=== PATIENT | male | born 1965 ===

== ENCOUNTER 2020-09-24 09:08 | Outpatient (RCR) | payer OTHER, SELFPAY | END 2020-10-30 15:21 | disposition home or self-care (01) | LOC: HO.WCC 09:08 | PROVIDERS: PCP Family Medicine; Visit Provider Surgery | DX: E11.621 Type 2 diabetes mellitus with foot ulcer (principal); L97.522 Non-pressure chronic ulcer of other part of left foot with fat layer exposed; I10 Essential (primary) hypertension; Z79.4 Long term (current) use of insulin; Z79.899 Other long term (current) drug therapy | CPT/HCPCS: 11042; 99212 ==

== ENCOUNTER 2020-11-18 10:01 | Outpatient (REF) | payer OTHER, SELFPAY | END 2020-11-18 10:02 | disposition home or self-care (01) | LOC: HO.LAB 10:01 | PROVIDERS: Visit Provider Internal Medicine | DX: Z20.822 Contact with and (suspected) exposure to COVID-19 (principal) | CPT/HCPCS: 36415; C9803; U0003; U0005 ==

== ENCOUNTER 2021-05-24 20:51 | Inpatient (IN) | payer OTHER, SELFPAY ==
--- NOTE | ~2021-05-24 | MR_ITS ---
EXAMINATION: MR FOOT WITHOUT AND WITH CONTRAST, RIGHT CLINICAL INFORMATION: Right 1st toe osteomyelitis. COMPARISON: X-ray 05/24/2021 TECHNIQUE: MRI in a high-field magnet without contrast. 10 mL Gadavist. FINDINGS: Soft tissue swelling of the 1st toe, with suspected plantar soft tissue ulceration. There is subcutaneous edema and cellulitis present. No fluid collection or abscess is seen. There is abnormal T2 hyperintense signal and enhancement in the 1st distal phalanx. Foci of low T1 signal in the tip of the phalanx and the plantar aspect of the phalanx. Findings are suspicious for osteomyelitis. No significant 1st IP joint effusion. No additional areas of osteomyelitis identified. Mild 1st MTP arthritis. Dorsal foot soft tissue swelling, subcutaneous edema and/or cellulitis. Mild flexor hallucis longus peritendinitis/tenosynovitis in the midfoot. Edema in the intrinsic muscles of the foot, commonly seen with diabetes. MR/MR foot RT wo/w con IMPRESSION: Abnormal findings suspicious for osteomyelitis of the 1st distal phalanx. First toe soft tissue swelling, edema and cellulitis. No evidence of soft tissue abscess. Mild flexor hallucis longus peritendinitis/tenosynovitis in the midfoot. Additional findings and details, as above.
--- NOTE | ~2021-05-24 | XR_ITS ---
EXAMINATION: XR TOES, RIGHT CLINICAL INFORMATION: Wound COMPARISON: None TECHNIQUE: 3 views of the right toes were obtained. FINDINGS: Soft tissue ulceration near the tip of the great toe. No destructive bony changes to suggest osteomyelitis. XR/XR toe RT min 2V IMPRESSION: Soft tissue swelling, ulceration. No fracture or osteolysis.
[2021-05-24 20:56] VITALS: BP 203/87; PULSE 100; RESP 18; TEMP 36.6; O2SAT 98; BMI 34.9
--- NOTE | 2021-05-24 23:31 | PC.NURSE ---
PT TO ROOM WITH C/O PAIN TO GREAT TOE ON RIGHT FOOT. PT C/O THROBBING PAIN . PT ALERT, RESPIRATIONS EASY, N/L. SKIN W/D. SCOW HAND IN ROOM FOR EVAL WITH APPOINTMENT COORDINATOR.
--- NOTE | 2021-05-24 23:46 | ED.SKABFB ---
HPI - Skin/Abscess/Foreign Bdy General Chief complaint: Skin/Abscess/Foreign Body Stated complaint: toe inj Time Seen by Provider: 05/24/21 23:17 Source: patient and aerial photograph interpreter Mode of arrival: ambulatory Limitations: no limitations and language barrier History of Present Illness HPI narrative: 56-year-old male insulin-dependent diabetic here with complaints of wound to the left great toe for 3 weeks. Patient tells me he 1st noticed the ulceration 3 weeks ago. There was no injury or trauma. He was seen at [facility] in prescribe doxycycline for 10 days. He tells me he did notice some improvement in the wound with taking this but when the antibiotics completed he started to have pain, redness and swelling. He reports for the last 1 week he has had increasing redness, pain, swelling with discoloration to the distal tip of the toe. He denies any fevers or chills. He tells me his blood sugars have been running ?high?. Related Data Allergies Allergy/AdvReac Type Severity Reaction Status Date / Time ibuprofen Allergy Unknown stomach Verified 03/12/13 00:00 upset Seafood Allergy Intermediate RASH Uncoded 06/19/20 14:46 shell fish Allergy Unknown Uncoded 08/02/19 00:00 Review of Systems Review of Systems: Yes all other systems are reviewed and are negative Constitutional: Constitutional: Reports no additional constitutional complaints, Denies body ache(s), Denies chills, Denies fever(s), Denies headache(s) and Denies weakness Eyes: Eyes: Reports no additional eye complaints and Denies change in vision ENT: Reports system reviewed and no additional complaints, except as documented, Denies dizziness, Denies headache(s), Denies nasal congestion, Denies nasal discharge and Denies neck pain Cardiovascular: Cardiovascular: Reports no additional cardiovascular complaints, Denies chest pain, Denies leg edema and Denies dyspnea Respiratory: Respiratory: Reports no additional respiratory complaints, Denies cough and Denies dyspnea Gastrointestinal: Gastrointestinal: Reports no additional gastrointestinal complaints, Denies abdominal pain, Denies diarrhea, Denies nausea and Denies vomiting Genitourinary: Genitourinary: Denies urinary incontinence Musculoskeletal: Musculoskeletal: Reports no additional musculoskeletal complaints, Denies back pain, Denies arthralgias, Denies joint swelling, Denies neck pain, Denies numbness and Denies tingling Integumentary/Breasts: Skin/Breast: Reports system reviewed and no additional complaints, except as docu, Reports swelling, Reports erythema, Denies rash and Reports wounds Neurologic: Reports system reviewed and no additional complaints, except as documented, Denies Abnormal speech present, Denies dizziness, Denies headache(s), Denies numbness, Denies tingling and Denies weakness PMFSH Past Medical History Attestation statement: The following information was validated with the patient. Source: old records reviewed and nursing notes reviewed Medical History Asthma Diabetes HLD (hyperlipidemia) HTN (hypertension) Social History Social History Advance Directives: No Advance Directives Information Provided: No Physical Exam Vital Signs: Vital Signs: Last Vital Signs Temp 97.9 F 05/24/21 20:56 Pulse 100 05/24/21 20:56 Resp 18 05/24/21 20:56 BP 177/82 H 05/25/21 01:24 Pulse Ox 98 05/24/21 20:56 Body Mass Index 34.9 Const: General: cooperative, healthy appearing, comfortable and no acute distress Orientation/consciousness: patient oriented x3 Limitations: no limitations HENMT: Head: Yes normal to inspection Ears: hearing grossly normal bilaterally General nose exam: Normal external nose present Face and sinus: Yes normal facial exam Mouth: Normal oral and palatal mucosa present Throat: Yes posterior oropharynx normal Eyes: General: appearance normal, both eyes and all related structures Pupils: Equal, round and reactive pupils present Neck: Neck: Yes normal visual inspection Chest: Chest palpation & inspection: normal inspection of the chest Resp: Effort & Inspection: normal respiratory effort Auscultation: clear to auscultation bilaterally Cardio: Rate: regular rate Rhythm: regular rhythm Peripheral pulses: Peripheral pulses 2+ throughout GI: Inspection: Yes normal to inspection Palpation (GI): Soft to palpation and nontender Auscultation: normal bowel sounds Back/Spine/Pelvis: Thoracic/Lumbar Spine: thoracic and lumbar spine normal to inspection Skin: General skin exam: no rashes or lesions noted Neuro: General: patient oriented x3, no focal motor deficits and normal sensation to monofilament Cranial nerves: Yes Equal, round and reactive pupils present Cognition (Neuro): normal cognition Speech: No Abnormal speech present Gait exam (Neuro): Normal gait present Motor exam (neuro): 5/5 motor strength present throughout Extrem: Other: +DP/PT pulses. General: Yes normal to inspection Course Course Course Narrative: 56-year-old male with insulin-dependent diabetes here with wound to the great toe worsening despite completing dose of oral doxycyline with increasing redness, swelling, discoloration. Will need labs, x-ray. At this time infection is suspected. Antibiotics ordered. 0120-Spoke to Dr Cuello from medicine team who accepted admission. Mild hypertension-asymptomatic. Patient missed his nighttime dose of Cozaar. This was ordered. Nursing to follow. MDM - Skin/Abscess/Foreign Bdy Medical Records Attestation: I reviewed the patient's medical records. Lab Data Attestation: I reviewed the patient's lab results. Result diagrams: 05/24/21 23:45 05/24/21 23:45 Labs: Lab Results 05/24/21 05/24/21 05/24/21 Range/Units 23:45 23:45 23:45 WBC 10.0 (4.8-10.8) X10*3/uL RBC 4.18 L (4.60-5.80) X10*6/uL Hgb 12.5 L (14.0-18.0) g/dl Hct 36.8 L (42-52) % MCV 88.0 (80-98) fL MCH 29.9 (27.0-33.0) pg MCHC 34.0 (31.0-36.0) g/dl RDW 12.8 (11.0-16.0) % Plt Count 264 (160-400) X10*3/uL MPV 10.8 (9.4-12.4) fL Immature Gran % (Auto) 0.5 H (0.0-0.4) % Neut % (Auto) 54.9 (45-73) % Lymph % (Auto) 33.2 (20-40) % [place] % (Auto) 9.7 (2-11) % Eos % (Auto) 1.4 (0-4) % Baso % (Auto) 0.3 (0-2) % Lymph # (Auto) 3.3 (1.2-4.9) X10*3/uL [place] # (Auto) 1.0 (0.1-1.2) X10*3/uL Eos # (Auto) 0.1 (0.0-0.4) X10*3/uL Baso # (Auto) 0.0 (0.0-0.2) X10*3/uL Abs Immat Gran (auto) 0.05 H (0.00-0.03) X10*3/uL Absolute Neuts (auto) 5.5 (2.0-8.3) X10*3/uL Absolute Nucleated RBC 0.000 (0.0-0.012) X10*3/uL Nucleated RBC % (auto) 0.0 (0.0-0.2) /100WBC Sodium 137 (135-145) mmol/L Potassium 4.2 (3.3-5.1) mmol/L Chloride 98 (96-108) mmol/L Carbon Dioxide 30 H (22-29) mmol/L Anion Gap 13 (12-20) BUN 25 H (9-16) mg/dL Creatinine 1.34 (0.5-1.4) mg/dL Estim Creat Clear Calc 82.6 Estimated GFR 55 Random Glucose 251 H (60-115) mg/dL Lactic Acid 1.6 (0.5-2.0) mmol/L Calcium 10.0 (8.4-10.2) mg/dL Total Bilirubin 0.3 (0.0-1.0) mg/dL Direct Bilirubin < 0.2 (0.0-0.5) mg/dL AST 29 (5-37) U/L ALT 39 (0-40) U/L Alkaline Phosphatase 144 H (39-117) U/L Total Protein 7.6 (6.5-8.0) g/dL Albumin 4.2 (3.5-5.0) g/dL COVID-19 (YAZMIN) (Negative) COVID-19 Clin Com 05/24/21 Range/Units 23:45 WBC (4.8-10.8) X10*3/uL RBC (4.60-5.80) X10*6/uL Hgb (14.0-18.0) g/dl Hct (42-52) % MCV (80-98) fL MCH (27.0-33.0) pg MCHC (31.0-36.0) g/dl RDW (11.0-16.0) % Plt Count (160-400) X10*3/uL MPV (9.4-12.4) fL Immature Gran % (Auto) (0.0-0.4) % Neut % (Auto) (45-73) % Lymph % (Auto) (20-40) % [place] % (Auto) (2-11) % Eos % (Auto) (0-4) % Baso % (Auto) (0-2) % Lymph # (Auto) (1.2-4.9) X10*3/uL [place] # (Auto) (0.1-1.2) X10*3/uL Eos # (Auto) (0.0-0.4) X10*3/uL Baso # (Auto) (0.0-0.2) X10*3/uL Abs Immat Gran (auto) (0.00-0.03) X10*3/uL Absolute Neuts (auto) (2.0-8.3) X10*3/uL Absolute Nucleated RBC (0.0-0.012) X10*3/uL Nucleated RBC % (auto) (0.0-0.2) /100WBC Sodium (135-145) mmol/L Potassium (3.3-5.1) mmol/L Chloride (96-108) mmol/L Carbon Dioxide (22-29) mmol/L Anion Gap (12-20) BUN (9-16) mg/dL Creatinine (0.5-1.4) mg/dL Estim Creat Clear Calc Estimated GFR Random Glucose (60-115) mg/dL Lactic Acid (0.5-2.0) mmol/L Calcium (8.4-10.2) mg/dL Total Bilirubin (0.0-1.0) mg/dL Direct Bilirubin (0.0-0.5) mg/dL AST (5-37) U/L ALT (0-40) U/L Alkaline Phosphatase (39-117) U/L Total Protein (6.5-8.0) g/dL Albumin (3.5-5.0) g/dL COVID-19 (YAZMIN) Negative (Negative) COVID-19 Clin Com See Note Imaging Data right toe x-ray: Attestation: I personally reviewed and interpreted this imaging study as follows: Radiologist's impression: EXAMINATION: XR TOES, RIGHT CLINICAL INFORMATION: Wound COMPARISON: None TECHNIQUE: 3 views of the right toes were obtained. FINDINGS: Soft tissue ulceration near the tip of the great toe. No destructive bony changes to suggest osteomyelitis. XR/XR toe RT min 2V IMPRESSION: Soft tissue swelling, ulceration. ? No fracture or osteolysis. Discharge Plan Discharge Clinical Impression: Diabetic ulcer of toe Patient Disposition: Admitted As Inpatient
[2021-05-25] VITALS (8 sets, daily range): BP systolic 150–177; BP diastolic 79–102; PULSE 94–108; RESP 16–18; TEMP 36.6–36.8; O2SAT 95–99; BMI 34.0
[2021-05-25 00:03] LABS: Basophils Percent Auto 0.3 % (0-2); Eosinophils Absolute Auto 0.1 X10*3/uL (0.0-0.4); Eosinophils Percent Auto 1.4 % (0-4); Hematocrit 36.8 % (42-52); Hemoglobin 12.5 g/dl (14.0-18.0); Imm Gran Abs Auto 0.05 X10*3/uL (0.00-0.03); Imm Gran Pct Auto 0.5 % (0.0-0.4); Lymphocytes Absolute Auto 3.3 X10*3/uL (1.2-4.9); Lymphocytes Percent Auto 33.2 % (20-40); MANUAL DIFF FLAG NO; Mean Corpuscular Hemoglobin 29.9 pg (27.0-33.0); Mean Platelet Volume 10.8 fL (9.4-12.4); Monocytes Percent Auto 9.7 % (2-11); Neutrophils Absolute Auto 5.5 X10*3/uL (2.0-8.3); Neutrophils Percent Auto 54.9 % (45-73); Platelet Count 264 X10*3/uL (160-400); Red Blood Count 4.18 X10*6/uL (4.60-5.80); Red Cell Distribution Width 12.8 % (11.0-16.0)
[2021-05-25] MEDS: vancomycin HCL 1,000 MG, vancomycin HCL 750 MG in 0.9 % Sodium Chloride 500 ML 267.5 MG IV (00:11)
[2021-05-25] MEDS: Piperacillin Sodium/Tazobactam 3.375 GM in 0.9 % Sodium Chloride 50 ML IV ×4 (00:13→22:48)
[2021-05-25 00:18] LABS: Lactic Acid 1.6 mmol/L (0.5-2.0)
--- NOTE | 2021-05-25 00:22 | PC.NURSE ---
TELEPHONE CLEANER AT BEDSIDE FOR EVAL. IV PLACED TO RAC, LABS DRAWN TO LAB. PT MEDICATED PER EMAR. VS OBTAINED.
[2021-05-25 00:24] LABS: COVID-19 Test Negative (Negative)
--- NOTE | 2021-05-25 00:28 | PC.NURSE ---
COVID SWAB OBTAINED TO LAB.
[2021-05-25 00:31] LABS: Alanine Aminotransferase 39 U/L (0-40); Albumin Level 4.2 g/dL (3.5-5.0); Alkaline Phosphatase 144 U/L (39-117); Anion Gap 13 (12-20); Aspartate Amino Transferase 29 U/L (5-37); Bilirubin Direct < 0.2 mg/dL (0.0-0.5); Bilirubin Total 0.3 mg/dL (0.0-1.0); Blood Urea Nitrogen 25 mg/dL (9-16); Carbon Dioxide 30 mmol/L (22-29); Chloride 98 mmol/L (96-108); Creatinine Clr Calc Pharmacy 82.6; Estimated Glomerular Filt Rate 55; Glucose Random 251 mg/dL (60-115); Potassium 4.2 mmol/L (3.3-5.1); Sodium 137 mmol/L (135-145); Total Protein 7.6 g/dL (6.5-8.0)
[2021-05-25] MEDS: Losartan Potassium 50 MG TABLET PO (01:46)
--- NOTE | 2021-05-25 01:50 | PC.NURSE ---
HOSPITALIST IN ROOM WITH SOUVENIR ASSEMBLER FOR POSSIBLE ADMISSION. PT DENIES PAIN AT THIS TIME.
--- NOTE | 2021-05-25 02:45 | P.HPHOSP_ITS ---
History of Present Illness Date of Service: 05/25/21 Chief Complaint: Right 1st toe wound 56-year-old M[employer] [place] male with history of diabetes mellitus (insulin dependent), diabetic neuropathy, asthma, hyperlipidemia, hypertension, who presented with worsening right great toe ulcer/infection. History is from patient (using insurance biller) and from ED notes. Patient endorses to me that he stubbed his toe about 20 days ago on the concrete, and ever since has been dealing with a right 1st toe the ulcer. He states that it is not very painful spot, possibly secondary to his diabetic n europathy. He was seen by emergency medical center in the past, and was started on a 10 day course of doxycycline, which seemed to help a little, but when the antibiotic course was completed, his symptoms continued to worsen. He describes increasing redness, pain and swelling. Otherwise, he denies systemic features such as fevers, chills, nausea, vomiting, chest pain, shortness of breath, abdom inal pain. In the ED, vitals were significant for blood pressure as high as 203/87, otherwise vitals are unremarkable. Labs were significant for the following: Glucose 251, alkaline phosphatase 144, otherwise labs are unremarkable. X-ray of the right foot revealed soft tissue swelling, ulceration, no fracture or osteolysis. However, on physical exam, it appears that he can see the bone. The patient was started on IV vancomycin and IV Zosyn. He is being admitted for right great toe diabetic ulcer, likely osteomyelitis. Review of Systems Review of Systems: Constitutional: ?No Weight Change, No Fever, No Chills, No Night Sweats, No Fatigue, No Malaise ENT/Mouth: ?No Hearing Changes, No Ear Pain, No Nasal Congestion, No Sinus Pain, No Hoarseness, No sore throat, No Rhinorrhea, No Swallowing Difficulty Eyes: ?No Eye Pain, No Swelling, No Redness, No Discharge, No Vision Changes Cardiovascular: ?No Chest Pain, No SOB, No Orthopnea, No Claudication, No Edema, No Palpitations Respiratory: ?No Cough, No Sputum, No Wheezing, No Smoke Exposure, No Dyspnea on Exertion, No Dyspnea Gastrointestinal: ?No Nausea, No Vomiting, No Diarrhea, No Constipation, No Pain, No Heartburn, No Anorexia, No Dysphagia, No Hematochezia, No Melena, No Jaundice Genitourinary: ?No Dysuria, No Urinary Frequency, No Hematuria, No Flank Pain Musculoskeletal: ?Right great toe with ulcer, pain, swelling. Otherwise, no Joint Swelling, No Joint Stiffness, No Back Pain, No Neck Pain Skin: ?Except for right great toe lesion (see musculoskeletal above), No Skin Lesions, No Pruritis Neuro: ?No Weakness, No Numbness, No Paresthesias, No Loss of Consciousness, No Syncope, No Dizziness, No Headache, No Coordination Changes, No Recent Falls Psych: ?No Anxiety/Panic, No Depression, No Insomnia, No Personality Changes, No Delusions, No Suicidal Ideation /Homicidal Ideation /Auditory Hallucinations /Visual Hallucinations Heme/Lymph: ?No Bruising, No Bleeding, No Transfusions History, No Lymphadenopathy Endocrine: ?No Polyuria, No Polydipsia, No Temperature Intolerance [facility] Medical History Asthma Diabetes HLD (hyperlipidemia) HTN (hypertension) Pertinent family history: Father and mother both had hypertension, diabetes. Surgical History H/O exploratory laparotomy Social History Advance Directives: No Advance Directives Information Provided: No Meds Allergies Allergy/AdvReac Type Severity Reaction Status Date / Time ibuprofen Allergy Unknown stomach Verified 03/12/13 00:00 upset Seafood Allergy Intermediate RASH Uncoded 06/19/20 14:46 shell fish Allergy Unknown Uncoded 08/02/19 00:00 Active Medications: Current Medications Generic Name Dose Route Start Last Admin Trade Name Bravoq PRN Reason Stop Dose Admin Acetaminophen 650 mg 05/25/21 02:36 Acetaminophen 325 Mg Tablet PO Q6H PRN Pain, Mild (Pain Scale 1-3) Hydrocodone Bitart/Acetaminophen 1 tab 05/25/21 02:36 Hydrocodone Bit/Acetam 5/325 Tablet PO Q4H PRN Pain, Moderate (Pain Scale 4-6 Dextrose 25 gm 05/25/21 02:40 Dextrose 50 % 25 Gm/50 Ml Vial IVPUSH Q15M PRN per Hypoglycemia Standing Ord. Protocol Enoxaparin Sodium 40 mg 05/25/21 02:45 Enoxaparin Sodium 40 Mg/0.4 Ml Syringe SUBCUT Q24H [facility] Glucose 15 gm 05/25/21 02:40 Glucose Gel 15 Gm Gel..Gram. PO Q15M PRN per Hypoglycemia Standing Ord. Protocol Ceftriaxone Sodium 2 gm/ 50 mls @ 100 mls/hr 05/25/21 02:45 Sodium Chloride IV Q24H [facility] Insulin Glargine 55 unit 05/25/21 21:00 Insulin Glargine,Hum.Rec.Anlog 100 Unit/Ml 10 Ml Vial SUBCUT BEDTIME [facility] Insulin Human Lispro 0 unit 05/25/21 07:30 Insulin Lispro 100 Unit/Ml 3 Ml Vial SUBCUT QIDACHS [facility] Protocol Pharmacy Consult 1 each 05/24/21 23:39 Consult Rx Perform Med Rec MISCELLANE ONCE PRN Consult order Pharmacy Consult 1 each 05/24/21 23:51 Consult Rx Vancomycin Dosing MISCELLANE DAILY PRN Consult order Pharmacy Consult 1 each 05/25/21 02:42 Consult Rx Vancomycin Dosing MISCELLANE DAILY PRN Consult order Sodium Chloride 3 ml 05/25/21 08:00 0.9 % Sodium Chloride Flush 3 Ml Syringe IV[facility]SH [facility] Home Medications Medication Instructions Recorded Confirmed Last Taken Type aspirin 81 mg tablet,delayed 1 tab PO DAILY 05/25/21 05/25/21 Unknown History release atorvastatin 40 mg tablet 1 tab PO BEDTIME 05/25/21 05/25/21 Unknown History baclofen 20 mg tablet 1 tab PO TID 05/25/21 05/25/21 Unknown History betamethasone dipropionate 0.05 % 0.05 ea TOPICAL DAILY 05/25/21 05/25/21 Unknown History topical ointment cholecalciferol (vitamin D3) 50 1 cap PO DAILY 05/25/21 05/25/21 Unknown History mcg (2,000 unit) capsule fluoxetine 20 mg capsule 2 cap PO QAM 05/25/21 05/25/21 Unknown History gabapentin 300 mg capsule 2 cap PO TID 05/25/21 05/25/21 Unknown History hydrochlorothiazide 25 mg tablet 1 tab PO DAILY 05/25/21 05/25/21 Unknown History loratadine 10 mg tablet 1 tab PO DAILY 05/25/21 05/25/21 Unknown History losartan 100 mg tablet 1 tab PO DAILY 05/25/21 05/25/21 Unknown History metformin 500 mg tablet 500 mg PO BID 05/25/21 05/25/21 Unknown History omeprazole 20 mg capsule,delayed 40 cap PO DAILY 05/25/21 05/25/21 Unknown History release Physical Exam Vital Signs and Narrative: Vital Signs: Last Vital Signs Temp 97.9 F 05/24/21 20:56 Pulse 98 05/25/21 01:48 Resp 18 05/25/21 01:48 BP 176/102 H 05/25/21 01:48 Pulse Ox 99 05/25/21 01:48 Body Mass Index 34.9 GENERAL APPEARANCE: Well developed, well nourished, alert and cooperative, and appears to be in no acute distress. HEAD: Normocephalic. EYES: PERRL, EOMI. Vision is grossly intact. EARS: Hearing grossly intact. NOSE: No nasal discharge. THROAT: Oral cavity and pharynx normal. No inflammation, swelling, exudate, or lesions. NECK: Neck supple, non-tender without lymphadenopathy, masses or thyromegaly. CARDIAC: Normal S1 and S2. No S3, S4 or murmurs. Rhythm is regular. There is no peripheral edema, cyanosis or pallor. Extremities are warm and well perfused. LUNGS: Clear to auscultation and percussion without rales, rhonchi, wheezing or diminished breath sounds. ABDOMEN: Positive bowel sounds. Soft, nondistended, nontender. No guarding or rebound. No masses. MUSKULOSKELETAL: Right great toe with a 2 cm ulcer at the tip, it appears that he can see the bone. Otherwise, examination of both shoulders, elbows, wrists, ankles, knees, legs, and hips reveals normal range of motion, normal sensation without tenderness, swelling, discoloration, weakness or deformity. Peripheral pulses intact. NEUROLOGICAL: CN II-XII intact. Strength and sensation symmetric and intact throughout. SKIN: Except for right great toe, the skin is normal color, texture and turgor PSYCHIATRIC: The mental examination revealed the patient was oriented to person, place, and time. The patient was able to demonstrate good judgement and reason, without hallucinations, abnormal affect or abnormal behaviors during the examination. Results Labs CBC and Chem 7: 05/24/21 23:45 05/24/21 23:45 Labs: Laboratory Results - last 24 hr 05/24/21 05/24/21 05/24/21 23:45 23:45 23:45 MCV 88.0 MCH 29.9 MCHC 34.0 RDW 12.8 Plt Count 264 MPV 10.8 Immature Gran % (Auto) 0.5 H Neut % (Auto) 54.9 Lymph % (Auto) 33.2 [place] % (Auto) 9.7 Eos % (Auto) 1.4 Baso % (Auto) 0.3 Lymph # (Auto) 3.3 [place] # (Auto) 1.0 Eos # (Auto) 0.1 Baso # (Auto) 0.0 Abs Immat Gran (auto) 0.05 H Absolute Neuts (auto) 5.5 Absolute Nucleated RBC 0.000 Nucleated RBC % (auto) 0.0 Anion Gap 13 Estim Creat Clear Calc 82.6 Estimated GFR 55 Random Glucose 251 H Lactic Acid 1.6 Calcium 10.0 Total Bilirubin 0.3 Direct Bilirubin < 0.2 AST 29 ALT 39 Alkaline Phosphatase 144 H Total Protein 7.6 Albumin 4.2 COVID-19 (YAZMIN) COVID-19 Clin Com 05/24/21 23:45 MCV MCH MCHC RDW Plt Count MPV Immature Gran % (Auto) Neut % (Auto) Lymph % (Auto) [place] % (Auto) Eos % (Auto) Baso % (Auto) Lymph # (Auto) [place] # (Auto) Eos # (Auto) Baso # (Auto) Abs Immat Gran (auto) Absolute Neuts (auto) Absolute Nucleated RBC Nucleated RBC % (auto) Anion Gap Estim Creat Clear Calc Estimated GFR Random Glucose Lactic Acid Calcium Total Bilirubin Direct Bilirubin AST ALT Alkaline Phosphatase Total Protein Albumin COVID-19 (YAZMIN) Negative COVID-19 Clin Com See Note Imaging Radiologist's Impressions: Impressions Toe X-Ray 05/24/21 21:07 IMPRESSION: Soft tissue swelling, ulceration. No fracture or osteolysis. Assessment and Plan (1) Osteomyelitis: Status: Acute (2) Diabetic ulcer of toe: Status: Acute (3) Diabetes: Status: Acute (4) Asthma: Status: Acute (5) HTN (hypertension): Status: Acute (6) HLD (hyperlipidemia): Status: Acute Osteomyelitis: -Likely that the right great toe ulcer with osteomyelitis, given that it seems that you can see down to the bone -s/p status post IV vancomycin and IV Zosyn in the ED. -I started the patient on IV vancomycin and IV ceftriaxone (discontinue the Zosyn) -general surgery consult placed -infectious disease consult placed -I did endorse to the patient that he needs to check his feet every day, because of his neuropathy and increased risk of ulcers -MRI of the right lower extremity with contrast ordered -CRP lab ordered Diabetic ulcer of the toe: -as per above Diabetes: -at home, patient takes Levemir 65 units q.p.m.. I will hold this. -start the patient on Lantus 55 units q.p.m. -insulin sliding scale with blood sugar checks Asthma: -continue home medications Hypertension: -poorly controlled -continue home medications -started the patient on IV labetalol 10 mg q.1 hour p.r.n. for systolic blood pressure over 160 and heart rate over 70 FEN: Cardiac diet CODE STATUS: FULL CODE DISPO: Admit to Inpatient Quality Stroke Does the patient have a stroke diagnosis?: No VTE Prior VTE?: No VTE Risk Level:: Medical - moderate - high VTE Device Contraindication: Treatment Not Indicated VTE Drug Contraindication: N/A - Med Ordered
[2021-05-25] MEDS: cefTRIAXone sodium 2 GM in 0.9 % Sodium Chloride 50 ML IV (04:00)
[2021-05-25] MEDS: Enoxaparin Sodium 40 MG/0.4 ML SYRINGE SUBCUT (04:00)
--- NOTE | 2021-05-25 04:30 | PC.NURSE ---
PT AWAITING FOR ROOM ASSIGNMENT. MED REC DONE.
--- NOTE | 2021-05-25 04:44 | PC.NURSE ---
VS - WNL. PT RESTING IN STRETCHER IN NAD. PT AWAITING FOR ROOM ASSIGNMENT.
[2021-05-25 07:09] LABS: MANUAL DIFF FLAG NO
[2021-05-25 07:11] LABS: Glucose, Whole Blood 266 mg/dL (60-115)
[2021-05-25 07:20] LABS: Basophils Percent Auto 0.4 % (0-2); Eosinophils Absolute Auto 0.1 X10*3/uL (0.0-0.4); Eosinophils Percent Auto 0.6 % (0-4); Hematocrit 35.8 % (42-52); Hemoglobin 12.1 g/dl (14.0-18.0); Imm Gran Abs Auto 0.06 X10*3/uL (0.00-0.03); Imm Gran Pct Auto 0.6 % (0.0-0.4); Lymphocytes Absolute Auto 2.8 X10*3/uL (1.2-4.9); Lymphocytes Percent Auto 25.5 % (20-40); Mean Corpuscular HGB Conc 33.8 g/dl (31.0-36.0); Mean Corpuscular Hemoglobin 29.6 pg (27.0-33.0); Mean Corpuscular Volume 87.5 fL (80-98); Monocytes Absolute Auto 0.9 X10*3/uL (0.1-1.2); Monocytes Percent Auto 8.7 % (2-11); Neutrophils Percent Auto 64.2 % (45-73); Platelet Count 263 X10*3/uL (160-400); Red Blood Count 4.09 X10*6/uL (4.60-5.80); Red Cell Distribution Width 12.6 % (11.0-16.0); White Blood Count 10.8 X10*3/uL (4.8-10.8)
--- NOTE | 2021-05-25 07:30 | PC.NURSE ---
PT OOB TO BR, AMB WITHOUT DIFF. DR WRIGHT IN TO SEE PT. MRI SCREENING FORM DONE
--- NOTE | 2021-05-25 07:31 | P.CONGS_ITS ---
History of Present Illness Consult details Consult date: 05/25/21 Requesting physician: Brayan Cuello Narrative: 56-year-old male patient with history of diabetes mellitus presenting with a right great toe ulcer. This began approximately 2 weeks ago after stubbing his toe. He was initially placed on oral antibiotics for 10 days with some improvement but this began to increase in swelling after completing the antibiotics. He reports some discharge and pain associated with the lesion. He denies a previous history of total serration. He reports seen bone at the base of the wound. He denies fever or chills. Review of Systems Review of Systems: Yes all other systems are reviewed and are negative Constitutional: Constitutional: Denies chills, Denies fatigue, Denies fever(s) and Denies malaise Cardiovascular: Cardiovascular: Denies chest pain, Reports pedal edema and D enies irregular heart rhythm Respiratory: Respiratory: Denies cough and Denies hemoptysis Endocrine: Endocrine: Denies fatigue PMFSH Past Medical History Medical History Asthma Diabetes HLD (hyperlipidemia) HTN (hypertension) Surgical History Surgical History H/O exploratory laparotomy Social History Social History Advance Directives: No Advance Directives Information Provided: No Meds Allergies Allergy/AdvReac Type Severity Reaction Status Date / Time ibuprofen Allergy Unknown stomach Verified 03/12/13 00:00 upset Seafood Allergy Intermediate RASH Uncoded 06/19/20 14:46 shell fish Allergy Unknown Uncoded 08/02/19 00:00 Active Medications: Current Medications Generic Name Dose Route Start Last Admin Trade Name Freq PRN Reason Stop Dose Admin Acetaminophen 650 mg 05/25/21 02:36 Acetaminophen 325 Mg Tablet PO Q6H PRN Pain, Mild (Pain Scale 1-3) Hydrocodone Bitart/Acetaminophen 1 tab 05/25/21 02:36 Hydrocodone Bit/Acetam 5/325 Tablet PO Q4H PRN Pain, Moderate (Pain Scale 4-6 Aspirin 81 mg 05/25/21 09:00 Aspirin Enteric Coated 81 Mg Tablet. PO DAILY [facility]AN[facility]YAM Atorvastatin Calcium 40 mg 05/25/21 21:00 Atorvastatin Calcium 40 Mg Tablet PO BEDTIME [facility] Baclofen 20 mg 05/25/21 09:00 Baclofen 20 Mg Tablet PO TID [facility] Dextrose 25 gm 05/25/21 02:40 Dextrose 50 % 25 Gm/50 Ml Vial IVPUSH Q15M PRN per Hypoglycemia Standing Ord. Protocol Enoxaparin Sodium 40 mg 05/25/21 06:00 05/25/21 04:00 Enoxaparin Sodium 40 Mg/0.4 Ml Syringe SUBCUT 40 mg Q24H [facility] Administration Fluoxetine HCl 40 mg 05/25/21 09:00 Fluoxetine Hcl 20 Mg Capsule PO DAILY [facility] Gabapentin 600 mg 05/25/21 09:00 Gabapentin 300 Mg Capsule PO TID [facility] Glucose 15 gm 05/25/21 02:40 Glucose Gel 15 Gm Gel..Gram. PO Q15M PRN per Hypoglycemia Standing Ord. Protocol Hydrochlorothiazide 25 mg 05/25/21 09:00 Hydrochlorothiazide 25 Mg Tablet PO DAILY [facility] Protocol Ceftriaxone Sodium 2 gm/ 50 mls @ 100 mls/hr 05/25/21 03:30 05/25/21 04:00 Sodium Chloride IV 100 mls/hr Q24H [facility] Administration Vancomycin HCl 1,000 mg/ 270 mls @ 270 mls/hr 05/25/21 12:00 Sodium Chloride IV Q12H [facility] Insulin Glargine 55 unit 05/25/21 21:00 Insulin Glargine,Hum.Rec.Anlog 100 Unit/Ml 10 Ml Vial SUBCUT BEDTIME [facility] Insulin Human Lispro 0 unit 05/25/21 07:30 Insulin Lispro 100 Unit/Ml 3 Ml Vial SUBCUT QIDACHS [facility] Protocol Labetalol HCl 10 mg 05/25/21 03:54 Labetalol Hcl 100 Mg/20 Ml Vial IVPUSH Q1H PRN Give for SBP > 160 AND HR > 70 Protocol Loratadine 10 mg 05/25/21 09:00 Loratadine 10 Mg Tablet PO DAILY [facility] Losartan Potassium 100 mg 05/25/21 09:00 Losartan Potassium 50 Mg Tablet PO DAILY [facility] Protocol Omeprazole 40 mg 05/25/21 09:00 Omeprazole 40 Mg Capsule.Dr PO DAILY [facility] Pharmacy Consult 1 each 05/25/21 02:42 Consult Rx Vancomycin Dosing MISCELLANE DAILY PRN Consult order Sodium Chloride 3 ml 05/25/21 08:00 0.9 % Sodium Chloride Flush 3 Ml Syringe IVFLUSH QSHIFT [facility] Triamcinolone Acetonide 1 appl 05/25/21 09:00 Triamcinolone Acet 0.5 % Oint 15 Gm Tube TOPICAL DAILY [facility] Vitamin D 50 mcg 05/25/21 09:00 Cholecalciferol (Vitamin D3) 25 Mcg Tablet PO DAILY [facility] Home Medications Medication Instructions Recorded Confirmed Last Taken Type albuterol sulfate 90 mcg/actuation 2 puff PO Q4-6H PRN 05/25/21 05/25/21 Unknown History aerosol inhaler (Ventolin HFA) aspirin 81 mg tablet,delayed 1 tab PO DAILY 05/25/21 05/25/21 Unknown History release atorvastatin 40 mg tablet 1 tab PO BEDTIME 05/25/21 05/25/21 Unknown History baclofen 20 mg tablet 1 tab PO TID 05/25/21 05/25/21 Unknown History betamethasone dipropionate 0.05 % 1 ea TOPICAL DAILY 05/25/21 05/25/21 Unknown History topical ointment cholecalciferol (vitamin D3) 50 1 cap PO DAILY 05/25/21 05/25/21 Unknown History mcg (2,000 unit) capsule fluoxetine 20 mg capsule 2 cap PO QAM 05/25/21 05/25/21 Unknown History fluticasone propionate 50 2 spray INTRANASAL DAILY PRN 05/25/21 05/25/21 Unknown History mcg/actuation nasal spray,suspension gabapentin 300 mg capsule 2 cap PO TID 05/25/21 05/25/21 Unknown History hydrochlorothiazide 25 mg tablet 1 tab PO DAILY 05/25/21 05/25/21 Unknown History insulin detemir U-100 100 unit/mL 70 unit SUBCUT QPM 05/25/21 05/25/21 Unknown History (3 mL) subcutaneous pen (Levemir FlexTouch U-100 Insulin) insulin lispro 100 unit/mL See Rx Instructions .ROUTE .COMPLEX 05/25/21 05/25/21 Unknown History subcutaneous pen (Humalog KwikPen (U-100) Insulin) loratadine 10 mg tablet 1 tab PO DAILY 05/25/21 05/25/21 Unknown History losartan 100 mg tablet 1 tab PO DAILY 05/25/21 05/25/21 Unknown History metformin 500 mg tablet 500 mg PO BID 05/25/21 05/25/21 Unknown History omeprazole 20 mg capsule,delayed 40 cap PO DAILY 05/25/21 05/25/21 Unknown History release Physical Exam Vital Signs: Vital Signs: Last Vital Signs Temp 97.9 F 05/24/21 20:56 Pulse 94 05/25/21 05:53 Resp 18 05/25/21 05:53 BP 150/79 H 05/25/21 05:53 Pulse Ox 98 05/25/21 05:53 Body Mass Index 34.9 Const: General: comfortable Nutritional Appearance: well nourished Orientation/consciousness: patient oriented x3 Limitations: no limitations Neck: Neck: Yes trachea midline, Yes supple and Yes no JVD Resp: Effort & Inspection: normal respiratory effort Skin: General skin exam: no rashes or lesions noted Neuro: General: patient oriented x3 Extrem: Other: Right great toe with distal ulcer with minimal swelling at the proximal phalanx. No erythema, no discharge, no exposed bone. No tenderness to palpation. No other toe/foot ulceration. Ankle/foot/toe images: 1. Site of ulceration Results Labs Result diagrams: 05/25/21 06:54 05/25/21 06:54 Labs: Abnormal lab results 05/24/21 05/24/21 05/25/21 Range/Units 23:45 23:45 07:06 RBC 4.18 L (4.60-5.80) X10*6/uL Hgb 12.5 L (14.0-18.0) g/dl Hct 36.8 L (42-52) % Immature Gran % (Auto) 0.5 H (0.0-0.4) % Abs Immat Gran (auto) 0.05 H (0.00-0.03) X10*3/uL Carbon Dioxide 30 H (22-29) mmol/L BUN 25 H (9-16) mg/dL POC Glucose 266 H (60-115) mg/dL Random Glucose 251 H (60-115) mg/dL Alkaline Phosphatase 144 H (39-117) U/L Short CBC 05/24/21 Range/Units 23:45 WBC 10.0 (4.8-10.8) X10*3/uL Hgb 12.5 L (14.0-18.0) g/dl Hct 36.8 L (42-52) % Plt Count 264 (160-400) X10*3/uL BMP 05/24/21 23:45 Sodium 137 Potassium 4.2 Chloride 98 Carbon Dioxide 30 H BUN 25 H Creatinine 1.34 Calcium 10.0 Liver Function 05/24/21 Range/Units 23:45 Total Bilirubin 0.3 (0.0-1.0) mg/dL Direct Bilirubin < 0.2 (0.0-0.5) mg/dL AST 29 (5-37) U/L ALT 39 (0-40) U/L Alkaline Phosphatase 144 H (39-117) U/L Albumin 4.2 (3.5-5.0) g/dL All other labs normal. Imaging Additional studies: MRI of foot images reviewed, Abnormal findings suspicious for osteomyelitis of the 1st distal phalanx. ? First toe soft tissue swelling, edema and cellulitis. No evidence of soft tissue abscess. ? Mild flexor hallucis longus peritendinitis/tenosynovitis in the midfoot. Assessment and Plan (1) Diabetic ulcer of toe: Status: Acute 56-year-old male patient presenting with a open wound of the right great toe initially treated with oral antibiotics but now developing increased swelling after completion of the antibiotics. He is admitted to the hospital service for IV antibiotics. The patient reports bone at the base of the wound however examination today reveals an ulceration at the tip of the great toe over the distal phalanx on the plantar surface. There is some surrounding callus but no evidence of underlying bone. MRI reveals findings suspicious for osteomyel itis of the 1st distal phalanx. First toe soft tissue swelling, edema and cellulitis. No evidence of soft tissue abscess. Mild flexor hallucis longus peritendinitis/tenosynovitis in the midfoot. No surgical intervention is required at this time. Agree with continuing IV antibiotics and transitioning to oral. Patient may benefit [facility] after discharge. 56-year-old male patient with diabetes presenting Procedures Date of Service Date of Service: 05/25/21
[2021-05-25 07:33] LABS: Anion Gap 16 (12-20); Blood Urea Nitrogen 21 mg/dL (9-16); C Reactive Protein 0.65 mg/dL (< or = 0.50); Calcium 9.5 mg/dL (8.4-10.2); Carbon Dioxide 24 mmol/L (22-29); Chloride 100 mmol/L (96-108); Creatinine Clr Calc Pharmacy 108.5; Estimated Glomerular Filt Rate > 60; Glucose Random 314 mg/dL (60-115); Potassium 4.4 mmol/L (3.3-5.1); Sodium 136 mmol/L (135-145)
[2021-05-25 08:38] LABS: Estimated Average Glucose 301 mg/dL; Hemoglobin A1c % 12.1 %
[2021-05-25] MEDS: FLUoxetine HCl 20 MG CAPSULE 40 MG PO (11:01)
[2021-05-25] MEDS: hydroCHLOROthiazide 25 MG TABLET PO (11:01)
[2021-05-25] MEDS: Omeprazole 40 MG CAPSULE.DR PO (11:02)
[2021-05-25] MEDS: Cholecalciferol (Vitamin D3) 25 MCG TABLET 50 MCG PO (11:02)
[2021-05-25] MEDS: Losartan Potassium 50 MG TABLET 100 MG PO (11:02)
[2021-05-25] MEDS: Aspirin Enteric Coated 81 MG TABLET.DR PO (11:02)
[2021-05-25] MEDS: Baclofen 20 MG TABLET PO ×3 (11:02→22:45)
[2021-05-25] MEDS: Loratadine 10 MG TABLET PO (11:02)
[2021-05-25] MEDS: Gabapentin 300 MG CAPSULE 600 MG PO ×3 (11:03→22:44)
--- NOTE | 2021-05-25 11:11 | PC.NURSE ---
patient a&ox2, lunch order obtained, vss, pt took am meds whole with water, denies pain or discomfort, hospitalist in to speak with patient, will continue to monitor.
[2021-05-25] MEDS: vancomycin HCL 1,250 MG in 0.9 % Sodium Chloride 250 ML 166.67 MG IV (12:12)
[2021-05-25 12:15] LABS: Glucose, Whole Blood 297 mg/dL (60-115)
--- NOTE | 2021-05-25 12:16 | PC.NURSE ---
patient medicated per order
[2021-05-25] MEDS: Insulin Lispro 100 UNIT/ML 3 ML VIAL SUBCUT ×3 (13:37→22:46)
--- NOTE | 2021-05-25 13:39 | PC.NURSE ---
patient a&ox3, pt ate 50% of lunch, medicated per order, will continue to monitor
--- NOTE | 2021-05-25 13:47 | P.CNID_ITS ---
History of Present Illness Data of Consult Service Date: 05/25/21 Requesting physician: Eddie Camarillo Primary Care Provider: DO ANDRA Hernandez Reason for consult: foot infection,left great toe He presents to hospital with left great toe ulcer for 10 days He has been seen at [facility] and has had Doxycycline for 10 days He says area was slightly better with antibiotics He says it then became worse again He says he has increased blood sugar Review of Systems Review of Systems: Yes all other systems are reviewed and are negative [facility] Past Medical History Medical History Asthma Diabetes HLD (hyperlipidemia) HTN (hypertension) Surgical History Surgical History H/O exploratory laparotomy Social History Social History Household Members: Family Alcohol intake: never Patient Tobacco Use Status: Never used Tobacco service: No Current occupational status: disabled Meds Allergies Allergy/AdvReac Type Severity Reaction Status Date / Time ibuprofen Allergy Unknown stomach Verified 03/12/13 00:00 upset Seafood Allergy Intermediate RASH Uncoded 06/19/20 14:46 shell fish Allergy Unknown Uncoded 08/02/19 00:00 Active Medications: Current Medications Generic Name Dose Route Start Last Admin Trade Name Freq PRN Reason Stop Dose Admin Acetaminophen 650 mg 05/25/21 02:36 Acetaminophen 325 Mg Tablet PO Q6H PRN Pain, Mild (Pain Scale 1-3) Hydrocodone Bitart/Acetaminophen 1 tab 05/25/21 02:36 Hydrocodone Bit/Acetam 5/325 Tablet PO Q4H PRN Pain, Moderate (Pain Scale 4-6 Albuterol Sulfate 2 puff 05/25/21 08:09 Albuterol Sulfate 90 Mcg 8 Gm Inhaler INHALE Q4H PRN Shortness Of Breath Aspirin 81 mg 05/25/21 09:00 05/25/21 11:02 Aspirin Enteric Coated 81 Mg Tablet. PO 81 mg DAILY [facility] Administration Atorvastatin Calcium 40 mg 05/25/21 21:00 Atorvastatin Calcium 40 Mg Tablet PO BEDTIME [facility] Baclofen 20 mg 05/25/21 09:00 05/25/21 11:02 Baclofen 20 Mg Tablet PO 20 mg TID [facility] Administration Dextrose 25 gm 05/25/21 02:40 Dextrose 50 % 25 Gm/50 Ml Vial IVPUSH Q15M PRN per Hypoglycemia Standing Ord. Protocol Enoxaparin Sodium 40 mg 05/25/21 06:00 05/25/21 04:00 Enoxaparin Sodium 40 Mg/0.4 Ml Syringe SUBCUT 40 mg Q24H [facility] Administration Fluoxetine HCl 40 mg 05/25/21 09:00 05/25/21 11:01 Fluoxetine Hcl 20 Mg Capsule PO 40 mg DAILY [facility] Administration Fluticasone Propionate 2 spray 05/25/21 08:09 Fluticasone Propionate Nasal 16 Gm [place] NOSTRIL-B DAILY PRN Allergy Symptoms Gabapentin 600 mg 05/25/21 09:00 05/25/21 11:03 Gabapentin 300 Mg Capsule PO 600 mg TID [facility] Administration Glucose 15 gm 05/25/21 02:40 Glucose Gel 15 Gm Gel..Gram. PO Q15M PRN per Hypoglycemia Standing Ord. Protocol Hydrochlorothiazide 25 mg 05/25/21 09:00 05/25/21 11:01 Hydrochlorothiazide 25 Mg Tablet PO 25 mg DAILY [facility] Administration Protocol Piperacillin Sod/Tazobactam 50 mls @ 100 mls/hr 05/25/21 08:15 05/25/21 11:39 Sod 3.375 gm/ Sodium Chloride IV Infused Q6H [facility] Infusion Vancomycin HCl 1,250 mg/ 250 mls @ 166.667 mls/hr 05/25/21 12:00 05/25/21 12:12 Sodium Chloride IV 166.67 mls/hr Q12H [facility] Administration Insulin Glargine 60 unit 05/25/21 21:00 Insulin Glargine,Hum.Rec.Anlog 100 Unit/Ml 10 Ml Vial SUBCUT BEDTIME [facility] Insulin Human Lispro 0 unit 05/25/21 07:30 05/25/21 13:37 Insulin Lispro 100 Unit/Ml 3 Ml Vial SUBCUT 12 unit QIDACHS [facility] Administration Protocol Labetalol HCl 10 mg 05/25/21 03:54 Labetalol Hcl 100 Mg/20 Ml Vial IVPUSH Q1H PRN Give for SBP > 160 AND HR > 70 Protocol Loratadine 10 mg 05/25/21 09:00 05/25/21 11:02 Loratadine 10 Mg Tablet PO 10 mg DAILY [facility] Administration Losartan Potassium 100 mg 05/25/21 09:00 05/25/21 11:02 Losartan Potassium 50 Mg Tablet PO 100 mg DAILY [facility] Administration Protocol Omeprazole 40 mg 05/25/21 09:00 05/25/21 11:02 Omeprazole 40 Mg Capsule. PO 40 mg DAILY [facility] Administration Pharmacy Consult 1 each 05/25/21 02:42 Consult Rx Vancomycin Dosing MISCELLANE DAILY PRN Consult order Sodium Chloride 3 ml 05/25/21 08:00 05/25/21 10:52 0.9 % Sodium Chloride Flush 3 Ml Syringe IVFLUSH Not Given QSHIFT [facility] Triamcinolone Acetonide 1 appl 05/25/21 09:00 05/25/21 12:16 Triamcinolone Acet 0.5 % Oint 15 Gm Tube TOPICAL Not Given DAILY [facility] Vitamin D 50 mcg 05/25/21 09:00 05/25/21 11:02 Cholecalciferol (Vitamin D3) 25 Mcg Tablet PO 50 mcg DAILY [facility] Administration Home Medications Medication Instructions Recorded Confirmed Last Taken Type albuterol sulfate 90 mcg/actuation 2 puff PO Q4-6H PRN 05/25/21 05/25/21 Unknown History aerosol inhaler (Ventolin HFA) aspirin 81 mg tablet,delayed 1 tab PO DAILY 05/25/21 05/25/21 Unknown History release atorvastatin 40 mg tablet 1 tab PO BEDTIME 05/25/21 05/25/21 Unknown History baclofen 20 mg tablet 1 tab PO TID 05/25/21 05/25/21 Unknown History betamethasone dipropionate 0.05 % 1 ea TOPICAL DAILY 05/25/21 05/25/21 Unknown History topical ointment cholecalciferol (vitamin D3) 50 1 cap PO DAILY 05/25/21 05/25/21 Unknown History mcg (2,000 unit) capsule fluoxetine 20 mg capsule 2 cap PO QAM 05/25/21 05/25/21 Unknown History fluticasone propionate 50 2 spray INTRANASAL DAILY PRN 05/25/21 05/25/21 Unknown History mcg/actuation nasal spray,suspension gabapentin 300 mg capsule 2 cap PO TID 05/25/21 05/25/21 Unknown History hydrochlorothiazide 25 mg tablet 1 tab PO DAILY 05/25/21 05/25/21 Unknown History insulin detemir U-100 100 unit/mL 70 unit SUBCUT QPM 05/25/21 05/25/21 Unknown History (3 mL) subcutaneous pen (Levemir FlexTouch U-100 Insulin) insulin lispro 100 unit/mL See Rx Instructions .ROUTE .COMPLEX 05/25/21 05/25/21 Unknown History subcutaneous pen (Humalog KwikPen (U-100) Insulin) loratadine 10 mg tablet 1 tab PO DAILY 05/25/21 05/25/21 Unknown History losartan 100 mg tablet 1 tab PO DAILY 05/25/21 05/25/21 Unknown History metformin 500 mg tablet 500 mg PO BID 05/25/21 05/25/21 Unknown History omeprazole 20 mg capsule,delayed 40 cap PO DAILY 05/25/21 05/25/21 Unknown History release Physical Exam Vital Signs: Vital Signs: Last Vital Signs Temp 98.2 F 05/25/21 11:08 Pulse 96 05/25/21 11:08 Resp 18 05/25/21 11:08 BP 165/94 H 05/25/21 11:08 Pulse Ox 96 05/25/21 11:08 Body Mass Index 34.9 Const: General: cooperative HENMT: Head: Yes normal to inspection Mouth: Normal oral and palatal mucosa present Eyes: General: appearance normal, both eyes and all related structures Resp: Effort & Inspection: normal respiratory effort Cardio: Rate: regular rate Rhythm: regular rhythm GI: Palpation (GI): Soft to palpation and nontender Skin: General skin exam: no rashes or lesions noted Extrem: Other: left great toe erythematous and swollen,ulcer Results Labs CBC & Chem 7: 05/26/21 05:50 05/27/21 07:39 Labs: Short CBC 05/24/21 05/25/21 Range/Units 23:45 06:54 WBC 10.0 10.8 (4.8-10.8) X10*3/uL Hgb 12.5 L 12.1 L (14.0-18.0) g/dl Hct 36.8 L 35.8 L (42-52) % Plt Count 264 263 (160-400) X10*3/uL BMP 05/24/21 05/25/21 23:45 06:54 Sodium 137 136 Potassium 4.2 4.4 Chloride 98 100 Carbon Dioxide 30 H 24 BUN 25 H 21 H Creatinine 1.34 1.02 Calcium 10.0 9.5 Liver Function 05/24/21 Range/Units 23:45 Total Bilirubin 0.3 (0.0-1.0) mg/dL Direct Bilirubin < 0.2 (0.0-0.5) mg/dL AST 29 (5-37) U/L ALT 39 (0-40) U/L Alkaline Phosphatase 144 H (39-117) U/L Albumin 4.2 (3.5-5.0) g/dL Assessment and Plan (1) Osteomyelitis: Status: Acute He has some area of osteomyelitis left distal toe He has unknown infection (2) Diabetic ulcer of toe: Status: Acute Continue Zosyn and Vancomycin for now Await any cultures If no MRSA Ertapenem for six weeks If MRSA Vancomycin
--- NOTE | 2021-05-25 14:35 | PC.NURSE ---
patient a&ox3, no c/o pain or discomfort, ID provider in to see patient, pt currently talking on phone, medicated per order, will continue to monitor.
--- NOTE | 2021-05-25 15:08 | P.PNIM_ITS ---
Subjective Subjective Date of Service: 05/25/21 Interval History: History in [place] R 1st toe redness/swelling. Pain more like electric shocks No fever Review of Systems Review of Systems: Yes all other systems are reviewed and are negative Physical Exam Vital Signs: Vital Signs: Last Vital Signs Temp 98.2 F 05/25/21 11:08 Pulse 96 05/25/21 11:08 Resp 18 05/25/21 11:08 BP 165/94 H 05/25/21 11:08 Pulse Ox 96 05/25/21 11:08 Body Mass Index 34.9 Gen: in no acute distress HEENT: sclera anicteric, moist mucus membranes Neck: supple Lungs: clear to auscultation bilaterally Heart: regular rate and rhythm, no murmurs Abd: soft, non-tender, non-distended Ext: no edema Skin: R great toe with ulcer with proximal erythema + induration Neuro: alert and oriented x3, dense neuropathy of feet bilateraly Psych: appropriate affect Objective Data Current Medications Generic Name Dose Route Start Last Admin Trade Name Bravoq PRN Reason Stop Dose Admin Acetaminophen 650 mg 05/25/21 02:36 Acetaminophen 325 Mg Tablet PO Q6H PRN Pain, Mild (Pain Scale 1-3) Hydrocodone Bitart/Acetaminophen 1 tab 05/25/21 02:36 Hydrocodone Bit/Acetam 5/325 Tablet PO Q4H PRN Pain, Moderate (Pain Scale 4-6 Albuterol Sulfate 2 puff 05/25/21 08:09 Albuterol Sulfate 90 Mcg 8 Gm Inhaler INHALE Q4H PRN Shortness Of Breath Aspirin 81 mg 05/25/21 09:00 05/25/21 11:02 Aspirin Enteric Coated 81 Mg Tablet. PO 81 mg DAILY GHANSHYAM Administration Atorvastatin Calcium 40 mg 05/25/21 21:00 Atorvastatin Calcium 40 Mg Tablet PO BEDTIME GHANSHYAM Baclofen 20 mg 05/25/21 09:00 05/25/21 14:35 Baclofen 20 Mg Tablet PO 20 mg TID GHANSHYAM Administration Dextrose 25 gm 05/25/21 02:40 Dextrose 50 % 25 Gm/50 Ml Vial IVPUSH Q15M PRN per Hypoglycemia Standing Ord. Protocol Enoxaparin Sodium 40 mg 05/25/21 06:00 05/25/21 04:00 Enoxaparin Sodium 40 Mg/0.4 Ml Syringe SUBCUT 40 mg Q24H GHANSHYAM Administration Fluoxetine HCl 40 mg 05/25/21 09:00 05/25/21 11:01 Fluoxetine Hcl 20 Mg Capsule PO 40 mg DAILY GHANSHYAM Administration Fluticasone Propionate 2 spray 05/25/21 08:09 Fluticasone Propionate Nasal 16 Gm [place] NOSTRIL-B DAILY PRN Allergy Symptoms Gabapentin 600 mg 05/25/21 09:00 05/25/21 14:35 Gabapentin 300 Mg Capsule PO 600 mg TID GHANSHYAM Administration Glucose 15 gm 05/25/21 02:40 Glucose Gel 15 Gm Gel..Gram. PO Q15M PRN per Hypoglycemia Standing Ord. Protocol Hydrochlorothiazide 25 mg 05/25/21 09:00 05/25/21 11:01 Hydrochlorothiazide 25 Mg Tablet PO 25 mg DAILY GHANSHYAM Administration Protocol Vancomycin HCl 1,250 mg/ 250 mls @ 166.667 mls/hr 05/25/21 12:00 05/25/21 12:12 Sodium Chloride IV 166.67 mls/hr Q12H GHANSHYAM Administration Piperacillin Sod/Tazobactam 50 mls @ 100 mls/hr 05/25/21 17:00 Sod 3.375 gm/ Sodium Chloride IV Q6H GHANSHYAM Insulin Glargine 60 unit 05/25/21 21:00 Insulin Glargine,Hum.Rec.Anlog 100 Unit/Ml 10 Ml Vial SUBCUT BEDTIME GHANSHYAM Insulin Human Lispro 0 unit 05/25/21 07:30 05/25/21 13:37 Insulin Lispro 100 Unit/Ml 3 Ml Vial SUBCUT 12 unit QIDACHS GHANSHYAM Administration Protocol Labetalol HCl 10 mg 05/25/21 03:54 Labetalol Hcl 100 Mg/20 Ml Vial IVPUSH Q1H PRN Give for SBP > 160 AND HR > 70 Protocol Loratadine 10 mg 05/25/21 09:00 05/25/21 11:02 Loratadine 10 Mg Tablet PO 10 mg DAILY GHANSHYAM Administration Losartan Potassium 100 mg 05/25/21 09:00 05/25/21 11:02 Losartan Potassium 50 Mg Tablet PO 100 mg DAILY GHANSHYAM Administration Protocol Omeprazole 40 mg 05/25/21 09:00 05/25/21 11:02 Omeprazole 40 Mg Capsule.Dr PO 40 mg DAILY GHANSHYAM Administration Pharmacy Consult 1 each 05/25/21 02:42 Consult Rx Vancomycin Dosing MISCELLANE DAILY PRN Consult order Sodium Chloride 3 ml 05/25/21 08:00 05/25/21 10:52 0.9 % Sodium Chloride Flush 3 Ml Syringe IVFLUSH Not Given QSHIFT [facility] Triamcinolone Acetonide 1 appl 05/25/21 09:00 05/25/21 12:16 Triamcinolone Acet 0.5 % Oint 15 Gm Tube TOPICAL Not Given DAILY [facility] Vitamin D 50 mcg 05/25/21 09:00 05/25/21 11:02 Cholecalciferol (Vitamin D3) 25 Mcg Tablet PO 50 mcg DAILY GHANSHYAM Administration Labs CBC & Chem 7: 05/25/21 06:54 05/25/21 06:54 Labs: Laboratory Results - last 24 hr 05/24/21 05/24/21 05/24/21 23:45 23:45 23:45 MCV 88.0 MCH 29.9 MCHC 34.0 RDW 12.8 Plt Count 264 MPV 10.8 Immature Gran % (Auto) 0.5 H Neut % (Auto) 54.9 Lymph % (Auto) 33.2 Tripp % (Auto) 9.7 Eos % (Auto) 1.4 Baso % (Auto) 0.3 Lymph # (Auto) 3.3 Tripp # (Auto) 1.0 Eos # (Auto) 0.1 Baso # (Auto) 0.0 Abs Immat Gran (auto) 0.05 H Absolute Neuts (auto) 5.5 Absolute Nucleated RBC 0.000 Nucleated RBC % (auto) 0.0 Anion Gap 13 Estim Creat Clear Calc 82.6 Estimated GFR 55 POC Glucose Random Glucose 251 H Estimat Average Glucose Hemoglobin A1c % Lactic Acid 1.6 Calcium 10.0 Total Bilirubin 0.3 Direct Bilirubin < 0.2 AST 29 ALT 39 Alkaline Phosphatase 144 H C-Reactive Protein Total Protein 7.6 Albumin 4.2 COVID-19 (YAZMIN) COVID-19 Clin Com 05/24/21 05/25/21 05/25/21 23:45 06:54 06:54 MCV 87.5 MCH 29.6 MCHC 33.8 RDW 12.6 Plt Count 263 MPV 11.0 Immature Gran % (Auto) 0.6 H Neut % (Auto) 64.2 Lymph % (Auto) 25.5 Tripp % (Auto) 8.7 Eos % (Auto) 0.6 Baso % (Auto) 0.4 Lymph # (Auto) 2.8 Tripp # (Auto) 0.9 Eos # (Auto) 0.1 Baso # (Auto) 0.0 Abs Immat Gran (auto) 0.06 H Absolute Neuts (auto) 7.0 Absolute Nucleated RBC 0.000 Nucleated RBC % (auto) 0.0 Anion Gap 16 Estim Creat Clear Calc 108.5 Estimated GFR > 60 POC Glucose Random Glucose 314 H Estimat Average Glucose Hemoglobin A1c % Lactic Acid Calcium 9.5 Total Bilirubin Direct Bilirubin AST ALT Alkaline Phosphatase C-Reactive Protein 0.65 H Total Protein Albumin COVID-19 (YAZMIN) Negative COVID-19 Clin Com See Note 05/25/21 05/25/21 05/25/21 06:54 07:06 12:09 MCV MCH MCHC RDW Plt Count MPV Immature Gran % (Auto) Neut % (Auto) Lymph % (Auto) Tripp % (Auto) Eos % (Auto) Baso % (Auto) Lymph # (Auto) Tripp # (Auto) Eos # (Auto) Baso # (Auto) Abs Immat Gran (auto) Absolute Neuts (auto) Absolute Nucleated RBC Nucleated RBC % (auto) Anion Gap Estim Creat Clear Calc Estimated GFR POC Glucose 266 H 297 H Random Glucose Estimat Average Glucose 301 Hemoglobin A1c % 12.1 Lactic Acid Calcium Total Bilirubin Direct Bilirubin AST ALT Alkaline Phosphatase C-Reactive Protein Total Protein Albumin COVID-19 (YAZMIN) COVID-19 Clin Com Impressions Toe X-Ray 05/24/21 21:07 IMPRESSION: Soft tissue swelling, ulceration. No fracture or osteolysis. Foot MRI 05/25/21 09:00 IMPRESSION: Abnormal findings suspicious for osteomyelitis of the 1st distal phalanx. First toe soft tissue swelling, edema and cellulitis. No evidence of soft tissue abscess. Mild flexor hallucis longus peritendinitis/tenosynovitis in the midfoot. Additional findings and details, as above. Assessment and Plan (1) Osteomyelitis: Status: Acute (2) Diabetic ulcer of toe: Status: Acute (3) Diabetes: Status: Acute Assessment and Plan: hospital d#1 56yo M with uncontrolled DM2 admitted for nonhealing ulcer of R toe despite outpt doxycycline; found to have osteomyelitis # osteomyelitis distal R 1st phalanx/midfoot tenosynovitis - IV vanco + pip/geoff d#1, ID consult, appreciate gen surg consult- nonoperative - per ID vancomycin x6 wk if grows MRSA, otherwise ertapenem x6 wk # DM2, uncontrolled, A1c 12.1 - continue basal/bolus insulin- increase doses # DM neuropathy - gabapentin # HTN - continue losartan + HCTZ # mild intermittent asthma, - continue prn albuterol # VTE ppx - LMWH Quality Stroke Does the patient have a stroke diagnosis?: No VTE Prior VTE?: No VTE Risk Level:: Medical - moderate - high VTE Device Contraindication: Treatment Not Indicated VTE Drug Contraindication: N/A - Med Ordered
[2021-05-25] MEDS: 0.9 % Sodium Chloride Flush 3 ML SYRINGE IVFLUSH ×2 (16:17→22:47)
--- NOTE | 2021-05-25 16:21 | PC.NURSE ---
patient a&ox3, iv line flushed per order, poc obtained- will give insulin when dinner arrives, will continue to monitor
[2021-05-25 16:23] LABS: Glucose, Whole Blood 346 mg/dL (60-115)
--- NOTE | 2021-05-25 17:32 | PC.NURSE ---
iv antibiotics running per order
--- NOTE | 2021-05-25 20:27 | PC.NURSE ---
floor called, rn will call back to get report
[2021-05-25 22:13] LABS: Glucose, Whole Blood 338 mg/dL (60-115)
[2021-05-25] MEDS: Atorvastatin Calcium 40 MG TABLET PO (22:43)
[2021-05-25] MEDS: Acetaminophen 325 MG TABLET 650 MG PO (22:43)
[2021-05-25] MEDS: Insulin Glargine,Hum.rec.anlog 100 UNIT/ML 10 ML VIAL 60 UNIT SUBCUT (22:45)
[2021-05-26] VITALS (8 sets, daily range): BP systolic 107–177; BP diastolic 61–90; PULSE 85–98; RESP 18–20; TEMP 36.2–36.7; O2SAT 93–97
[2021-05-26] MEDS: vancomycin HCL 1,250 MG in 0.9 % Sodium Chloride 250 ML 166.67 MG IV (00:19)
[2021-05-26] MEDS: Piperacillin Sodium/Tazobactam 3.375 GM in 0.9 % Sodium Chloride 50 ML IV ×4 (05:14→21:38)
[2021-05-26] MEDS: Enoxaparin Sodium 40 MG/0.4 ML SYRINGE SUBCUT (05:15)
[2021-05-26 07:16] LABS: Hematocrit 38.6 % (42-52); Hemoglobin 12.9 g/dl (14.0-18.0); Mean Corpuscular HGB Conc 33.4 g/dl (31.0-36.0); Mean Corpuscular Hemoglobin 29.5 pg (27.0-33.0); Mean Corpuscular Volume 88.3 fL (80-98); Platelet Count 266 X10*3/uL (160-400); Red Blood Count 4.37 X10*6/uL (4.60-5.80); Red Cell Distribution Width 12.5 % (11.0-16.0)
[2021-05-26 07:17] LABS: Glucose, Whole Blood 269 mg/dL (60-115)
[2021-05-26] MEDS: Insulin Lispro 100 UNIT/ML 3 ML VIAL SUBCUT ×4 (07:40→21:35)
[2021-05-26 07:41] LABS: Anion Gap 15 (12-20); Blood Urea Nitrogen 14 mg/dL (9-16); Calcium 9.5 mg/dL (8.4-10.2); Carbon Dioxide 27 mmol/L (22-29); Chloride 100 mmol/L (96-108); Creatinine Clr Calc Pharmacy 118.8; Estimated Glomerular Filt Rate > 60; Glucose Random 219 mg/dL (60-115); Sodium 138 mmol/L (135-145)
[2021-05-26] MEDS: Gabapentin 300 MG CAPSULE 600 MG PO ×3 (07:41→21:36)
[2021-05-26] MEDS: Losartan Potassium 50 MG TABLET 100 MG PO (07:43)
[2021-05-26] MEDS: Omeprazole 40 MG CAPSULE.DR PO (07:43)
[2021-05-26] MEDS: Cholecalciferol (Vitamin D3) 25 MCG TABLET 50 MCG PO (07:43)
[2021-05-26] MEDS: Aspirin Enteric Coated 81 MG TABLET.DR PO (07:43)
[2021-05-26] MEDS: FLUoxetine HCl 20 MG CAPSULE 40 MG PO (07:43)
[2021-05-26] MEDS: hydroCHLOROthiazide 25 MG TABLET PO (07:44)
[2021-05-26] MEDS: Loratadine 10 MG TABLET PO (07:44)
[2021-05-26] MEDS: Baclofen 20 MG TABLET PO ×3 (07:44→21:36)
[2021-05-26] MEDS: 0.9 % Sodium Chloride Flush 3 ML SYRINGE IVFLUSH ×3 (07:45→21:36)
[2021-05-26 08:02] LABS: Erythrocyte Sedimentation Rate 44 MM/HR (0-15)
--- NOTE | 2021-05-26 09:02 | MHC.CM.PN ---
CM met with Patient at bedside and addressed IMM with him, providing Patient with the original and placing a copy on the chart. Patient lives in a house with his adult Daughter/HCP/Al [employer](43 HOURS/WEEK)/Cindy and he uses a walker to assist with mobility. Patient does not feel that he will need VNA and his goal for dc is to return home and resume existing services. CM has initiated and will follow for dc planning. PCP is DR. Enedina Saunders.
--- NOTE | 2021-05-26 11:03 | MHC.CLN ---
NUTRITION/DIET PATIENT WITH HX DM. A1C=12.1. DIET CHANGED TO DIABETIC 2200 KCAL (23.9 KCAL/KG CMW), CARDIAC.
[2021-05-26 11:35] LABS: Glucose, Whole Blood 448 mg/dL (60-115)
[2021-05-26] MEDS: Insulin Lispro 100 UNIT/ML 3 ML VIAL 10 UNIT SUBCUT (11:56)
[2021-05-26 12:16] LABS: Acetone, serum QL Negative (Negative)
[2021-05-26 12:20] LABS: Vancomycin Trough 11.8 mcg/mL (10.0-20.0)
[2021-05-26 12:22] LABS: Anion Gap 17 (12-20); Blood Urea Nitrogen 18 mg/dL (9-16); Calcium 9.8 mg/dL (8.4-10.2); Carbon Dioxide 23 mmol/L (22-29); Chloride 97 mmol/L (96-108); Creatinine Clr Calc Pharmacy 59.4; Estimated Glomerular Filt Rate 38; Potassium 4.5 mmol/L (3.3-5.1); Sodium 132 mmol/L (135-145)
[2021-05-26 12:37] LABS: Glucose Random 550 mg/dL (60-115)
[2021-05-26 12:53] LABS: Glucose, Whole Blood 508 mg/dL (60-115)
[2021-05-26] MEDS: Insulin Regular, Human 100 UNIT/ML 3 ML VIAL 10 UNIT IVPUSH (13:50)
[2021-05-26 14:05] LABS: Glucose, Whole Blood 383 mg/dL (60-115)
--- NOTE | 2021-05-26 14:20 | HO.PM.IMPN ---
Subjective Subjective Date of Service: 05/26/21 Interval History: No fever No pain BG very high Review of Systems Review of Systems: Yes all other systems are reviewed and are negative Physical Exam Vital Signs: Vital Signs: Last Vital Signs Temp 97.9 F 05/26/21 11:29 Pulse 95 05/26/21 11:29 Resp 20 05/26/21 11:29 BP 127/68 05/26/21 11:29 Pulse Ox 93 05/26/21 11:29 Body Mass Index 34.0 Gen: in no acute distress HEENT: sclera anicteric, moist mucus membranes Neck: supple Lungs: clear to auscultation bilaterally Heart: regular rate and rhythm, no murmurs Abd: soft, non-tender, non-distended Ext: no edema Skin: R great toe with ulcer with proximal erythema + induration Neuro: alert and oriented x3, dense neuropathy of feet bilateraly Psych: appropriate affect Objective Data Current Medications Generic Name Dose Route Start Last Admin Trade Name Freq PRN Reason Stop Dose Admin Acetaminophen 650 mg 05/25/21 02:36 05/25/21 22:43 Acetaminophen 325 Mg Tablet PO 650 mg Q6H PRN Administration Pain, Mild (Pain Scale 1-3) Hydrocodone Bitart/Acetaminophen 1 tab 05/25/21 02:36 Hydrocodone Bit/Acetam 5/325 Tablet PO Q4H PRN Pain, Moderate (Pain Scale 4-6 Albuterol Sulfate 2 puff 05/25/21 08:09 Albuterol Sulfate 90 Mcg 8 Gm Inhaler INHALE Q4H PRN Shortness Of Breath Aspirin 81 mg 05/25/21 09:00 05/26/21 07:43 Aspirin Enteric Coated 81 Mg Tablet. PO 81 mg DAILY GHANSHYAM Administration Atorvastatin Calcium 40 mg 05/25/21 21:00 05/25/21 22:43 Atorvastatin Calcium 40 Mg Tablet PO 40 mg BEDTIME GHANSHYAM Administration Baclofen 20 mg 05/25/21 09:00 05/26/21 13:54 Baclofen 20 Mg Tablet PO 20 mg TID GHANSHYAM Administration Dextrose 25 gm 05/25/21 02:40 Dextrose 50 % 25 Gm/50 Ml Vial IVPUSH Q15M PRN per Hypoglycemia Standing Ord. Protocol Enoxaparin Sodium 40 mg 05/25/21 06:00 05/26/21 05:15 Enoxaparin Sodium 40 Mg/0.4 Ml Syringe SUBCUT 40 mg Q24H GHANSHYAM Administration Fluoxetine HCl 40 mg 05/25/21 09:00 05/26/21 07:43 Fluoxetine Hcl 20 Mg Capsule PO 40 mg DAILY GHANSHYAM Administration Fluticasone Propionate 2 spray 05/25/21 08:09 Fluticasone Propionate Nasal 16 Gm [place] NOSTRIL-B DAILY PRN Allergy Symptoms Gabapentin 600 mg 05/25/21 09:00 05/26/21 13:54 Gabapentin 300 Mg Capsule PO 600 mg TID GHANSHYAM Administration Glucose 15 gm 05/25/21 02:40 Glucose Gel 15 Gm Gel..Gram. PO Q15M PRN per Hypoglycemia Standing Ord. Protocol Hydrochlorothiazide 25 mg 05/25/21 09:00 05/26/21 07:44 Hydrochlorothiazide 25 Mg Tablet PO 25 mg DAILY GHANSHYAM Administration Protocol Piperacillin Sod/Tazobactam 50 mls @ 100 mls/hr 05/25/21 17:00 05/26/21 12:43 Sod 3.375 gm/ Sodium Chloride IV Infused Q6H GHANSHYAM Infusion Vancomycin HCl 1,500 mg/ 250 mls @ 166.667 mls/hr 05/26/21 13:00 05/26/21 12:51 Sodium Chloride IV 166.67 mls/hr Q12H GHANSHYAM Administration Insulin Glargine 70 unit 05/26/21 21:00 Insulin Glargine,Hum.Rec.Anlog 100 Unit/Ml 10 Ml Vial SUBCUT BEDTIME [facility] Insulin Human Lispro 0 unit 05/25/21 07:30 05/26/21 11:57 Insulin Lispro 100 Unit/Ml 3 Ml Vial SUBCUT 20 unit QIDACHS [facility] Administration Protocol Labetalol HCl 10 mg 05/25/21 03:54 Labetalol Hcl 100 Mg/20 Ml Vial IVPUSH Q1H PRN Give for SBP > 160 AND HR > 70 Protocol Loratadine 10 mg 05/25/21 09:00 05/26/21 07:44 Loratadine 10 Mg Tablet PO 10 mg DAILY GHANSHYAM Administration Losartan Potassium 100 mg 05/25/21 09:00 05/26/21 07:43 Losartan Potassium 50 Mg Tablet PO 100 mg DAILY GHANSHYAM Administration Protocol Omeprazole 40 mg 05/25/21 09:00 05/26/21 07:43 Omeprazole 40 Mg Capsule. PO 40 mg DAILY GHANSHYAM Administration Pharmacy Consult 1 each 05/25/21 02:42 Consult Rx Vancomycin Dosing MISCELLANE DAILY PRN Consult order Sodium Chloride 3 ml 05/25/21 08:00 05/26/21 07:45 0.9 % Sodium Chloride Flush 3 Ml Syringe IVFLUSH 3 ml QSHIFT [facility] Administration Triamcinolone Acetonide 1 appl 05/25/21 09:00 05/26/21 11:26 Triamcinolone Acet 0.5 % Oint 15 Gm Tube TOPICAL Not Given DAILY [facility] Vitamin D 50 mcg 05/25/21 09:00 05/26/21 07:43 Cholecalciferol (Vitamin D3) 25 Mcg Tablet PO 50 mcg DAILY GHANSHYAM Administration Labs CBC & Chem 7: 05/26/21 05:50 05/26/21 11:32 Labs: Laboratory Results - last 24 hr 05/25/21 05/25/21 05/26/21 16:18 22:10 05:50 MCV 88.3 MCH 29.5 MCHC 33.4 RDW 12.5 Plt Count 266 MPV 11.0 Absolute Nucleated RBC 0.000 Nucleated RBC % (auto) 0.0 ESR Anion Gap Estim Creat Clear Calc Estimated GFR POC Glucose 346 H 338 H Random Glucose Calcium Vancomycin Trough Acetone, Qual 05/26/21 05/26/21 05/26/21 05:50 05:50 07:11 MCV MCH MCHC RDW Plt Count MPV Absolute Nucleated RBC Nucleated RBC % (auto) ESR 44 H Anion Gap 15 Estim Creat Clear Calc 118.8 Estimated GFR > 60 POC Glucose 269 H Random Glucose 219 H Calcium 9.5 Vancomycin Trough Acetone, Qual 05/26/21 05/26/21 05/26/21 11:02 11:32 11:33 MCV MCH MCHC RDW Plt Count MPV Absolute Nucleated RBC Nucleated RBC % (auto) ESR Anion Gap 17 Estim Creat Clear Calc 59.4 Estimated GFR 38 POC Glucose 448 H* Random Glucose 550 H* Calcium 9.8 Vancomycin Trough 11.8 Acetone, Qual Negative 05/26/21 05/26/21 12:49 13:54 MCV MCH MCHC RDW Plt Count MPV Absolute Nucleated RBC Nucleated RBC % (auto) ESR Anion Gap Estim Creat Clear Calc Estimated GFR POC Glucose 508 H* 383 H* Random Glucose Calcium Vancomycin Trough Acetone, Qual Microbiology Microbiology Results: Microbiology 05/24/21 23:54 Blood Culture - Preliminary Blood - Venous No growth after 24 hours. 05/24/21 23:54 Blood Culture - Preliminary Blood - Venous No growth after 24 hours. Assessment and Plan (1) Osteomyelitis: Status: Acute (2) Diabetic ulcer of toe: Status: Acute (3) Diabetes: Status: Acute Assessment and Plan: hospital d#2 56yo M with uncontrolled DM2 admitted for nonhealing ulcer of R toe despite outpt doxycycline; found to have osteomyelitis # osteomyelitis distal R 1st phalanx/midfoot tenosynovitis - IV vanco + pip/geoff d#2, ID + gen surg consults done - per ID vancomycin x6 wk if grows MRSA, otherwise ertapenem x6 wk; if BCx negative tomorrow will place PICC line # DM2, uncontrolled, A1c 12.1, with hyperglycemia - not in DKA. will give IV insulin and increase basal/bolus insulin doses # DM neuropathy - gabapentin # HTN - continue losartan + HCTZ # mild intermittent asthma, - continue prn albuterol # VTE ppx - LMWH Quality Stroke Does the patient have a stroke diagnosis?: No VTE Prior VTE?: No VTE Risk Level:: Medical - moderate - high VTE Device Contraindication: Treatment Not Indicated VTE Drug Contraindication: N/A - Med Ordered
[2021-05-26 15:19] LABS: Glucose, Whole Blood 298 mg/dL (60-115)
[2021-05-26 16:34] LABS: Glucose, Whole Blood 285 mg/dL (60-115)
[2021-05-26 17:13] LABS: Glucose, Whole Blood 283 mg/dL (60-115)
[2021-05-26 18:05] LABS: Glucose, Whole Blood 260 mg/dL (60-115)
[2021-05-26 21:17] LABS: Glucose, Whole Blood 194 mg/dL (60-115)
[2021-05-26] MEDS: Insulin Glargine,Hum.rec.anlog 100 UNIT/ML 10 ML VIAL 70 UNIT SUBCUT (21:35)
[2021-05-26] MEDS: Atorvastatin Calcium 40 MG TABLET PO (21:36)
[2021-05-27] VITALS: BP 175/93; PULSE 92; RESP 20; TEMP 36.3; O2SAT 97
[2021-05-27 04:00] VITALS: BP 149/63; PULSE 94; RESP 20; TEMP 36; O2SAT 97
[2021-05-27] MEDS: Piperacillin Sodium/Tazobactam 3.375 GM in 0.9 % Sodium Chloride 50 ML IV ×2 (05:55→11:28)
[2021-05-27] MEDS: Enoxaparin Sodium 40 MG/0.4 ML SYRINGE SUBCUT (05:56)
[2021-05-27 07:33] VITALS: BP 143/69; PULSE 88; RESP 21; TEMP 36.2; O2SAT 99
[2021-05-27 07:33] LABS: Glucose, Whole Blood 233 mg/dL (60-115)
[2021-05-27] MEDS: Insulin Lispro 100 UNIT/ML 3 ML VIAL SUBCUT ×3 (07:48→16:43)
[2021-05-27 07:49] VITALS: BP 143/69; PULSE 88
[2021-05-27] MEDS: hydroCHLOROthiazide 25 MG TABLET PO (07:49)
[2021-05-27] MEDS: Baclofen 20 MG TABLET PO ×2 (07:49→15:22)
[2021-05-27] MEDS: 0.9 % Sodium Chloride Flush 3 ML SYRINGE IVFLUSH ×2 (07:49→15:26)
[2021-05-27] MEDS: Gabapentin 300 MG CAPSULE 600 MG PO ×2 (07:49→15:22)
[2021-05-27] MEDS: Omeprazole 40 MG CAPSULE.DR PO (07:49)
[2021-05-27] MEDS: Losartan Potassium 50 MG TABLET 100 MG PO (07:49)
[2021-05-27] MEDS: FLUoxetine HCl 20 MG CAPSULE 40 MG PO (07:49)
[2021-05-27] MEDS: Aspirin Enteric Coated 81 MG TABLET.DR PO (07:49)
[2021-05-27] MEDS: Cholecalciferol (Vitamin D3) 25 MCG TABLET 50 MCG PO (07:49)
[2021-05-27] MEDS: Loratadine 10 MG TABLET PO (07:50)
[2021-05-27 09:05] LABS: Creatinine Clr Calc Pharmacy 76.9; Estimated Glomerular Filt Rate 51
--- NOTE | 2021-05-27 09:40 | MHC.CM.PN ---
CM ATTEMPTED TO CONTACT IR AT 0839 TO DETERMINE TIME OF PICC LINE PLACEMENT, NO ANSWER, MESSAGE LEFT W/CM CONTACT NUMBER.
[2021-05-27 11:09] VITALS: BP 155/72; PULSE 90; RESP 17; TEMP 36.2; O2SAT 95
[2021-05-27 11:19] LABS: Glucose, Whole Blood 298 mg/dL (60-115)
--- NOTE | 2021-05-27 12:50 | MHC.CM.PN ---
CM HAS BEEN IN CONTACT W/[facility] AND [facility] TO SET UP SERVICES AND TEACH FOR IV ABX, CM UNABLE TO REACH DTR/SALON PROFESSIONAL ALL MORING HOWEVER DTR/ NOW AT BEDSIDE, BOTH ARE WILLING TO LEARN/ASSIST PT W/IV ABX, CM CONTACTED [facility] LIAISON PRIOR TO WRITING THIS NOTE AND WILL CONTACT PT'S SUMI WHO HAS BETTER CELL SERVICE. PICC LINE TO BE PLACED AT APPROXIMATELY 2PM AND WILL NEED ONE DOSE OF ERTAPENEM THROUGH PICC PRIOR TO D/C. D/C PLAN: HOME TODAY W/[facility] & [facility] FOR 6WKS IV ABX, FAMILY FOR TRANSPORT. Pt will be staying w/ and dtr at [address] [place] [address] : [facility] [phone] dtr: [phone]
--- NOTE | 2021-05-27 15:01 | HO.PICC ---
PICC Line Insertion NPICC Diagnosis: OSTEOMYELITIS Indication: [facility] IV ANTIBIOTICS Pertinent Labs: REVIEWED Technique: Following informed consent including risks, benefits and alternatives and using sterile technique including cap and mask, sterile gown, glove and drape, the RIGHT arm was prepped and draped in the usual sterile fashion of full barrier technique with CHG. Following completion of [place] Protocol the skin and soft tissues were anesthetized with 1% Lidocaine plain. Using ultrasound guidance, BASILIC vein access was obtained IN SINGLE ATTEMPT BY THIS RN. Over an 0.018 wire through peel-away sheath, a 4-ICELANDIC, SINGLE LUMEN, PASV PICC line was positioned. Catheter length is 39 CM internal length, 2 CM external length, for a total trimmed length of 41 CM. The procedure was performed in S-272. Tip verification was performed by Emigdio Rodriguez with Derick 3CG. Tip located in SVC. Ultrasound was used to document vein patency and for needle entry. A formal ultrasound picture and cardiac rhythm strip was recorded. Vascular Compensation Intern has released the line for use and it is currently dressed with a StatLock, Tegaderm, and CHG disc. Verification has been performed for blood return and line patency. Arm Circumference: 41.5 CM Equipment: Arigo POWERPICC SOLO Catheter Type: 4-ICELANDIC, SINGLE LUMEN, PASV Lot #: [id number]
[2021-05-27] MEDS: Ertapenem Sodium 1 GM in 0.9 % Sodium Chloride 50 ML IV (15:22)
[2021-05-27 15:30] VITALS: BP 134/67; PULSE 96; RESP 18; TEMP 36.7; O2SAT 96
--- NOTE | 2021-05-27 15:57 | P.F2F_ITS ---
Service Date Service Date: 05/27/21 Encounter Date of encounter: 05/27/21 Reasons for Services Reason for halfway: wound care, administration of IV, SQ, or IM injection, central line care, diabetic teaching, medication management and medication treatment MD Overseeing Care: Enedina Saunders Homebound: Leaving the home is medically contraindicated at this time without the asist of a device and/or another person due th the listed conditions above and below. Reason homebound: unsteady gait / fall risk and immunosuppression / infection risk Homebound supporting statement: needs 6 wk IV ABX per PICC- ertapenem 1 g daily needs control of hyperglycemia Certification: Based on the above findings, I certify that this patient is confined to the home and needs intermittent halfway care, physical therapy and/or speech therapy, or continues to need occupational therapy. The patient is under my care, and I have initiated the establishment of the plan of care. The patient will be followed by a physician who will periodically review the plan of care.
--- NOTE | 2021-05-27 15:58 | PM.DS ---
DS: Providers Provider Date of Service: 05/27/21 Date of admission: 05/25/21 02:36 Date of discharge: 05/27/21 Primary care physician: Enedina Saunders DO Admitting clinician: Brayan Cuello Consults: 05/25/21 02:38 Consult to General Surgery Routine Consulting Provider: [facility] General Surgeons Reason for consultation: Osteomyelitis Has provider been notified: No 05/25/21 04:05 Consult to Infectious Diseases Routine Consulting Provider: Dorita Lobato Reason for consultation: Osteomyelitis Has provider been notified: No Attending physician on discharge: Eddie Camarillo DS: Diagnosis Discharge Diagnosis (1) Osteomyelitis: Status: Acute (2) Diabetic ulcer of toe: Status: Acute (3) Uncontrolled type 2 diabetes mellitus: Status: Acute DS: Medications Discharge Medications Home Medications: Home Medications Medication Instructions Recorded Confirmed albuterol sulfate 90 mcg/actuation 2 puff PO Q4-6H PRN 05/25/21 05/25/21 aerosol inhaler (Ventolin HFA) aspirin 81 mg tablet,delayed 1 tab PO DAILY 05/25/21 05/25/21 release atorvastatin 40 mg tablet 1 tab PO BEDTIME 05/25/21 05/25/21 baclofen 20 mg tablet 1 tab PO TID 05/25/21 05/25/21 betamethasone dipropionate 0.05 % 1 ea TOPICAL DAILY 05/25/21 05/25/21 topical ointment cholecalciferol (vitamin D3) 50 1 cap PO DAILY 05/25/21 05/25/21 mcg (2,000 unit) capsule fluoxetine 20 mg capsule 2 cap PO QAM 05/25/21 05/25/21 fluticasone propionate 50 2 spray INTRANASAL DAILY PRN 05/25/21 05/25/21 mcg/actuation nasal spray,suspension gabapentin 300 mg capsule 2 cap PO TID 05/25/21 05/25/21 hydrochlorothiazide 25 mg tablet 1 tab PO DAILY 05/25/21 05/25/21 insulin detemir U-100 100 unit/mL 70 unit SUBCUT QPM 05/25/21 05/25/21 (3 mL) subcutaneous pen (Levemir FlexTouch U-100 Insulin) insulin lispro 100 unit/mL See Rx Instructions .ROUTE .COMPLEX 05/25/21 05/25/21 subcutaneous pen (Humalog KwikPen (U-100) Insulin) loratadine 10 mg tablet 1 tab PO DAILY 05/25/21 05/25/21 losartan 100 mg tablet 1 tab PO DAILY 05/25/21 05/25/21 metformin 500 mg tablet 500 mg PO BID 05/25/21 05/25/21 omeprazole 20 mg capsule,delayed 40 cap PO DAILY 05/25/21 05/25/21 release DS: Summary Hospital Course Hospital Course: from admission H+P by Brayan Cuello, hospitalist , 05/25/21: 56-year-old MOSTLY [place] male with history of diabetes mellitus (insulin dependent), diabetic neuropathy, asthma, hyperlipidemia, hypertension, who presented with worsening right great toe ulcer/infection.? 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 Patient endorses to me that he stubbed his toe about 20 days ago on the concrete, and ever since has been dealing with a right 1st toe the ulcer.? He states that it is not very painful spot, possibly secondary to his diabetic neuropathy.? He was seen by emergency medical center in the past, and was started on a 10 day course of doxycycline, which seemed to help a little, but when the antibiotic course was completed, his symptoms continued to worsen.? He describes increasing redness, pain and swelling.? Otherwise, he denies systemic features such as fevers, chills, nausea, vomiting, chest pain, shortness of breath, abdominal pain. In the ED, vitals were significant for blood pressure as high as 203/87, otherwise vitals are unremarkable.? Labs were significant for the following:? Glucose 251, alkaline phosphatase 144, otherwise labs are unremarkable. X-ray of the right foot revealed soft tissue swelling, ulceration, no fracture or osteolysis.? However, on physical exam, it appears that he can see the bone.? The patient was started on IV vancomycin and IV Zosyn.? He is being admitted for right great toe diabetic ulcer, likely osteomyelitis. The patient was admitted to the medical/surgical floor. MRI showed osteomyelitis of the distal right 1st phalanx with midfoot tenosynovitis. No operative intervention was indicated. He was treated with IV vancomycin and piperacillin/tazobactam. Once blood cultures returned negative, PICC line was placed and he was transitioned to ertapenem. He was discharged on 6 wk of ertapenem 1 g IV daily, end date 07/06/21, with weekly labs and with follow up with the ID specialist in 2 weeks. He will need to work with his PCP to control his DM2; his A1c is high at 12.1. He was hyperglycemic but did not go into DKA; he was managed with subcutaneous insulin. He was discharged home with VNA services. Referral to the [facility] was also placed. Time Spent with Patient Time attestation: Total time spent providing and/or coordinating discharge services: Discharge coordination time: Greater than 30 minutes Quality: Stroke Does the patient have a stroke diagnosis?: No Physical Exam Vital Signs: Vital Signs: Last Vital Signs Temp 98.0 F 05/27/21 15:30 Pulse 96 05/27/21 15:30 Resp 18 05/27/21 15:30 BP 134/67 05/27/21 15:30 Pulse Ox 96 05/27/21 15:30 Body Mass Index 34.0 Gen: in no acute distress HEENT: sclera anicteric, moist mucus membranes Neck: supple Lungs: clear to auscultation bilaterally Heart: regular rate and rhythm, no murmurs Abd: soft, non-tender, non-distended Ext: no edema Skin: R great toe with ulcer with proximal erythema + induration Neuro: alert and oriented x3, dense neuropathy of feet bilateraly Psych: appropriate affect DS: Data Data Completed and Pending Completed studies during hospitalization [Text1]: Laboratory Results WBC 10.0 X10*3/uL (4.8-10.8) 05/26/21 05:50 RBC 4.37 X10*6/uL (4.60-5.80) L 05/26/21 05:50 Hgb 12.9 g/dl (14.0-18.0) L 05/26/21 05:50 Hct 38.6 % (42-52) L 05/26/21 05:50 MCV 88.3 fL (80-98) 05/26/21 05:50 MCH 29.5 pg (27.0-33.0) 05/26/21 05:50 MCHC 33.4 g/dl (31.0-36.0) 05/26/21 05:50 RDW 12.5 % (11.0-16.0) 05/26/21 05:50 Plt Count 266 X10*3/uL (160-400) 05/26/21 05:50 MPV 11.0 fL (9.4-12.4) 05/26/21 05:50 Immature Gran % (Auto) 0.6 % (0.0-0.4) H 05/25/21 06:54 Neut % (Auto) 64.2 % (45-73) 05/25/21 06:54 Lymph % (Auto) 25.5 % (20-40) 05/25/21 06:54 Bibb % (Auto) 8.7 % (2-11) 05/25/21 06:54 Eos % (Auto) 0.6 % (0-4) 05/25/21 06:54 Baso % (Auto) 0.4 % (0-2) 05/25/21 06:54 Lymph # (Auto) 2.8 X10*3/uL (1.2-4.9) 05/25/21 06:54 Bibb # (Auto) 0.9 X10*3/uL (0.1-1.2) 05/25/21 06:54 Eos # (Auto) 0.1 X10*3/uL (0.0-0.4) 05/25/21 06:54 Baso # (Auto) 0.0 X10*3/uL (0.0-0.2) 05/25/21 06:54 Abs Immat Gran (auto) 0.06 X10*3/uL (0.00-0.03) H 05/25/21 06:54 Absolute Neuts (auto) 7.0 X10*3/uL (2.0-8.3) 05/25/21 06:54 Absolute Nucleated RBC 0.000 X10*3/uL (0.0-0.012) 05/26/21 05:50 Nucleated RBC % (auto) 0.0 /100WBC (0.0-0.2) 05/26/21 05:50 ESR 44 MM/HR (0-15) H 05/26/21 05:50 Sodium 132 mmol/L (135-145) L 05/26/21 11:32 Potassium 4.5 mmol/L (3.3-5.1) 05/26/21 11:32 Chloride 97 mmol/L (96-108) 05/26/21 11:32 Carbon Dioxide 23 mmol/L (22-29) 05/26/21 11:32 Anion Gap 17 (12-20) 05/26/21 11:32 BUN 18 mg/dL (9-16) H 05/26/21 11:32 Creatinine 1.42 mg/dL (0.5-1.4) H 05/27/21 07:39 Estim Creat Clear Calc 76.9 05/27/21 07:39 Estimated GFR 51 05/27/21 07:39 POC Glucose 309 mg/dL (60-115) H 05/27/21 15:58 Random Glucose 550 mg/dL (60-115) H* 05/26/21 11:32 Estimat Average Glucose 301 mg/dL 05/25/21 06:54 Hemoglobin A1c % 12.1 % 05/25/21 06:54 Lactic Acid 1.6 mmol/L (0.5-2.0) 05/24/21 23:45 Calcium 9.8 mg/dL (8.4-10.2) 05/26/21 11:32 Total Bilirubin 0.3 mg/dL (0.0-1.0) 05/24/21 23:45 Direct Bilirubin < 0.2 mg/dL (0.0-0.5) 05/24/21 23:45 AST 29 U/L (5-37) 05/24/21 23:45 ALT 39 U/L (0-40) 05/24/21 23:45 Alkaline Phosphatase 144 U/L (39-117) H 05/24/21 23:45 C-Reactive Protein 0.65 mg/dL (< or = 0.50) H 05/25/21 06:54 Total Protein 7.6 g/dL (6.5-8.0) 05/24/21 23:45 Albumin 4.2 g/dL (3.5-5.0) 05/24/21 23:45 Vancomycin Trough 11.8 mcg/mL (10.0-20.0) 05/26/21 11:33 Acetone, Qual Negative (Negative) 05/26/21 11:32 COVID-19 (YAZMIN) Negative (Negative) 05/24/21 23:45 COVID-19 Clin Com See Note 05/24/21 23:45 Impressions Toe X-Ray 05/24/21 21:07 IMPRESSION: Soft tissue swelling, ulceration. No fracture or osteolysis. Foot MRI 05/25/21 09:00 IMPRESSION: Abnormal findings suspicious for osteomyelitis of the 1st distal phalanx. First toe soft tissue swelling, edema and cellulitis. No evidence of soft tissue abscess. Mild flexor hallucis longus peritendinitis/tenosynovitis in the midfoot. Additional findings and details, as above. Labs on day of discharge: Laboratory Results - last 24 hr 05/26/21 05/26/21 05/26/21 16:31 17:09 18:01 Creatinine Estim Creat Clear Calc Estimated GFR POC Glucose 285 H 283 H 260 H 05/26/21 05/27/21 05/27/21 19:17 07:30 07:39 Creatinine 1.42 H Estim Creat Clear Calc 76.9 Estimated GFR 51 POC Glucose 194 H 233 H 05/27/21 11:06 Creatinine Estim Creat Clear Calc Estimated GFR POC Glucose 298 H Preliminary micro results at discharge 05/24/21 23:54 Blood Culture - Preliminary Blood - Venous No growth after 48 hours. 05/24/21 23:54 Blood Culture - Preliminary Blood - Venous No growth after 48 hours. Discharge Plan Discharge Patient Disposition: Home Health Service Discharge Diagnosis: diabetic osteomyelitis uncontrolled type 2 diabetes Referrals: [facility] [Other] - 1 Week ([facility] WILL DELIVER IV ANTIBIOTICS) [facility] [Provider Group] - 1 Week [facility] [Outside] - 1 Day (IV ANTIOBIOTIC/PICC LINE CARE. ) Enedina Saunders DO [Primary Care Provider] - 1 Week Discharge Medications: New ertapenem 1 gram recon soln 1 g IV Q24H Qty: 40 RF: 0 Continued atorvastatin 40 mg tablet 1 tab PO BEDTIME RF: 0 metformin 500 mg tablet 500 mg PO BID RF: 0 aspirin 81 mg tablet,delayed release (DR/EC) 1 tab PO DAILY RF: 0 baclofen 20 mg tablet 1 tab PO TID RF: 0 gabapentin 300 mg capsule 2 cap PO TID RF: 0 omeprazole 20 mg capsule,delayed release(DR/EC) 40 cap PO DAILY RF: 0 hydrochlorothiazide 25 mg tablet 1 tab PO DAILY RF: 0 betamethasone dipropionate 0.05 % ointment 1 ea topical DAILY RF: 0 losartan 100 mg tablet 1 tab PO DAILY RF: 0 fluoxetine 20 mg capsule 2 cap PO QAM RF: 0 loratadine 10 mg tablet 1 tab PO DAILY RF: 0 cholecalciferol (vitamin D3) 50 mcg (2,000 unit) capsule 1 cap PO DAILY RF: 0 albuterol sulfate [Ventolin HFA] 90 mcg/actuation HFA aerosol inhaler 2 puff PO Q4-6H PRN (Reason: Shortness Of Breath) RF: 0 fluticasone propionate 50 mcg/actuation spray,suspension 2 spray intranasal DAILY PRN (Reason: Allergy Symptoms) RF: 0 insulin lispro [Humalog KwikPen Insulin] 100 unit/mL insulin pen See Rx Instructions .ROUTE .COMPLEX RF: 0 Levemir FlexTouch U-100 Insuln 100 unit/mL (3 mL) insulin pen 70 unit subcut QPM RF: 0 Discharge Orders: Discharge Order (Routine); Ordered 05/27/21 Ordered By: Eddie Camarillo Diet: advance to usual diet and diabetic diet Activity on Discharge: As tolerated Stand Alone Forms: Patient Portal Discharge page Care Plan Goals: cure of infection in bone of right 1st toe avoid complications of diabetes Health Concerns: osteomyelitis diabetes, uncontrolled Plan of Treatment: ertapenem 1 g IV daily via PICC line, total 6 wk, end date 07/06/21 weekly labs: CBCd, CMP, CRP, ESR follow up with your PCP in [address] Lobato [Infectious Diseases specialist] in 2 weeks work with your PCP to control your diabetes. avoid sugar + simple starches. use insulin as directed. Assessment: as above Patient Instructions: How to Flush Your PICC (Peripherally Inserted Central Catheter) (DC)
[2021-05-27 16:02] LABS: Glucose, Whole Blood 309 mg/dL (60-115)
[2021-05-27] MEDS: 0.9 % Sodium Chloride Flush 10 ML SYRINGE 5 ML IVFLUSH (16:43)
== END 2021-05-27 18:00 | disposition home health service (06) | DRG 638 ==
LOC: HO.ED 05-25 01:09 → HO.EDOVER 05-25 03:43 → HO.IMC 05-25 20:21 → HO.S3 05-26 17:00
PROVIDERS: Nurse Practitioner Family; Admitting Provider Internal Medicine; Emergency Provider Internal Medicine; PCP Family Medicine; Visit Provider Family Medicine
DX: E11.69 Type 2 diabetes mellitus with other specified complication (principal); L97.516 Non-pressure chronic ulcer of other part of right foot with bone involvement without evidence of necrosis; M86.9 Osteomyelitis, unspecified; E78.5 Hyperlipidemia, unspecified; Z20.822 Contact with and (suspected) exposure to COVID-19; E11.42 Type 2 diabetes mellitus with diabetic polyneuropathy; J45.20 Mild intermittent asthma, uncomplicated; E11.621 Type 2 diabetes mellitus with foot ulcer; Z88.6 Allergy status to analgesic agent; Z79.82 Long term (current) use of aspirin; Z79.51 Long term (current) use of inhaled steroids; Z79.4 Long term (current) use of insulin; Z79.899 Other long term (current) drug therapy
CPT/HCPCS: 36415; 36573; 73660; 73720; 80048; 80076; 80202; 82009; 82565; 82947; 83036; 83605; 85025; 85027; 85652; 86140; 87040; 87635; 96365; 96367; 99223; 99285; A9585; C1751; J0696; J1335; J1650; J2543; J3370

== ENCOUNTER 2021-06-01 15:16 | Outpatient (REF) | payer OTHER, SELFPAY ==
[2021-06-01 16:43] LABS: MANUAL DIFF FLAG NO
[2021-06-01 16:52] LABS: Basophils Absolute Auto 0.1 X10*3/uL (0.0-0.2); Basophils Percent Auto 0.7 % (0-2); Eosinophils Absolute Auto 0.1 X10*3/uL (0.0-0.4); Eosinophils Percent Auto 1.3 % (0-4); Hemoglobin 12.5 g/dl (14.0-18.0); Imm Gran Abs Auto 0.05 X10*3/uL (0.00-0.03); Imm Gran Pct Auto 0.5 % (0.0-0.4); Lymphocytes Absolute Auto 2.6 X10*3/uL (1.2-4.9); Lymphocytes Percent Auto 25.7 % (20-40); Mean Corpuscular HGB Conc 32.9 g/dl (31.0-36.0); Mean Corpuscular Hemoglobin 29.8 pg (27.0-33.0); Mean Corpuscular Volume 90.5 fL (80-98); Mean Platelet Volume 11.4 fL (9.4-12.4); Monocytes Absolute Auto 0.9 X10*3/uL (0.1-1.2); Neutrophils Absolute Auto 6.4 X10*3/uL (2.0-8.3); Neutrophils Percent Auto 62.8 % (45-73); Platelet Count 270 X10*3/uL (160-400); White Blood Count 10.1 X10*3/uL (4.8-10.8)
[2021-06-01 17:11] LABS: Alanine Aminotransferase 43 U/L (0-40); Alkaline Phosphatase 118 U/L (39-117); Anion Gap 14 (12-20); Aspartate Amino Transferase 28 U/L (5-37); Bilirubin Total 0.5 mg/dL (0.0-1.0); Blood Urea Nitrogen 20 mg/dL (9-16); C Reactive Protein 0.89 mg/dL (< or = 0.50); Calcium 9.8 mg/dL (8.4-10.2); Carbon Dioxide 27 mmol/L (22-29); Chloride 102 mmol/L (96-108); Estimated Glomerular Filt Rate > 60; Glucose Random 187 mg/dL (60-115); Sodium 139 mmol/L (135-145); Total Protein 7.5 g/dL (6.5-8.0)
[2021-06-01 17:31] LABS: Erythrocyte Sedimentation Rate 56 MM/HR (0-15)
== END 2021-06-01 15:17 | disposition home or self-care (01) ==
LOC: HO.HMGCLDS 15:16
PROVIDERS: Visit Provider Internal Medicine
DX: Z79.899 Other long term (current) drug therapy (principal)
CPT/HCPCS: 36415; 80053; 85025; 85652; 86140

== ENCOUNTER 2021-06-08 13:53 | Outpatient (REF) | payer OTHER, SELFPAY ==
[2021-06-08 14:05] LABS: MANUAL DIFF FLAG NO
[2021-06-08 14:11] LABS: Basophils Absolute Auto 0.1 X10*3/uL (0.0-0.2); Basophils Percent Auto 0.7 % (0-2); Eosinophils Absolute Auto 0.1 X10*3/uL (0.0-0.4); Eosinophils Percent Auto 1.2 % (0-4); Hematocrit 37.4 % (42-52); Hemoglobin 12.7 g/dl (14.0-18.0); Imm Gran Abs Auto 0.04 X10*3/uL (0.00-0.03); Imm Gran Pct Auto 0.4 % (0.0-0.4); Lymphocytes Absolute Auto 2.3 X10*3/uL (1.2-4.9); Lymphocytes Percent Auto 23.5 % (20-40); Mean Corpuscular Hemoglobin 30.5 pg (27.0-33.0); Mean Corpuscular Volume 89.7 fL (80-98); Mean Platelet Volume 10.9 fL (9.4-12.4); Monocytes Absolute Auto 0.7 X10*3/uL (0.1-1.2); Monocytes Percent Auto 7.1 % (2-11); Neutrophils Absolute Auto 6.6 X10*3/uL (2.0-8.3); Neutrophils Percent Auto 67.1 % (45-73); Platelet Count 283 X10*3/uL (160-400); Red Blood Count 4.17 X10*6/uL (4.60-5.80); Red Cell Distribution Width 12.6 % (11.0-16.0); White Blood Count 9.8 X10*3/uL (4.8-10.8)
[2021-06-08 14:40] LABS: Alanine Aminotransferase 34 U/L (0-40); Alkaline Phosphatase 170 U/L (39-117); Anion Gap 15 (12-20); Aspartate Amino Transferase 19 U/L (5-37); Bilirubin Total 0.3 mg/dL (0.0-1.0); Blood Urea Nitrogen 32 mg/dL (9-16); C Reactive Protein 0.37 mg/dL (< or = 0.50); Calcium 9.9 mg/dL (8.4-10.2); Carbon Dioxide 26 mmol/L (22-29); Chloride 103 mmol/L (96-108); Estimated Glomerular Filt Rate > 60; Glucose Random 368 mg/dL (60-115); Potassium 4.7 mmol/L (3.3-5.1); Sodium 139 mmol/L (135-145); Total Protein 7.6 g/dL (6.5-8.0)
[2021-06-08 15:03] LABS: Erythrocyte Sedimentation Rate 44 MM/HR (0-15)
== END 2021-06-08 13:54 | disposition home or self-care (01) ==
LOC: HO.HVNA 13:53
PROVIDERS: Visit Provider Family Medicine
DX: M86.9 Osteomyelitis, unspecified (principal)
CPT/HCPCS: 36415; 80053; 85025; 85652; 86140

== ENCOUNTER 2021-06-15 16:40 | Outpatient (REF) | payer OTHER, SELFPAY ==
[2021-06-15 16:45] LABS: MANUAL DIFF FLAG NO
[2021-06-15 16:53] LABS: Basophils Absolute Auto 0.1 X10*3/uL (0.0-0.2); Basophils Percent Auto 0.7 % (0-2); Eosinophils Absolute Auto 0.1 X10*3/uL (0.0-0.4); Eosinophils Percent Auto 1.3 % (0-4); Hematocrit 37.9 % (42-52); Hemoglobin 12.8 g/dl (14.0-18.0); Imm Gran Abs Auto 0.04 X10*3/uL (0.00-0.03); Imm Gran Pct Auto 0.4 % (0.0-0.4); Lymphocytes Absolute Auto 2.5 X10*3/uL (1.2-4.9); Lymphocytes Percent Auto 25.5 % (20-40); Mean Corpuscular HGB Conc 33.8 g/dl (31.0-36.0); Mean Corpuscular Hemoglobin 29.8 pg (27.0-33.0); Mean Corpuscular Volume 88.3 fL (80-98); Monocytes Absolute Auto 0.8 X10*3/uL (0.1-1.2); Monocytes Percent Auto 8.2 % (2-11); Neutrophils Absolute Auto 6.3 X10*3/uL (2.0-8.3); Neutrophils Percent Auto 63.9 % (45-73); Platelet Count 228 X10*3/uL (160-400); Red Blood Count 4.29 X10*6/uL (4.60-5.80); Red Cell Distribution Width 12.5 % (11.0-16.0); White Blood Count 9.8 X10*3/uL (4.8-10.8)
[2021-06-15 17:04] LABS: Alanine Aminotransferase 29 U/L (0-40); Albumin Level 3.9 g/dL (3.5-5.0); Alkaline Phosphatase 139 U/L (39-117); Anion Gap 14 (12-20); Aspartate Amino Transferase 23 U/L (5-37); Bilirubin Total 0.5 mg/dL (0.0-1.0); Blood Urea Nitrogen 22 mg/dL (9-16); C Reactive Protein 0.27 mg/dL (< or = 0.50); Calcium 9.8 mg/dL (8.4-10.2); Carbon Dioxide 27 mmol/L (22-29); Chloride 102 mmol/L (96-108); Estimated Glomerular Filt Rate > 60; Glucose Random 200 mg/dL (60-115); Potassium 4.5 mmol/L (3.3-5.1); Sodium 138 mmol/L (135-145); Total Protein 7.4 g/dL (6.5-8.0)
[2021-06-15 17:52] LABS: Erythrocyte Sedimentation Rate 38 MM/HR (0-15)
== END 2021-06-15 16:41 | disposition home or self-care (01) ==
LOC: HO.LNP 16:40
PROVIDERS: Visit Provider Internal Medicine
DX: M86.9 Osteomyelitis, unspecified (principal); Z79.2 Long term (current) use of antibiotics
CPT/HCPCS: 80053; 85025; 85652; 86140

== ENCOUNTER → 2021-06-16 13:59 | Outpatient (BNVA) | payer OTHER, SELFPAY | PROVIDERS: PCP Family Medicine; Visit Provider Internal Medicine | DX: E11.621 Type 2 diabetes mellitus with foot ulcer (principal); L97.509 Non-pressure chronic ulcer of other part of unspecified foot with unspecified severity | CPT/HCPCS: 99212 ==

== ENCOUNTER 2021-06-23 | Outpatient (REF) | payer OTHER, SELFPAY ==
[2021-06-23 17:00] LABS: MANUAL DIFF FLAG NO
[2021-06-23 17:08] LABS: Basophils Absolute Auto 0.1 X10*3/uL (0.0-0.2); Basophils Percent Auto 0.9 % (0-2); Eosinophils Absolute Auto 0.1 X10*3/uL (0.0-0.4); Eosinophils Percent Auto 1.6 % (0-4); Hemoglobin 12.5 g/dl (14.0-18.0); Imm Gran Abs Auto 0.03 X10*3/uL (0.00-0.03); Imm Gran Pct Auto 0.4 % (0.0-0.4); Lymphocytes Absolute Auto 2.1 X10*3/uL (1.2-4.9); Lymphocytes Percent Auto 27.6 % (20-40); Mean Corpuscular HGB Conc 32.9 g/dl (31.0-36.0); Mean Corpuscular Hemoglobin 29.6 pg (27.0-33.0); Mean Platelet Volume 11.8 fL (9.4-12.4); Monocytes Absolute Auto 0.5 X10*3/uL (0.1-1.2); Monocytes Percent Auto 7.1 % (2-11); Neutrophils Absolute Auto 4.8 X10*3/uL (2.0-8.3); Neutrophils Percent Auto 62.4 % (45-73); Platelet Count 250 X10*3/uL (160-400); Red Blood Count 4.22 X10*6/uL (4.60-5.80); Red Cell Distribution Width 12.6 % (11.0-16.0); White Blood Count 7.6 X10*3/uL (4.8-10.8)
[2021-06-23 17:32] LABS: Alanine Aminotransferase 42 U/L (0-40); Albumin Level 3.7 g/dL (3.5-5.0); Alkaline Phosphatase 149 U/L (39-117); Anion Gap 15 (12-20); Aspartate Amino Transferase 24 U/L (5-37); Bilirubin Total 0.4 mg/dL (0.0-1.0); Blood Urea Nitrogen 25 mg/dL (9-16); C Reactive Protein 0.27 mg/dL (< or = 0.50); Calcium 9.6 mg/dL (8.4-10.2); Carbon Dioxide 26 mmol/L (22-29); Chloride 102 mmol/L (96-108); Estimated Glomerular Filt Rate > 60; Glucose Random 313 mg/dL (60-115); Potassium 4.1 mmol/L (3.3-5.1); Sodium 139 mmol/L (135-145); Total Protein 7.2 g/dL (6.5-8.0)
[2021-06-23 18:19] LABS: Erythrocyte Sedimentation Rate 34 MM/HR (0-15)
== END 2021-06-23 00:01 | disposition home or self-care (01) ==
LOC: HO.HMGCLNP
PROVIDERS: Visit Provider Internal Medicine
DX: M86.9 Osteomyelitis, unspecified (principal)
CPT/HCPCS: 80053; 85025; 85652; 86140

== ENCOUNTER 2021-06-30 12:14 | Outpatient (REF) | payer OTHER, SELFPAY ==
[2021-06-30 14:14] LABS: MANUAL DIFF FLAG NO
[2021-06-30 14:17] LABS: Basophils Percent Auto 0.5 % (0-2); Eosinophils Absolute Auto 0.2 X10*3/uL (0.0-0.4); Eosinophils Percent Auto 2.1 % (0-4); Hematocrit 36.8 % (42-52); Hemoglobin 12.3 g/dl (14.0-18.0); Imm Gran Abs Auto 0.04 X10*3/uL (0.00-0.03); Imm Gran Pct Auto 0.5 % (0.0-0.4); Lymphocytes Absolute Auto 2.4 X10*3/uL (1.2-4.9); Lymphocytes Percent Auto 30.4 % (20-40); Mean Corpuscular HGB Conc 33.4 g/dl (31.0-36.0); Mean Corpuscular Hemoglobin 29.8 pg (27.0-33.0); Mean Corpuscular Volume 89.1 fL (80-98); Mean Platelet Volume 12.1 fL (9.4-12.4); Monocytes Absolute Auto 0.7 X10*3/uL (0.1-1.2); Monocytes Percent Auto 9.2 % (2-11); Neutrophils Absolute Auto 4.5 X10*3/uL (2.0-8.3); Neutrophils Percent Auto 57.3 % (45-73); Platelet Count 238 X10*3/uL (160-400); Red Blood Count 4.13 X10*6/uL (4.60-5.80); Red Cell Distribution Width 12.8 % (11.0-16.0); White Blood Count 7.8 X10*3/uL (4.8-10.8)
[2021-06-30 14:50] LABS: Alanine Aminotransferase 45 U/L (0-40); Albumin Level 3.8 g/dL (3.5-5.0); Alkaline Phosphatase 155 U/L (39-117); Anion Gap 15 (12-20); Aspartate Amino Transferase 23 U/L (5-37); Bilirubin Total 0.4 mg/dL (0.0-1.0); Blood Urea Nitrogen 30 mg/dL (9-16); C Reactive Protein 0.34 mg/dL (< or = 0.50); Calcium 9.2 mg/dL (8.4-10.2); Carbon Dioxide 26 mmol/L (22-29); Chloride 100 mmol/L (96-108); Estimated Glomerular Filt Rate > 60; Glucose Random 299 mg/dL (60-115); Sodium 137 mmol/L (135-145); Total Protein 7.1 g/dL (6.5-8.0)
[2021-06-30 15:01] LABS: Erythrocyte Sedimentation Rate 33 MM/HR (0-15)
== END 2021-06-30 12:15 | disposition home or self-care (01) ==
LOC: HO.HVNA 12:14
PROVIDERS: Visit Provider Internal Medicine
DX: M86.9 Osteomyelitis, unspecified (principal)
CPT/HCPCS: 36415; 80053; 85025; 85652; 86140

== ENCOUNTER → 2021-07-20 13:06 | Outpatient (BNVA) | payer OTHER, SELFPAY | PROVIDERS: Visit Provider Internal Medicine | DX: E11.621 Type 2 diabetes mellitus with foot ulcer (principal); L97.509 Non-pressure chronic ulcer of other part of unspecified foot with unspecified severity | CPT/HCPCS: 99212 ==

== ENCOUNTER 2021-12-15 10:45 | Emergency (ER) | payer OTHER, SELFPAY ==
--- NOTE | ~2021-12-15 | CT_ITS ---
EXAMINATION: CT ABDOMEN AND PELVIS WITHOUT CONTRAST CLINICAL INFORMATION: Hematuria COMPARISON: Previous renal ultrasound August [address] of the abdomen and pelvis January 2015 TECHNIQUE: Multidetector volumetric imaging was performed from the superior aspect of the liver through the pubic symphysis. Sagittal and coronal reformatted images were obtained on the technologist's workstation. This CT examination was performed using dose optimization techniques as appropriate, variously including the following: *Automated exposure control *Adjustment of mA and/or kV according to patient size (this includes techniques or standardized protocols for targeted exams where dose is matched to indication/reason for exam; i.e. extremities or head) *Use of iterative reconstruction technique DLP: 1521 mGy-cm FINDINGS: LUNG BASES: The visualized lung bases are unremarkable. LIVER, GALLBLADDER, AND BILIARY TREE: The liver is normal in size, shape, and attenuation. No focal hepatic lesion or biliary ductal dilatation is present. The gallbladder is unremarkable with no evidence of radiopaque gallstones, gallbladder wall thickening, or obvious pericholecystic inflammatory changes. PANCREAS: Unremarkable. SPLEEN: Unremarkable. ADRENAL GLANDS: Unremarkable. KIDNEYS AND URETERS: There are small bilateral renal stones. No hydronephrosis, ureteral dilatation or ureteral stone is seen. BLADDER: Unremarkable. GASTROINTESTINAL TRACT: There is diverticulosis of the colon. The small and large bowel are otherwise unremarkable. The appendix is unremarkable. ABDOMINAL WALL: No significant hernia is appreciated. LYMPH NODES: Normal. VASCULAR: Unremarkable. PELVIC VISCERA: Unremarkable. OSSEOUS STRUCTURES: There are degenerative changes of the spine. CT/CT abdomen pelvis wo con IMPRESSION: Small bilateral renal stones. Diverticulosis. Fleischner guidelines were followed.
[2021-12-15 10:47] VITALS: BP 198/109; PULSE 112; RESP 20; TEMP 36.9; O2SAT 98; BMI 35.3
[2021-12-15 11:09] LABS: MANUAL DIFF FLAG NO
[2021-12-15 11:10] LABS: Basophils Percent Auto 0.4 % (0-2); Eosinophils Absolute Auto 0.1 X10*3/uL (0.0-0.4); Eosinophils Percent Auto 0.5 % (0-4); Hematocrit 38.9 % (42.0-52.0); Hemoglobin 12.9 g/dl (14.0-18.0); Imm Gran Abs Auto 0.03 X10*3/uL (0.00-0.03); Imm Gran Pct Auto 0.3 % (0.0-0.4); Lymphocytes Absolute Auto 2.1 X10*3/uL (1.2-4.9); Lymphocytes Percent Auto 18.8 % (20-40); Mean Corpuscular HGB Conc 33.2 g/dl (31.0-36.0); Mean Corpuscular Hemoglobin 29.5 pg (27.0-33.0); Mean Platelet Volume 10.3 fL (9.4-12.4); Monocytes Absolute Auto 0.8 X10*3/uL (0.1-1.2); Monocytes Percent Auto 6.6 % (2-11); Neutrophils Absolute Auto 8.3 x10*3/uL (2.0-8.3); Neutrophils Percent Auto 73.4 % (45-73); Platelet Count 282 X10*3/uL (160-400); Red Blood Count 4.37 X10*6/uL (4.60-5.80); Red Cell Distribution Width 12.7 % (11.0-16.0); White Blood Count 11.4 X10*3/uL (4.8-10.8)
--- NOTE | 2021-12-15 11:14 | ED.GENADULT ---
HPI - General Adult General Chief complaint: Allergic Reaction Stated complaint: speech not normal/heavy tongue/diff breathing Time Seen by Provider: 12/15/21 10:57 Source: patient Mode of arrival: ambulatory Limitations: no limitations History of Present Illness HPI narrative: Patient feels that his speech is different and his tongue is numb. In addition patient has flank pain radiating to the right groin. This pain comes and goes for 5 months but it was worse yesterday. He states he has urgency and frequency. He has a prior history of kidney stone. Patient comes to the ED because he noticed a difference in his speech. Patient denies one sided weakness or numbness Onset (ago): day(s) Location: mouth Severity: mild Associated symptoms: other (abdominal pain and flank pain) Related Data Home Medications Medication Instructions Recorded Confirmed albuterol sulfate 90 mcg/actuation 2 puff PO Q4-6H PRN 05/25/21 05/25/21 aerosol inhaler (Ventolin HFA) aspirin 81 mg tablet,delayed 1 tab PO DAILY 05/25/21 05/25/21 release atorvastatin 40 mg tablet 1 tab PO BEDTIME 05/25/21 05/25/21 baclofen 20 mg tablet 1 tab PO TID 05/25/21 05/25/21 betamethasone dipropionate 0.05 % 1 ea TOPICAL DAILY 05/25/21 05/25/21 topical ointment cholecalciferol (vitamin D3) 50 1 cap PO DAILY 05/25/21 05/25/21 mcg (2,000 unit) capsule fluoxetine 20 mg capsule 2 cap PO QAM 05/25/21 05/25/21 fluticasone propionate 50 2 spray INTRANASAL DAILY PRN 05/25/21 05/25/21 mcg/actuation nasal spray,suspension gabapentin 300 mg capsule 2 cap PO TID 05/25/21 05/25/21 hydrochlorothiazide 25 mg tablet 1 tab PO DAILY 05/25/21 05/25/21 insulin detemir U-100 100 unit/mL 70 unit SUBCUT QPM 05/25/21 05/25/21 (3 mL) subcutaneous pen (Levemir FlexTouch U-100 Insulin) insulin lispro 100 unit/mL See Rx Instructions .ROUTE .COMPLEX 05/25/21 05/25/21 subcutaneous pen (Humalog KwikPen (U-100) Insulin) loratadine 10 mg tablet 1 tab PO DAILY 05/25/21 05/25/21 losartan 100 mg tablet 1 tab PO DAILY 05/25/21 05/25/21 metformin 500 mg tablet 500 mg PO BID 05/25/21 05/25/21 omeprazole 20 mg capsule,delayed 40 cap PO DAILY 05/25/21 05/25/21 release Previous Rx's Medication Instructions Recorded ertapenem 1 gram solution for 1 g IV Q24H #40 ea 05/27/21 injection doxycycline hyclate 100 mg capsule 100 mg PO BID 30 Days #60 cap 07/08/21 amlodipine 10 mg tablet 10 mg PO DAILY #30 tab 12/15/21 Allergies Allergy/AdvReac Type Severity Reaction Status Date / Time ibuprofen Allergy Unknown stomach Verified 03/12/13 00:00 upset Seafood Allergy Intermediate RASH Uncoded 06/19/20 14:46 shell fish Allergy Unknown Uncoded 08/02/19 00:00 Review of Systems Constitutional: Constitutional: Reports no additional constitutional complaints Eyes: Eyes: Reports no additional eye complaints ENT: Denies dizziness Cardiovascular: Cardiovascular: Reports no additional cardiovascular complaints Respiratory: Respiratory: Reports as per HPI Gastrointestinal: Gastrointestinal: Reports no additional gastrointestinal complaints Musculoskeletal: Musculoskeletal: Reports no additional musculoskeletal complaints Integumentary/Breasts: Skin/Breast: Denies rash Neurologic: Reports system reviewed and no additional complaints, except as documented, Denies dizziness and Denies Sensory deficit (Neuro) Psychiatric: Psychiatric: Denies anxiety [facility] Past Medical History Medical History Asthma Diabetes Diabetic ulcer of toe HLD (hyperlipidemia) HTN (hypertension) Osteomyelitis Surgical History H/O exploratory laparotomy Social History Social History Household Members: Family Alcohol intake: never Patient Tobacco Use Status: Never used Tobacco Advance Directives: No Advance Directives Information Provided: No service: No Current occupational status: disabled Physical Exam ED Vital Signs: Vital Signs - 24 hr 12/15/21 10:47 12/15/21 15:36 Temperature 98.4 F 98.7 F Pulse Rate 112 H 110 H Respiratory Rate 20 18 Blood Pressure 198/109 H 188/106 H Pulse Oximetry 98 97 BMI result Body Mass Index 35.3 Const Other: Obese male looking older than stated age Orientation/consciousness: oriented to person and patient oriented x3 Limitations: no limitations HENMT Other: symmetric face, tongue full movement, no uvula or tongue swelling Head: Yes normal to inspection Ears: external ears normal General nose exam: Normal external nose present Mouth: Normal oral and palatal mucosa present and oropharynx normal Throat: Yes posterior oropharynx normal Eyes General: appearance normal, both eyes and all related structures Neck Neck: Yes normal visual inspection Chest Chest palpation & inspection: normal inspection of the chest Resp Auscultation: clear to auscultation bilaterally Cardio Jugular venous distension: no JVD Rate: regular rate Rhythm: regular rhythm Heart sounds: S1 normal heart sound present and S2 normal heart sound present GI Other: obese nontender Palpation (GI): Soft to palpation, nontender and No hepatosplenomegaly present Auscultation: normal bowel sounds General: Yes no CVA tenderness Back/Spine/Pelvis Back: no CVA tenderness Skin General skin exam: no rashes or lesions noted Neuro General: oriented to person and patient oriented x3 Cranial nerves: Yes CN's II-XII intact bilaterally Motor exam (neuro): 5/5 motor strength present throughout Sensory Exam: No Sensory deficit (Neuro) Extrem General: Yes normal to inspection Psych Appearance: grossly normal Course Reevaluation(s) Reevaluation #1: patient with no evidence of stroke, by history and symptoms this may be early or mild angioedema. Will stop cozaar and start amlodipine. Will have patient follow up with pmd. In addition, there are stones and no hydro and this is the likely cause of microscopic hematuria Time: 16:30 Medical Decision Making Lab Data Result diagrams: 12/15/21 11:01 12/15/21 11:01 Labs: Lab Results 12/15/21 12/15/21 12/15/21 Range/Units 11:01 11:01 11:50 WBC 11.4 H (4.8-10.8) X10*3/uL RBC 4.37 L (4.60-5.80) X10*6/uL Hgb 12.9 L (14.0-18.0) g/dl Hct 38.9 L (42.0-52.0) % MCV 89.0 (80.0-98.0) fL MCH 29.5 (27.0-33.0) pg MCHC 33.2 (31.0-36.0) g/dl RDW 12.7 (11.0-16.0) % Plt Count 282 (160-400) X10*3/uL MPV 10.3 (9.4-12.4) fL Immature Gran % (Auto) 0.3 (0.0-0.4) % Neut % (Auto) 73.4 H (45-73) % Lymph % (Auto) 18.8 L (20-40) % [place] % (Auto) 6.6 (2-11) % Eos % (Auto) 0.5 (0-4) % Baso % (Auto) 0.4 (0-2) % Lymph # (Auto) 2.1 (1.2-4.9) X10*3/uL [place] # (Auto) 0.8 (0.1-1.2) X10*3/uL Eos # (Auto) 0.1 (0.0-0.4) X10*3/uL Baso # (Auto) 0.0 (0.0-0.2) X10*3/uL Abs Immat Gran (auto) 0.03 (0.00-0.03) X10*3/uL Absolute Neuts (auto) 8.3 (2.0-8.3) x10*3/uL Absolute Nucleated RBC 0.000 (0.0-0.012) X10*3/uL Nucleated RBC % (auto) 0.0 (0.0-0.2) /100WBC Sodium 135 (135-145) mmol/L Potassium 4.2 (3.3-5.1) mmol/L Chloride 99 (96-108) mmol/L Carbon Dioxide 27 (22-29) mmol/L Anion Gap 13 (12-20) BUN 17 H (9-16) mg/dL Creatinine 1.00 (0.5-1.4) mg/dL Estim Creat Clear Calc 111.3 Estimated GFR > 60 Random Glucose 273 H (60-115) mg/dL Calcium 9.6 (8.4-10.2) mg/dL Urine Color YELLOW Urine Appearance CLEAR Urine pH 6.5 (5.0-8.0) Ur Specific [place] 1.020 (1.005-1.025) Urine Protein 3+ H (NEG-TRACE) MG/DL Urine Glucose (UA) 500 H (NEG) MG/DL Urine Ketones 5 (NEG) MG/DL Urine Blood 2+ H (NEG) Urine Nitrite NEG (NEG) Ur Leukocyte Esterase NEG (NEG) Urine RBC 15-29 H (0) /HPF Urine WBC 0-2 (0-4) /HPF Ur Squamous Epith Cells NONE /LPF Urine Bacteria NONE /LPF Urine Mucus TRACE /LPF Discharge Plan Discharge Clinical Impression: Angioedema, Essential (primary) hypertension, Bilateral kidney stones Patient Disposition: Home, Self-Care Instructions: Kidney Stones (ED), Angioedema (ED), Hypertension (ED) Prescriptions: New amlodipine 10 mg tablet 10 mg PO DAILY Qty: 30 0RF No Action doxycycline hyclate 100 mg capsule 100 mg PO BID 30 Days Qty: 60 1RF atorvastatin 40 mg tablet 1 tab PO BEDTIME 0RF metformin 500 mg tablet 500 mg PO BID 0RF aspirin 81 mg tablet,delayed release (DR/EC) 1 tab PO DAILY 0RF baclofen 20 mg tablet 1 tab PO TID 0RF gabapentin 300 mg capsule 2 cap PO TID 0RF omeprazole 20 mg capsule,delayed release(DR/EC) 40 cap PO DAILY 0RF hydrochlorothiazide 25 mg tablet 1 tab PO DAILY 0RF betamethasone dipropionate 0.05 % ointment 1 ea topical DAILY 0RF losartan 100 mg tablet 1 tab PO DAILY 0RF fluoxetine 20 mg capsule 2 cap PO QAM 0RF loratadine 10 mg tablet 1 tab PO DAILY 0RF cholecalciferol (vitamin D3) 50 mcg (2,000 unit) capsule 1 cap PO DAILY 0RF albuterol sulfate [Ventolin HFA] 90 mcg/actuation HFA aerosol inhaler 2 puff PO Q4-6H PRN (Reason: Shortness Of Breath) 0RF fluticasone propionate 50 mcg/actuation spray,suspension 2 spray intranasal DAILY PRN (Reason: Allergy Symptoms) 0RF insulin lispro [Humalog KwikPen Insulin] 100 unit/mL insulin pen See Rx Instructions .ROUTE .COMPLEX 0RF Rx Instructions: 30 units with lunch, 36 units with dinner Levemir FlexTouch U-100 Insuln 100 unit/mL (3 mL) insulin pen 70 unit subcut QPM 0RF ertapenem 1 gram recon soln 1 g IV Q24H Qty: 40 0RF Rx Instructions: For diabetic osteomyelitis. End date 07/06/21 Referrals: [facility] [Primary Care Provider] - 1 week
[2021-12-15 11:27] LABS: Anion Gap 13 (12-20); Blood Urea Nitrogen 17 mg/dL (9-16); Calcium 9.6 mg/dL (8.4-10.2); Carbon Dioxide 27 mmol/L (22-29); Chloride 99 mmol/L (96-108); Creatinine Clr Calc Pharmacy 111.3; Estimated Glomerular Filt Rate > 60; Glucose Random 273 mg/dL (60-115); Potassium 4.2 mmol/L (3.3-5.1); Sodium 135 mmol/L (135-145)
[2021-12-15] MEDS: amLODIPine Besylate 10 MG TABLET PO (11:52)
[2021-12-15 12:12] LABS: Appearance Urine CLEAR; Color Urine YELLOW; Glucose Urine UA 500 MG/DL (NEG); Leukocyte Esterase Urine NEG (NEG); Nitrite Urine NEG (NEG); PH 6.5 (5.0-8.0); UACC Culture Trigger NO; Urine Blood 2+ (NEG); Urine Ketones 5 MG/DL (NEG); Urine Protein 3+ MG/DL (NEG-TRACE)
[2021-12-15 12:26] LABS: WBC Urine 0-2 /HPF (0-4)
[2021-12-15 12:27] LABS: Mucus Urine TRACE /LPF
[2021-12-15 15:36] VITALS: BP 188/106; PULSE 110; RESP 18; TEMP 37.1; O2SAT 97
== END 2021-12-15 16:57 | disposition home or self-care (01) ==
PROVIDERS: Emergency Provider Emergency Medicine
DX: T78.3XXA Angioneurotic edema, initial encounter (principal); T46.5X5A Adverse effect of other antihypertensive drugs, initial encounter; Y92.019 Unspecified place in single-family (private) house as the place of occurrence of the external cause; I10 Essential (primary) hypertension; N20.0 Calculus of kidney; R10.9 Unspecified abdominal pain; E11.9 Type 2 diabetes mellitus without complications; E78.5 Hyperlipidemia, unspecified; Z79.4 Long term (current) use of insulin; Z79.82 Long term (current) use of aspirin; Z79.02 Long term (current) use of antithrombotics/antiplatelets
CPT/HCPCS: 36415; 74176; 80048; 81001; 81003; 85025; 99284

== ENCOUNTER 2022-12-09 08:21 | Outpatient (RCR) | payer OTHER, SELFPAY | END 2023-02-14 16:00 | disposition home or self-care (01) | LOC: HO.WCC 08:21 | PROVIDERS: PCP Family Medicine; Visit Provider Surgery | DX: Z09 Encounter for follow-up examination after completed treatment for conditions other than malignant neoplasm (principal); E11.9 Type 2 diabetes mellitus without complications; L84 Corns and callosities; I10 Essential (primary) hypertension; Z86.31 Personal history of diabetic foot ulcer | CPT/HCPCS: 11042; 11055; 99212 ==

== ENCOUNTER 2023-08-09 09:00 | Outpatient (RCR) | payer OTHER, SELFPAY | END 2023-09-13 17:00 | disposition home or self-care (01) | LOC: HO.WCC 09:00 | PROVIDERS: Visit Provider Physician Assistant | DX: Z09 Encounter for follow-up examination after completed treatment for conditions other than malignant neoplasm (principal); L84 Corns and callosities; E11.40 Type 2 diabetes mellitus with diabetic neuropathy, unspecified; I10 Essential (primary) hypertension; Z86.73 Personal history of transient ischemic attack (TIA), and cerebral infarction without residual deficits; Z86.31 Personal history of diabetic foot ulcer | CPT/HCPCS: 11042; 99212; 99213 ==

== ENCOUNTER 2023-10-12 11:50 | Outpatient (REF) | payer OTHER, SELFPAY ==
[2023-10-12 13:29] LABS: MANUAL DIFF FLAG NO
[2023-10-12 13:36] LABS: Basophils Absolute Auto 0.1 X10*3/uL (0.0-0.2); Basophils Percent Auto 1.1 % (0-2); Eosinophils Absolute Auto 0.2 X10*3/uL (0.0-0.4); Eosinophils Percent Auto 1.9 % (0-4); Hematocrit 32.2 % (42.0-52.0); Hemoglobin 10.5 g/dl (14.0-18.0); Imm Gran Abs Auto 0.06 X10*3/uL (0.00-0.03); Imm Gran Pct Auto 0.6 % (0.0-0.4); Lymphocytes Absolute Auto 2.5 X10*3/uL (1.2-4.9); Lymphocytes Percent Auto 26.9 % (20-40); Mean Corpuscular HGB Conc 32.6 g/dl (31.0-36.0); Mean Corpuscular Hemoglobin 28.5 pg (27.0-33.0); Mean Corpuscular Volume 87.3 fL (80.0-98.0); Mean Platelet Volume 10.2 fL (9.4-12.4); Monocytes Absolute Auto 0.7 X10*3/uL (0.1-1.2); Monocytes Percent Auto 7.8 % (2-11); Neutrophils Absolute Auto 5.7 x10*3/uL (2.0-8.3); Neutrophils Percent Auto 61.7 % (45-73); Platelet Count 400 X10*3/uL (160-400); Red Blood Count 3.69 X10*6/uL (4.60-5.80); Red Cell Distribution Width 13.7 % (11.0-16.0); White Blood Count 9.3 X10*3/uL (4.8-10.8)
[2023-10-12 13:48] LABS: Estimated Average Glucose 160 mg/dL; Hemoglobin A1c % 7.2 % (<6.0)
[2023-10-12 14:02] LABS: Alanine Aminotransferase 26 U/L (0-40); Albumin Level 3.6 g/dL (3.5-5.0); Alkaline Phosphatase 173 U/L (39-117); Anion Gap 15 (12-20); Aspartate Amino Transferase 27 U/L (5-37); Bilirubin Direct < 0.2 mg/dL (0.0-0.5); Bilirubin Total 0.2 mg/dL (0.0-1.0); Blood Urea Nitrogen 30 mg/dL (9-16); Calcium 9.6 mg/dL (8.4-10.2); Carbon Dioxide 24 mmol/L (22-29); Chloride 105 mmol/L (96-108); Cholesterol 113 mg/dL (<200); Estimated Glomerular Filt Rate > 60; Glucose Random 153 mg/dL (60-115); HDL Cholesterol 27 mg/dL (>40); Iron 73 mcg/dL (45-160); LDL Cholesterol Calculated 69 mg/dL (<100); Percent Iron Saturation 32 % (15-50); Potassium 3.8 mmol/L (3.3-5.1); Sodium 140 mmol/L (135-145); Total Iron Binding Capacity 229 mcg/dL (228-428); Total Protein 7.7 g/dL (6.5-8.0); Triglycerides 87 mg/dL (<150); Unsaturated Iron Binding 156 ug/dL
[2023-10-12 14:15] LABS: Ferritin 298 ng/mL (20-250); Free T4 (Free Thyroxine) 1.17 ng/dL (0.71-1.85); Vitamin D 25-OH Total 16.2 ng/mL (>30)
[2023-10-12 14:21] LABS: Thyroid Stimulating Hormone 0.08 uIU/mL (0.32-4.0)
[2023-10-12 14:30] LABS: Creatinine Urine 78.88 mg/dL; Microalbum/Creatinine Ratio Ur 1725.4 ug/mg cr (<30)
[2023-10-12 15:57] LABS: CT PCR NOT DETECTED (Not Detect.); NG PCR NOT DETECTED (Not Detect.)
[2023-10-12 16:01] LABS: Folate 8.6 ng/mL (> or = 4.0); Vitamin B12 283 pg/mL (200-900)
[2023-10-13 08:14] LABS: HBS Num1 253.17 mIU/mL (0-7.99); HBsAGNum1 0.32 S/CO (0.00-0.99); HIV AB/AG Nonreactive (Nonreactive); HIV Num 1 0.05 S/CO (0.00-0.99); Hepatitis B Surface Antigen Negative (Negative); ~HepC Num1 0.11 S/CO (0.00-0.79); ~Hepatitis B Surface Antibody REACTIVE (Nonreactive); ~Hepatitis C Antibody Nonreactive (Nonreactive)
[2023-10-14 10:42] LABS: RPR Rapid Plasma Reagin NON-REACTIVE (NON-REACTIVE)
== END 2023-10-12 11:51 | disposition home or self-care (01) ==
LOC: HO.HHCL 11:50
PROVIDERS: Internal Medicine; Visit Provider Family Medicine
DX: E11.29 Type 2 diabetes mellitus with other diabetic kidney complication (principal); D64.9 Anemia, unspecified; Z20.2 Contact with and (suspected) exposure to infections with a predominantly sexual mode of transmission
CPT/HCPCS: 0353U; 36415; 80048; 80061; 80076; 82043; 82306; 82570; 82607; 82728; 82746; 83036; 83540; 84439; 84443; 85025; 85027; 86592; 86706; 86803; 87340; 87389

== ENCOUNTER 2023-11-10 11:41 | Outpatient (AMB) | payer OTHER, SELFPAY ==
--- NOTE | 2023-11-10 11:46 | HO.NEPHOV_ITS ---
HPI HPI Comments History of Present Illness Details I had the privilege of seeing Mr. Dawson in consultation for proteinuria. He is 58 years of age and has longstanding history of diabetes mellitus. He has no history of drug use. He denies history of retinopathy, neuropathy or LVH but has proteinuria .He does not have any nausea, vomiting, diarrhea, shortness of breath, proximal nocturnal dyspnea, orthopnea, pedal edema, hematuria, renal stones, coronary artery disease, congestive heart failure, carotid stenosis, peripheral arterial disease, renal artery stenosis, new bone or back pain. He never had any history of high serum calcium. He denies any history of hepatitis or HIV. He does not get any recurrent sore throat, epistaxis, hemoptysis, photosensitivity, skin rashes. He has no sensorineural hearing deficits. [facility] Medical History (Updated 11/10/23 @ 13:01 by Jose Meade MD) Osteomyelitis Diabetic ulcer of toe Asthma HLD (hyperlipidemia) HTN (hypertension) Diabetes Surgical History H/O exploratory laparotomy Social History Household Members: Family Alcohol intake: never Patient Tobacco Use Status: Never used Tobacco service: No Current occupational status: disabled Vital Signs 11/10/23 11:47 Height 6 ft 1 in Weight 223 lb 4 oz BMI 29.5 BP 130/80 Blood Pressure Location Lt brachial Position Sitting Pulse 97 Pulse Source Pulse Oximeter Pulse Oximetry (%) 98 Oxygen Delivery Method Room Air Physical Exam Vital Signs: Last Vital Signs Pulse 97 11/10/23 11:47 BP 130/80 11/10/23 11:47 Pulse Ox 98 11/10/23 11:47 Oxygen Delivery Method Room Air 11/10/23 11:47 BMI result Body Mass Index 29.5 Const General: comfortable and no acute distress Orientation/consciousness: patient oriented x3 HEENT Head: Yes normocephalic Mouth: Normal oral and palatal mucosa present Eyes EOM: EOMs intact bilaterally Neck Neck: Yes supple Resp Auscultation: clear to auscultation bilaterally Cardio Jugular venous distension: no JVD Rate: regular rate GI Palpation (GI): Soft to palpation Auscultation: normal bowel sounds General: Yes no CVA tenderness Back/Spine/Pelvis Back: no CVA tenderness Skin General skin exam: no rashes or lesions noted Neuro General: patient oriented x3 and moves all extremities Extrem General: Yes no pedal edema Assessment & Plan Assessment & Plan (1) Diabetic nephropathy: Code(s): E11.21 - Type 2 diabetes mellitus with diabetic nephropathy Qualifiers: Diabetes mellitus type: type 2 Qualified Code(s): E11.21 - Type 2 diabetes mellitus with diabetic nephropathy (2) HTN (hypertension): Code(s): I10 - Essential (primary) hypertension Qualifiers: Hypertension type: primary hypertension Qualified Code(s): I10 - Essential (primary) hypertension Plan Mr. Dawson has longstanding diabetes with proteinuria. He has been on ARB. He intermittently take nonsteroidal anti-inflammatories. His urine output is good and there is no reason to suspect any obstructive uropathy. He has diabetic nephropathy. I have ordered workup including blood work and urine studies. He is a great candidate for G[employer] of [employer] which a plan to initiate after next visit. I reduced his hydrochlorothiazide to 12.5 mg daily. He is avoiding nonsteroidal anti-inflammatories which I encouraged. He needs to maintain hydration. I did not make any other medication changes today. All the possibilities have been discussed in detail and I answered all his questions. Further management is pending evolving data. Orders: Orders Hepatitis B Core Antibody Today E11.21 - Type 2 diabetes mellitus with diabetic nephropathy, I10 - Essential (primary) hypertension Blood Urea Nitrogen Today E11.21 - Type 2 diabetes mellitus with diabetic nephropathy, I10 - Essential (primary) hypertension Phospholipase A2 Receptor Pnl Today E11.21 - Type 2 diabetes mellitus with diab etic nephropathy, I10 - Essential (primary) hypertension Immunofixation Pnl, Serum Today E11.21 - Type 2 diabetes mellitus with diabetic nephropathy, I10 - Essential (primary) hypertension UA and rflx microscopic Today E11.21 - Type 2 diabetes mellitus with diabetic nephropathy, I10 - Essential (primary) hypertension Protein Creatinine Ratio, Ur Today E11.21 - Type 2 diabetes mellitus with diabetic nephropathy, I10 - Essential (primary) hypertension Hepatitis C Antibody Reflex Today E11.21 - Type 2 diabetes mellitus with diabetic nephropathy, I10 - Essential (primary) hypertension Hepatitis B Surface Antigen Today E11.21 - Type 2 diabetes mellitus with diab etic nephropathy, I10 - Essential (primary) hypertension Creatinine Today E11.21 - Type 2 diabetes mellitus with diabetic nephropathy, I10 - Essential (primary) hypertension Calcium Today E11.21 - Type 2 diabetes mellitus with diabetic nephropathy, I10 - Essential (primary) hypertension Electrolytes Today E11.21 - Type 2 diabetes mellitus with diabetic nephropathy, I10 - Essential (primary) hypertension Coding Level of Care Code New Pt Level 4 (94661) Diagnoses Diabetic nephropathy associated with type 2 diabetes mellitus E11.21 Diabetes mellitus type: type 2 Primary hypertension I10 Hypertension type: primary hypertension Results Reviewed Nephrology Results: Hgb 10.5 g/dl (14.0-18.0) L 10/12/23 WBC 9.3 X10*3/uL (4.8-10.8) 10/12/23 Plt Count 400 X10*3/uL (160-400) 10/12/23 Sodium 140 mmol/L (135-145) 10/12/23 Potassium 3.8 mmol/L (3.3-5.1) 10/12/23 Chloride 105 mmol/L (96-108) 10/12/23 Carbon Dioxide 24 mmol/L (22-29) 10/12/23 BUN 30 mg/dL (9-16) H 10/12/23 Creatinine 0.94 mg/dL (0.5-1.4) 10/12/23 Calcium 9.6 mg/dL (8.4-10.2) 10/12/23 Urine Protein 3+ MG/DL (NEG-TRACE) H 12/15/21 Urine Creatinine 78.88 mg/dL 10/12/23
[2023-11-10 11:47] VITALS: BP 130/80; PULSE 97; O2SAT 98; BMI 29.5
== END 2023-11-10 12:15 | disposition home or self-care (01) ==
PROVIDERS: PCP Family Medicine; Referring Provider Family Medicine; Visit Provider Internal Medicine Nephrology
DX: E11.21 Type 2 diabetes mellitus with diabetic nephropathy (principal); I10 Essential (primary) hypertension
CPT/HCPCS: 99204

== ENCOUNTER → 2023-11-10 11:41 | Outpatient (BNVA) | payer OTHER, SELFPAY | PROVIDERS: PCP Family Medicine; Referring Provider Family Medicine; Visit Provider Internal Medicine Nephrology | DX: E11.21 Type 2 diabetes mellitus with diabetic nephropathy (principal); I10 Essential (primary) hypertension | CPT/HCPCS: 99202 ==

== ENCOUNTER 2023-12-06 12:43 | Outpatient (REF) | payer OTHER, SELFPAY ==
[2023-12-06 16:36] LABS: Anion Gap 11 (12-20); Blood Urea Nitrogen 24 mg/dL (9-16); Calcium 9.6 mg/dL (8.4-10.2); Carbon Dioxide 25 mmol/L (22-29); Chloride 106 mmol/L (96-108); Estimated Glomerular Filt Rate > 60; Potassium 4.2 mmol/L (3.3-5.1); Sodium 138 mmol/L (135-145)
[2023-12-06 17:47] LABS: Appearance Urine Clear; Color Urine Yellow; Glucose Urine UA >=1000 mg/dL (Negative); Leukocyte Esterase Urine Negative (Negative); Nitrite Urine Negative (Negative); UMIC TRIGGER UA YES; Urine Blood Small (1+) (Negative); Urine Ketones Negative (Negative); Urine Protein 300 (3+) mg/dL (Neg-Trace)
[2023-12-06 18:01] LABS: Bacteria Urine None Seen (None Seen); Hyaline Casts Urine 0-2 /LPF (0-2); Squamous Epithelial Cell Urine 0-2 /HPF (0-2); WBC Urine 0-5 /HPF (0-5)
[2023-12-06 18:20] LABS: Creatinine Urine 63.97 mg/dL
[2023-12-06 18:44] LABS: Protein/Creatinine Ratio, Ur 5.22 (<0.2); Total Protein Urine Random 334 mg/dL (<12)
[2023-12-07 09:01] LABS: HBc Num1 0.21 S/CO (0.00-0.79); HBsAGNum1 0.39 S/CO (0.00-0.99); Hepatitis B Core Antibody Nonreactive (Nonreactive); Hepatitis B Surface Antigen Negative (Negative); ~HepC Num1 0.13 S/CO (0.00-0.79); ~Hepatitis C Antibody Nonreactive (Nonreactive)
[2023-12-12 12:53] LABS: IgA 637 mg/dL (47-310); IgG 1237 mg/dL (600-1640); IgM 93 mg/dL (50-300)
[2023-12-14 17:58] LABS: Phospholipase A2 IgG ELISA <4 RU/mL; Phospholipase A2 IgG IFA NEGATIVE (NEGATIVE)
== END 2023-12-06 12:44 | disposition home or self-care (01) ==
LOC: HO.HHCL 12:43
PROVIDERS: Visit Provider Internal Medicine Nephrology
DX: E11.21 Type 2 diabetes mellitus with diabetic nephropathy (principal); I10 Essential (primary) hypertension; R80.9 Proteinuria, unspecified
CPT/HCPCS: 36415; 80051; 81001; 82310; 82565; 82570; 82784; 83520; 84156; 84520; 86255; 86334; 86704; 86803; 87340; 99212

== ENCOUNTER 2023-12-06 13:13 | Outpatient (AMB) | payer OTHER, SELFPAY ==
--- NOTE | 2023-12-06 13:33 | HO.NEPHOV_ITS ---
HPI HPI Comments History of Present Illness Details I had the privilege of seeing Mr. Dawson in follow up for proteinuria. He is 58 years of age and has longstanding history of diabetes mellitus. He has no history of drug use. He denies history of retinopathy, neuropathy or LVH but has proteinuria .He does not have any nausea, vomiting, diarrhea, shortness of breath, proximal nocturnal dyspnea, orthopnea, pedal edema, hematuria, renal stones, coronary artery disease, congestive heart failure, carotid stenosis, peripheral arterial disease, renal artery stenosis, new bone or back pain. He never had any history of high serum calcium. He denies any history of hepatitis or HIV. He does not get any recurrent sore throat, epistaxis, hemoptysis, photosensitivity, skin rashes. He has no sensorineural hearing deficits. His renal functions are normal [facility] Medical History (Updated 11/10/23 @ 13:01 by Jose Meade MD) Osteomyelitis Diabetic ulcer of toe Asthma HLD (hyperlipidemia) HTN (hypertension) Diabetes Surgical History H/O exploratory laparotomy Social History Household Members: Family Alcohol intake: never Patient Tobacco Use Status: Never used Tobacco service: No Current occupational status: disabled Vital Signs 12/06/23 13:34 Height 6 ft 1 in BP 152/82 H Blood Pressure Location Lt brachial Position Sitting Pulse 92 Pulse Source Pulse Oximeter Pulse Oximetry (%) 98 Oxygen Delivery Method Room Air Physical Exam Vital Signs: Last Vital Signs Pulse 92 12/06/23 13:34 BP 152/82 H 12/06/23 13:34 Pulse Ox 98 12/06/23 13:34 Oxygen Delivery Method Room Air 12/06/23 13:34 Const General: comfortable and no acute distress Orientation/consciousness: patient oriented x3 HEENT Head: Yes normocephalic Mouth: Normal oral and palatal mucosa present Eyes EOM: EOMs intact bilaterally Neck Neck: Yes supple Resp Auscultation: clear to auscultation bilaterally Cardio Jugular venous distension: no JVD Rate: regular rate GI Palpation (GI): Soft to palpation Auscultation: normal bowel sounds General: Yes no CVA tenderness Back/Spine/Pelvis Back: no CVA tenderness Skin General skin exam: no rashes or lesions noted Neuro General: patient oriented x3 and moves all extremities Extrem General: Yes no pedal edema Assessment & Plan Assessment & Plan (1) Diabetic nephropathy: Code(s): E11.21 - Type 2 diabetes mellitus with diabetic nephropathy Qualifiers: Diabetes mellitus type: type 2 Qualified Code(s): E11.21 - Type 2 diabetes mellitus with diabetic nephropathy (2) HTN (hypertension): Code(s): I10 - Essential (primary) hypertension Qualifiers: Hypertension type: primary hypertension Qualified Code(s): I10 - Essential (primary) hypertension Plan Mr. Dawson has longstanding diabetes with proteinuria. He has been on ARB. He used to take nonsteroidal anti-inflammatories intermittently. His urine output is good and there is no reason to suspect any obstructive uropathy. He has diabetic nephropathy. I have ordered workup including blood work and urine studies, which he did only today. I changed his amlodipine to Diltiazem today. He is a great candidate for [employer] of [employer] which a plan to initiate after next visit. He may need a renal biopsy. He is avoiding nonsteroidal anti- inflammatories which I encouraged. He needs to maintain hydration. I did not make any other medication changes today. All the possibilities have been discussed in detail and I answered all his questions. Further management is pending evolving data. Orders: Orders Protein Creatinine Ratio, Ur 1 Month E11.21 - Type 2 diabetes mellitus with diabetic nephropathy, I10 - Essential (primary) hypertension Medications: New diltiazem HCl ER 120 mg PO DAILY 30 caps 1RF Discontinued amlodipine Discontinued Reason: Doctor's Order 10 mg PO DAILY 30 tabs 0RF Coding Level of Care Code Est Pt Level 4 (10062) Diagnoses Diabetic nephropathy associated with type 2 diabetes mellitus E11.21 Diabetes mellitus type: type 2 Primary hypertension I10 Hypertension type: primary hypertension Results Reviewed Nephrology Results: Hgb 10.5 g/dl (14.0-18.0) L 10/12/23 WBC 9.3 X10*3/uL (4.8-10.8) 10/12/23 Plt Count 400 X10*3/uL (160-400) 10/12/23 Sodium 140 mmol/L (135-145) 10/12/23 Potassium 3.8 mmol/L (3.3-5.1) 10/12/23 Chloride 105 mmol/L (96-108) 10/12/23 Carbon Dioxide 24 mmol/L (22-29) 10/12/23 BUN 30 mg/dL (9-16) H 10/12/23 Creatinine 0.94 mg/dL (0.5-1.4) 10/12/23 Calcium 9.6 mg/dL (8.4-10.2) 10/12/23 Urine Creatinine 78.88 mg/dL 10/12/23
[2023-12-06 13:34] VITALS: BP 152/82; PULSE 92; O2SAT 98
== END 2023-12-06 13:56 | disposition home or self-care (01) ==
PROVIDERS: PCP Family Medicine; Visit Provider Internal Medicine Nephrology
DX: E11.21 Type 2 diabetes mellitus with diabetic nephropathy (principal); I10 Essential (primary) hypertension
CPT/HCPCS: 99214

== ENCOUNTER 2024-01-09 14:54 | Outpatient (REF) | payer OTHER, SELFPAY ==
[2024-01-09 16:29] LABS: Appearance Urine Clear; Color Urine Yellow; Glucose Urine UA >=1000 mg/dL (Negative); Leukocyte Esterase Urine Negative (Negative); Nitrite Urine Negative (Negative); PH 5.5 (5.0-9.0); Specific Gravity - Urine 1.025 (1.005-1.025); UMIC TRIGGER UA YES; Urine Blood Small (1+) (Negative); Urine Ketones Negative (Negative); Urine Protein 100 (2+) mg/dL (Neg-Trace)
[2024-01-09 16:46] LABS: Bacteria Urine None Seen (None Seen); Hyaline Casts Urine 0-2 /LPF (0-2); RBC Urine 0-2 /HPF (0-2); Squamous Epithelial Cell Urine 0-2 /HPF (0-2); WBC Urine 0-5 /HPF (0-5)
[2024-01-09 16:59] LABS: Creatinine Urine 98.48 mg/dL; Protein/Creatinine Ratio, Ur 1.55 (<0.2); Total Protein Urine Random 153 mg/dL (<12)
== END 2024-01-09 14:55 | disposition home or self-care (01) ==
LOC: HO.LAB 14:54
PROVIDERS: PCP Family Medicine; Visit Provider Internal Medicine Nephrology
DX: E11.21 Type 2 diabetes mellitus with diabetic nephropathy (principal); I10 Essential (primary) hypertension
CPT/HCPCS: 81001; 82570; 84156

== ENCOUNTER 2024-02-17 15:07 | Outpatient (REF) | payer OTHER, SELFPAY ==
[2024-02-17 18:40] LABS: Anion Gap 18 (12-20); Blood Urea Nitrogen 34 mg/dL (9-16); Calcium 9.8 mg/dL (8.4-10.2); Carbon Dioxide 23 mmol/L (22-29); Chloride 103 mmol/L (96-108); Estimated Glomerular Filt Rate > 60; Glucose Random 160 mg/dL (60-115); Potassium 4.2 mmol/L (3.3-5.1); Sodium 140 mmol/L (135-145)
[2024-02-17 18:52] LABS: Free T4 (Free Thyroxine) 1.19 ng/dL (0.71-1.85)
[2024-02-17 18:53] LABS: Vitamin D 25-OH Total 31.3 ng/mL (>30)
[2024-02-17 19:04] LABS: Folate 13.4 ng/mL (> or = 4.0); Vitamin B12 416 pg/mL (200-900)
== END 2024-02-17 15:08 | disposition home or self-care (01) ==
LOC: HO.HHCL 15:07
PROVIDERS: Internal Medicine; Visit Provider Family Medicine
DX: R79.89 Other specified abnormal findings of blood chemistry (principal); R42 Dizziness and giddiness
CPT/HCPCS: 36415; 80048; 82306; 82607; 82746; 84439; 84443

== ENCOUNTER 2024-02-20 15:41 | Emergency (ER) | payer OTHER, SELFPAY ==
--- NOTE | ~2024-02-20 | XR_ITS ---
EXAMINATION: XR LUMBOSACRAL SPINE CLINICAL INFORMATION: Back pain COMPARISON: CT abdomen from 12/15/2021 TECHNIQUE: Three views of the lumbosacral spine. FINDINGS: No acute visible fracture or dislocation. Multilevel degenerative changes greatest at L3-L4 with Schmorl's node along the inferior endplate of L3. Vertebral body has a spaces are maintained. Posterior elements are intact. Paraspinal soft tissues are unremarkable. Fecal loading of the colon. Calcification of the bilateral vas deferens. XR/XR lumbar spine 2-3V IMPRESSION: 1. No acute visible fracture or dislocation. 2. Multilevel degenerative changes greatest at L3-L4 with Schmorl's node along the inferior endplate of L3.
[2024-02-20 16:46] VITALS: BP 157/81; PULSE 92; RESP 18; TEMP 36.4; O2SAT 99; BMI 29.5
[2024-02-20 21:38] VITALS: BP 166/80; PULSE 87; RESP 18; TEMP 36.6; O2SAT 97
--- NOTE | 2024-02-20 22:59 | ED.GENADULT ---
HPI - General Adult General Chief complaint: Extremity Injury, Lower Stated complaint: fell 02/18 right leg and back pain Time Seen by Provider: 02/20/24 22:40 Source: patient Mode of arrival: ambulatory History of Present Illness ED Provider: Dr Singleton HPI narrative: 58-year-old male, history of diabetes, also has had back surgery approximately 2 months ago through [facility], did not undergo physical therapy and now presents today with multiple falls over the past week and states he has had increased weakness in bilateral lower extremities with pain across bilateral quadriceps, I do note that on triage note it states that patient has had bilateral leg weakness since surgery. He denies any fever or chills, denies any bowel or bladder dysfunction and denies any saddle anesthesia. Related Data Home Medications ?Medication ?Instructions ?Recorded ?Confirmed albuterol sulfate 90 mcg/actuation 2 puff PO Q4-6H PRN Shortness Of 05/25/21 05/25/21 aerosol inhaler (Ventolin HFA) Breath aspirin 81 mg tablet,delayed 1 tab PO DAILY 05/25/21 05/25/21 release atorvastatin 40 mg tablet 1 tab PO BEDTIME 05/25/21 05/25/21 baclofen 20 mg tablet 1 tab PO TID 05/25/21 05/25/21 betamethasone dipropionate 0.05 % 1 ea topical DAILY 05/25/21 05/25/21 topical ointment cholecalciferol (vitamin D3) 50 1 cap PO DAILY 05/25/21 05/25/21 mcg (2,000 unit) capsule fluoxetine 20 mg capsule 2 cap PO QAM 05/25/21 05/25/21 fluticasone propionate 50 2 spray intranasal DAILY PRN 05/25/21 05/25/21 mcg/actuation nasal Allergy Symptoms spray,suspension gabapentin 300 mg capsule 2 cap PO TID 05/25/21 05/25/21 hydrochlorothiazide 25 mg tablet 1 tab PO DAILY 05/25/21 05/25/21 insulin detemir U-100 100 unit/mL 70 unit subcut QPM 05/25/21 05/25/21 (3 mL) subcutaneous pen (Levemir FlexTouch U-100 Insulin) insulin lispro 100 unit/mL See Rx Instructions .Route .COMPLEX 05/25/21 05/25/21 subcutaneous pen (Humalog KwikPen (U-100) Insulin) loratadine 10 mg tablet 1 tab PO DAILY 05/25/21 05/25/21 losartan 100 mg tablet 1 tab PO DAILY 05/25/21 05/25/21 metformin 500 mg tablet 500 mg PO BID 05/25/21 05/25/21 dulaglutide 1.5 mg/0.5 mL mg subcut 11/10/23 subcutaneous pen injector (Trulicity) omeprazole 20 mg capsule,delayed 20 mg PO DAILY 11/10/23 release Previous Rx's ?Medication ?Instructions ?Recorded doxycycline hyclate 100 mg capsule 100 mg PO BID 30 days #60 caps 07/08/21 diltiazem HCl 120 mg capsule,24 120 mg PO DAILY #30 caps 01/10/24 hr,extended release Allergies Allergy/AdvReac Type Severity Reaction Status Date / Time ibuprofen Allergy Unknown stomach Verified 02/20/24 16:50 upset Seafood Allergy Intermediate RASH Uncoded 02/20/24 16:50 shell fish Allergy Unknown Unknown Uncoded 02/20/24 16:50 Review of Systems Review of Systems: Pertinent positives and negatives as stated in HPI [facility] Past Medical History Source: nursing notes reviewed Medical History Osteomyelitis Diabetic ulcer of toe Asthma HLD (hyperlipidemia) HTN (hypertension) Diabetes Surgical History H/O exploratory laparotomy Social History Social History Household Members: Family Alcohol intake: never Patient Tobacco Use Status: Never used Tobacco Advance Directives: Yes Advance Directives Information Provided: No Advance Directives on File: No service: No Current occupational status: disabled Physical Exam ED Vital Signs: Vital Signs - 24 hr 02/20/24 16:46 02/20/24 21:38 02/20/24 23:19 Temperature 97.6 F 97.9 F 98.2 F Pulse Rate 92 87 86 Respiratory Rate 18 18 16 Blood Pressure 157/81 H 166/80 H 169/81 H Pulse Oximetry 99 97 98 Oxygen Delivery Method Room Air Room Air Room Air BMI result Body Mass Index 29.5 VITAL SIGNS: Reviewed. GENERAL: Well developed, well nourished, in no acute distress. HEAD: Normocephalic/atraumatic EYES: PERRLA, EOMI EARS: Ext canals without abnormality NOSE: Nares patent bilateral OROPHARYNX: no oral lesions noted, posterior pharynx clear NECK: Supple, no adenopathy LUNGS: Normal breath sounds. No adventitious sounds or accessory muscle use. SpO2<97> CARDIOVASCULAR: Regular rate and rhythm without noted murmurs ABDOMEN: Soft, non-tender, non-distended with bowel sounds. BACK: No midline vertebral tenderness to palpation or step-offs noted MUSCULOSKELETAL: No tenderness, deformities, or effusions noted on gross inspection. EXTREMITIES: No cyanosis, clubbing or edema. SKIN: Inspection of the skin reveals no rashes NEUROLOGIC: Alert and oriented x 4. Flexion at knee 3/5, plantar flexion 5/5, dorsiflexion 3/5, sensation symmetrical and intact bilaterally, patellar DTR RIGHT-1, LEFT-1 diminished, Achilles intact Medical Decision Making Medical Decision Making MDM Narrative: 58-year-old male with history and clinical presentation concerning for possible cord compression but not acute and feel that this is chronic given the over week symptoms, very low clinical suspicion for a cauda equina or ascending pathology, no clinical suspicion for abscess I did review the x-ray which does not demonstrate any acute findings. I discussed with the patient that given his symptoms that we should proceed with MRI, patient reports that he does not wish to stay for an MRI evaluation and according to nursing patient left. I did not have time to discuss risks and benefits with the patient at bedside. Differential Diagnosis Differential Diagnoses: The differential diagnosis associated with the presentation includes Please see the discussion above Admission/Observation Consideration of admission/observation: Escalation of care including admission/observation considered Please see the discussion above Radiology Impression Discussion of test interpretation with radiology: I have reviewed the radiologist's reading. Radiologist Impression: Please see the discussion above Critical Care Time Critical Care Time Critical Care Time: Yes Total Critical Care Time: 30 Attestation: I personally attest to this time spent taking care of the patient. Discharge Plan Discharge Clinical Impression: Weakness of both legs, Multiple falls Patient Disposition: Left W/O Completing Treatment Prescriptions: No Action doxycycline hyclate 100 mg capsule 100 mg PO BID 30 Days Qty: 60 1RF diltiazem HCl 120 mg capsule,extended release 24 hr 120 mg PO DAILY Qty: 30 10RF atorvastatin 40 mg tablet 1 tab PO BEDTIME metformin 500 mg tablet 500 mg PO BID aspirin 81 mg tablet,delayed release (DR/EC) 1 tab PO DAILY baclofen 20 mg tablet 1 tab PO TID gabapentin 300 mg capsule 2 cap PO TID hydrochlorothiazide 25 mg tablet 1 tab PO DAILY betamethasone dipropionate 0.05 % ointment 1 ea topical DAILY losartan 100 mg tablet 1 tab PO DAILY fluoxetine 20 mg capsule 2 cap PO QAM loratadine 10 mg tablet 1 tab PO DAILY cholecalciferol (vitamin D3) 50 mcg (2,000 unit) capsule 1 cap PO DAILY albuterol sulfate [Ventolin HFA] 90 mcg/actuation HFA aerosol inhaler 2 puff PO Q4-6H PRN (Reason: Shortness Of Breath) fluticasone propionate 50 mcg/actuation spray,suspension 2 spray intranasal DAILY PRN (Reason: Allergy Symptoms) insulin lispro [Humalog KwikPen Insulin] 100 unit/mL insulin pen See Rx Instructions .ROUTE .COMPLEX Rx Instructions: 30 units with lunch, 36 units with dinner Levemir FlexTouch U100 Insulin 100 unit/mL (3 mL) insulin pen 70 unit subcut QPM omeprazole 20 mg capsule,delayed release(DR/EC) 20 mg PO DAILY Trulicity 1.5 mg/0.5 mL pen injector subcut Discharge Date/Time: 02/21/24 00:14
[2024-02-20 23:19] VITALS: BP 169/81; PULSE 86; RESP 16; TEMP 36.8; O2SAT 98
--- NOTE | 2024-02-21 00:13 | PC.NURSE ---
Patient refused to wait for AMA paperwork. Walked out with family stated he was going to get it done outpatient tomorrow.
== END 2024-02-21 00:14 | disposition left against medical advice (07) ==
PROVIDERS: Emergency Provider Student in an Organized Health Care Education/Training Program; PCP Family Medicine
DX: R53.1 Weakness (principal); R29.6 Repeated falls; Z91.81 History of falling; E11.9 Type 2 diabetes mellitus without complications; I10 Essential (primary) hypertension; E78.5 Hyperlipidemia, unspecified; Z79.84 Long term (current) use of oral hypoglycemic drugs; Z79.85 Long-term (current) use of injectable non-insulin antidiabetic drugs; Z79.4 Long term (current) use of insulin; Z79.899 Other long term (current) drug therapy
CPT/HCPCS: 72100; 99283

== ENCOUNTER 2024-04-26 15:01 | Outpatient (AMB) | payer OTHER, SELFPAY ==
--- NOTE | 2024-04-26 15:03 | A.OFFVIS_ITS ---
Intake Visit Reasons: h/o renal stones Intake Note: New Patient is Present for Hx of Renal Stone Antibiotic Allergy: None Blood Thinner: Aspirin Patient is on Trulicity Patient states that the last time he had kidney stones was 1 year ago Patient also reports that he gets a strong urge to urinate once he already goes to bathroom. He reports that he feels like he does not empty his bladder Patient reports that he has not tried any medications for his bladder Reports he gets up frequently during the night to urinate PVR: 0 Allergies ibuprofen Allergy (Unknown, Verified 04/26/24 21:01) stomach upset Seafood Allergy (Intermediate, Uncoded 04/26/24 21:01) RASH shell fish Allergy (Unknown, Uncoded 04/26/24 21:01) Unknown Medication List - Last Reconciled 04/26/24 by BRANDEN Lopez- albuterol sulfate 90 mcg/actuation (Ventolin HFA) 2 puffs PO Q4-6H PRN aspirin 1 tab PO DAILY atorvastatin 1 tab PO BEDTIME baclofen 1 tab PO TID betamethasone dipropionate 0.05% 1 ea topical DAILY cholecalciferol (vitamin D3) 1 cap PO DAILY diltiazem HCl ER 120 mg PO DAILY doxycycline hyclate 100 mg PO BID 30 days dulaglutide (Trulicity) mg subcut fluoxetine 2 caps PO QAM fluticasone propionate 50 mcg/actuation 2 sprays intranasal DAILY PRN gabapentin 2 caps PO TID hydrochlorothiazide 1 tab PO DAILY insulin detemir U-100 (Levemir FlexTouch U-100 Insulin) 70 units subcut QPM insulin lispro (Humalog KwikPen (U-100) Insulin) 30 units with lunch, 36 units with dinner loratadine 1 tab PO DAILY losartan 1 tab PO DAILY metformin 500 mg PO BID omeprazole 20 mg PO DAILY HPI Comments Details: Joo is a 59-year-old Indian-speaking male patient of Dr. Saunders who was accompanied by his daughter at today's office visit. He has a past medical history of osteomyelitis, diabetic foot ulcer, asthma, hyperlipidemia, hypertension, and diabetes. He presents to the office today as a new patient for history of nephrolithiasis as well as lower urinary tract symptoms. In discussion with the patient today he reports a longstanding history of nephrolithiasis however has not had any recent imaging and is looking to establish care. He also reports noting urinary frequency and nocturia up to 5 times per night. He reports although he experiences frequency throughout the day he does not find this bothersome however his episodes of nocturia are bothersome. He denies any signs and symptoms of sleep apnea. He otherwise denies hematuria, dysuria, foul smelling urine, changes to urinary stream, flank pain, fever, and or chills. In office urinalysis results reviewed with the patient today 3+ protein, glucosuria, and microscopic hematuria. He reports following up with Nephrology with Dr. Gatica. He discusses his upcoming back surgery at [facility]. He otherwise offers no other issues or concerns at this time. [facility] Medical History Osteomyelitis Diabetic ulcer of toe Asthma HLD (hyperlipidemia) HTN (hypertension) Diabetes Surgical History H/O exploratory laparotomy Social History Household Members: Family Alcohol intake: never Patient Tobacco Use Status: Never used Tobacco service: No Current occupational status: disabled Review of Systems Const Reports no additional complaints Eyes Reports no additional complaints ENT Reports no additional complaints Card Reports as per HPI Resp Reports as per HPI GI Reports no additional complaints Reports as per HPI Musc Reports as per HPI Neuro Reports no additional complaints Psych Reports no additional complaints Endo Reports as per HPI Oliver/Lymph Reports no additional complaints Aller/Immun Reports no additional complaints Physical Exam Const General: cooperative, healthy appearing, comfortable, no acute distress, well developed, alert and awake Orientation/consciousness: patient oriented x3 Limitations: ambulation with cane HEENT Head: Yes normal to inspection, Yes normocephalic and Yes atraumatic Ears: hearing grossly normal bilaterally Eyes General: appearance normal, both eyes and all related structures Neck Neck: Yes normal visual inspection and Yes trachea midline Chest Chest palpation & inspection: normal inspection of the chest Resp Effort & Inspection: normal respiratory effort and able to speak in complete sentences Cardio Rate: regular rate GI Inspection: Yes normal to inspection General: Yes no CVA tenderness Back/Spine/Pelvis Back: no CVA tenderness Skin General skin exam: no rashes or lesions noted Neuro General: patient oriented x3 Extrem General: Yes normal to inspection Psych Appearance: grossly normal and well kempt Mental Status: mental status grossly normal Speech and movement: Normal speech and movement present and Clear speech present Affect: normal affect Attitude: cooperative Thought process: Normal thought process present Thought content: Normal thought content present Insight: Fair insight present (Psych) Judgement: Fair judgement present (Psych) Office Procedures Post Void Residual Post Residual Void Post Void Residual (PVR): 0 [id number] Void Residual by ultrasound Results AMB Urinalysis, Automated UA Leukoctes 0 Sonia/uL Last Edit by [facility] on 04/26/24 15:27 UA Nitrite Negative Last Edit by [facility] on 04/26/24 15:27 UA Urobilinogen 0.2 mg/dL Last Edit by [facility] on 04/26/24 15:2 7 UA Protein 300 mg/dL Last Edit by [facility] on 04/26/24 15:27 UA pH 5.0 Last Edit by [facility] on 04/26/24 15:27 UA Blood 25 Yazan/uL Last Edit by [facility] on 04/26/24 15:27 UA Specific Sulphur 1.025 Last Edit by Ened[facility] on 04/26/24 15: 27 UA Ketone Negative Last Edit by En[facility] on 04/26/24 15:27 UA Bilirubin 0 mg/dL Last Edit by [facility] on 04/26/24 15:27 UA Glucose 1000 mg/dL Last Edit by En[facility] on 04/26/24 15:27 Results Reviewed Results Reviewed: Laboratory Last Values Urine pH (Auto) 5.0 04/26/24 15:14 Specific Sulphur (Auto) 1.025 04/26/24 15:14 Urine Protein (Auto) 300 mg/dL 04/26/24 15:14 Glucose (UA)(Auto) 1000 mg/dL 04/26/24 15:14 Urine Ketones (Auto) Negative 04/26/24 15:14 Urine Blood (Auto) 25 Yazan/uL 04/26/24 15:14 Urine Nitrite (Auto) Negative 04/26/24 15:14 Urine Bilirubin (Auto) 0 mg/dL 04/26/24 15:14 Urine Urobilinogen (Auto) 0.2 mg/dL 04/26/24 15:14 Leukocyte Esterase (Auto) 0 Sonia/uL 04/26/24 15:14 Assessment & Plan Assessment & Plan (1) Proteinuria: Code(s): R80.9 - Proteinuria, unspecified Category: Medical (2) Nocturia: Code(s): R35.1 - Nocturia Category: Medical (3) Nephrolithiasis: Code(s): N20.0 - Calculus of kidney Category: Medical Plan In office urinalysis results reviewed with the patient today; continue to follow-up with nephrology as discussed. Will obtain retroperitoneal ultrasound for further assessment evaluation. Discussed at length potential causes of nephrolithiasis as well as lower urinary tract symptoms patient is experiencing. Will obtain PSA for further assessment evaluation. Discussed bladder triggers/irritants. Discussed and stressed the importance of managing diabetes for improvement lower urinary tract symptoms as well as overall health and well-being. Discussed, educated, and stressed the importance of adequate hydration. Discussed possible near future in office cystoscopy if symptoms worsen and or pe rsist. Follow-up in 1-3 months with imaging and PSA to be completed prior; or sooner with any issues, concerns, and or questions. Orders: Orders AMB Urinalysis Automated Today Z13.9 - Encounter for screening, unspecified AMB Post Void Residual by ultrasound Today Z13.9 - Encounter for screening, unspecified US retroperitoneal comp Today N20.0 - Calculus of kidney, R35.1 - Nocturia, R80.9 - Proteinuria, unspecified Prostate Specific Antigen Today N40.0 - Benign prostatic hyperplasia without lower urinary tract symptoms Patient Instructions: The patient had an opportunity to ask questions regarding the treatment plan. All questions were answered. Physical exam, labs, and imaging were discussed and reviewed in detail. As well as risks, benefits, and discussion of treatment choices. No major barriers to understanding were identified. The patient expressed understanding and agreement with the above treatment plan. The patient was made aware they should contact our office by phone for worsening of their current condition, the appearance of new symptoms, or with any questions or concerns. Compliance is encouraged with any medications and follow up testing that is ordered. It is a privilege to be allowed the opportunity to participate in? your urological care.? Again, if you have any questions or concerns If you have any questions or concerns please do not hesitate to contact me. The office is [phone]. This note is constructed using voice recognition software. While every effort has been made to ensure accuracy dehydrator tender errors may have been included. Yours sincerely, EVERT Lopez Coding Level of Care Code New Pt Level 3 (60752) Diagnoses Proteinuria R80.9 Nocturia R35.1 Nephrolithiasis N20.0 CPT Codes Post Residual Void - PVR CPT Code: 25953-Ggvl Void Residual by ultrasound ([id number])
== END 2024-04-26 15:49 | disposition home or self-care (01) ==
PROVIDERS: PCP Family Medicine; Visit Provider Nurse Practitioner Family
DX: R80.9 Proteinuria, unspecified (principal); R35.1 Nocturia; N20.0 Calculus of kidney; Z13.9 Encounter for screening, unspecified
CPT/HCPCS: 99203

== ENCOUNTER → 2024-04-26 15:01 | Outpatient (BNVA) | payer OTHER, SELFPAY | PROVIDERS: PCP Family Medicine; Visit Provider Nurse Practitioner Family | DX: R80.9 Proteinuria, unspecified (principal); R35.1 Nocturia; N20.0 Calculus of kidney | CPT/HCPCS: 51798; 81003; 99202 ==

== ENCOUNTER 2024-05-02 09:40 | Outpatient (REF) | payer OTHER, SELFPAY ==
[2024-05-02 11:48] LABS: Prostate Specific Antigen 0.64 ng/mL (<0.05-4.0)
== END 2024-05-02 09:41 | disposition home or self-care (01) ==
LOC: HO.LAB 09:40
PROVIDERS: PCP Family Medicine; Visit Provider Nurse Practitioner Family
DX: N40.0 Benign prostatic hyperplasia without lower urinary tract symptoms (principal); Z12.5 Encounter for screening for malignant neoplasm of prostate
CPT/HCPCS: 36415; 84153

== ENCOUNTER 2024-07-10 14:14 | Outpatient (AMB) | payer OTHER, SELFPAY ==
--- NOTE | 2024-07-10 14:27 | HO.NEPHOV ---
Vital Signs 07/10/24 14:30 Height 6 ft 1 in Weight 224 lb BMI 29.6 BP 130/70 Blood Pressure Location Lt brachial Position Sitting Pulse 70 Pulse Source Pulse Oximeter Pulse Oximetry (%) 95 Oxygen Delivery Method Room Air Intake Visit Reasons: f/u- LVM Finish Sander Required: Yes Finish Sander Name: Seun [id number] Accompanied by: Self / Same As Patient Allergies ibuprofen Allergy (Unknown, Verified 07/10/24 14:31) stomach upset Seafood Allergy (Intermediate, Uncoded 04/26/24 21:01) RASH shell fish Allergy (Unknown, Uncoded 04/26/24 21:01) Unknown HPI Comments Details: I had the privilege of seeing Mr. Dawson in follow up for proteinuria. He is 59 years of age and has longstanding history of diabetes mellitus. He has no history of drug use. He denies history of retinopathy, neuropathy or LVH but has proteinuria .He does not have any nausea, vomiting, diarrhea, shortness of breath, proximal nocturnal dyspnea, orthopnea, pedal edema, hematuria, renal stones, coronary artery disease, congestive heart failure, carotid stenosis, peripheral arterial disease, renal artery stenosis, new bone or back pain. He never had any history of high serum calcium. He denies any history of hepatitis or HIV. He does not get any recurrent sore throat, epistaxis, hemoptysis, photosensitivity, skin rashes. He has no sensorineural hearing deficits. His renal functions are at baseline [facility] Medical History Osteomyelitis Diabetic ulcer of toe Asthma HLD (hyperlipidemia) HTN (hypertension) Diabetes Surgical History H/O exploratory laparotomy Social History Household Members: Family Alcohol intake: never Patient Tobacco Use Status: Never used Tobacco service: No Current occupational status: disabled Physical Exam Vital Signs: Last Vital Signs Pulse 70 07/10/24 14:30 BP 130/70 07/10/24 14:30 Pulse Ox 95 07/10/24 14:30 Oxygen Delivery Method Room Air 07/10/24 14:30 BMI result Body Mass Index 29.6 Results Reviewed Nephrology Results: Hgb 10.5 g/dl (14.0-18.0) L 10/12/23 WBC 9.3 X10*3/uL (4.8-10.8) 10/12/23 Plt Count 400 X10*3/uL (160-400) 10/12/23 Sodium 140 mmol/L (135-145) 02/17/24 Potassium 4.2 mmol/L (3.3-5.1) 02/17/24 Chloride 103 mmol/L (96-108) 02/17/24 Carbon Dioxide 23 mmol/L (22-29) 02/17/24 BUN 34 mg/dL (9-16) H 02/17/24 Creatinine 1.13 mg/dL (0.5-1.4) 02/17/24 Calcium 9.8 mg/dL (8.4-10.2) 02/17/24 Urine Protein 100 (2+) mg/dL (Neg-Trace) H 01/09/24 Urine Creatinine 98.48 mg/dL 01/09/24 Protein/Creatinin Ratio 1.55 (<0.2) H 01/09/24 Assessment & Plan Assessment & Plan (1) Proteinuria: Code(s): R80.9 - Proteinuria, unspecified Category: Medical Qualifiers: Proteinuria type: other Qualified Code(s): R80.8 - Other proteinuria (2) Nephrolithiasis: Code(s): N20.0 - Calculus of kidney Category: Medical (3) HTN (hypertension): Code(s): I10 - Essential (primary) hypertension Category: Medical Qualifiers: Hypertension type: primary hypertension Qualified Code(s): I10 - Essential (primary) hypertension (4) Diabetic nephropathy: Code(s): E11.21 - Type 2 diabetes mellitus with diabetic nephropathy Category: Medical Qualifiers: Diabetes mellitus type: type 2 Qualified Code(s): E11.21 - Type 2 diabetes mellitus with diabetic nephropathy Plan Mr. Dawson has longstanding diabetes with proteinuria. He has been on ARB. He used to take nonsteroidal anti-inflammatories intermittently. His urine output is good and there is no reason to suspect any obstructive uropathy. He has diabetic nephropathy. He is a great candidate for [facility] which a plan to initiate after next visit. He may need a renal biopsy. He is avoiding nonsteroidal anti-inflammatories which I encouraged. He needs to maintain hydration. He has high IgA levels. He needs to see a drafter castings. I did not make any other medication changes today. All the possibilities have been discussed in detail and I answered all his questions. Further management is pending evolving data. Orders: Orders Hemoglobin A1c 3 Months E11.21 - Type 2 diabetes mellitus with diabetic nephropathy, I10 - Essential (primary) hypertension, N20.0 - Calculus of kidney, R80.8 - Other proteinuria Electrolytes 3 Months E11.21 - Type 2 diabetes mellitus with diabetic nephropathy, I10 - Essential (primary) hypertension, N20.0 - Calculus of kidney, R80.8 - Other proteinuria Creatinine 3 Months E11.21 - Type 2 diabetes mellitus with diabetic nephropathy, I10 - Essential (primary) hypertension, N20.0 - Calculus of kidney, R80.8 - Other proteinuria Protein Creatinine Ratio, Ur 3 Months E11. - Type 2 diabetes mellitus with diabetic nephropathy, I10 - Essential (primary) hypertension, N20.0 - Calculus of kidney, R80.8 - Other proteinuria Immunofixation, Random Urine 3 Months E11.21 - Type 2 diabetes mellitus with diabetic nephropathy, I10 - Essential (primary) hypertension, N20.0 - Calculus of kidney, R80.8 - Other proteinuria Immunofixation Pnl, Serum 3 Months E11.21 - Type 2 diabetes mellitus with diabetic nephropathy, I10 - Essential (primary) hypertension, N20.0 - Calculus of kidney, R80.8 - Other proteinuria Blood Urea Nitrogen 3 Months E11.21 - Type 2 diabetes mellitus with diabetic nephropathy, I10 - Essential (primary) hypertension, N20.0 - Calculus of kidney, R80.8 - Other proteinuria Coding Level of Care Code Est Pt Level 4 (70283) Diagnoses Other proteinuria R80.8 Proteinuria type: other Nephrolithiasis N20.0 Primary hypertension I10 Hypertension type: primary hypertension Diabetic nephropathy associated with type 2 diabetes mellitus . Diabetes mellitus type: type 2
[2024-07-10 14:30] VITALS: BP 130/70; PULSE 70; O2SAT 95; BMI 29.6
== END 2024-07-10 15:01 | disposition home or self-care (01) ==
PROVIDERS: PCP Family Medicine; Visit Provider Internal Medicine Nephrology
DX: R80.8 Other proteinuria (principal); N20.0 Calculus of kidney; I10 Essential (primary) hypertension; E11.21 Type 2 diabetes mellitus with diabetic nephropathy
CPT/HCPCS: 99214

== ENCOUNTER → 2024-07-10 14:14 | Outpatient (BNVA) | payer OTHER, SELFPAY | PROVIDERS: PCP Family Medicine; Visit Provider Internal Medicine Nephrology | DX: R80.8 Other proteinuria (principal); N20.0 Calculus of kidney; I10 Essential (primary) hypertension; E11.21 Type 2 diabetes mellitus with diabetic nephropathy | CPT/HCPCS: 99212 ==

== ENCOUNTER 2024-10-09 14:14 | Outpatient (REF) | payer OTHER, SELFPAY ==
[2024-10-09 18:23] LABS: Estimated Average Glucose 154 mg/dL; Hemoglobin A1C 159.9864 umol/L
[2024-10-09 18:31] LABS: Anion Gap 11 (12-20); Blood Urea Nitrogen 28 mg/dL (9-16); Carbon Dioxide 29 mmol/L (22-29); Chloride 103 mmol/L (96-108); Estimated Glomerular Filt Rate > 60; Potassium 4.2 mmol/L (3.3-5.1); Sodium 139 mmol/L (135-145)
[2024-10-09 18:54] LABS: Creatinine Urine 55.19 mg/dL
[2024-10-09 18:58] LABS: Protein/Creatinine Ratio, Ur 5.96 (<0.2); Total Protein Urine Random 329 mg/dL (<12)
[2024-10-12 09:13] LABS: IgA 663 mg/dL (47-310); IgG 1135 mg/dL (600-1640); IgM 76 mg/dL (50-300)
== END 2024-10-09 14:15 | disposition home or self-care (01) ==
LOC: HO.HKASLDS 14:14
PROVIDERS: PCP Family Medicine; Visit Provider Internal Medicine Nephrology
DX: N20.0 Calculus of kidney (principal); I10 Essential (primary) hypertension; E11.21 Type 2 diabetes mellitus with diabetic nephropathy; R80.8 Other proteinuria; R76.8 Other specified abnormal immunological findings in serum
CPT/HCPCS: 36415; 80051; 82565; 82570; 82784; 83036; 84156; 84520; 86334; 86335; 99212

== ENCOUNTER 2024-10-09 14:14 | Outpatient (AMB) | payer OTHER, SELFPAY ==
--- NOTE | 2024-10-09 14:17 | HO.NEPHOV ---
Vital Signs 10/09/24 14:19 Height 6 ft 1 in Weight 214 lb 8 oz BMI 28.3 BP 160/86 H Blood Pressure Location Lt brachial Position Sitting Pulse 98 Pulse Source Pulse Oximeter Pulse Oximetry (%) 98 Oxygen Delivery Method Room Air Intake Visit Reasons: 3 mo Follow up/ Conf Groundskeeper Supervisor Required: Yes Groundskeeper Supervisor Language: Italian Tutor Services: Groundskeeper Supervisor Present Groundskeeper Supervisor Name: [id number] Accompanied by: Self / Same As Patient Allergies ibuprofen Allergy (Unknown, Verified 10/09/24 14:19) stomach upset Seafood Allergy (Intermediate, Uncoded 04/26/24 21:01) RASH shell fish Allergy (Unknown, Uncoded 04/26/24 21:01) Unknown HPI Comments Details: Mr. Dawson was seen in follow up for proteinuria. He is 59 years of age and has longstanding history of diabetes mellitus. He has no history of drug use. He denies history of retinopathy, neuropathy or LVH but has proteinuria .He does not have any nausea, vomiting, diarrhea, shortness of breath, proximal nocturnal dyspnea, orthopnea, pedal edema, hematuria, renal stones, coronary artery disease, congestive heart failure, carotid stenosis, peripheral arterial disease, renal artery stenosis, new bone or back pain. He never had any history of high serum calcium. He denies any history of hepatitis or HIV. He does not get any recurrent sore throat, epistaxis, hemoptysis, photosensitivity, skin rashes. He has no sensorineural hearing deficits. His renal functions are at baseline [facility] Medical History Osteomyelitis Diabetic ulcer of toe Asthma HLD (hyperlipidemia) HTN (hypertension) Diabetes Surgical History H/O exploratory laparotomy Social History Household Members: Family Alcohol intake: never Patient Tobacco Use Status: Never used Tobacco service: No Current occupational status: disabled Review of Systems Const All systems reviewed & are unremarkable except as noted in HPI and below Physical Exam Vital Signs: Last Vital Signs Pulse 98 10/09/24 14:19 BP 160/86 H 10/09/24 14:19 Pulse Ox 98 10/09/24 14:19 Oxygen Delivery Method Room Air 10/09/24 14:19 BMI result Body Mass Index 28.3 Const General: comfortable and no acute distress Orientation/consciousness: patient oriented x3 HEENT Head: Yes normocephalic Mouth: Normal oral and palatal mucosa present Eyes EOM: EOMs intact bilaterally Neck Neck: Yes supple Resp Auscultation: clear to auscultation bilaterally Cardio Jugular venous distension: no JVD Rate: regular rate GI Palpation (GI): Soft to palpation Auscultation: normal bowel sounds General: Yes no CVA tenderness Back/Spine/Pelvis Back: no CVA tenderness Skin General skin exam: no rashes or lesions noted Neuro General: patient oriented x3 and moves all extremities Extrem General: Yes no pedal edema Results Reviewed Nephrology Results: Sodium 140 mmol/L (135-145) 02/17/24 Potassium 4.2 mmol/L (3.3-5.1) 02/17/24 Chloride 103 mmol/L (96-108) 02/17/24 Carbon Dioxide 23 mmol/L (22-29) 02/17/24 BUN 34 mg/dL (9-16) H 02/17/24 Creatinine 1.13 mg/dL (0.5-1.4) 02/17/24 Calcium 9.8 mg/dL (8.4-10.2) 02/17/24 Urine Protein 100 (2+) mg/dL (Neg-Trace) H 01/09/24 Urine Creatinine 98.48 mg/dL 01/09/24 Protein/Creatinin Ratio 1.55 (<0.2) H 01/09/24 Assessment & Plan Assessment & Plan (1) Diabetic nephropathy: Code(s): E11.21 - Type 2 diabetes mellitus with diabetic nephropathy Category: Medical Qualifiers: Diabetes mellitus type: type 2 Qualified Code(s): E11.21 - Type 2 diabetes mellitus with diabetic nephropathy (2) HTN (hypertension): Code(s): I10 - Essential (primary) hypertension Category: Medical Qualifiers: Hypertension type: primary hypertension Qualified Code(s): I10 - Essential (primary) hypertension (3) Nephrolithiasis: Code(s): N20.0 - Calculus of kidney Category: Medical Plan Mr. Dawson has longstanding diabetes with proteinuria. He has been on ARB. He used to take nonsteroidal anti-inflammatories intermittently. His urine output is good and there is no reason to suspect any obstructive uropathy. He has diabetic nephropathy. I started him on Jardiance 10 mg daily. I shall consider cutting back on metformin with time after increasing Jardiance. He may need a renal biopsy. He is avoiding nonsteroidal anti-inflammatories which I encouraged. He needs to maintain hydration. He has high IgA levels. He needs to see a tar distillation supervisor. Blood work today and before next visit. I did not make any other medication changes today. All the possibilities have been discussed in detail and I answered all his questions. Further management is pending evolving data. Orders: Orders Electrolytes Today E11.21 - Type 2 diabetes mellitus with diabetic nephropathy, I10 - Essential (primary) hypertension, N20.0 - Calculus of kidney Electrolytes 1 Month E11. - Type 2 diabetes mellitus with diabetic nephropathy, I10 - Essential (primary) hypertension, N20.0 - Calculus of kidney Creatinine 1 Month E11. - Type 2 diabetes mellitus with diabetic nephropathy, I10 - Essential (primary) hypertension, N20.0 - Calculus of kidney Protein Creatinine Ratio, Ur 1 Month E11. - Type 2 diabetes mellitus with diabetic nephropathy, I10 - Essential (primary) hypertension, N20.0 - Calculus of kidney Protein Creatinine Ratio, Ur Today E11. - Type 2 diabetes mellitus with diabetic nephropathy, I10 - Essential (primary) hypertension, N20.0 - Calculus of kidney Creatinine Today E11. - Type 2 diabetes mellitus with diabetic nephropathy, I10 - Essential (primary) hypertension, N20.0 - Calculus of kidney Blood Urea Nitrogen Today E11. - Type 2 diabetes mellitus with diabetic nephropathy, I10 - Essential (primary) hypertension, N20.0 - Calculus of kidney Blood Urea Nitrogen 1 Month E11.21 - Type 2 diabetes mellitus with diabetic nephropathy, I10 - Essential (primary) hypertension, N20.0 - Calculus of kidney Medications: New empagliflozin (Jardiance) 10 mg PO DAILY 30 days 30 tabs 4RF Coding Level of Care Code Est Pt Level 4 (67786) Diagnoses Diabetic nephropathy associated with type 2 diabetes mellitus E11. Diabetes mellitus type: type 2 Primary hypertension I10 Hypertension type: primary hypertension Nephrolithiasis N20.0
[2024-10-09 14:19] VITALS: BP 160/86; PULSE 98; O2SAT 98; BMI 28.3
== END 2024-10-09 14:51 | disposition home or self-care (01) ==
PROVIDERS: PCP Family Medicine; Visit Provider Internal Medicine Nephrology
DX: E11.21 Type 2 diabetes mellitus with diabetic nephropathy (principal); I10 Essential (primary) hypertension; N20.0 Calculus of kidney
CPT/HCPCS: 99214

== ENCOUNTER 2024-10-15 14:12 | Outpatient (REF) | payer OTHER, SELFPAY ==
[2024-10-15 18:12] LABS: Oxycodone Screen Urine Not Detected (Not Detect)
[2024-10-15 18:15] LABS: CT PCR NOT DETECTED (Not Detect.); NG PCR NOT DETECTED (Not Detect.)
[2024-10-15 18:25] LABS: Creatinine Urine 78.99 mg/dL
== END 2024-10-15 14:13 | disposition home or self-care (01) ==
LOC: HO.HHCL 14:12
PROVIDERS: Visit Provider Family Medicine
DX: Z13.89 Encounter for screening for other disorder (principal)
CPT/HCPCS: 80307; 82043; 82570; 87491; 87591

== ENCOUNTER 2024-10-15 14:44 | Outpatient (REF) | payer OTHER, SELFPAY ==
[2024-10-15 15:47] LABS: Hematocrit 35.6 % (42.0-52.0); Hemoglobin 12.1 g/dl (14.0-18.0); Mean Corpuscular Hemoglobin 29.7 pg (27.0-33.0); Mean Corpuscular Volume 87.5 fL (80.0-98.0); Mean Platelet Volume 9.8 fL (9.4-12.4); Platelet Count 392 X10*3/uL (160-400); Red Blood Count 4.07 X10*6/uL (4.60-5.80); Red Cell Distribution Width 13.5 % (11.0-16.0); White Blood Count 9.3 X10*3/uL (4.8-10.8)
[2024-10-15 17:50] LABS: Estimated Average Glucose 157 mg/dL; Hemoglobin A1c % 7.1 % (<6.0); Total Hemoglobin (HGBA1C) 3023.6794 umol/L
--- OUTSIDE RECORDS SUMMARY | 2024-10-15 18:45 | XMS_ITS | Data Portability ---
Author Organization [email or web address] [facility], [facility] Address [address] [place] [id number] Care Team Providers Care Snake Charmer Name Role Phone HIM CCA OTHER Assessment Encounter Date Assessment Date Assessment LastModified by Organization Details LastModified Time 02/23/2024 02/23/2024 I provided real -time medical direction via phone for this encounter, and was available for additional phone based assistance as needed. I have reviewed and agree with the Assessment and Plan as documented by the Cloth Printing Inspector. We discussed the diagnostic uncertainty of home visits and the risk associated with this. In this case the patient and I felt this to be an acceptable and reasonable amount of risk given the benefit of avoiding an ED visit. The patient given the opportunity to ask questions. Advised if develops uncontrolled n/v/d or black/bloody emesis or stool/ AMS/ syncope/ hi fever /loss of bowel or bladder control, new weakness, complete inability to ambulate or severe new numbness that is persistent, to call 911- verbalized understanding of instruction [email or web address] Not available 02/23/2024 12:03:53 Plan of Treatment Reminders Order Date Submit Date Provider Last Modified By Organization Details Last Modified Time Details Appointments None recorded. Lab BMP, serum or plasma 2023 [email or web address] 0 [facility], [address] [place] [address], [place], [phone], 14:01:33 Referral None recorded. Procedures None recorded. Surgeries None recorded. Imaging None recorded. Medication Orders ketorolac 30 mg/mL (1 mL) injection solution 2023 024 [email or web address] Not available 12:02:49 Arthritis Pain Relief (acetamino phen) ER 650 mg tablet,ext end release 2023 [facility], [address] [place] [address], [id number], 4 15:43:53 Patient TargetsNo targets recorded. Patient InstructionsNo instructions recorded. Reason for Referral None Reported. Results Created Date Observation Date Name Description Value Unit Range Abnormal Flag Note LastModifiedBy Organization Detail LastModifiedTime Result Notes None recorded. Medical Equipment None Reported. Medications Name Sig Start Date Stop Date Status Note LastModified by Organization Details LastModified Time atorvastatin 80 mg tablet TAKE 1 TABLET BY MOUTH EVERY MORNING active Not Available Not Available No t Available doxycycline hyclate 100 mg capsule TAKE 1 CAPSULE BY MOUTH TWICE A DAY FOR 7 DAYS active Not Available Not Available No t Available cetirizine 10 mg tablet TAKE 1 TABLET BY MOUTH EVERY DAY active Not Available Not Available No t Available gabapentin 400 mg capsule TAKE 2 CAPSULES BY MOUTH THREE TIMES DAILY active Not Available Not Available Not Available diltiazem ER 240 mg capsule,24 hr,extended release TAKE 1 CAPSULE BY MOUTH EVERY DAY active Not Available Not Available No t Available omeprazole 40 mg capsule,saad yed release TAKE 1 CAPSULE BY MOUTH EVERY DAY BEFORE BREAKFAST active Not Available Not Available No t Available aspirin 81 mg tablet,delay ed release TAKE 1 TABLET BY MOUTH ONCE DAILY active Not Available Not Available No t Available tramadol 50 mg tablet TAKE 1 TABLET BY MOUTH EVERY 8 HOURS NEEDED FOR SEVERE PAIN active Not Available Not Available Not Available triamcinolon e acetonide 0.1 % topical cream MIX WITH CERAVE AND APPLY TO THE AFFECTED AREA(S) TOPICALLY TWICE DAILY. active Not Available Not Available No t Available ketorolac 30 mg/mL (1 mL) injection solution Inject 0.5 mL by intramuscul ar route. 2023 active Not Available Not Available Not Avai lable acetaminophe n ER 650 mg tablet,exten ded release TAKE 1 TABLET BY MOUTH EVERY 6 TO 8 HOURS NEEDED active Not Available Not Available No t Available baclofen 20 mg tablet TAKE 1 TABLET BY MOUTH THREE TIMES DAILY NEEDED FOR PAIN OR FOR MUSCLE SPASMS active Not Available Not Available No t Available amitriptylin e 25 mg tablet TAKE 1 TABLET BY MOUTH AT BEDTIME active Not Available Not Available No t Available linezolid 600 mg tablet TAKE 1 TABLET BY MOUTH EVERY 12 HOURS FOR 14 DAYS active Not Available Not Available Not Available amitriptylin e 10 mg tablet TAKE 1 TABLET BY MOUTH AT BEDTIME active Not Available Not Available No t Available meclizine 25 mg tablet TAKE 1 TABLET BY MOUTH THREE TIMES DAILY IN THE MORNING, AT NOON, AND AT BEDTIME NEEDED FOR DIZZINESS active Not Available Not Available No t Available amlodipine 10 mg tablet TAKE 1 TABLET BY MOUTH EVERY DAY active Not Available Not Available No t Available benzonatate 100 mg capsule TAKE 1 CAPSULE BY MOUTH THREE TIMES DAILY NEEDED FOR COUGH DO NOT BREAK, CRUSH, DISSOLVE OR CHEW active Not Available Not Available No t Available metformin 1,000 mg tablet TAKE 1 TABLET BY MOUTH TWICE A DAY active Not Available Not Available No t Available hydrochlorot hiazide 25 mg tablet TAKE 1 TABLET BY MOUTH EVERY DAY active Not Available Not Available No t Available vancomycin 10 gram intravenous solution active Not Available Not Available Not Available methylpredni solone 4 mg tablets in a dose pack TAKE DIRECTED ON PACKAGE active Not Available Not Available No t Available ferrous sulfate 325 mg (65 mg iron) tablet,delay ed release TAKE 1 TABLET BY MOUTH EVERY OTHER DAY DO NOT BREAK, CRUSH, DISSOLVE OR CHEW active Not Available Not Available No t Available losartan 100 mg tablet TAKE 1 TABLET BY MOUTH EVERY DAY active Not Available Not Available No t Available fluoxetine 20 mg capsule TAKE 2 CAPSULES BY MOUTH EVERY MORNING active Not Available Not Available No t Available fluticasone propionate 50 mcg/actuatio n nasal spray,suspen joseph INSTILL 2 SPRAYS IN EACH NOSTRIL ONCE DAILY NEEDED active Not Available Not Available No t Available doxycycline hyclate 100 mg tablet TAKE 1 TABLET BY MOUTH TWICE DAILY FOR 10 DAYS TAKE WITH A FULL GLASS OF WATER AND Do not lie down for 30 minutes after taking active Not Available Not Available No t Available oxycodone 5 mg tablet TAKE 1 TABLET BY MOUTH EVERY 6 HOURS NEEDED FOR SEVERE PAIN active Not Available Not Available Not Available Novolog FlexPen U-100 Insulin aspart 100 unit/mL (3 mL) subcutaneous INJECT 4 TO 6 UNITS BEFORE MEALS PER SLIDING SCALE active Not Available Not Available No t Available Alcohol Prep Pads USE THREE TIMES DAILY DIRECTED active Not Available Not Available Not Available Flovent HFA 110 mcg/actuatio n aerosol inhaler INHALE 1 PUFF TWICE DAILY active Not Available Not Available No t Available FreeStyle Lite Strips TEST BLOOD SUGAR THREE TIMES DAILY active Not Available Not Available Not Available diclofenac 1 % topical gel APPLY 2 GRAMS TOPICALLY TO AFFECTED AREA(S) TWICE DAILY NEEDED FOR PAIN active Not Available Not Available No t Available Vitamin D3 50 mcg (2,000 unit) capsule TAKE 1 CAPSULE BY MOUTH EVERY DAY IN THE MORNING active Not Available Not Available No t Available UltiCare Pen Needle 32 gauge x 32 USE WITH INSULIN DIRECTED active Not Available Not Available No t Available TRUEplus Lancets 33 gauge TEST BLOOD SUGAR THREE TIMES DAILY active Not Available Not Available Not Available Farxiga 5 mg tablet TAKE 1 TABLET BY MOUTH EVERY DAY active Not Available Not Available No t Available Trulicity 1.5 mg/0.5 mL subcutaneous pen injector INJECT ONE PEN (=1.5MG) SUBCUTANEOU SLY ONCE A WEEK DIRECTED active Not Available Not Available No t Available Arnuity Ellipta 100 mcg/actuatio n powder for inhalation INHALE 1 PUFF BY MOUTH EVERY DAY AT THE SAME TIME active Not Available Not Available No t Available Tresiba FlexTouch U-200 insulin 200 unit/mL (3 mL) subcutaneous pen INJECT 40 UNITS SUBCUTANEOU SLY AT BEDTIME active Not Available Not Available No t Available naloxone 4 mg/actuation nasal spray FOR SUSPECTED OPIOID OVERDOSE. SPRAY 0.1mL IN ONE NOSTRIL. REPEAT IN ALTERNATE NOSTRIL 2-3 MINUTES IF NEEDED. SEEK MEDICAL ATTENTION IMMEDIATELY EVEN IF PATIENT RESPONDS. active Not Available Not Available No t Available Tiadylt ER 120 mg capsule,exte nded release TAKE 1 CAPSULE BY MOUTH EVERY DAY active Not Available Not Available No t Available Gvoke HypoPen 2-Pack 0.5 mg/0.1 mL subcutaneous auto-injecto r INJECT 0.1 ML SUBCUTANEOU SLY MAY REPEAT ONCE IN 15 MINUTES WITH HYPOGLYCEMI C EMERGENCY active Not Available Not Available Not Available FreeStyle Roni 2 Sensor kit CHANGE EVERY 14 DAYS. USE TO CHECK BLOOD GLUCOSE 4 TIMES PER DAY active Not Available Not Available No t Available Trulicity 3 mg/0.5 mL subcutaneous pen injector INJECT ONE PEN (= 3MG) SUBCUTANEOU SLY ONCE A WEEK DIRECTED active Not Available Not Available No t Available Trulicity 4.5 mg/0.5 mL subcutaneous pen injector INJECT 0.5 ML SUBCUTANEOU S INJECTION EVERY WEEK, ROTATE INJECTION SITES active Not Available Not Available No t Available Lubricating Tears 0.1 %-0.3 % eye drops INSTILL 1 DROP IN DRY EYES FOUR TIMES DAILY NEEDED active Not Available Not Available No t Available Vitals Date Recorded Respiratory rate Oxygen saturation Oxygen saturation in Arterial blood by Pulse oximetry Heart rate Body height Body weight Body temperature Systolic blood pressure Diastolic blood pressure Provider Name and Address Organization Details Last Updated DateTime 4 16 /min 97 % 97 % 99 /min 185.42 cm 778119. 016 g 97.2 [degF] 166 mm[Hg] 90 mm[Hg] Not Available [facility] - production 4 11:12:32 Social History None recorded. Functional Status None recorded. Mental Status None recorded. Family History Nothing Reported. Medical History No medical history recorded. Past Encounters Encounter ID Performer Location Encounter Start Date Encounter Closed Date Diagnosis/Indication Diagnosis SNOMED-CT Code Diagnosis ICD10 Code Diagnosis Note [id number] Alessandra Madrigal MD [facility] - [facility] [address] [place] [address] 02/23/2024 11:12:29 02/24/2024 10:36:31 Chronic low back pain 634743570 M54.50 acute on chronic-ad vised we will prescribe Tylenol again to take along with his gabapentin and tramadol. Needs to follow-up with his PCP, pain management and human resources support specialist PHILLIP as we cannot prescribe further controlled pain management . Patient denies any history of peptic ulcer disease melena or hematochez ia. 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 Offers temporary relief -advised need to get BMP first -patient agreeable would like the injection -Labs reviewed. Creatinine is okay, he is hyperglyce ike, would not want to use steroids in this gentleman as this would increase his blood sugar. This was explained by the medic to the patient. He is mildly dehydrated - advised to drink more fluid-will give 15 mg of ketorolac- advised patient cannot have multiple repeat doses due to risks Note sent to family day care provider via [facility]: pat on 2nd floor- difficult ambulating due to pain/spina l stenosis - needs f/u with pcp/pain management /human resources support specialist - will need assistance in scheduling appointmen ts and will need help setting up ambulance transport to appointmen ts- can family day care provider pls assist with this. Health Concerns Section Related Observation LastModified by Organization Detai ls LastModified Time None Recorded Concern Status LastModified by Organization Details LastModified Time None Recorded Advance Directives Directive None Recorded Payers Encounter Date Sequence Insurance Name Policy Number Policy Meza Covered Member ID Meza Member ID Guarantor Name 02/23/2024 1 [facility] - DOS ON OR AFTER 2023 - DUAL ELIGIBLE - LONGTERM OPTIONS AND ONE CARE (MEDICARE REPLACEMENT/ADV ANTAGE - HMO) Joo Dawson [id number] Joo Dawson Notes Date Note Type Note Provider Name and Address Organization Details Recorded Time 02/23/2024 text/html [facility] Nurse Triage Notes (John Hoffmann): Chief Complaints: Pain Allergies: Unknown Comments: Recruiting Coordinator verified the member's name//address and phone number. Mbr's daughter calling requesting visit for member. Member is awaiting surgery on lower back, having acute on chronic lower back pain. Daughter reports mbr taking Tramadol at home for pain with no relief. Member had fall yesterday while leaving the hospital around 3pm, daughter witnessed fall & denies head strike, denies blood thinner, mbr does take baby aspirin. Education provided on the response time and the member was advised to monitor reported s/s and seek emergency treatment if needed -HMelanie Hoffmann, RN Cloth Printing Inspector POC Test Results from Zechariah Torres - [facility]AN[facility] iSTAT Chem8+ (1) [13:02] Na: 139 mEq/L K: 3.9 mEq/L Cl: 102 mEq/L iCa: 1.24 mmol/L TCO2: 24 mmol/L Glu: 270 mg/dL BUN: 32 mg/dL Crea: 1.1 mg/dL Hct: 32 % Hb: 10.9 g/dL A ................... ................... ................... ................... ................... ................... ................... ........ Cloth Printing Inspector Note From Zechariah Torres: [facility] visit for male patient with back pain. Pt presents lying supine in bed with daughter present. Pt Japanese speaking and daughter translated for pt. Pt report severe back pain for last few months. Pt seen at ED yesterday with MRI but unclear of what diagnosis is. In discussing condition more with daughter sounds like it could be spinal stenosis though uncertain. Pt taking tramadol and gabapentin for pain but feeling it's ineffective. Pt has had his leg give out on him several times due to pain causing falls in the home. No known injuries from falls. V/S taken as listed. Pt afebrile. CSMs intact. Pt has good range of motion with assistance in legs. Consulted with [facility] Dr. Madrigal who ordered BMP prior to toradol administration. Blood drawn and BMP results uploaded. [facility] ordered 15 mg IM toradol. Pt encouraged to follow up with PCP and surgeon for ongoing treatment. Reviewed red flags for ED. Patient education provided. ................... ................... ................... ................... ................... ................... ................... ........ Disposition: FulfilledSEGMD: Patient complains of intermittent tingling of his lower extremities in his legs giving way especially the right. This is not new. He fell getting into the car yesterday landing on his left side inside the car. He denies new injury from the fall. No loss of consciousness no head strike. He denies any loss of bowel or bladder function. He was on Tylenol 650 every 8 hours but he is not taking it because he did not feel it was helping. We discussed taking the gabapentin, tramadol and Tylenol in conjunction and I offered him some more relief. He denies abdominal pain, fevers, chills, nausea vomiting or diarrhea.Patient was under the impression we could give him a cortisone shot-explained that is beyond the scope of this service Alessandra Madrigal MD [address] [facility],[address], [place], [address], MADELYN - [employer] 02/23/2024 14:02:20
[2024-10-15 18:51] LABS: Blood Urea Nitrogen 33 mg/dL (9-16)
[2024-10-15 19:24] LABS: Alanine Aminotransferase 37 U/L (0-40); Albumin Level 3.5 g/dL (3.5-5.0); Anion Gap 13 (12-20); Aspartate Amino Transferase 31 U/L (5-37); Bilirubin Direct 0.1 mg/dL (0.0-0.5); Bilirubin Total 0.3 mg/dL (0.0-1.0); Blood Urea Nitrogen 32 mg/dL (9-16); Calcium 9.2 mg/dL (8.4-10.2); Carbon Dioxide 24 mmol/L (22-29); Chloride 105 mmol/L (96-108); Cholesterol 190 mg/dL (<200); Estimated Glomerular Filt Rate > 60; Glucose Random 142 mg/dL (60-115); HDL Cholesterol 39 mg/dL (>40); LDL Cholesterol Calculated 130 mg/dL (<100); Sodium 138 mmol/L (135-145); Total Protein 7.6 g/dL (6.5-8.0); Triglycerides 108 mg/dL (<150)
[2024-10-15 19:41] LABS: Free T4 (Free Thyroxine) 1.12 ng/dL (0.71-1.85); Thyroid Stimulating Hormone 1.62 uIU/mL (0.32-4.0)
[2024-10-15 20:19] LABS: Alkaline Phosphatase 139 U/L (39-117)
[2024-10-16 04:48] LABS: HIV AB/AG Nonreactive (Nonreactive); HIV Num 1 0.05 S/CO (0.00-0.99); ~HepC Num1 0.11 S/CO (0.00-0.79); ~Hepatitis C Antibody Nonreactive (Nonreactive)
[2024-10-17 14:13] LABS: RPR Rapid Plasma Reagin NON-REACTIVE (NON-REACTIVE)
== END 2024-10-15 14:45 | disposition home or self-care (01) ==
LOC: HO.LAB 14:44
PROVIDERS: Internal Medicine Nephrology; PCP Family Medicine; Visit Provider Family Medicine
DX: Z00.00 Encounter for general adult medical examination without abnormal findings (principal); E11.21 Type 2 diabetes mellitus with diabetic nephropathy; I10 Essential (primary) hypertension; E11.29 Type 2 diabetes mellitus with other diabetic kidney complication; R80.8 Other proteinuria; N20.0 Calculus of kidney
CPT/HCPCS: 36415; 80048; 80061; 80076; 80307; 82043; 82306; 82570; 83036; 84439; 84443; 84520; 85027; 86592; 86803; 87389; 87491; 87591

== ENCOUNTER 2024-12-11 13:59 | Outpatient (REF) | payer OTHER, SELFPAY ==
--- OUTSIDE RECORDS SUMMARY | 2024-12-11 17:02 | XMS_ITS | Encounter Summary ---
Author Organization [facility] Address [address] [place] [address] [address] [place] [address] Care Team Providers Care Lan Specialist Name Role Phone Enedina Saunders DO Primary Care Provider + [phone] Encounter Details Date Type Department Care Team (Late st Contact Info) Description 09/24/2022 Orders Only [facility] [address] [place] [address] Maritza Encinas LPN Social History Tobacco Use Types Packs/Day Years Used Date Smoking Tobacco: Never Assessed Sex and Gender Information Value Date Recorded Sex Assigned at Male 08/02/2022 10:16 AM EDT Legal Sex Male 10:16 AM EDT Gender Identity Male 08/02/2022 10:16 AM EDT Sexual Orientation Straight 08/02/2022 10 :16 AM EDT documented as of this encounter Plan of Treatment Upcoming Encounters Date Type Department Care Team (Late st Contact Info) Description 12/13/2024 2:00 PM EDT Clinical Support [facility] [address] [place] [address] Jenny Escobar, RN 04/18/2025 3:00 PM EDT Office Visit [facility] [address] [place] [address] Enriqueta Stevenson, OD [address] [place] [address] documented as of this encounter Visit Diagnoses Not on filedocumented in this encounter Care Teams Lan Specialist Relationship Specialty Start Date End Date Enedina Saunders DO [address] [place] [address] PCP - General Family Medicine 11/18/15 documented as of this encounter
--- OUTSIDE RECORDS SUMMARY | 2024-12-11 17:02 | XMS_ITS | Encounter Summary ---
Author Organization [employer] Address [address] [facility] [address] [place] [address] Care Team Providers Care Commercial Art Instructor Name Role Phone Enedina Saunders DO Primary Care Provider + [phone] Reason for Visit * Reason Onset Date Comments Nurse Triage 09/18/2024 Encounter Details Date Type Department Care Team ([facility] st Contact Info) Description 09/18/2024 Telephone [facility] [address] [place] [address] Enedina Saunders DO [address] [place] [address] Nurse Triage Social History Tobacco Use Types Packs/Day Years Used Date Smoking Tobacco: Former Cigarettes Passive Smoke Exposure: Past Smokeless Tobacco: Never Alcohol Use Standard Drinks/Week Comments Never 0 (1 standard drink = 0.6 oz pur e alcohol) Depression Answer Date Recorded Patient Health Questionnaire-9 Score 4 02/08/2024 Patient Health Questionnaire-9 Score 4 02/08/2024 Last PHQ-9: Questionnaire Data Not on file 0 02/08/2024 Housing Stability Answer Date Recorded What is your housing situation today? I have [place] 02/08/[address] you li ve. Do you have problems with any of the following? None of the above 02/08/2024 Food Insecurity Answer Date Recorded Within the past 12 months, y ou worried that your food would run out before you got money to buy more: Never True 02/08/2024 Within the past 12 months,th e food you bought just didn't last and you didn't have enough money to get more: Never True 05/2024 Transportation Answer Date Recorded In the past 12 months, has l ack of transportation kept you from medical appts, meetings, work or from getting things needed for daily living? No 02/08/2024 Utilities Answer Date Recorded In the past 12 months, has t he electric, gas, oil or water company threatened to shut off services in your home? No 02/08/2024 Depression Answer Date Recorded Patient Health Questionnaire-2 Score 0 02/08/2024 Sex and Gender Information Value Date Recorded Sex Assigned at Male 08/02/2022 10:16 AM EDT Legal Sex Male 10:16 AM EDT Gender Identity Male 08/02/2022 10:16 AM EDT Sexual Orientation Straight 08/02/2022 10 :16 AM EDT documented as of this encounter Miscellaneous Notes * Telephone Encounter - Megha Durbin RN - 09/18/2024 11:47 AM EST Triage call with [facility] [place] [place] [id number] [place]. Pt is reporting high blood pressure. Last nightBP was 198/? and this morning it was 168/95. Pt reports some dizziness and unbalance. Pt is taking hydrochlorothiazide 25mg as prescribed. No available apts in office over next 3 days. Pt is advised to come to [facility] for provider to check BP and evaluate Pt. Hours given , open till 8pm. Pt agrees withthis disposition and plan. Pt denies eating increased salt or greasy/fatty foods Insurance is verified as active. Protocol Used: Blood Pressure - High (Adult) Protocol-Based Disposition: See in Office or Video Visit within 3 Days Video visit not offered Positive Triage Question: * Systolic BP >= 160 OR Diastolic >= 100 * All higher-acuity triage questions were negative Care Advice Discussed: * High Blood Pressure * High Blood Pressure - Lifestyle Changes * How to Check Your Blood Pressure? * Reasons To Call Back - Headache, blurred vision, difficulty talking, or difficulty walking occurs - Chest pain or difficulty breathing occurs - You want to go into the office for a blood pressure check - You become worse * Telephone Encounter - Geraldine Gaines - 09/18/2024 11:22 AM EST Symptom: High Blood Pressure - Caller Reports Outcome: Schedule a same-day appointment or talk to a nurse or provider today Reason: Caller denied all higher acuity questions The caller accepted this outcome. documented in this encounter Plan of Treatment Upcoming Encounters Date Type Department Care Team (Late st Contact Info) Description 12/13/2024 2:00 PM EDT Clinical Support [facility] [address] [place] [address] Jenny Escobar RN 04/18/2025 3:00 PM EDT Office Visit [facility] [address] [place], [place] [phone] Enriqueta Stevenson, OD [address] [place] [address] documented as of this encounter Visit Diagnoses Not on filedocumented in this encounter Additional Health Concerns Assessment Noted Time PHQ-9 Depression Total Score: 4 02/08/20 24 3:47 PM EDT documented as of this encounter Care Teams Commercial Art Instructor Relationship Specialty Start Date End Date Enedina Saunders DO [address] [place] [address] PCP - General Family Medicine 11/18/15 documented as of this encounter
--- OUTSIDE RECORDS SUMMARY | 2024-12-11 17:02 | XMS_ITS | Encounter Summary ---
Author Organization [employer] Address [address] [facility] [address] [place] [address] Care Team Providers Care Poultry Farmworker Name Role Phone Enedina Saunders DO Primary Care Provider + [phone] Reason for Visit * Reason Comments Med Refill Encounter Details Date Type Department Care Team (Late st Contact Info) Description 02/10/2024 Refill [facility] [address] [place], [place] [phone] Enedina Saunders DO [address] [place] [address] Back pain, unspecified back location, unspecified back pain laterality, unspecified chronicity Social History Tobacco Use Types Packs/Day Years [...] enough money to get more: Never True 05/ 05/2024 Transportation Answer Date Recorded In the [...] Description 12/13/2024 2:00 PM EDT Clinical Support [facility] [address] [place] [address] Jenny Escobar RN 04/18/2025 3:00 PM EDT Office Visit [facility] [address] [place] [address] Graham, Enriqueta, OD [address] [place] [address] documented as of this encounter Visit Diagnoses Diagnosis Back pain, unspecified back location, unspecified back pain laterality, unspecified chronicity documented in this encounter Additional Health Concerns Assessment Noted Time PHQ-9 Depression Total Score: 4 02/08/20 24 3:47 PM EDT documented as of this encounter Care Teams Poultry Farmworker Relationship Specialty Start Date End Date Enedina Saunders DO [address] [place] [address] PCP - General Family Medicine 11/18/15 documented as of this encounter
--- OUTSIDE RECORDS SUMMARY | 2024-12-11 17:02 | XMS_ITS | Data Portability ---
Author Organization [employer] [facility], [facility] - [facility] Address [address] [place] [phone] Care Team Providers Care Manufacturing Manager Name Role Phone HIM CCA OTHER Assessment Encounter Date Assessment Date Assessment LastModified by Organization Details LastModified Time 02/23/2024 02/23/2024 I provided real -time medical direction via phone for this encounter, and was available for additional phone based assistance as needed. I have reviewed and agree with the Assessment and Plan as documented by the Agent. We discussed the diagnostic uncertainty of home [...] to call 911- verbalized understanding of instruction [email or web address] Not available 02/23/2024 12:03:53 Plan of Treatment Reminders Order Date Submit Date Provider Last Modified By Organization Details Last Modified Time Details Appointments None recorded. Lab BMP, serum or plasma 2023 [email or web address] 0 [facility], [address] [place] [address], [place], [phone], 14:01:33 Referral None recorded. Procedures None recorded. Surgeries None recorded. Imaging None recorded. Medication Orders ketorolac 30 mg/mL (1 mL) injection solution 2023 024 [email or web address] 0 Not available 12:02:49 Arthritis Pain Relief (acetamino phen) ER 650 mg tablet,ext end release 2023 [facility], [address] [place] [address], [id number], 4 15:43:53 Patient TargetsNo targets recorded. Patient [...] % 97 % 99 /min 185.42 cm 925737. 016 g 97.2 [degF] 166 mm[Hg] 90 mm[Hg] Not Available [facility] - production 4 11:12:32 Social History None recorded. Functional Status None recorded. Mental Status None recorded. Family History Nothing Reported. Medical History No medical history recorded. Past Encounters Encounter ID Performer Location Encounter Start Date Encounter Closed Date Diagnosis/Indication Diagnosis SNOMED-CT Code Diagnosis ICD10 Code Diagnosis Note [id number] Alessandra Madrigal MD [facility] - [facility] [address] [place] [phone] 02/23/2024 11:12:29 02/24/2024 10:36:31 Chronic low back pain 922549786 M54.50 acute on chronic-ad vised we will prescribe Tylenol again to take along with his gabapentin and tramadol. Needs to follow-up with his PCP, pain management and communication specialist PHILLIP as we cannot prescribe further [...] doses due to risks Note sent to child care via [facility]: pat on 2nd floor- difficult ambulating due to pain/spina l stenosis - needs f/u with pcp/pain management /communication specialist - will need assistance in scheduling appointmen ts and will need help setting up ambulance transport to appointmen ts- can child care pls assist with this. Health Concerns Section Related Observation LastModified by Organization Detai ls LastModified Time None Recorded Concern Status LastModified by Organization Details LastModified Time None Recorded Advance Directives Directive None Recorded Payers Encounter Date Sequence Insurance Name Policy Number Policy Meza Covered Member ID Meza Member ID Guarantor Name 02/23/2024 1 [facility] - DOS ON OR AFTER 2023 - DUAL ELIGIBLE - CARE HOME OPTIONS AND ONE CARE (MEDICARE REPLACEMENT/ADV ANTAGE - HMO) Joo Dawson [id number] Joo Dawson Notes Date Note Type Note Provider Name and Address Organization Details Recorded Time 02/23/2024 text/html [facility] Nurse Triage Notes (John Hoffmann): Chief Complaints: Pain Allergies: Unknown Comments: Joiner verified the member's name//address and phone number. [...] emergency treatment if needed -HMelanie Hoffmann, RN Agent POC Test Results from Zechariah Torres - [facility] iSTAT Chem8+ (1) [13:02] Na: 139 mEq/L K: 3.9 mEq/L Cl: 102 mEq/L iCa: 1.24 mmol/L TCO2: 24 mmol/L Glu: 270 mg/dL BUN: 32 mg/dL Crea: 1.1 mg/dL Hct: 32 % Hb: 10.9 g/dL A ................... ................... ................... ................... ................... ................... ................... ........ Agent Note From Zechariah Torres: [facility] for [place] patient with back pain. Pt presents lying supine in bed with daughter present. Pt Slovak speaking and daughter translated for pt. Pt [...] motion with assistance in legs. Consulted with [facility]. Madrigal who ordered BMP prior to toradol administration. Blood drawn and BMP results uploaded. [facility] ordered 15 mg IM toradol. Pt encouraged [...] beyond the scope of this service Alessandra Madrigla MD [address] [facility],[address], [place], [phone], M[facility] - [facility] 02/23/2024 14:02:20
--- OUTSIDE RECORDS SUMMARY | 2024-12-11 17:02 | XMS_ITS | Clinical Summary ---
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 Role Phone Enedina Saunders Primary Care Provider [phone] Allergies Active Allergy Reactions Criticality Noted Date Comments Insulin Aspart Cough 09/15/2017 Other Reaction(s): Unknown Outside Source Comment: Other reaction(s): Itching Insulin Aspart (Human Analog) Cough 09/15/2017 Other reaction(s): Itching Other reaction(s): Unknown Outside Source Comment: Other reaction(s): Itching Other Reaction(s): Unknown Shellfish Allergy 07/10/2024 Other Reaction(s): hives, swelling Shellfish-Derived Products 3 Medications triamcinolone (Kenalog) 0.1 % creamIndication s:Pityriasis lichenoides chronica Apply topically 2 times daily. Mix with cerave 80 g 3 023 Active albuterol 108 (90 Base) MCG/ACT inhaler Inhale 2 puffs every 4 (four) hours if needed. 022 Active EPINEPHrine (Epipen) 0.3 MG/0.3ML injection syringe Inject 0.3 mL into the shoulder, thigh, or buttocks. 020 Active fluticasone (Flonase) 50 MCG/ACT nasal spray spray 2 spray by intranasal route every day in each nostril as needed 022 Active glucose-vitamin C 4-6 GM-MG oral gel chew 2-4 tablets as needed for hypoglycemia 021 Active hydrocortisone 2.5 % cream apply by topical route every day to the affected area(s) x 2 weeks 07/27/2 022 Active Jennifer-Dryl 25 MG tablet TAKE 1 TABLET BY MOUTH EVERY 6 HOURS NEEDED FOR (for itching) 30 tablet Active acetaminophen (Tylenol 8 Hour) 650 MG ER tablet TAKE 1 TABLET BY MOUTH EVERY 8 HOURS NEEDED MILD PAIN 60 tablet 3 023 Active NovoLOG FLEXPEN 100 UNIT/ML penIndications: Type 2 diabetes mellitus with other diabetic kidney complication (CMS/HCC) INJECT 10 UNITS SUBCUTANEOUSLY TWICE DAILY BEFORE BREAKFAST AND BEFORE SUPPER 15 mL 3 Active benzonatate (Tessalon) 100 MG capsule TAKE 1 CAPSULE BY MOUTH THREE TIMES DAILY NEEDED FOR COUGH DO NOT BREAK, CRUSH, DISSOLVE OR CHEW 30 capsule 1 Active D3 Super Strength 50 MCG (1999 UT) capsule TAKE 1 CAPSULE BY MOUTH EVERY DAY IN THE MORNING 90 capsule 1 Active losartan (Cozaar) 100 MG tabletIndicatio ns:Essential hypertension TAKE 1 TABLET BY MOUTH EVERY DAY 30 tablet 11 Active Alcohol Swabs (Alcohol Prep) 70 % pads USE THREE TIMES DAILY DIRECTED 100 each Active FREESTYLE LITE test strip TEST BLOOD SUGAR 3 TIMES A DAY 100 strip Active TRUEplus Lancets 33G misc TEST BLOOD SUGAR 3 TIMES A DAY 100 each Active UltiGuard SafePack Pen Needle 32G X 4 MM misc USE WITH INSULIN DIRECTED 100 each 11 Active naloxone (Narcan) 4 mg/0.1 mL nasal sprayIndication s:Chronic bilateral low back pain with left-sided sciatica Administer 1 spray (4 mg) into affected nostril(s) if needed for opioid reversal. May repeat every 2-3 minutes if needed, alternating nostrils, until medical assistance becomes available. 2 each 3 024 2024 Active Farxiga 5 MG Take 1 tablet (5 mg) by mouth Once daily. 30 tablet 11 024 2024 Active insulin degludec (Tresiba FlexTouch) 200 UNIT/ML injectionIndica tions:Type 2 diabetes mellitus with other diabetic kidney complication (CMS/HCC) INJECT 38 UNITS SUBCUTANEOUSLY EVERY DAY 9 mL Active Continuous Glucose Sensor (FreeStyle Roni 2 Sensor) [facility] Apply 1 each topically 3 times daily. 2 each Active Artificial Tear Solution (GenTeal Tears) 0.1-0.2-0.3 % solutionIndicat ions:Type 2 diabetes mellitus with other diabetic kidney complication ([facility]) INSTILL 1 DROP IN DRY EYES FOUR TIMES DAILY NEEDED 30 mL 3 Active metFORMIN (Glucophage) 1000 MG tabletIndicatio ns:Type 2 diabetes mellitus with other specified complication, unspecified whether medical terminologist insulin use ([facility]) TAKE 1 Tablet BY MOUTH TWICE DAILY WITH MEALS 180 tablet 024 Active FLUoxetine (PROzac) 20 MG capsuleIndicati ons:Depression, unspecified depression type TAKE 2 CAPSULES BY MOUTH EVERY MORNING 180 capsule 024 Active Aspirin Low Dose 81 MG EC tabletIndicatio ns:Type 2 diabetes mellitus with other specified complication, unspecified whether medical terminologist insulin use ([facility]) TAKE 1 TABLET BY MOUTH ONCE DAILY 90 tablet Active atorvastatin (Lipitor) 80 MG tablet TAKE 1 TABLET BY MOUTH EVERY MORNING 90 tablet 024 Active amitriptyline (Elavil) 25 MG tablet Take 1 tablet (25 mg) by mouth at bedtime. 30 tablet 5 024 2024 Active Trulicity 4.5 MG/0.5ML solution auto-injector Active dilTIAZem ER (Tiadylt ER) 360 MG 24 hr capsule Take 1 capsule (360 mg) by mouth Once per day. 30 capsule 025 2025 Active cetirizine (ZyrTEC) 10 MG tablet TAKE 1 TABLET BY MOUTH EVERY DAY 30 tablet Active gabapentin (Neurontin) 400 MG capsuleIndicati ons:Chronic bilateral low back pain with left-sided sciatica TAKE 2 CAPSULES BY MOUTH THREE TIMES DAILY 180 capsule 025 Active Diclofenac Sodium 1 % gelIndications: Back pain, unspecified back location, unspecified back pain laterality, unspecified chronicity APPLY 2 GRAMS TOPICALLY TO AFFECTED AREA(S) TWICE DAILY NEEDED FOR PAIN 100 g Active polyvinyl alcohol (Liquifilm Tears) 1.4 % ophthalmic solution PLACE 1 DROP INTO THE AFFECTED EYE(S) FOUR TIMES DAILY NEEDED FOR DRY EYES Active Jardiance 10 MG Take 1 tablet by mouth Once per day. Active hydroCHLOROthia zide (HYDRODiuril) 25 MG tabletIndicatio ns:Essential hypertension TAKE 1 TABLET BY MOUTH EVERY DAY 30 tablet 1 Active baclofen (Lioresal) 20 MG tabletIndicatio ns:Muscle spasm TAKE 1 TABLET BY MOUTH THREE TIMES DAILY NEEDED FOR PAIN OR FOR MUSCLE SPASMS 90 tablet 1 Active Arnuity Ellipta 100 MCG/ACT inhaler INHALE 1 PUFF BY MOUTH EVERY DAY AT THE SAME TIME RINSE MOUTH AFTER USING 30 each Active omeprazole (PriLOSEC) [address] capsuleIndicati ons:Chronic GERD TAKE 1 CAPSULE BY MOUTH EVERY DAY BEFORE BREAKFAST 90 capsule Active oxyCODONE (Roxicodone) 5 MG immediate release tabletIndicatio ns:Chronic bilateral low back pain with bilateral sciatica Take 1 tablet (5 mg) by mouth every 6 (six) hours if needed for severe pain for up to 28 days. Do not start before November 27, 2024. 112 tablet 025 2024 Active dorzolamide-karl olol (Cosopt) 2-0.5 % ophthalmic solution Administer 1 drop into the right eye 2 times daily. 10 mL 11 025 2025 Active brimonidine (AlphaGAN) 0.2 % ophthalmic solution Administer 1 drop into the right eye 3 times daily. 10 mL 11 025 2025 Active omeprazole (PriLOSEC) [address] capsuleIndicati ons:Chronic GERD TAKE 1 CAPSULE BY MOUTH EVERY DAY BEFORE BREAKFAST 90 capsule 1 024 2024 Discontinued(R eorder (will not trigger notification to Pharmacy)) baclofen (Lioresal) 20 MG tabletIndicatio ns:Muscle spasm TAKE 1 TABLET BY MOUTH THREE TIMES DAILY NEEDED FOR PAIN OR FOR MUSCLE SPASMS 90 tablet 3 024 2024 Discontinued hydroCHLOROthia zide (HYDRODiuril) 25 MG tabletIndicatio ns:Essential hypertension TAKE 1 TABLET BY MOUTH EVERY DAY 30 tablet 1 024 2024 Discontinued fluticasone furoate (Arnuity Ellipta) 100 MCG/ACT inhaler INHALE 1 PUFF BY MOUTH EVERY DAY AT THE SAME TIME RINSE MOUTH AFTER USING. 30 each 1 024 2024 Discontinued oxyCODONE (Roxicodone) 5 MG immediate release tabletIndicatio ns:Chronic bilateral low back pain with bilateral sciatica TAKE 1 TABLET BY MOUTH EVERY 6 HOURS NEEDED FOR SEVERE PAIN 112 tablet 025 2024 Discontinued(R eorder (will not trigger notification to Pharmacy)) Polyvinyl Alcohol-Povidon e 5-6 MG/ML solution Administer 2 drops into affected eye(s) 4 times daily for 10 days. 15 mL 1 025 2024 erythromycin (Romycin) 5 MG/GM ophthalmic ointment Apply to right eye 3 times daily for 10 days. Apply Amount per Dose: 0.25 inch (~0.5 cm) per dose. 3.5 g 1 025 2024 dorzolamide-karl olol (Cosopt) 2-0.5 % ophthalmic solution Administer 1 drop into the right eye 2 times daily. 30 mL 3 025 2024 Discontinued(R eorder (will not trigger notification to Pharmacy)) brimonidine (AlphaGAN) 0.2 % ophthalmic solution Administer 1 drop into the right eye 3 times daily. 30 mL 3 025 2024 Discontinued(R eorder (will not trigger notification to Pharmacy)) Active Problems Problem Noted Date Diagnosed Date Acute right eye pain 11/12/2024 Assessment & Plan (11/12/2024 1:14 PM EST): It could be related to corneal lesion, needs additional workup Advised to use natural tears as needed dry eye, use erythromycin eye ointment on affected eye and keep it covered Will call eye clinic to schedule further evaluation this week especially in view of significantly decreased visual acuity after last eye evaluation on October 19. Healthcare maintenance 02/08/2024 Assessment & Plan (02/08/2024 3:50 PM EDT): -s/p flu vaccine OCT 2023 -he declines COVID vaccine -s/p Tdap Nov 2015 -s/p Td JUL 2019 -s/p pneumovax NOV 2015 -s/p PCV20 Jun 2023 -s/p shingrix JUN 2021 -Hep A/B immune -colonoscopy with diverticulosis DEC 2018 -STI/HIV screen negative OCT 2023 Major depression, recurrent, chronic 02/08/2024 Assessment & Plan (02/08/2024 3:48 PM EDT): -he denies any current SI/HI -he is given the number for crisis -cont prozac daily -he declines therapist at this time Mild persistent asthma 10/12/2023 Assessment & Plan (02/08/2024 3:49 PM EDT): With allergic rhinitis -PFTs with moderate restrictive disease APR 2019 -cont zyrtec and flonase daily -cont fluticasone daily -cont albuterol prn Family history of colon cancer 10/12/2023 History of tobacco use 10/12/2023 Anemia 08/04/2023 History of COVID-19 05/18/2023 Overview (06/07/2023): Problem added by Discern Expert Proteinuria 12/20/2022 Status post CVA 12/20/2022 Depression 12/20/2022 Diabetic retinopathy 12/20/2022 Chronic allergic rhinitis 12/08/2022 Nephrolithiasis 12/08/2022 Assessment & Plan (02/08/2024 3:49 PM EDT): CT abd/pelvis with multiple small b/l renal stones DEC 2021 -referred to urology for f/u eval Opioid dependence in remission 03/18/2016 Chronic low back pain 11/18/2015 Assessment & Plan (02/08/2024 3:50 PM EDT): With intermittent flaring -L-spine XR with mild degenerative changes JUL 2017 -cont gabapentin 800mg TID -cont amitriptyline nightly -cont baclofen TID to help with mm spasm -cont tylenol and diclofenac gel prn -cont tramadol for severe pain control -he refuses f/u with pain mgmt -advised contact [facility] if sx change or worsen Essential hypertension 11/18/2015 Assessment & Plan (02/08/2024 3:48 PM EDT): BP elevated with elevated home BP readings -cont losartan and HCTZ daily -increase diltiazem to 240 mg daily -BP check with me in 2 weeks -Cr/GFR nml with significant urine microalbumin OCT 2023 -there is EKG in [facility] -opt as above -f/u with renal as scheduled Chronic gastroesophageal reflux disease 11/18/19 Assessment & Plan (02/08/2024 3:49 PM EDT): -cont prilosec daily Hyperlipidemia 11/18/2015 Assessment & Plan (02/08/2024 3:48 PM EDT): LDL at goal OCT 2023 -cont lipitor nightly BMI 29.0-29.9,adult 11/18/2015 Tubular adenoma 11/18/2015 Type 2 diabetes mellitus 11/18/2015 Assessment & Plan (02/08/2024 2:27 PM EDT): A1c at goal with occasional AM hypoglycemia -decrease tresiba to 38 units daily -cont increased dose humalog with meals as per endo -cont metformin BID -cont trulicity weekly as per endo -cont farxiga daily -cont regular BS monitoring with CGM -f/u with endo as scheduled -cont aspirin, statin, and losartan daily -s/p optho eval with severe diabetic retinopathy JAN [address] [facility], encouraged schedule f/u -strongly encouraged schedule f/u with retinal specialist -foot exam next visit* -review podiatry next visit* Resolved Problems Problem Noted Date Diagnosed Date Resolved Date Abnormal TSH 02/17/2024 03/05/2024 Assessment & Plan (02/17/2024 3:49 PM EDT): TSH and T4 already ordered by PCP I advise to go to the lab to do them Dizziness 02/17/2024 03/05/2024 Assessment & Plan (02/17/2024 3:51 PM EDT): I advise to maintain hydration drink plenty of water I advise to change positions slowly Meclizine 25mg Q 8hrs PRN ENT referral Labs ordered patient to be contacted with results Hgb done at office 12.2 improve since last time check Diabetic foot ulcer 08/04/2023 10/12/19 24 Assessment & Plan (08/04/2023 2:10 PM EDT): I will extend his antibiotic treatment and refer him to podiatry Sacroiliac joint dysfunction of both sides 06/07/2023 10/12/2023 Spinal stenosis, lumbar joss on with neurogenic claudication 06/07/2023 10/12/2023 Asthma 12/20/2022 10/12/2023 Mild intermittent asthma 12/08/202207/2024 Encounters Date Type Department Care Team Description 12/06/2024 Orders Only [facility] [address] [place] [address] Enriqueta Stevenson, OD 12/04/2024 1:00 PM EST Office Visit [facility] [address] [place] [address] Enriqueta Stevenson, OD Increased pressure in the eye, right (Primary Dx); Type 2 diabetes mellitus with other ophthalmic complication, unspecified whether jail insulin use ([facility]) 12/04/2024 Travel 11/26/[address] [facility] [address] [place] [address] Enedina Saunders, Chronic bilateral low back pain with bilateral sciatica 11/19/2024 Refill [facility] [address] [place] [address] Enedina Saunders DO Chronic GERD 11/18/2024 Refill [facility] [address] [place] [address] Enedina Saunders, Essential hypertension; Muscle spasm; Chronic GERD 11/12/2024 1:00 PM EST Office Visit [facility] [address] [place] [phone] Viridiana Urbina MD Acute right eye pain (Primary Dx) 11/12/[address] [facility] [address] [place] [phone] Enedina Saunders DO Nurse Triage 11/06/[address] [facility] [address] [place] [address] Leilani Duran, OD 10/26/[address] [facility] [address] [place], [place] [phone] Enedina Saunders DO Chronic bilateral low back pain with bilateral sciatica; Back pain, unspecified back location, unspecified back pain laterality, unspecified chronicity 10/25/[address] [facility] [address] [place] [phone] Enedina Saunders DO Chronic bilateral low back pain with left-sided sciatica 10/19/2024 2:30 PM EST Office Visit [facility] [address] [place] [address] Enriqueta Stevenson, OD Moderate nonproliferative diabetic retinopathy of both eyes with macular edema associated with type 2 diabetes mellitus (CMS/HCC) (Primary Dx); Dry eye syndrome of both eyes; Combined 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, both eyes; Presbyopia of both eyes 10/19/2024 Travel 10/17/[address] [address] Jenny Escobar RN UTOX Neg OXY confirmed 10/17/[address] [address] Enedina Saunders DO 10/15/2024 1:30 PM EST Clinical Support [address] [phone] Jenny Escobar RN Chronic bilateral low back pain with bilateral sciatica (Primary Dx) 10/15/2024 Orders Only GENERIC EXTERNAL DATA DEPARTMENT Provider, Generic External Data 10/15/[address] [address] Jenny Escobar, RN UTOX Neg OXY 10/15/2024 Travel 10/15/[address] [phone] Jenny Escobar RN Recommend ENVIRONMENTAL EPIDEMIOLOGIST Tier 2 10/10/2024 10:45 AM EST Office Visit [address] [address] Enedina Saunders DO Type 2 diabetes mellitus with other diabetic kidney complication (CMS/HCC) (Primary Dx); Essential hypertension; Other hyperlipidemia; Major depression, recurrent, chronic (CMS/HCC); Mild persistent asthma without complication; Chronic gastroesophageal reflux disease; Nephrolithiasis; Chronic bilateral low back pain with bilateral sciatica; Low TSH level; Bilateral lower extremity pain; IgA monoclonal gammopathy; Healthcare maintenance; Encounter for immunization 10/10/2024 Travel 10/09/2024 Orders Only GENERIC EXTERNAL DATA DEPARTMENT Provider, Generic External Data 10/02/2024 Patient Outreach [address] [address] Enedina Saunders DO Pre-visit Planning (SDOH screening is completed) 10/01/2024 Refill [facility] [address] [place], [place] [phone] Cindy Mohan MD 09/27/[address] [address] Jenny Escobar, RN telephone call 09/24/2024 Refill [facility] [address] [place], [place] [phone] [place], [place], [employer] Chronic bilateral low back pain with bilateral sciatica 09/18/[address] [address] Enedina Saunders DO Nurse Triage 09/18/[address] [address] Enedina Saunders DO from Last 3 Months Immunizations Name Administration Dates Next Due Hep B, adult 01/08/2019,09/15/2018,04/19/2018 Influenza Whole 08/02/2007 Influenza injectable quadriv alent IIV4 with preservative 06/20/2019,07/21/2016,08/14/2015 Influenza injectable quadriv alent preservative free 10/12/2023,06/25/2022,06/30/2021,06/02,09/15/2018,08/14/2017 Influenza, seasonal, injecta ble, preservative free 10/10/2024 Alyce SARS-CoV-2 Vaccination 12/17/2020 Moderna Covid-19 Vaccine 12+ 07/29/2021 Moderna Covid-19 Vaccine 6+ Bivalent 12/09/2022 Pneumococcal Conjugate PCV 20 06/09/2023 Pneumococcal Polysaccharide PPSV23 06/17/2020, TD (adult), 2 Lf tetanus tox oid, preservative free, adsorbed 08/02/2019 Tdap 11/18/2015 Zoster, Recombinant 06/30/2021,06/17/2020 Family History Medical History Relation Name Comments Alcohol abuse Father Colon cancer Father Glaucoma Father's Brother Asthma Mother Coronary artery disease Mother Diabetes Mother Hyperlipidemia Mother Hypertension Mother Schizophrenia Mother Relation Name Status Comments Father Father's Brother Mother Social History Tobacco Use Types Packs/Day Years Used Date Smoking Tobacco: Former Cigarettes Passive Smoke Exposure: Past Smokeless Tobacco: Never Tobacco Cessation:Counseling Given: Not Answered Alcohol Use Standard Drinks/Week Comments Never 0 [...] Orientation Straight 08/02/2022 10 :16 AM EDT Last Filed Vital Signs Vital Sign Reading Time Taken Comments Blood Pressure 170/98 11/12/2024 12:52 PM EST Pulse 80 11/12/2024 12:52 PM EST Temperature 36.4 ??C (97.6 ??F) 11/12/2024 12:[address] Respiratory Rate 17 11/12/2024 12:52 PM EST Oxygen Saturation 98% 02/17/2024 3:39 PM EDT Inhaled Oxygen Concentration - - Weight 100 kg (220 lb 6.4 oz) 11/12/2024 12:52 P M EST Height 185.4 cm (6' 1 ) 11/12/2024 12:52 PM EST Body Mass Index 29.08 11/12/2024 12:52 PM EST Plan of Treatment Upcoming Encounters Date Type Department Care Team (Late st Contact Info) Description 12/13/2024 2:00 PM EDT Clinical Support [facility] [address] [place] [address] Jenny Escobar, WALTER 04/18/2025 3:00 PM EDT Office Visit [facility] [address] [place] [address] Enriqueta Stevenson, IRAM [address] [place] [address] Health Maintenance Due Date Last Done Comments CT Colonography 1964 Colonoscopy 1964 FIT DNA/Cologuard 1965 Sigmoidoscopy 1965 Colorectal Cancer Screening 12/30/2023 FIT 12/30/2023 12/29/2022 FOBT 12/30/2023 12/29/2022 RSV Patients and Patients Aged 60 years or older (1 - Risk 60-74 years 1-dose series) 2024 COVID-19 Vaccine ( season) 2024 12/09/2022, 07/29/2021, 12/17/2020 Diabetes: Foot Exam 08/04/2024 08/04/2023, 08/04/2023, 08/04/2023 Diabetes: Hemoglobin A1C 01/13/2025 025, 10/10/2024, 10/09/2024, Additional history exists Depression Screening 02/07/2025 02/08/2024, 02/08/20 24 SDOH Screening 02/07/2025 02/08/2024 Alcohol/Substance Use Screening 10/10/2025 10/10/2024 Lipid Panel 10/15/2025 10/15/2024, 10/03, 12/20/2022, Additional history exists Eye Exam 10/19/2025 10/19/2024, 10/03, 10/19/2024, Additional history exists Tobacco Screening 11/12/2025 11/12/2024 DTaP/Tdap/Td Vaccines (3 - Td or Tdap) 08/02/2029 08/02/2019, 11/18/2015 Hepatitis B Vaccines Completed 01/08/2019, 09/15/2018, 04/19/2018 Zoster Vaccines Completed 06/30/2021, 06/17/2020 Pneumococcal Vaccine: 50+ Years Completed 06/09/2023, 06/17/2020, 11/18/2015 Influenza Vaccine Completed 10/10/2024, , 06/25/2022, Additional history exists HIV Screening Completed 10/15/2024, 10/03, 12/20/2022, Additional history exists Hepatitis C Screening Completed 10/15/2024 , 10/12/2023, 12/20/2022, Additional history exists HIB Vaccines Aged Out No longer eligi ble based on patient's age to complete this topic HPV Vaccines Aged Out No longer eligi ble based on patient's age to complete this topic Hepatitis A Vaccines Aged Out No long er eligible based on patient's age to complete this topic IPV Vaccines Aged Out No longer eligi ble based on patient's age to complete this topic Meningococcal Vaccine Aged Out No victorina ariel eligible based on patient's age to complete this topic RSV under 20 months Aged Out No longe r eligible based on patient's age to complete this topic Rotavirus Vaccines Aged Out No longer eligible based on patient's age to complete this topic Procedures Procedure Name Priority Date/Time Associated Diagnosis Comments OCT, RETINA - OU - BOTH EYES Routine 10/19/2024 2:30 PM EST Moderate nonproliferative diabetic retinopathy of both eyes with macular edema associated with type 2 diabetes mellitus (CMS/HCC) UREA NITROGEN (BUN) Routine 10/15/2024 3 :25 PM EST RPR (MONITOR) W/REFL TITER Routine 10/15/2024 3:25 PM EST Healthcare maintenance HEPATITIS C AB W/REFL TO HCV RNA, QN, PCR Routine 10/15/2024 3:25 PM EST Healthcare maintenance HIV 1/2 ANTIGEN/ANTIBODY, FOURTH GENERATION W/RFL Routine 10/15/2024 3:25 PM EST Healthcare maintenance CBC Routine 10/15/2024 3:25 PM EST Type 2 diabetes mellitus with other diabetic kidney complication (CMS/HCC) Essential hypertension BASIC METABOLIC PANEL Routine 10/15/2024 3:25 PM EST Type 2 diabetes mellitus with other diabetic kidney complication (CMS/HCC) Essential hypertension HEMOGLOBIN A1C Routine 10/15/2024 3:25 PM EST Type 2 diabetes mellitus with other diabetic kidney complication (CMS/HCC) Essential hypertension HEPATIC FUNCTION PANEL Routine 3:25 PM EST Type 2 diabetes mellitus with other diabetic kidney complication (CMS/HCC) Essential hypertension TSH Routine 10/15/2024 3:25 PM EST Type 2 diabetes mellitus with other diabetic kidney complication (CMS/HCC) Essential hypertension LIPID PANEL, STANDARD Routine 10/15/2024 3:25 PM EST Type 2 diabetes mellitus with other diabetic kidney complication ([facility]CC) Essential hypertension VITAMIN D,25-OH,TOTAL,IA Routine 10/15/2024 3:25 PM EST Type 2 diabetes mellitus with other diabetic kidney complication ([facility]CC) Essential hypertension T4, FREE Routine 10/15/2024 3:25 PM EST Type 2 diabetes mellitus with other diabetic kidney complication ([facility]) Essential hypertension ALBUMIN, RANDOM URINE W/CREATININE Routine 10/15/2024 2:18 PM EST Type 2 diabetes mellitus with other diabetic kidney complication ([facility]) Essential hypertension CHLAMYDIA/N. GONORRHOEAE RNA, TMA, UROGENITAL Routine 10/15/2024 2:18 PM EST Healthcare maintenance POCT [id number] URINE DRUG SCREEN Routine 10/15/2024 1:50 PM EST Chronic bilateral low back pain with bilateral sciatica OXYCODONE SCREEN, URINE Routine 10/15/2024 1:30 PM EST Chronic bilateral low back pain with bilateral sciatica POCT GLYCATED HEMOGLOBIN, TOTAL Routine 10/10/2024 11:14 AM EST Type 2 diabetes mellitus with other diabetic kidney complication ([facility]CC) POCT GLUCOSE Routine 10/10/2024 11:13 AM EST Type 2 diabetes mellitus with other diabetic kidney complication ([facility]CC) IMMUNOFIXATION, URINE Routine 10/09/2024 3:45 PM EST PROTEIN CREATININE RATIO, URINE Routine 10/09/2024 3:45 PM EST IMMUNOFIXATION, SERUM Routine 10/09/2024 2:42 PM EST CREATININE, SERUM Routine 10/09/2024 2:4 2 PM EST UREA NITROGEN (BUN) Routine 10/09/2024 2 :42 PM EST ELECTROLYTE PANEL Routine 10/09/2024 2:4 2 PM EST HEMOGLOBIN A1C Routine 10/09/2024 2:42 PM EST FECAL GLOBIN BY IMMUNOCHEMISTRY Routine 12/29/2022 12:00 AM EDT Special screening for malignant neoplasms, colon from Last 3 Months or Most Recently Relevant to Health Maintenance Results * OCT, Retina - OU - Both Eyes (10/19/2024 2:30 PM EST) Enriqueta Mix, OD - 11/01/2024 1:33 PM EST OCT [facility] INTERPRETATION Optical Coherence Tomography Interpretation Report Measurements: OD ??OS Macula Thickness ??218 microns ??213 microns Test findings: OD: normal foveal contour, epiretinal membrane (ERM) inferior to fovea, cystoid macular edema (CME) temporal to fovea extending superiorly, no retinal pigment epithelium (RPE) disruption, no subretinal fluid (SRF) ?? OS: normal foveal contour, cystoid macular edema (CME) temporal, superotemporal, and inferior to fovea no retinal pigment epithelium (RPE) disruption, no subretinal fluid (SRF) ?? Impression and Plan: Condition has slightly worsened in both eyes. Will refer to back to his retinal specialist for evaluation. Will monitor here in 6 months as well. Enriqueta Stevenson OD OPHTH TOMOGRAPHY Final Result * Vitamin D, 25-Hydroxy, Total, Immunoassay (10/15/2024 3:25 PM EST) Vitamin D 25-OH Total 33.0 >30 ng/mL [facility] Comment:Health Based Referen ce Values*< 20 ng/mL Zevlyhnms03-90 ng/mL Insufficient> 30 ng/mL Sufficient*Dariusz CARR. N Engl J Med. 2007;357:266-280Care must be taken in interpreting Vitamin D results fromdifferent laboratories and methodologies. Published datademonstrated that results from patients undergoinghemodialysis may show a negative bias when tested withvarious automated 25-OH vitamin D assays when compared toLC-MS/MS.When testing samples from patients whose predominant form ofVitamin D is Vitamin D2, such as patients receiving VitaminD2 supplementation, results that are subtherapeutic shouldbe confirmed with another method such as LC-MS/MS. Blood Venous blood specimen / Unknown 10/15/2024 3:25 PM EST 10/15/2024 3:25 PM EST [facility] LAB BLOOD ORDERABLES Final R esult Performing Organization Address [facility]/ZIP Co de Phone Number [facility] [address] [place] [phone] * Hepatitis C Antibody with Reflex to HCV, RNA, Quantitative, Real-Time PCR (10/15/2024 3:25 PM EST) Hepatitis C Antibody Nonreactive Nonreactive [facility] Comment:Antibodies to HCV no t detected; does not exclude early acuteHCV infection. Blood Venous blood specimen / Unknown 10/15/2024 3:25 PM EST 10/15/2024 3:25 PM EST [facility] LAB BLOOD ORDERABLES Final R esult Performing Organization Address [facility] Co de Phone Number [facility] [address] [place] [phone] * RPR (Monitor) with Reflex to??Titer (10/15/2024 3:25 PM EST) RPR (Monitor) w/Refl Titer NON-REACTI VE NON-REACT LAURA [facility] Comment:THIS TEST WAS PERFOR MED AT:[facility] [place] [phone] WEBB MD Rapid Plasma Reagin Ab Titer TNP [facility] Blood Venous blood specimen / Unknown 10/15/2024 3:25 PM EST 10/15/2024 3:25 PM EST Enedina Nicky LAB BLOOD ORDERABLES Final R ult Performing Organization Address [facility] Co de Phone Number [facility] [address] [place] [address] [phone] * HIV-1/2 Antigen and Antibodies, Fourth Generation, with Reflexes (10/15/2024 3:25 PM EST) [facility] HIV AB/AG Nonreactive Nonreactive [facility] Comment:HIV-1 p24 Ag and/or HIV-1/HIV-2 Ab not detected.A test result that is nonreactive does not exclude thepossibility of exposure to or infection with HIV-1 and/orHIV-2. Nonreactive results in this assay for individualswith prior exposure to HIV-1 and/or HIV-2 may be due toantigen and antibody levels that are below the limit ofdetection of this assay.[facility] HIV Ag/Ab Combo assay result andsupplemental assay results should be interpreted inconjunction with the patient's clinical presentation,history and other laboratory results. If the results areinconsistent with clinical evidence, additional testing issuggested to confirm the result. Blood Venous blood specimen / Unknown 10/15/2024 3:25 PM EST 10/15/2024 3:25 PM EST Enedina Saunders DO LAB BLOOD ORDERABLES Final R esult Performing Organization Address [facility]/ZIP Co de Phone Number [facility] [address] [place] [phone] * (ABNORMAL) CBC (10/15/2024 3:25 PM EST) [facility] White Blood Count 9.3 4.8 - 10.8 X10*3/uL [facility] Red Blood Count 4.07(L) 4.60 - 5.80 X10*6/uL [facility] Hemoglobin 12.1(L) 14.0 - 18.0 g/dl [facility] Hematocrit 35.6(L) 42.0 - 52.0 % [facility] Mean Corpuscular Volume 87.5 80.0 - 98.0 fL [facility] Mean Corpuscular Hemoglobin 29.7 27.0 - 33.0 pg [facility] Mean Corpuscular HGB Conc 34.0 31.0 - 36.0 g/dl [facility] Red Cell Distribution Width 13.5 11.0 - 16.0 % [facility] Platelet Count 392 160 - 400 X10*3/uL [facility] Mean Platelet Volume 9.8 9.4 - 12.4 fL [facility] NRBC Pct Auto 0.0 0.0 - 0.2 /100WBC [facility] NRBC Abs Auto 0.000 0.0 - 0.012 X10*3/uL [facility] Blood Venous blood specimen / Unknown 10/15/2024 3:25 PM EST 10/15/2024 3:25 PM EST us Enedina Saunders DO LAB BLOOD ORDERABLES Final R esult Performing Organization Address City/[facility]/ZIP Co de Phone Number [facility] [address] [place] [phone] * (ABNORMAL) BUN (Blood Urea Nitrogen) (10/15/2024 3:25 PM EST) Only the most recent of2 resultswithin the time period is included. Urea Nitrogen (BUN) 33(H) 9 - 16 mg/dL [facility] 10/15/2024 3:25 PM EST 10/15/2024 3:25 PM EST us Generic External Data Provider LAB BLOOD ORDERAB LES Final Result Performing Organization Address [facility]/ZIP Co de Phone Number [facility] [address] [place] [phone] * TSH (10/15/2024 3:25 PM EST) Pathologist [facility] Thyroid Stimulating Hormone 1.62 0.32 - 4.0 uIU/mL [facility] Comment:TSH 3rd Generation ( [facility]) Blood Venous blood specimen / Unknown 10/15/2024 3:25 PM EST 10/15/2024 3:25 PM EST Enedina Saunders LAB BLOOD ORDERABLES Final R esult Performing Organization Address City/[facility]/ZIP Co de Phone Number [facility] [address] [place] [phone] * T4, Free (10/15/2024 3:25 PM EST) Pathologist [facility] Free T4 (Free Thyroxine) 1.12 0.71 - 1.85 ng/dL [facility] Blood Venous blood specimen / Unknown 10/15/2024 3:25 PM EST 10/15/2024 3:25 PM EST Enedina Saunders LAB BLOOD ORDERABLES Final R esult Performing Organization Address City/[facility] Co de Phone Number [facility] [address] [place] [phone] * (ABNORMAL) Hemoglobin A1c (10/15/2024 3:25 PM EST) Only the most recent of2 resultswithin the time period is included. Pathologist [facility] Hemoglobin A1c 7.1(H) <6.0 % [facility] Comment:Hemoglobin A1C Refer ence Range Adults: 4.8 - 6.0 % Non diabetic: < 6.0 % Goal: < 7.0 %Additional Action Suggested: > 8.0 %Note: Hemoglobin A1c results are invalid for patients with abnormal amounts of HbF. Blood transfusions may impact the HbA1c concentration in the patient sample. Estimated Average Glucose 157 mg/dL [facility] Comment:eAG = Estimated ave rage glucose which is %A1C expressed asaverage glucose, using the formula of the Z1D-DtymlrcJfzwyek Glucose study (ADAG), Diabetes Care, Vol.31,#8,2007 Blood Venous blood specimen / Unknown 10/15/2024 3:25 PM EST 10/15/2024 3:25 PM EST Enedina Saunders DO LAB BLOOD ORDERABLES Final R esult Performing Organization Address City/[facility]/ZIP Co de Phone Number [facility] [address] [place] [phone] * (ABNORMAL) Hepatic Function Panel (10/15/2024 3:25 PM EST) Bilirubin, Total 0.3 0.0 - 1.0 mg/dL [facility] Bilirubin, Direct 0.1 0.0 - 0.5 mg/dL [facility] Aspartate Amino Transferase 31 5 - 37 U/L [facility] Alanine Aminotransferase 37 0 - 40 U/L [facility] Total Protein 7.6 6.5 - 8.0 g/dL [facility] Albumin Level 3.5 3.5 - 5.0 g/dL [facility] Alkaline Phosphatase 139(H) 39 - 117 U/L [facility] Blood Venous blood specimen / Unknown 10/15/2024 3:25 PM EST 10/15/2024 3:25 PM EST Enednia Saunders DO LAB BLOOD ORDERABLES Final R esult Performing Organization Address City/[facility]/ZIP Co de Phone Number [facility] [address] [place] [phone] * (ABNORMAL) Lipid Panel, Standard (10/15/2024 3:25 PM EST) Triglycerides 108 <150 mg/dL [facility] Comment:Desirable Triglyceri de: less than 150 mg/dLBorderline High Triglyceride 150-199 mg/dLHigh Triglyceride: 200-499 mg/dLVery High Triglyceride: greater than or equal to 5OO mg/dL Cholesterol 190 <200 mg/dL [facility] Comment:Desirable Cholestero l: less than 200 mg/dLBorderline High Cholesterol: 200-239 mg/dLHigh Cholesterol: greater than 239 mg/dL LDL Cholesterol Calculated 130(H) <100 mg/dL [facility] Comment:Desirable LDL: less than 100 mg/dLNear Optimal/Above Optimal LDL: 110- 129 mg/dLBorderline High LDL: 130-159 mg/dLHigh LDL: 160-189 mg/dLVery High LDL: greater than or equal to 190 mg/dL HDL Cholesterol 39(L) >40 mg/dL [facility] Comment:Desirable HDL: great er than 40 mg/dL Note: This HDL assay may give artificially low results in patients with liver disease. Blood Venous blood specimen / Unknown 10/15/2024 3:25 PM EST 10/15/2024 3:25 PM EST us Enedina Saunders DO LAB BLOOD ORDERABLES Final R esult [facility] [address] [place] [phone] * (ABNORMAL) Basic Metabolic Panel (10/15/2024 3:25 PM EST) Sodium 138 135 - 145 mmol/L [facility] Potassium 4.0 3.3 - 5.1 mmol/L [facility] Chloride 105 96 - 108 mmol/L [facility] Carbon Dioxide 24 22 - 29 mmol/L [facility] Anion Gap 13 12 - 20 [facility] Urea Nitrogen (BUN) 32(H) 9 - 16 mg/dL [facility] Creatinine, Serum 1.17 0.5 - 1.4 mg/dL [facility] Estimated Glomerular Filt Rate >60 [facility] Comment:Chronic Kidney Disea se: Estimated GFR < 60 mL/min/1.22i3Wghbhy Kidney Disease: Estimated GFR < 15 mL/min/1.73m2 Glucose 142(H) 60 - 115 mg/dL [facility] Calcium 9.2 8.4 - 10.2 mg/dL [facility] Blood Venous blood specimen / Unknown 10/15/2024 3:25 PM EST 10/15/2024 3:25 PM EST Enedina Saunders LAB BLOOD ORDERABLES Final R esult Performing Organization Address [facility] Co de Phone Number [facility] [address] [place] [phone] * (ABNORMAL) Albumin, Random Urine W/Creatinine (10/15/2024 2:18 PM EST) Creatinine, Urine 78.99 mg/dL [facility] Microalbumin Urine 1,868.0 mg/L H [facility] Microalbum Creatinine Ratio Ur 2,364.8(H ) <30 ug/mg cr [facility] Comment:Albumin/Creatinine R atio Reference Ranges: Normal: < 30 ug/mg creatinine Microalbuminuria: 30 - 300 ug/mg creatinineClinical Albuminuria: > 300 ug/mg creatinine Urine (Urine, Random) 10/15/2024 2:18 PM EST 10/15/2024 4:06 PM EST [facility] URINE ORDERABLES Final R esult Performing Organization Address City/[facility] Co de Phone Number [facility] [address] [place] [phone] * Chlamydia/N. Gonorrhoeae RNA, TMA, Urogenitial (10/15/2024 2:18 PM EST) CT PCR NOT DETECTED Not Detect. [facility] Comment:A not detected test result does not exclude the possibilityof infection because test results can be affected byimproper specimen collection, concurrent antibiotic therapy,or the number of organisms in the specimen which may bebelow the sensitivity of the test. As with many diagnostictests, results from the Xpert CT/NG assay should beinterpreted in conjunction with other laboratory andclinical data available to the clinician.Xpert CT/NG performance has not been evaluated in patientsless than 14 years of age. The assay should not be used forthe evaluationof suspected sexual abuse or for other medico-legalindications. Additional testing is recommended in anycircumstance when false positive or false negative resultscould lead to adverse medical, social or psychologicalconsequences. NG PCR NOT DETECTED Not Detect. [facility] Comment:A not detected test result does not exclude the possibilityof infection because test results can be affected byimproper specimen collection, concurrent antibiotic therapy,or the number of organisms in the specimen which may bebelow the sensitivity of the test. As with many diagnostictests, results from the Xpert CT/NG assay should beinterpreted in conjunction with other laboratory andclinical data available to the clinician.Xpert CT/NG performance has not been evaluated in patientsless than 14 years of age. The assay should not be used forthe evaluationof suspected sexual abuse or for other medico-legalindications. Additional testing is recommended in anycircumstance when false positive or false negative resultscould lead to adverse medical, social or psychologicalconsequences. Urine Urethral structure / Unknown 10/15/2024 2:18 PM EST 10/15/2024 4:06 PM EST Laly [facility] - 10/15/2024 6:15 PM EST Urine Enedina Saunders DO LAB MICROBIOLOGY - GENERAL O RDERABLES Final Result [facility] [address] [place] [phone] * (ABNORMAL) POCT JOHNNY-14 Urine Drug Screen (10/15/2024 1:50 PM EST) Oxycodone Screen, Urine Negative Urine Urine specimen obtained by clean catch procedure / Unknown 10/15/2024 1:50 PM EST Jenny Omalley RN - 10/15/2024 1:50 PM EST UTOX cup Lot#[id number] Exp. 06/27/26 Internal Pass Control Enedina Saunders DO POINT OF CARE TEST ENTER/RUSTAM T ORDERABLES Final Result * Oxycodone Screen, Urine (10/15/2024 1:30 PM EST) Oxycodone Urine Screen Not Detected Not Detect ng/mL [facility] Comment:Oxycodone cut-off is 100 ng/mL.Positive results are unconfirmed and should not be used fornon-medical purposes. Urine 10/15/2024 1:30 PM EST 10/15/2024 4:13 PM EST Enedina Saunders LAB URINE ORDERABLES Final R esult [facility] [address] [place] [phone] * (ABNORMAL) POCT HGB A1C (10/10/2024 11:14 AM EST) Pathologist [facility] Hemoglobin A1C 7.0(A) 4.0 - 6.0 % QC [employer] Lot # [id number] Lot# Expiration Date ,932 Blood 10/10/2024 11:1 4 AM EST Result [facility] Enedina Saunders POINT OF CARE TEST ENTER/RUSTAM T ORDERABLES Final Result * POCT Glucose (10/10/2024 11:13 AM EST) Pathologist [facility] Glucose Blood, POC 130 60 - 200 mg/dL [employer] Lot # [id number] Lot# Expiration Date ,873,183 Blood Capillary blood specimen / Unknown 10/10/2024 11:13 AM EST Enedina Saunders POINT OF CARE TEST ENTER/RUSTAM T ORDERABLES Final Result * (ABNORMAL) Protein Creatinine Ratio, Urine (10/09/2024 3:45 PM EST) Creatinine, Urine 55.19 mg/dL [facility] Protein, Total, Random Urine 329(H) <12 mg/dL [facility] Protein/Creati nine Ratio, Ur 5.96(H) <0.2 [facility] Comment:The spot urine prote in:creatinine ratio may increase to 0.3during normal . 10/09/2024 3:45 PM EST 10/09/2024 6:05 PM EST Generic External Data Provider LAB URINE ORDERAB LES Final Result Performing Organization Address [facility] Co de Phone Number [facility] [address] [place] [phone] * Immunofixation (RANDALL), Urine (10/09/2024 3:45 PM EST) RANDALL Interpretation SEE NOTE H [facility] Comment:No monoclonal protei ns detected.The supplier of the testing reagents for this assayhas changed. Detection of small monoclonal proteins mayvary by test system.THIS TEST WAS PERFORMED AT:[facility] [place] [phone] WEBB MD 10/09/2024 3:45 PM EST 10/09/2024 6:05 PM EST Generic External Data Provider LAB URINE ORDERAB LES Final Result Performing Organization Address [facility] Co de Phone Number [facility] [address] [place] [phone] * Creatinine, Serum (10/09/2024 2:42 PM EST) Creatinine, Serum 1.04 0.5 - 1.4 mg/dL [facility] Estimated Glomerular Filt Rate >60 [facility] Comment:Chronic Kidney Disea se: Estimated GFR < 60 mL/min/1.43i1Oxaoef Kidney Disease: Estimated GFR < 15 mL/min/1.73m2 10/09/2024 2:42 PM EST 10/09/2024 5:55 PM EST us Generic External Data Provider LAB BLOOD ORDERAB LES Final Result Performing Organization Address [facility] de Phone Number [facility] [address] [place] [phone] * (ABNORMAL) Immunofixation, Serum (10/09/2024 2:42 PM EST) IMMUNOGLOBULIN G 1135 600 - 1640 mg/dL [facility] IMMUNOGLOBULIN A 663(A) 47 - 310 mg/dL [facility] Immunoglobulin M 76 50 - 300 mg/dL [facility] Comment:THIS TEST WAS PERFOR MED AT:[facility] [place] [phone] WEBB MD Immunofixation Result SEE NOTE [facility] Comment:No monoclonal protei ns detected. 10/09/2024 2:42 PM EST 10/09/2024 5:41 PM EST Generic External Data Provider LAB BLOOD ORDERAB LES Final Result Performing Organization Address [facility] Phone Number [facility] [address] [place] [phone] * (ABNORMAL) Electrolyte Panel (10/09/2024 2:42 PM EST) Sodium 139 135 - 145 mmol/L [facility] Potassium 4.2 3.3 - 5.1 mmol/L [facility] Chloride 103 96 - 108 mmol/L [facility] Carbon Dioxide 29 22 - 29 mmol/L [facility] Anion Gap 11(L) 12 - 20 [facility] 10/09/2024 2:42 PM EST 10/09/2024 5:55 PM EST us Generic External Data Provider LAB BLOOD ORDERAB LES Final Result Performing Organization Address [facility] Co de Phone Number [facility] [address] [place] [phone] * Fecal Globin by Immunochemistry (12/29/2022 12:00 AM EDT) Fecal Globin By Immunochemistry SEE NOTE [facility] Comment: ??FECAL GLOBIN BY IMMUNOCHEMISTRY ?Micro Number: ?[id number] ??Test Status: ? Final ??Specimen Source: ?? Insure (tm) fobt test card ??Specimen Quality: ??Adequate ??Fecal Globin: ?Not Detected ??Comment: ? Test results may be invalid as no date of ? collection was provided. Specimens are stable ? for 14 days. Stool Rectal contents / Unknown 12/29/2022 01/04/2023 9:16 AM EDT Enedina Saunders DO LAB BODY FLUIDS AND STOOLS O RDERABLES Final Result [facility] [address], [place] [address] [facility] [place] [facility] [address] [place] [phone] from Last 3 Months or Most Recently Relevant to Health Maintenance Insurance [facility] Care Teams Motorcoach Driver Relationship Specialty Start Date End Date Enedina Saunders DO [address] [place] [phone] PCP - General Family Medicine 11/18/15
--- OUTSIDE RECORDS SUMMARY | 2024-12-11 17:02 | XMS_ITS | Encounter Summary ---
Author Organization [facility] Address [address] [place] [address] [address] [place] [address] Care Team Providers Care Residential Builder Name Role Phone Enedina Saunders DO Primary Care Provider Encounter Details Date Type Department Care Team (Late st Contact Info) Description 10/29/2022 Telephone [facility] [address] [place] [address] Enedina Saunders DO [address] [place] [address] Social History Tobacco Use Types Packs/Day Years [...] Encounters Date Type Department Care Team (Late Contact Info) Description 12/13/2024 2:00 PM EDT Clinical Support [facility] [address] [place] [address] Jenny Escobar RN 04/18/2025 3:00 PM EDT Office Visit [facility] [address] [place] [address] Enriqueta Stevenson, OD [address] [place] [address] documented as of this encounter Visit Diagnoses Not on filedocumented in this encounter Care Teams Residential Builder Relationship Specialty Start Date End Date Enedina Saunders DO [address] [place] [address] PCP - General Family Medicine 11/18/15 documented as of this encounter
--- OUTSIDE RECORDS SUMMARY | 2024-12-11 17:02 | XMS_ITS | Encounter Summary ---
Author Organization [facility] [facility] Address [address] [place] [address] [address] [place] [address] Care Team Providers Care Roll Dough Divider Name Role Phone Enedina Saunders DO Primary Care Provider [phone] Encounter Details Date Type Department Care Team (Late st Contact Info) Description 10/21/2022 Orders Only [facility] [address] [place] [address] Maritza Encinas LPN Social History Tobacco Use [...] Description 12/13/2024 2:00 PM EDT Clinical Support [facility] [address] [place] [address] Jenny Escobar, WALTER 04/18/2025 3:00 PM EDT Office Visit [facility] [address] [place] [address] Enriqueta Stevenson, OD [address] [place] [address] documented as of this encounter Visit Diagnoses Not on filedocumented in this encounter Care Teams Roll Dough Divider Relationship Specialty Start Date End Date Enedina Saunders DO [address] [place] [address] PCP - General Family Medicine 11/18/15 documented as of this encounter
--- OUTSIDE RECORDS SUMMARY | 2024-12-11 17:02 | XMS_ITS | Encounter Summary ---
Author Organization [employer] Address [address] [facility] [place] [address] Care Team Providers Care Auditor Appraiser Name Role Phone Nicky Enedina Primary Care Provider Encounter Details Date Type Department Care Team (Late Contact Info) Description 11/10/2022 Orders Only [facility] [address] [place] [address] Enedina Hudson LPN Social History Tobacco Use Types Packs/Day Years Used Date Smoking Tobacco: Never Assessed Sex and Gender Information Value Date Recorded Sex Assigned at Male 08/02/2022 10:16 AM EDT Legal Sex Male 10:16 AM EDT Gender Identity Male 08/02/2022 10:16 AM EDT Sexual Orientation Straight 08/02/2022 10 :16 AM EDT COVID-19 Exposure Response Date Recorded In the last 10 days, have yo u been in contact with someone who was confirmed or suspected to have Coronavirus/COVID-19? No / Unsure 11/12/2022 10:31 AM EST documented as of this encounter Plan of Treatment Upcoming Encounters Date Type Department Care Team (Late Contact Info) Description 12/13/2024 2:00 PM EDT Clinical Support [facility] [address] [place] [address] Jenny Escobar, WALTER 04/18/2025 3:00 PM EDT Office Visit [facility] [address] [place] [address] Graham, Enriqueta, OD [address] [place] [address] documented as of this encounter Visit Diagnoses Not on filedocumented in this encounter Care Teams Auditor Appraiser Relationship Specialty Start Date End Date Enedina Saunders DO [address] [place] [id number] PCP - General Family Medicine 11/18/15 documented as of this encounter
--- OUTSIDE RECORDS SUMMARY | 2024-12-11 17:03 | XMS_ITS | Encounter Summary ---
Author Organization [employer] Address [address] [facility] 7[address] [place] [address] Care Team Providers Care Business Intelligence Administrator Name Role Phone Enedina Saunders DO Primary Care Provider + [phone] Reason for Visit * Reason Onset Date Comments OV notes 10/04/2023 Encounter Details Date Type Department Care Team ([facility] st Contact Info) Description 10/04/2023 Telephone [facility] [address] [place], [place] [phone] Enedina Saunders DO [address] [place] [address] OV notes Social History Tobacco Use Types Packs/Day Years Used Date Smoking Tobacco: Former Cigarettes Passive Smoke Exposure: Past Smokeless Tobacco: Never Alcohol Use Standard Drinks/Week Comments Never 0 (1 standard drink = 0.6 oz pur e alcohol) Depression Answer Date Recorded Patient Health Questionnaire-9 Score 0 12/20/2022 Housing Stability Answer Date Recorded What is your housing situation today? I have [facility] [place] 08/01/[address] you li ve. Do you have problems with any of the following? None of the above 08/01/2023 Food Insecurity Answer Date Recorded Within the past 12 months, y ou worried that your food would run out before you got money to buy more: Never True 08/01/2023 Within the past 12 months,th e food you bought just didn't last and you didn't have enough money to get more: Never True Transportation Answer Date Recorded In the past 12 months, has l ack of transportation kept you from medical appts, meetings, work or from getting things needed for daily living? No 08/01/2023 Utilities Answer Date Recorded In the past 12 months, has t he electric, gas, oil or water company threatened to shut off services in your home? No 08/01/2023 Depression Answer Date Recorded Patient Health Questionnaire-2 Score 0 12/20/2022 Sex and Gender Information Value Date Recorded Sex Assigned at Male 08/02/2022 10:16 AM EDT Legal Sex Male 10:16 AM EDT Gender Identity Male 08/02/2022 10:16 AM EDT Sexual Orientation Straight 08/02/2022 10 :16 AM EDT documented as of this encounter Miscellaneous Notes * Telephone Encounter - Tammy Benton - 10/04/2023 3:11 PM EST Tc from [facility] 08/04 OV notes will need to be faxed to [employer] for diabetic shoes. documented in this encounter Plan of Treatment Upcoming Encounters Date Type Department Care Team (Late st Contact Info) Description 12/13/2024 2:00 PM EDT Clinical Support [facility] [address] [place] [address] Jenny Escobar, WALTER 04/18/2025 3:00 PM EDT Office Visit [facility] [address] [place] [address] Enriqueta Stevenson, OD [address] [place] [address] documented as of this encounter Visit Diagnoses Not on filedocumented in this encounter Additional Health Concerns Assessment Noted Time PHQ-9 Depression Total Score: 0 12/21/19 23 10:36 AM EDT documented as of this encounter Care Teams Business Intelligence Administrator Relationship Specialty Start Date End Date Enedina Saunders DO [address] [place] [address] PCP - General Family Medicine 11/18/15 documented as of this encounter
--- OUTSIDE RECORDS SUMMARY | 2024-12-11 17:03 | XMS_ITS | Encounter Summary ---
Author Organization [employer] Address [address] [facility] [address] [place] [address] Care Team Providers Care Professor Of Marketing Name Role Phone Enedina Saunders DO Primary Care Provider + [phone] Encounter Details Date Type Department Care Team (Latest Contact Info) Description 12/04/2024 Travel Social History Tobacco Use Types Packs/Day Years [...] Description 12/13/2024 2:00 PM EDT Clinical Support [facility] [address] [place] [address] Jenny Escobar, WALTER 04/18/2025 3:00 PM EDT Office Visit [facility] [address] [place], [place] [phone] Enriqueta Stevenson, OD [address] [place] [address] documented as of this encounter Visit Diagnoses Not on filedocumented in this encounter Additional Health Concerns Assessment Noted Time PHQ-9 Depression Total Score: 4 02/08/20 24 3:47 PM EDT documented as of this encounter Care Teams Professor Of Marketing Relationship Specialty Start Date End Date Enedina Saunders DO [address] [place], [place] [phone] PCP - General Family Medicine 11/18/15 documented as of this encounter
--- OUTSIDE RECORDS SUMMARY | 2024-12-11 17:03 | XMS_ITS | Encounter Summary ---
Author Organization [employer] Address [address] [facility] [address] [place] [address] Care Team Providers Care Metal Fence Erector Name Role Phone Enedina Saunders DO Primary Care Provider + [phone] Reason for Visit * Reason Onset Date Comments Call Back Request 04/06/2024 Encounter Details Date Type Department Care Team ([facility] st Contact Info) Description 04/06/2024 Telephone [facility] [address] [place], [place] [phone] Enedina Saunders DO [address] [place] [address] Call Back Request Social History Tobacco Use Types Packs/Day Years [...] encounter Miscellaneous Notes * Telephone Encounter - Suha Romano RN - 04/06/2024 4:04 PM EDT Noted pt. Has STAT referral to NS placed 03/05/24. MRI done at [facility] ([place]) 02/22/24 ( in chart). TC returned to daughter and daughter reports she called [facility] to inquire on status of NS referral and was told pt. Would need an MRI done before it can be processed. However MRI is already completed. Advised daughter request would be sent to send NS referral along with MRI results in chart and pt. Verbalizes understanding * Telephone Encounter - Karel Glez - 04/06/2024 3:29 PM EDT Tc from the patients daughter requesting a call back states was speaking to a nurse and was told would need to get a new MRI in order to get the referral for Neurosurgery documented in this encounter Plan of Treatment Upcoming Encounters Date Type Department Care Team (Late st Contact Info) Description 12/13/2024 2:00 PM EDT Clinical Support [facility] [address] [place] [address] Jenny Escobar RN 04/18/2025 3:00 PM EDT Office Visit [facility] [address] [place], [place] [phone] Enriqueta Stevenson, OD [address] [place] [address] documented as of this encounter Visit Diagnoses Not on filedocumented in this encounter Additional Health Concerns Assessment Noted Time PHQ-9 Depression Total Score: 4 02/08/20 24 3:47 PM EDT documented as of this encounter Care Teams Metal Fence Erector Relationship Specialty Start Date End Date Enedina Saunders DO [address] [place] [address] PCP - General Family Medicine 11/18/15 documented as of this encounter
--- OUTSIDE RECORDS SUMMARY | 2024-12-11 17:03 | XMS_ITS | Encounter Summary ---
Author Organization [employer] Address [address] [facility] [address] [place] [address] Care Team Providers Care Labor Law Professor Name Role Phone Enedina Saunders DO Primary Care Provider + [phone] Reason for Visit * Reason Comments Med Refill Encounter Details Date Type Department Care Team (Late st Contact Info) Description 03/01/2024 Refill [facility] [address] [place], [place] [phone] Enedina Saunders DO [address] [place] [address] Essential hypertension Social History Tobacco Use Types Packs/Day Years [...] Description 12/13/2024 2:00 PM EDT Clinical Support [facility] [address] [place] [address] Jenny Escobar RN 04/18/2025 3:00 PM EDT Office Visit [facility] [address] [place] [address] Graham, Enriqueta, OD [address] [place] [address] documented as of this encounter Visit Diagnoses Diagnosis Essential hypertension Unspecified essential hypertension documented in this encounter Additional Health Concerns Assessment Noted Time PHQ-9 Depression Total Score: 4 02/08/20 24 3:47 PM EDT documented as of this encounter Care Teams Labor Law Professor Relationship Specialty Start Date End Date Enedina Saunders DO [address] [place] [address] PCP - General Family Medicine 11/18/15 documented as of this encounter
--- OUTSIDE RECORDS SUMMARY | 2024-12-11 17:03 | XMS_ITS | Encounter Summary ---
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) Social History Tobacco Use Types Packs/Day Years [...] Description 12/13/2024 2:00 PM EDT Clinical Support [facility] [address] [place] [address] Jenny Escobar, WALTER 04/18/2025 3:00 PM EDT Office Visit [facility] [address] [place], [place] [phone] Graham, Enriqueta, OD [address] [place] [address] documented as of this encounter Visit Diagnoses Diagnosis 

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
--- OUTSIDE RECORDS SUMMARY | 2024-12-11 17:03 | XMS_ITS | Encounter Summary ---
Author Organization [employer] Address [address] [facility] [place] [address] Care Team Providers Care Assistant Kitchen Manager Name Role Phone Enedina Saunders Primary Care Provider + [phone] Encounter Details Date Type Department Care Team (Late st Contact Info) Description 12/06/2024 Orders Only [facility] [address] [place] [address] Graham, Enriqueta, OD [address] [place] [address] Social History Tobacco Use Types Packs/Day Years [...] Description 12/13/2024 2:00 PM EDT Clinical Support [facility] [address] [place] [address] Jenny Escobar RN 04/18/2025 3:00 PM EDT Office Visit [facility] [address] [place], [place] [id number] Graham, Enriqueta, OD [address] [place] [address] documented as of this encounter Visit Diagnoses Not on filedocumented in this encounter Additional Health Concerns Assessment Noted Time PHQ-9 Depression Total Score: 4 02/08/20 24 3:47 PM EDT documented as of this encounter Care Teams Assistant Kitchen Manager Relationship Specialty Start Date End Date Enedina Saunders DO [address] [place] [address] PCP - General Family Medicine 11/18/15 documented as of this encounter
--- OUTSIDE RECORDS SUMMARY | 2024-12-11 17:03 | XMS_ITS | Encounter Summary ---
Author Organization [employer] Address [address] [place] [address] [address] [place] [address] Care Team Providers Care Esl Tutor Name Role Phone Lindsay Saundersnifer Primary Care Provider + [phone] Reason for Referral * Consultation (Urgent) - Closed Specialty Diagnoses / Procedures Referred By Contac t Referred To Contact Optometry Diagnoses Acute right eye pain Viridiana Urbina MD [address] [place] [address] Phone: tel: fax: [facility] [address] [place] [address] Phone: tel: fax: Referral ID Status Reason Start Date Expiration Date V isits Requested Visits Authorized [id number] Closed Consult and Treat 11/12/2024 11/12/2025 1 1 Reason for Visit * Reason Comments Eye Problem Encounter Details Date Type Department Care Team (Late st Contact Info) Description 11/12/2024 1:00 PM EST Office Visit [facility] [address] [place] [address] Viridiana Urbina MD [address] [place] [id number] Acute right eye pain (Primary Dx) Social History Tobacco Use Types Packs/Day Years [...] AM EDT documented as of this encounter Last Filed Vital Signs Vital Sign Reading Time Taken Comments Blood Pressure 170/98 11/12/2024 12:52 PM EST Pulse 80 11/12/2024 12:52 PM EST Temperature 36.4 ??C (97.6 ??F) 11/12/2024 12:[address] Respiratory Rate 17 11/12/2024 12:52 PM EST Oxygen Saturation - - Inhaled Oxygen Concentration - - Weight 100 kg (220 lb 6.4 oz) 11/12/2024 12:52 P M EST Height 185.4 cm (6' 1 ) 11/12/2024 12:52 PM EST Body Mass Index 29.08 11/12/2024 12:52 PM EST documented in this encounter Progress Notes * Viridiana Urbina MD - 11/12/2024 1:00 PM EST SUBJECTIVE: Joo Dawson is a 59 y.o. year old male who presents for [facility]/eye pain . Denies recent illness, injury, or hospitalization. Acute Concerns: Patient reports patient reports redness and eye pain right eye for the past 3 to 4 days after he noticed that some air particles/? Brayan is not getting to his eye while walking his dog. He think he ishaving worsening vision and pain on the right eye Social History Social History Narrative Not on file Patient Active Problem List Diagnosis Chronic allergic rhinitis Chronic low back pain Essential hypertension Chronic gastroesophageal reflux disease Hyperlipidemia Nephrolithiasis BMI 29.0-29.9,adult Opioid dependence in remission (CMS/HCC) Tubular adenoma Type 2 diabetes mellitus (CMS/HCC) Proteinuria Status post CVA Depression Diabetic retinopathy (CMS/HCC) History of COVID-19 Anemia Mild persistent asthma Family history of colon cancer History of tobacco use Healthcare maintenance Major depression, recurrent, chronic (CMS/HCC) Acute right eye pain Family History Problem Relation Name Age of Onset Asthma Mother Diabetes Mother Hypertension Mother Schizophrenia Mother Hyperlipidemia Mother Coronary artery disease Mother Colon cancer Father 61 Alcohol abuse Father Glaucoma Father's Brother Review of Systems Constitutional: Negative for fever. HENT: Negative for congestion, ear pain, rhinorrhea and sore throat. Eyes: Positive for pain. Negative for discharge. Respiratory: Negative for cough and shortness of breath. Cardiovascular: Negative for chest pain. Gastrointestinal: Negative for abdominal pain, constipation, diarrhea and nausea. Endocrine: Negative for polydipsia. Genitourinary: Negative for dysuria and frequency. Musculoskeletal: Negative for arthralgias, back pain and neck pain. Neurological: Negative for dizziness, numbness and headaches. Psychiatric/Behavioral: Negative for agitation. OBJECTIVE: Vitals: 11/12/24 1252 BP: (!) 170/98 Pulse: 80 Resp: 17 Temp: 97.6 ??F (36.4 ??C) Physical Exam Constitutional: Appearance: Normal appearance. HENT: Right Ear: Tympanic membrane and ear canal normal. Left Ear: Tympanic membrane and ear canal normal. Mouth/Throat: Mouth: Mucous membranes are moist. Pharynx: No oropharyngeal exudate or posterior oropharyngeal erythema. Eyes: General: Right eye: Discharge (clear) present. Extraocular Movements: Extraocular movements intact. Conjunctiva/sclera: Right eye: Right conjunctiva is injected. Pupils: Pupils are equal, round, and reactive to light. Cardiovascular: Rate and Rhythm: Normal rate and regular rhythm. Heart sounds: No murmur heard. Pulmonary: Breath sounds: Normal breath sounds. No wheezing. Abdominal: General: Bowel sounds are normal. Palpations: Abdomen is soft. Tenderness: There is no abdominal tenderness. Musculoskeletal: General: No tenderness. Normal range of motion. Cervical back: Normal range of motion. No tenderness. Skin: General: Skin is warm. Neurological: General: No focal deficit present. Mental Status: He is alert and oriented to person, place, and time. Psychiatric: Mood and Affect: Mood normal. Problem List Items Addressed This Visit Acute right eye pain - Primary It could be related to corneal lesion, needs additional workup Advised to use natural tears as needed dry eye, use erythromycin eye ointment on affected eye and keep it covered Will call eye clinic to schedule further evaluation this week especially in view of significantly decreased visual acuity after last eye evaluation on October 19. Relevant Orders Referral to Optometry Follow Up: Current Outpatient Medications on File Prior to Visit Medication Sig Dispense Refill acetaminophen (Tylenol 8 [...] by mouth at bedtime. 30 tablet 5 Artificial Tear Solution (GenTeal Tears) 0.1-0.2-0.3 % [...] FOR PAIN OR FORMUSCLE SPASMS 90 tablet 3 benzonatate (Tessalon) 100 MG capsule TAKE 1 [...] every day in each nostril as needed fluticasone furoate (Arnuity Ellipta) 100 MCG/ACT inhaler INHALE 1 PUFF BY MOUTH EVERY DAY AT THE SAME TIME RINSE MOUTH AFTER USING. 30 each 1 FREESTYLE LITE test strip TEST BLOOD SUGAR [...] EVERY DAY BEFORE BREAKFAST 90 capsule 1 oxyCODONE (Roxicodone) 5 MG immediate release tablet TAKE 1 TABLET BY MOUTH EVERY 6 HOURS NEEDEDFOR SEVERE PAIN 112 tablet 0 polyvinyl alcohol (Liquifilm Tears) [...] 100 each 11 No current facility-administered medications on file prior to visit. documented in this encounter Miscellaneous Notes * Assessment & Plan Note - Viridiana Urbina MD - 11/12/2024 1:14 PM EST Associated Problem(s): Acute right eye pain It could be related to corneal lesion, needs additional workup Advised to use natural tears as needed dry eye, use erythromycin eye ointment on affected eye and keep it covered Will call eye clinic to schedule further evaluation this week especially in view of significantly decreased visual acuity after last eye evaluation on October 19. documented in this encounter Plan of Treatment Upcoming Encounters Date Type Department Care Team (Late st Contact Info) Description 12/13/2024 2:00 PM EDT Clinical Support [facility] [address] [place] [address] Jenny Escobar RN 04/18/2025 3:00 PM EDT Office Visit [facility] [address] [place] [address] Enriqueta Stevenson, OD [address] [place] [address] Scheduled Referrals Name Type Priority Associated Diagnoses Orde r Schedule Referral to Optometry Outpatient Referral Urgent Acute right eye pain Expected: 11/12/2024 (Approximate), Expires: 11/12/2025 documented as of this encounter Visit Diagnoses Diagnosis Acute right eye pain- Primary documented in this encounter Additional Health Concerns Assessment Noted Time PHQ-9 Depression Total Score: 4 02/08/20 24 3:47 PM EDT documented as of this encounter Care Teams Esl Tutor Relationship Specialty Start Date End Date Enedina Saunders DO [address] [place] [address] PCP - General Family Medicine 11/18/15 documented as of this encounter
--- OUTSIDE RECORDS SUMMARY | 2024-12-11 17:03 | XMS_ITS | Encounter Summary ---
Author Organization [employer] Address [address] [facility] 7t [place] [address] Care Team Providers Care Fashion Consultant Name Role Phone Enedina Saunders DO Primary Care Provider + [phone] Reason for Visit * Reason Onset Date Comments Med Refill 03/01/2024 Encounter Details Date Type Department Care Team ([facility] st Contact Info) Description 03/01/2024 Telephone [facility] MEDICINE 230 [place], [place] [phone] Enedina Saunders DO 230 [place], [place] [phone] Med Refill Social History Tobacco Use Types Packs/Day Years [...] encounter Miscellaneous Notes * Telephone Encounter - Enedina Hudson LPN - 03/01/2024 3:46 PM EDT Medication isn't prescribed by PCP. * Telephone Encounter - Tammy Benton - 03/01/2024 3:44 PM EDT TC from pt requesting medication refill. Medications needing refill : Trulicity 4.5 MG/0.5ML solution pen-injector To be sent to: [facility] - [place], [place] - [address] [facility] documented in this encounter Plan of Treatment Upcoming Encounters Date Type Department Care Team (Late st Contact Info) Description 12/13/2024 2:00 PM EDT Clinical Support [facility] MEDICINE 230 [place], [place] [phone] Jenny Escobar, RN 04/18/2025 3:00 PM EDT Office Visit [facility] OPTOMETRY [address] [place] [address] Enriqueta Stevenson, OD 230 [place] [address] documented as of this encounter Visit Diagnoses Not on filedocumented in this encounter Additional Health Concerns Assessment Noted Time PHQ-9 Depression Total Score: 4 02/08/20 24 3:47 PM EDT documented as of this encounter Care Teams Fashion Consultant Relationship Specialty Start Date End Date Enedina Saunders DO 230 [place] [address] PCP - General Family Medicine 11/18/15 documented as of this encounter
--- OUTSIDE RECORDS SUMMARY | 2024-12-11 17:03 | XMS_ITS | Encounter Summary ---
Author Organization [employer] Address [address] [facility] [address] [facility] [address] [place] [address] Care Team Providers Care Mower Operator Name Role Phone Enedina Saunders DO Primary Care Provider + [phone] Reason for Visit * Reason Onset Date Comments Med Refill 11/26/2024 Encounter Details Date Type Department Care Team (Late st Contact Info) Description 11/26/2024 Refill [facility] CHC MED & PEDS [address] [place], [place] [phone] Enedina Saunders DO [address] [place] [address] Chronic bilateral low back pain with bilateral sciatica Social History Tobacco Use Types Packs/Day Years [...] as of this encounter Miscellaneous Notes * Addendum Note - Arash Escobar RN - 11/26/2024 3:20 PM ESTAddended by: ARASH ESCOBAR on: 11/26/2024 03:20 PM Modules accepted: Orders * Telephone Encounter - Maritza Encinas LPN - 11/26/2024 3:17 PM EST Received request on oxyCODONE (Roxicodone) 5 MG immediate release tablet documented in this encounter Plan of Treatment Upcoming Encounters Date Type Department Care Team (Late st Contact Info) Description 12/13/2024 2:00 PM EDT Clinical Support [facility] MEDICINE 230 [place] [address] Arash Escobar RN 04/18/2025 3:00 PM EDT Office Visit [facility] OPTOMETRY [address] [place], [place] [phone] Enriqueta Stevenson, IRAM 230 [place] [address] documented as of this encounter Visit Diagnoses Diagnosis Chronic bilateral low back pain with bilateral sciatica documented in this encounter Additional Health Concerns Assessment Noted Time PHQ-9 Depression Total Score: 4 02/08/20 3:47 PM EDT documented as of this encounter Care Teams Mower Operator Relationship Specialty Start Date End Date Enedina Saunders DO 230 [place] [address] PCP - General Family Medicine 11/18/15 documented as of this encounter
--- OUTSIDE RECORDS SUMMARY | 2024-12-11 17:03 | XMS_ITS | Encounter Summary ---
Author Organization [employer] Address [address] [facility] 7t [place] [address] Care Team Providers Care Ditch Tender Name Role Phone Enedina Saunders DO Primary Care Provider + [phone] Reason for Visit * Reason Onset Date Comments Nurse Triage 11/12/2024 Encounter Details Date Type Department Care Team ([facility] st Contact Info) Description 11/12/2024 Telephone [facility] MEDICINE 230 [place] [address] Enedina Saunders DO 230 [place] [address] Nurse Triage Social History Tobacco Use Types [...] encounter Miscellaneous Notes * Telephone Encounter - Marga Coffey RN - 11/12/2024 11:09 AM EST No physicist cryogenics needed as this documentation writer speaks Korean. Call returned to [facility] for triage below. No answer LVM to return call to [facility] triage line [phone]. * Telephone Encounter - Glenn Bullock - 11/12/2024 10:56 AM EST Symptom: Eye Redness Without Pus or Discharge Outcome: Schedule an urgent appointment (within 1 hour) or talk to a nurse or provider soon Reason: Nonstop tears or blinking The caller accepted this outcome. Contact pt at [phone] documented in this encounter Plan of Treatment Upcoming Encounters Date Type Department Care Team (Late st Contact Info) Description 12/13/2024 2:00 PM EDT Clinical Support [facility] MEDICINE 230 [place], [place] [phone] Jenny Escobar, WALTER 04/18/2025 3:00 PM EDT Office Visit [facility] OPTOMETRY [address] [place], [place] [phone] Enriqueta Stevenson, OD 230 [place], [place] [phone] documented as of this encounter Visit Diagnoses Not on filedocumented in this encounter Additional Health Concerns Assessment Noted Time PHQ-9 Depression Total Score: 4 02/08/20 24 3:47 PM EDT documented as of this encounter Care Teams Ditch Tender Relationship Specialty Start Date End Date Enedina Saunders DO 230 [place] [address] PCP - General Family Medicine 11/18/15 documented as of this encounter
--- OUTSIDE RECORDS SUMMARY | 2024-12-11 17:03 | XMS_ITS | Encounter Summary ---
Author Organization [employer] Address [address] [facility] [address] [place] [address] Care Team Providers Care Lead Pressman Name Role Phone Enedina Saunders DO Primary Care Provider + [phone] Reason for Visit * Reason Comments Med Refill Encounter Details Date Type Department Care Team (Late st Contact Info) Description 11/19/2024 Refill [facility] CHC MED & PEDS [address] [place], [place] [phone] Enedina Saunders DO [address] [place] [address] Chronic GERD Social History Tobacco Use Types Packs/Day Years [...] Description 12/13/2024 2:00 PM EDT Clinical Support [facility] MEDICINE 230 [place] [address] Jenny Escobar RN 04/18/2025 3:00 PM EDT Office Visit [facility] OPTOMETRY [address] [place] [address] Graham, Enriqueta, OD 230 [place] [address] documented as of this encounter Visit Diagnoses Diagnosis Chronic GERD documented in this encounter Additional Health Concerns Assessment Noted Time PHQ-9 Depression Total Score: 4 02/08/20 24 3:47 PM EDT documented as of this encounter Care Teams Lead Pressman Relationship Specialty Start Date End Date Enedina Saunders DO 230 [place] [address] PCP - General Family Medicine 11/18/15 documented as of this encounter
--- OUTSIDE RECORDS SUMMARY | 2024-12-11 17:03 | XMS_ITS | Encounter Summary ---
Author Organization [employer] Address [address] [facility] 7t [place] [address] Care Team Providers Care Assistant Manager Bilingual Name Role Phone Enedina Saunders DO Primary Care Provider + [phone] Reason for Visit * Reason Comments Med Refill Encounter Details Date Type Department Care Team (Late st Contact Info) Description 10/21/2023 Refill [facility] MEDICINE 230 [place], [place] [phone] Enedina Saunders DO 230 [place] [address] Type 2 diabetes mellitus with other diabetic kidney complication ([facility]/HCC) Social History Tobacco Use Types Packs/Day Years [...] Description 12/13/2024 2:00 PM EDT Clinical Support [facility] MEDICINE 230 [place] [address] Jenny Escobar, WALTER 04/18/2025 3:00 PM EDT Office Visit [facility] OPTOMETRY [address] [place], [place] [phone] Graham, Enriqueta, OD 230 [place] [address] documented as of this encounter Visit Diagnoses Diagnosis Type 2 diabetes mellitus with other diabetic kidney complication (CMS/HCC) documented in this encounter Additional Health Concerns Assessment Noted Time PHQ-9 Depression Total Score: 0 12/21/19 23 10:36 AM EDT documented as of this encounter Care Teams Assistant Manager Bilingual Relationship Specialty Start Date End Date Enedina Saunders DO 230 [place] [address] PCP - General Family Medicine 11/18/15 documented as of this encounter
--- OUTSIDE RECORDS SUMMARY | 2024-12-11 17:03 | XMS_ITS | Encounter Summary ---
Author Organization [employer] Address [address] [place] [address] Care Team Providers Care Cooling Tower Technician Name Role Phone Enedina Saunders DO Primary Care Provider + [phone] Reason for Visit * Reason Comments Med Refill Encounter Details Date Type Department Care Team (Late st Contact Info) Description 11/18/2024 Refill [facility] CHC MED & PEDS [address] [place], [place] [phone] Enedina Saunders DO [address] [place] [address] Essential hypertension; Muscle spasm; Chronic GERD Social History Tobacco Use Types [...] Description 12/13/2024 2:00 PM EDT Clinical Support [facility] MEDICINE 230 [place] [address] Jenny Escobar, RN 04/18/2025 3:00 PM EDT Office Visit [facility] OPTOMETRY [address] [place] [address] Graham, Enriqueta, OD 230 [place] [address] documented as of this encounter Visit Diagnoses Diagnosis Essential hypertension Unspecified essential hypertension Muscle spasm Spasm of muscle Chronic GERD documented in this encounter Additional Health Concerns Assessment Noted Time PHQ-9 Depression Total Score: 4 02/08/20 24 3:47 PM EDT documented as of this encounter Care Teams Cooling Tower Technician Relationship Specialty Start Date End Date Enedina Saunders DO 230 [place] [address] PCP - General Family Medicine 11/18/15 documented as of this encounter
[2024-12-11 18:37] LABS: Appearance Urine Clear; Color Urine Yellow; Glucose Urine UA >=1000 mg/dL (Negative); Leukocyte Esterase Urine Negative (Negative); Nitrite Urine Negative (Negative); PH 5.5 (5.0-9.0); UMIC TRIGGER UA YES; Urine Blood Negative (Negative); Urine Ketones Negative (Negative); Urine Protein 300 (3+) mg/dL (Neg-Trace)
[2024-12-11 18:44] LABS: Bacteria Urine None Seen (None Seen); RBC Urine 0-2 /HPF (0-2); Squamous Epithelial Cell Urine 0-2 /HPF (0-2); WBC Urine 0-5 /HPF (0-5)
[2024-12-11 19:43] LABS: Anion Gap 11 (12-20); Blood Urea Nitrogen 42 mg/dL (9-16); Carbon Dioxide 27 mmol/L (22-29); Chloride 106 mmol/L (96-108); Estimated Glomerular Filt Rate 53; Potassium 4.3 mmol/L (3.3-5.1); Sodium 140 mmol/L (135-145)
[2024-12-11 19:43] LABS: Creatinine Urine 106.52 mg/dL
[2024-12-11 20:05] LABS: Protein/Creatinine Ratio, Ur 2.53 (<0.2); Total Protein Urine Random 269 mg/dL (<12)
== END 2024-12-11 14:00 | disposition home or self-care (01) ==
LOC: HO.HKASLDS 13:59
PROVIDERS: Visit Provider Internal Medicine Nephrology
DX: E11.21 Type 2 diabetes mellitus with diabetic nephropathy (principal); I10 Essential (primary) hypertension; N20.0 Calculus of kidney
CPT/HCPCS: 36415; 80051; 81001; 82565; 82570; 84156; 84520

== ENCOUNTER 2024-12-13 11:35 | Outpatient (AMB) | payer OTHER, SELFPAY ==
--- NOTE | 2024-12-13 11:38 | HO.NEPHOV_ITS ---
Vital Signs 12/13/24 11:40 Height 6 ft 1 in Weight 219 lb BMI 28.9 BP 140/70 H Blood Pressure Location Lt brachial Position Sitting Pulse 88 Pulse Source Pulse Oximeter Pulse Oximetry (%) 98 Oxygen Delivery Method Room Air Intake Visit Reasons: R/S 12/06/2024 Investment Fund Manager Required: Yes Investment Fund Manager Language: Zmt Operator Services: Investment Fund Manager Offered & Declined ([facility] decorating instructor services refused ) Accompanied by: Spouse Allergies ibuprofen Allergy (Unknown, Verified 12/13/24 11:40) stomach upset Seafood Allergy (Intermediate, Uncoded 04/26/24 21:01) RASH shell fish Allergy (Unknown, Uncoded 04/26/24 21:01) Unknown HPI Comments Details: Mr. Dawson was seen in follow up for proteinuria. He is 59 years of age and has longstanding history of diabetes mellitus. He has no history of drug use. He denies history of retinopathy, neuropathy or LVH but has proteinuria .He does not have any nausea, vomiting, diarrhea, shortness of breath, proximal nocturnal dyspnea, orthopnea, pedal edema, hematuria, renal stones, coronary artery diseas e, congestive heart failure, carotid stenosis, peripheral arterial disease, renal artery stenosis, new bone or back pain. He never had any history of high serum calcium. He denies any history of hepatitis or HIV. He does not get any recurrent sore throat, epistaxis, hemoptysis, photosensitivity, skin rashes. He has no sensorineural hearing deficits. His renal functions are at baseline [facility] Medical History Osteomyelitis Diabetic ulcer of toe Asthma HLD (hyperlipidemia) HTN (hypertension) Diabetes Surgical History H/O exploratory laparotomy Social History Household Members: Family Alcohol intake: never Patient Tobacco Use Status: Never used Tobacco service: No Current occupational status: disabled Review of Systems Const All systems reviewed & are unremarkable except as noted in HPI and below Physical Exam Vital Signs: Last Vital Signs Pulse 88 12/13/24 11:40 BP 140/70 H 12/13/24 11:40 Pulse Ox 98 12/13/24 11:40 Oxygen Delivery Method Room Air 12/13/24 11:40 BMI result Body Mass Index 28.9 Const General: comfortable and no acute distress Orientation/consciousness: patient oriented x3 HEENT Head: Yes normocephalic Mouth: Normal oral and palatal mucosa present Eyes EOM: EOMs intact bilaterally Neck Neck: Yes supple Resp Auscultation: clear to auscultation bilaterally Cardio Jugular venous distension: no JVD Rate: regular rate Heart sounds: Murmur heart sound present GI Palpation (GI): Soft to palpation Auscultation: normal bowel sounds Skin General skin exam: no rashes or lesions noted Neuro General: patient oriented x3 and moves all extremities Extrem General: Yes no pedal edema Results Reviewed Nephrology Results: Hgb 12.1 g/dl (14.0-18.0) L 10/15/24 WBC 9.3 X10*3/uL (4.8-10.8) 10/15/24 Plt Count 392 X10*3/uL (160-400) 10/15/24 Sodium 140 mmol/L (135-145) 12/11/24 Potassium 4.3 mmol/L (3.3-5.1) 12/11/24 Chloride 106 mmol/L (96-108) 12/11/24 Carbon Dioxide 27 mmol/L (22-29) 12/11/24 BUN 42 mg/dL (9-16) H 12/11/24 Creatinine 1.38 mg/dL (0.5-1.4) 12/11/24 Calcium 9.2 mg/dL (8.4-10.2) 10/15/24 Urine Protein 300 (3+) mg/dL (Neg-Trace) H 12/11/24 Urine Creatinine 106.52 mg/dL 12/11/24 Protein/Creatinin Ratio 2.53 (<0.2) H 12/11/24 Assessment & Plan Assessment & Plan (1) Proteinuria: Code(s): R80.9 - Proteinuria, unspecified Category: Medical Qualifiers: Proteinuria type: other Qualified Code(s): R80.8 - Other proteinuria (2) Nephrolithiasis: Code(s): N20.0 - Calculus of kidney Category: Medical (3) HTN (hypertension): Code(s): I10 - Essential (primary) hypertension Category: Medical Qualifiers: Hypertension type: primary hypertension Qualified Code(s): I10 - Essential (primary) hypertension (4) Diabetic nephropathy: Code(s): E11.21 - Type 2 diabetes mellitus with diabetic nephropathy Category: Medical Qualifiers: Diabetes mellitus type: type 2 Qualified Code(s): E11.21 - Type 2 diabetes mellitus with diabetic nephropathy Plan Mr. Dawson has longstanding diabetes with proteinuria. He has been on ARB. He used to take nonsteroidal anti-inflammatories intermittently. His urine output is good and there is no reason to suspect any obstructive uropathy. He has diabetic nephropathy. I started him back on Jardiance 10 mg daily. I shall consider cutting back on metformin with time after increasing Jardiance. He may need a renal biopsy. He is avoiding nonsteroidal anti-inflammatories which I encouraged. He needs to maintain hydration. Blood work today and before next visit. I did not make any other medication changes today. All the possibilities have been discussed in detail and I answered all his questions. Further management is pending evolving data. Orders: Orders Creatinine 3 Months E11.21 - Type 2 diabetes mellitus with diabetic nephropathy Blood Urea Nitrogen 3 Months E11.21 - Type 2 diabetes mellitus with diabetic nephropathy Electrolytes 3 Months E11.21 - Type 2 diabetes mellitus with diabetic nephropathy Protein Creatinine Ratio, Ur 3 Months E11.21 - Type 2 diabetes mellitus with diabetic nephropathy Medications: New empagliflozin (Jardiance) 10 mg PO DAILY 30 tabs 4RF Coding Level of Care Code Est Pt Level 4 (00573) Diagnoses Other proteinuria R80.8 Proteinuria type: other Nephrolithiasis N20.0 Primary hypertension I10 Hypertension type: primary hypertension Diabetic nephropathy associated with type 2 diabetes mellitus E11. Diabetes mellitus type: type 2
[2024-12-13 11:40] VITALS: BP 140/70; PULSE 88; O2SAT 98; BMI 28.9
--- OUTSIDE RECORDS SUMMARY | 2024-12-13 15:01 | XMS_ITS | Encounter Summary ---
Author Organization [employer] Address [address] [facility] 7t [place] [address] Care Team Providers Care Fireboat Operator Name Role Phone Enedina Saunders DO Primary Care Provider + [phone] Reason for Visit * Reason Comments Med Refill Encounter Details Date Type Department Care Team (Late st Contact Info) Description 10/21/2023 Refill [facility] MEDICINE 230 [place], [place] [phone] Enedina Saunders DO 230 [place] [address] Type 2 diabetes mellitus with other diabetic kidney complication ([facility]/HCC) Social History Tobacco Use Types Packs/Day Years [...] Care Team (Late st Contact Info) Description 04/18/2025 3:00 PM EDT Office Visit [facility] OPTOMETRY [address] [place], [place] [phone] Graham, Enriqueta, OD 230 [place], [place] [phone] documented as of this encounter Visit Diagnoses Diagnosis Type 2 diabetes mellitus with other diabetic kidney complication (CMS/HCC) documented in this encounter Additional Health Concerns Assessment Noted Time PHQ-9 Depression Total Score: 0 12/21/19 23 10:36 AM EDT documented as of this encounter Care Teams Fireboat Operator Relationship Specialty Start Date End Date Enedina Saunders DO 230 [place], [place] [phone] PCP - General Family Medicine 11/18/15 documented as of this encounter
--- OUTSIDE RECORDS SUMMARY | 2024-12-13 15:01 | XMS_ITS | Encounter Summary ---
Author Organization [employer] [facility] Address [address] [place] [address] 7t [place] [address] Care Team Providers Care Automobile Body Repair Chief Name Role Phone Enedina Saunders DO Primary Care Provider Encounter Details Date Type Department Care Team (Late Contact Info) Description 10/29/2022 Telephone [facility] MEDICINE 230 [place] [address] Enedina Saunders DO 230 [place] [address] Social History Tobacco Use Types Packs/Day Years [...] Department Care Team (Late Contact Info) Description 04/18/2025 3:00 PM EDT Office Visit [facility] OPTOMETRY [address] [place] [address] Graham, Enriqueta, OD 230 [place] [address] documented as of this encounter Visit Diagnoses Not on filedocumented in this encounter Care Teams Automobile Body Repair Chief Relationship Specialty Start Date End Date Enedina Saunedrs DO 230 [place] [address] PCP - General Family Medicine 11/18/15 documented as of this encounter
--- OUTSIDE RECORDS SUMMARY | 2024-12-13 15:01 | XMS_ITS | Encounter Summary ---
Author Organization [email or web address] Address [address] [facility] [address] [place] [address] Care Team Providers Care Elocution Teacher Name Role Phone Enedina Saunders DO Primary Care Provider + [phone] Reason for Visit * Reason Comments Med Refill Encounter Details Date Type Department Care Team (Late st Contact Info) Description 02/10/2024 Refill [facility] MEDICINE 230 [place], [place] [phone] Enedina Saunders DO 230 [place] [address] Back pain, unspecified back location, unspecified back [...] Description 04/18/2025 3:00 PM EDT Office Visit [facility] OPTOMETRY [address] [place] [address] Enriqueta Stevenson, OD 230 [place] [address] documented as of this encounter Visit Diagnoses Diagnosis Back pain, unspecified back location, unspecified back pain laterality, unspecified chronicity documented in this encounter Additional Health Concerns Assessment Noted Time PHQ-9 Depression Total Score: 4 02/08/20 24 3:47 PM EDT documented as of this encounter Care Teams Elocution Teacher Relationship Specialty Start Date End Date Enedina Saunders DO 230 [place] [address] PCP - General Family Medicine 11/18/15 documented as of this encounter
--- OUTSIDE RECORDS SUMMARY | 2024-12-13 15:01 | XMS_ITS | Encounter Summary ---
Author Organization [email or web address] Address [address] [facility] [address] [place] [address] Care Team Providers Care Milking Machine Operator Name Role Phone Enedina Saunders DO Primary Care Provider + [phone] Reason for Visit * Reason Onset Date Comments Med Refill 03/01/2024 Encounter Details Date Type Department Care Team ([facility] st Contact Info) Description 03/01/2024 Telephone [facility] MEDICINE 230 [place], [place] [phone] Enedina Saunders DO 230 [place], [place] [phone] Med Refill Social History Tobacco Use Types [...] MG/0.5ML solution pen-injector To be sent to: [facility] - [place], [place] - [address] [facility] documented in this encounter Plan of Treatment Upcoming Encounters Date Type Department Care Team (Late st Contact Info) Description 04/18/2025 3:00 PM EDT Office Visit [facility] OPTOMETRY [address] [place] [address] Enriqueta Stevenson, OD 230 [place] [address] documented as of this encounter Visit Diagnoses Not on filedocumented in this encounter Additional Health Concerns Assessment Noted Time PHQ-9 Depression Total Score: 4 02/08/20 24 3:47 PM EDT documented as of this encounter Care Teams Milking Machine Operator Relationship Specialty Start Date End Date Enedina Saunders DO 230 [place] [address] PCP - General Family Medicine 11/18/15 documented as of this encounter
--- OUTSIDE RECORDS SUMMARY | 2024-12-13 15:01 | XMS_ITS | Encounter Summary ---
Author Organization [employer] Address [address] [facility] [address] [place] [address] Care Team Providers Care Dairy Equipment Installer Name Role Phone Enedina Saunders DO Primary Care Provider + [phone] Reason for Visit * Reason Comments Med Refill Encounter Details Date Type Department Care Team (Late st Contact Info) Description 03/01/2024 Refill [facility] MEDICINE 230 [place], [place] [phone] Enedina Saunders DO 230 [place] [address] Essential hypertension Social History Tobacco Use Types [...] Description 04/18/2025 3:00 PM EDT Office Visit [facility] OPTOMETRY [address] [place] [address] Graham, Enriqueta, OD 230 [place] [address] documented as of this encounter Visit Diagnoses Diagnosis Essential hypertension Unspecified essential hypertension documented in this encounter Additional Health Concerns Assessment Noted Time PHQ-9 Depression Total Score: 4 02/08/20 24 3:47 PM EDT documented as of this encounter Care Teams Dairy Equipment Installer Relationship Specialty Start Date End Date Enedina Saunders DO 230 [place] [address] PCP - General Family Medicine 11/18/15 documented as of this encounter
--- OUTSIDE RECORDS SUMMARY | 2024-12-13 15:01 | XMS_ITS | Encounter Summary ---
Author Organization [employer] Address [address] [facility] [address]t [place] [address] Care Team Providers Care Recruiting Associate Name Role Phone Enedina Saunders DO Primary Care Provider + [phone] Reason for Visit * Reason Onset Date Comments OV notes 10/04/2023 Encounter Details Date Type Department Care Team ([facility] st Contact Info) Description 10/04/2023 Telephone [facility] MEDICINE 230 [place], [place] [phone] Enedina Saunders DO 230 [place] [address] OV notes Social History Tobacco Use Types [...] Miscellaneous Notes * Telephone Encounter - Tammy Chetan - 10/04/2023 3:11 PM EST Tc from states 08/04 OV notes will need to be faxed to [employer] for diabetic shoes. documented in this encounter Plan of Treatment Upcoming Encounters Date Type Department Care Team (Late st Contact Info) Description 04/18/2025 3:00 PM EDT Office Visit [facility] OPTOMETRY [address] [place] [address] Graham, Enriqueta, OD 230 [place] [address] documented as of this encounter Visit Diagnoses Not on filedocumented in this encounter Additional Health Concerns Assessment Noted Time PHQ-9 Depression Total Score: 0 12/21/19 23 10:36 AM EDT documented as of this encounter Care Teams Recruiting Associate Relationship Specialty Start Date End Date Enedina Saunders DO 230 [place] [address] PCP - General Family Medicine 11/18/15 documented as of this encounter
--- OUTSIDE RECORDS SUMMARY | 2024-12-13 15:01 | XMS_ITS | Encounter Summary ---
Author Organization [employer] Address [address] [place] [address] Care Team Providers Care Electric Motor Winder Name Role Phone Enedina Saunders Primary Care Provider + [phone] Encounter Details Date Type Department Care Team ([facility] st Contact Info) Description 12/06/2024 Orders Only [facility] OPT[facility] [address] [place] [address] Graham, Enriqueta, OD [address] [place] [address] Social History Tobacco Use Types Packs/Day Years [...] Description 04/18/2025 3:00 PM EDT Office Visit [facility] [address] [place] [address] Graham, Enriqueta, OD [address] [place], [place] [phone] documented as of this encounter Visit Diagnoses Not on filedocumented in this encounter Additional Health Concerns Assessment Noted Time PHQ-9 Depression Total Score: 4 02/08/20 24 3:47 PM EDT documented as of this encounter Care Teams Electric Motor Winder Relationship Specialty Start Date End Date Enedina Saunders DO [address] [place], [place] [phone] PCP - General Family Medicine 11/18/15 documented as of this encounter
--- OUTSIDE RECORDS SUMMARY | 2024-12-13 15:01 | XMS_ITS | Data Portability ---
Author Organization [facility], [facility] Address [address] [place] [id number] Care Team Providers Care Overage Shortage And Damage Clerk Name Role Phone HIM CCA OTHER Assessment Encounter Date Assessment Date Assessment LastModified by Organization Details LastModified Time 02/23/2024 02/23/2024 I provided real -time medical direction via phone for this encounter, and was available for additional phone based assistance as needed. I have reviewed and agree with the Assessment and Plan as documented by the Food Safety Coordinator. We discussed the diagnostic uncertainty of home [...] to call 911- verbalized understanding of instruction [email or web address] Not available 02/23/2024 12:03:53 Plan of Treatment Reminders Order Date Submit Date Provider Last Modified By Organization Details Last Modified Time Details Appointments None recorded. Lab BMP, serum or plasma 2023 [email or web address] 0 [facility], [address] [place] [address], [place], [phone], 14:01:33 Referral None recorded. Procedures None recorded. Surgeries None recorded. Imaging None recorded. Medication Orders ketorolac 30 mg/mL (1 mL) injection solution 2023 024 [email or web address] 0 Not available 12:02:49 Arthritis Pain Relief (acetamino phen) ER 650 mg tablet,ext end release 2023 [facility], [address] [place] [address], [id number], 4 15:43:53 Patient TargetsNo targets recorded. Patient [...] % 97 % 99 /min 185.42 cm 963973. 016 g 97.2 [degF] 166 mm[Hg] 90 mm[Hg] Not Available [facility] - production 4 11:12:32 Social History None recorded. Functional Status None recorded. Mental Status None recorded. Family History Nothing Reported. Medical History No medical history recorded. Past Encounters Encounter ID Performer Location Encounter Start Date Encounter Closed Date Diagnosis/Indication Diagnosis SNOMED-CT Code Diagnosis ICD10 Code Diagnosis Note [id number] Alessandra Madrigal MD Main - [facility] [address] [place] [address] 02/23/2024 11:12:29 02/24/2024 10:36:31 Chronic low back pain 119345104 M54.50 acute on chronic-ad vised we will prescribe Tylenol again to take along with his gabapentin and tramadol. Needs to follow-up with his PCP, pain management and older worker specialist PHILLIP as we cannot prescribe further [...] doses due to risks Note sent to patient care via CRC: pat on 2nd floor- difficult ambulating due to pain/spina l stenosis - needs f/u with pcp/pain management /older worker specialist - will need assistance in scheduling appointmen ts and will need help setting up ambulance transport to appointmen ts- can patient care pls assist with this. Health Concerns Section Related Observation LastModified by Organization Detai ls LastModified Time None Recorded Concern Status LastModified by Organization Details LastModified Time None Recorded Advance Directives Directive None Recorded Payers Encounter Date Sequence Insurance Name Policy Number Policy Meza Covered Member ID Meza Member ID Guarantor Name 02/23/2024 1 [facility] - DOS ON OR AFTER 2023 - DUAL ELIGIBLE - SNF OPTIONS AND ONE CARE (MEDICARE REPLACEMENT/ADV ANTAGE - HMO) Joo Dawson [id number] Joo Dawson Notes Date Note Type Note Provider Name and Address Organization Details Recorded Time 02/23/2024 text/html [facility] Nurse Triage Notes (John Hoffmann): Chief Complaints: Pain Allergies: Unknown Comments: Integration Assistant verified the member's name//address and phone number. [...] emergency treatment if needed -HMelanie Hoffmann, RN Food Safety Coordinator POC Test Results from Zechariah Torres - RANJITH iSTAT Chem8+ (1) [13:02] Na: 139 mEq/L K: 3.9 mEq/L Cl: 102 mEq/L iCa: 1.24 mmol/L TCO2: 24 mmol/L Glu: 270 mg/dL BUN: 32 mg/dL Crea: 1.1 mg/dL Hct: 32 % Hb: 10.9 g/dL A ................... ................... ................... ................... ................... ................... ................... ........ Food Safety Coordinator Note From Zechariah Torres: [facility] visit for male patient with back pain. Pt presents lying supine in bed with daughter present. Pt Czech speaking and daughter translated for pt. Pt [...] motion with assistance in legs. Consulted with [facility] Dr. Madrigal who ordered BMP prior to toradol administration. Blood drawn and BMP results uploaded. [facility] ordered 15 mg IM toradol. Pt encouraged [...] of this service Alessandra Madrigal MD [address] [facility] [address], [place], [address], MADELYN - AppN[employer]ROSALBA 02/23/2024 14:02:20
--- OUTSIDE RECORDS SUMMARY | 2024-12-13 15:01 | XMS_ITS | Encounter Summary ---
Author Organization [employer] Address [address] [place] [address] Care Team Providers Care News Writer Name Role Phone Enedina Saunders DO Primary Care Provider + [phone] Reason for Visit * Reason Onset Date Comments Call Back Request 04/06/2024 Encounter Details Date Type Department Care Team ([facility] st Contact Info) Description 04/06/2024 Telephone [facility] MEDICINE [address] [place], [place] [phone] Enedina Saunders DO [address] [place] [address] Call Back Request Social History Tobacco Use [...] to NS placed 03/05/24. MRI done at [facility] ([place]) 02/22/24 ( in chart). TC returned to daughter and daughter reports she called [facility] to inquire on status of NS referral [...] Description 04/18/2025 3:00 PM EDT Office Visit [facility] OPTOMETRY [address] [place], [place] [phone] Graham, Enriqueta, OD [address] [place], [place] [phone] documented as of this encounter Visit Diagnoses Not on filedocumented in this encounter Additional Health Concerns Assessment Noted Time PHQ-9 Depression Total Score: 4 02/08/20 24 3:47 PM EDT documented as of this encounter Care Teams News Writer Relationship Specialty Start Date End Date Enedina Saunders DO [address] [place] [address] PCP - General Family Medicine 11/18/15 documented as of this encounter
--- OUTSIDE RECORDS SUMMARY | 2024-12-13 15:01 | XMS_ITS | Encounter Summary ---
Author Organization [facility] Address [address] [place] [address] [address] [place] [address] Care Team Providers Care Blacksmith Apprentice Name Role Phone Enedina Saunders DO Primary Care Provider Encounter Details Date Type Department Care Team (Late st Contact Info) Description 09/24/2022 Orders Only [facility] [address] [place] [address] Maritza Encinas LPN Social History Tobacco Use [...] Description 04/18/2025 3:00 PM EDT Office Visit [facility] OPTOMETRY [address] [place] [address] Graham, Enriqueta, OD [address] [place] [address] documented as of this encounter Visit Diagnoses Not on filedocumented in this encounter Care Teams Blacksmith Apprentice Relationship Specialty Start Date End Date Enedina Saunders DO [address] [place] [address] PCP - General Family Medicine 11/18/15 documented as of this encounter
--- OUTSIDE RECORDS SUMMARY | 2024-12-13 15:01 | XMS_ITS | Encounter Summary ---
Author Organization [facility] Address [address] [place] [address] [address] [place] [address] Care Team Providers Care Glass Frame Fitter Name Role Phone Enedina Saunders DO Primary Care Provider Encounter Details Date Type Department Care Team (Late st Contact Info) Description 10/21/2022 Orders Only [facility] MEDICINE [address] [place] [address] Maritza Encinas LPN Social History Tobacco Use [...] Description 04/18/2025 3:00 PM EDT Office Visit [facility] OPTOMETRY [address] [place] [address] Enriqueta Stevenson, OD [address] [place] [address] documented as of this encounter Visit Diagnoses Not on filedocumented in this encounter Care Teams Glass Frame Fitter Relationship Specialty Start Date End Date Enedina Saunders DO [address] [place] [address] PCP - General Family Medicine 11/18/15 documented as of this encounter
--- OUTSIDE RECORDS SUMMARY | 2024-12-13 15:01 | XMS_ITS | Clinical Summary ---
Author Organization [employer] Address [address] [place] [address] [address] [place] [address] Care Team Providers Care Technical Recruiter Name Role Phone Enedina Saunders Primary Care Provider [phone] Allergies Active Allergy Reactions Criticality Noted Date [...] Continuous Glucose Sensor (FreeStyle Roni 2 Sensor) [facility] Apply 1 each topically 3 times daily. 2 each Active Artificial Tear Solution (GenTeal Tears) 0.1-0.2-0.3 % solutionIndicat ions:Type 2 diabetes mellitus with other diabetic kidney complication ([facility]) INSTILL 1 DROP IN DRY EYES FOUR TIMES DAILY NEEDED 30 mL 3 Active metFORMIN (Glucophage) 1000 MG tabletIndicatio ns:Type 2 diabetes mellitus with other specified complication, unspecified whether terminal block assembler insulin use ([facility]) TAKE 1 Tablet BY MOUTH TWICE DAILY WITH MEALS 180 tablet 024 Active FLUoxetine (PROzac) 20 MG capsuleIndicati ons:Depression, unspecified depression type TAKE 2 CAPSULES BY MOUTH EVERY MORNING 180 capsule 024 Active Aspirin Low Dose 81 MG EC tabletIndicatio ns:Type 2 diabetes mellitus with other specified complication, unspecified whether terminal block assembler insulin use ([facility]) TAKE 1 TABLET BY MOUTH ONCE DAILY [...] Active Problems Problem Noted Date Diagnosed Date detention (current) use of opiate analgesic 12/01 Acute right eye pain 11/12/2024 Assessment & [...] refuses f/u with pain mgmt -advised contact [facility] if sx change or worsen Essential hypertension 11/18/2015 Assessment & Plan (02/08/2024 3:48 PM EDT): BP elevated with elevated home BP readings -cont losartan and HCTZ daily -increase diltiazem to 240 mg daily -BP check with me in 2 weeks -Cr/GFR nml with significant urine microalbumin OCT 2023 -there is EKG in [facility] -opt as above -f/u with renal as [...] with severe diabetic retinopathy JAN 2023 at [facility], encouraged schedule f/u -strongly encouraged schedule f/u [...] time check Diabetic foot ulcer 08/04/2023 10/12/19 Assessment & Plan (08/04/2023 2:10 PM EDT): I will extend his antibiotic treatment and refer him to podiatry Sacroiliac joint dysfunction of both sides 06/07/2023 10/12/2023 Spinal stenosis, lumbar joss on with neurogenic claudication 06/07/2023 10/12/2023 Asthma 12/20/2022 10/12/2023 Mild intermittent asthma 12/08/202207/2024 Encounters Date Type Department Care Team Description 12/13/2024 Telephone [facility] MEDICINE [address] [place] [address] Enedina Saunders DO Telephone Call 12/06/2024 Orders Only [facility] OPTOMETRY [address] [place] [address] Enriqueta Stevenson, OD 12/04/2024 1:00 PM EST Office Visit [facility] OPTOMET[facility] [address] [place] [address] Enriqueta Stevenson, OD Increased pressure in the eye, right (Primary Dx); Type 2 diabetes mellitus with other ophthalmic complication, unspecified whether terminal block assembler insulin use ([facility]) 12/04/2024 Travel 11/26/2024 Refill [facility] [address] [place] [address] Enedina Saunders DO Chronic bilateral low back pain with bilateral sciatica 11/19/2024 Refill [facility] [address] [place] [address] Enedina Saunders DO Chronic GERD 11/18/2024 Refill [facility] [address] [place] [address] Enedina Saunders DO Essential hypertension; Muscle spasm; Chronic GERD 11/12/2024 1:00 PM EST Office Visit [facility] [address] [place] [address] Viridiana Urbina MD Acute right eye pain (Primary Dx) 11/12/2024 Telephone [facility] MEDICINE [address] [place] [address] Enedina Saunders DO Nurse Triage 11/06/2024 Telephone [facility] OPTOMETRY [address] [place] [address] Leilani Duran, OD 10/26/2024 Refill [facility] [address] [place] [address] Enedina Saunders DO Chronic bilateral low back pain with bilateral sciatica; Back pain, unspecified back location, unspecified back pain laterality, unspecified chronicity 10/25/2024 Refill [facility] MEDICINE [address] [place] [phone] Enedina Saunders DO Chronic bilateral low back pain with left-sided sciatica 10/19/2024 2:30 PM EST Office Visit [facility] OPTOMETRY [address] [place] [address] Enriqueta Stevenson, OD Moderate nonproliferative diabetic retinopathy of both eyes with macular edema associated with type 2 diabetes mellitus (CMS/HCC) (Primary Dx); Dry eye syndrome of both eyes; Combined 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, both eyes; Presbyopia of both eyes 10/19/2024 Travel 10/17/2024 Telephone [facility] MEDICINE [address] [place] [phone] Jenny Escobar RN UTOX Neg OXY confirmed 10/17/2024 Refill [facility] MEDIC[facility] [address] [place] [address] Enedina Saunders DO 10/15/2024 1:30 PM EST Clinical Support [facility] MEDICINE [address] [place] [phone] Jenny Ecsobar, monorail car operator bilateral low back pain with bilateral sciatica (Primary Dx) 10/15/2024 Orders Only GENERIC EXTERNAL DATA DEPARTMENT Provider, Generic External Data 10/15/[address] [address] Jenny Escobar, RN UTOX Neg OXY 10/15/2024 Travel 10/15/[address] [phone] Jenny Escobar RN Recommend BANDING MACHINE OPERATOR Tier 2 10/10/2024 10:45 AM EST Office Visit [address] [address] Enedina Saunders DO Type 2 diabetes mellitus [...] Provider, Generic External Data 10/02/2024 Patient Outreach [address] [address] Enedina Saunders DO Pre-visit Planning (SDOH screening is completed) 10/01/2024 Refill [facility] [address], [place] [phone] Cindy Mohan MD 09/27/[address] [address] Jenny Escobar, WALTER telephone call 09/24/2024 Refill [facility] [address], [place] [phone] Isa Srinivasan FNP Chronic bilateral low back pain with bilateral sciatica 09/18/[address] [address] Enedina Saunders DO Nurse Triage 09/18/2024 Refill [facility] MEDICINE [address] [place] [address] Enedina Saunders DO from Last 3 Months [...] PM EDT Office Visit [facility] OPTOMETRY [address] [place] [address] Enriqueta Stevenson, OD [address] [place] [address] Health Maintenance Due Date Last Done Comments [...] diabetes mellitus with other diabetic kidney complication ([facility]) Essential hypertension LIPID PANEL, STANDARD Routine 10/15/2024 3:25 PM EST Type 2 diabetes mellitus with other diabetic kidney complication ([facility]) Essential hypertension VITAMIN D,25-OH,TOTAL,IA Routine 10/15/2024 3:25 PM EST Type 2 diabetes mellitus with other diabetic kidney complication ([facility]) Essential hypertension T4, FREE Routine 10/15/2024 3:25 PM EST Type 2 diabetes mellitus with other diabetic kidney complication ([facility]) Essential hypertension ALBUMIN, RANDOM URINE W/CREATININE Routine 10/15/2024 2:18 PM EST Type 2 diabetes mellitus with other diabetic kidney complication ([facility]) Essential hypertension CHLAMYDIA/N. GONORRHOEAE RNA, TMA, UROGENITAL [...] diabetes mellitus with other diabetic kidney complication ([facility]/HCC) POCT GLUCOSE Routine 10/10/2024 11:13 AM EST Type 2 diabetes mellitus with other diabetic kidney complication ([facility]) IMMUNOFIXATION, URINE Routine 10/09/2024 3:45 PM EST [...] monitor here in 6 months as well. us Enriqueta Stevenson OD OPHTH TOMOGRAPHY Final Result * Vitamin D, 25-Hydroxy, Total, Immunoassay (10/15/2024 3:25 PM EST) Vitamin D 25-OH Total 33.0 >30 ng/mL [facility] Comment:Health Based Referen ce Values*< 20 ng/mL [id number] ng/mL Insufficient> 30 ng/mL Sufficient*Dariusz CARR. N [...] Enedina Saunders LAB BLOOD ORDERABLES Final R [facility] Performing Organization Address [facility] Co de Phone Number [facility] [address] [place] [phone] * Hepatitis C Antibody with Reflex to HCV, RNA, Quantitative, Real-Time PCR (10/15/2024 3:25 PM EST) Hepatitis C Antibody Nonreactive Nonreactive [facility] Comment:Antibodies to HCV no t detected; does not exclude early acuteHCV infection. Blood Venous blood specimen / Unknown 10/15/2024 3:25 PM EST 10/15/2024 3:25 PM EST Enedina Saunders LAB BLOOD ORDERABLES Final R esult Performing Organization Address [facility] Co de Phone Number [facility] [address] [place] [phone] * RPR (Monitor) with Reflex to??Titer (10/15/2024 3:25 PM EST) RPR (Monitor) w/Refl Titer NON-REACTI VE NON-REACT LAURA [facility] Comment:THIS TEST WAS PERFOR MED AT:[facility] [place] [phone] WEBB MD Rapid Plasma Reagin Ab Titer TNP [facility] Blood Venous blood specimen / Unknown 10/15/2024 3:25 PM EST 10/15/2024 3:25 PM EST Enedina Saunders LAB BLOOD ORDERABLES Final R esult Performing Organization Address [facility]/ZIP Co de Phone Number [facility] [address] [place] [address] [phone] * HIV-1/2 Antigen and Antibodies, Fourth Generation, with Reflexes (10/15/2024 3:25 PM EST) Pathologist [facility] HIV AB/AG Nonreactive Nonreactive [facility] Comment:HIV-1 p24 Ag and/or HIV-1/HIV-2 Ab not detected.A test result that is nonreactive does not exclude thepossibility of exposure to or infection with HIV-1 and/orHIV-2. Nonreactive results in this assay for individualswith prior exposure to HIV-1 and/or HIV-2 may be due toantigen and antibody levels that are below the limit ofdetection of this assay.The [employer] HIV Ag/Ab Combo assay result andsupplemental assay results should be interpreted inconjunction with the patient's clinical presentation,history and other laboratory results. If the results areinconsistent with clinical evidence, additional testing issuggested to confirm the result. Blood Venous blood specimen / Unknown 10/15/2024 3:25 PM EST 10/15/2024 3:25 PM EST Enedina Saunders LAB BLOOD ORDERABLES Final R esult Performing Organization Address City/[facility]/ZIP Co de Phone Number [facility] [address] [place] [phone] * (ABNORMAL) CBC (10/15/2024 3:25 PM EST) Pathologist [facility] White Blood Count 9.3 4.8 - 10.8 X10*3/uL [facility] Red Blood Count 4.07(L) 4.60 - 5.80 X10*6/uL [facility] Hemoglobin 12.1(L) 14.0 - 18.0 g/dl [facility] Hematocrit 35.6(L) 42.0 - 52.0 % [facility] Mean Corpuscular Volume 87.5 80.0 - 98.0 fL [facility] Mean Corpuscular Hemoglobin 29.7 27.0 - 33.0 pg [facility] Mean Corpuscular HGB Conc 34.0 31.0 - 36.0 g/dl [facility] Red Cell Distribution Width 13.5 11.0 - 16.0 % [facility] Platelet Count 392 160 - 400 X10*3/uL [facility] Mean Platelet Volume 9.8 9.4 - 12.4 fL [facility] NRBC Pct Auto 0.0 0.0 - 0.2 /100WBC [facility] NRBC Abs Auto 0.000 0.0 - 0.012 X10*3/uL [facility] Blood Venous blood specimen / Unknown 10/15/2024 3:25 PM EST 10/15/2024 3:25 PM EST us Enedina Saunders DO LAB BLOOD ORDERABLES Final R esult Performing Organization Address City/[facility]/ZIP Co de Phone Number [facility] [address] [place] [phone] * (ABNORMAL) BUN (Blood Urea Nitrogen) (10/15/2024 3:25 PM EST) Only the most recent of2 resultswithin the time period is included. Urea Nitrogen (BUN) 33(H) 9 - 16 mg/dL [facility] 10/15/2024 3:25 PM EST 10/15/2024 3:25 PM EST us Generic External Data Provider LAB BLOOD ORDERAB LES Final Result Performing Organization Address City/[facility]/ZIP Co de Phone Number [facility] [address] [place] [phone] * TSH (10/15/2024 3:25 PM EST) Thyroid Stimulating Hormone 1.62 0.32 - 4.0 uIU/mL [facility] Comment:TSH 3rd Generation ( [facility]) Blood Venous blood specimen / Unknown 10/15/2024 3:25 PM EST 10/15/2024 3:25 PM EST [facility] LAB BLOOD ORDERABLES Final R esult Performing Organization Address City/[facility]/ZIP Co de Phone Number [facility] [address] [place] [phone] * T4, Free (10/15/2024 3:25 PM EST) Free T4 (Free Thyroxine) 1.12 0.71 - 1.85 ng/dL [facility] Blood Venous blood specimen / Unknown 10/15/2024 3:25 PM EST 10/15/2024 3:25 PM EST [facility] LAB BLOOD ORDERABLES Final R esult Performing Organization Address City/[facility]/ZIP Co de Phone Number [facility] [address] [place] [phone] * (ABNORMAL) Hemoglobin A1c (10/15/2024 3:25 PM EST) Only the most recent of2 resultswithin the time period is included. Hemoglobin A1c 7.1(H) <6.0 % [facility] Comment:Hemoglobin A1C Refer ence Range Adults: 4.8 - 6.0 % Non diabetic: < 6.0 % Goal: < 7.0 %Additional Action Suggested: > 8.0 %Note: Hemoglobin A1c results are invalid for patients with abnormal amounts of HbF. Blood transfusions may impact the HbA1c concentration in the patient sample. Estimated Average Glucose 157 mg/dL [facility] Comment:eAG = Estimated ave rage glucose which is %A1C expressed asaverage glucose, using the formula of the [id number] Glucose study (ADAG), Diabetes Care, Vol.31,#8,2007 Blood Venous blood specimen / Unknown 10/15/2024 3:25 PM EST 10/15/2024 3:25 PM EST Enedina Saunders DO LAB BLOOD ORDERABLES Final R esult Performing Organization Address City/[facility] Co de Phone Number [facility] [address] [place] [phone] * (ABNORMAL) Hepatic Function Panel (10/15/2024 3:25 PM EST) Bilirubin, Total 0.3 0.0 - 1.0 mg/dL [facility] Bilirubin, Direct 0.1 0.0 - 0.5 mg/dL [facility] Aspartate Amino Transferase 31 5 - 37 U/L [facility] Alanine Aminotransferase 37 0 - 40 U/L [facility] Total Protein 7.6 6.5 - 8.0 g/dL [facility] Albumin Level 3.5 3.5 - 5.0 g/dL [facility] Alkaline Phosphatase 139(H) 39 - 117 U/L [facility] Blood Venous blood specimen / Unknown 10/15/2024 3:25 PM EST 10/15/2024 3:25 PM EST Enedina Saunders DO LAB BLOOD ORDERABLES Final R esult Performing Organization Address [facility] Co de Phone Number [facility] [address] [place] [phone] * (ABNORMAL) Lipid Panel, Standard (10/15/2024 3:25 PM EST) Triglycerides 108 <150 mg/dL [facility] Comment:Desirable Triglyceri de: less than 150 mg/dLBorderline High Triglyceride 150-199 mg/dLHigh Triglyceride: 200-499 mg/dLVery High Triglyceride: greater than or equal to 5OO mg/dL Cholesterol 190 <200 mg/dL [facility] Comment:Desirable Cholestero l: less than 200 mg/dLBorderline High Cholesterol: 200-239 mg/dLHigh Cholesterol: greater than 239 mg/dL LDL Cholesterol Calculated 130(H) <100 mg/dL [facility] Comment:Desirable LDL: less than 100 mg/dLNear Optimal/Above Optimal LDL: 110- 129 mg/dLBorderline High LDL: 130-159 mg/dLHigh LDL: 160-189 mg/dLVery High LDL: greater than or equal to 190 mg/dL HDL Cholesterol 39(L) >40 mg/dL [facility] Comment:Desirable HDL: great er than 40 mg/dL Note: This HDL assay may give artificially low results in patients with liver disease. Blood Venous blood specimen / Unknown 10/15/2024 3:25 PM EST 10/15/2024 3:25 PM EST us Enedina Saunders DO LAB BLOOD ORDERABLES Final R esult [facility] [address] [place] [place], [place] [phone] * (ABNORMAL) Basic Metabolic Panel (10/15/2024 3:25 PM EST) Sodium 138 135 - 145 mmol/L [facility] Potassium 4.0 3.3 - 5.1 mmol/L [facility] Chloride 105 96 - 108 mmol/L [facility] Carbon Dioxide 24 22 - 29 mmol/L [facility] Anion Gap 13 12 - 20 [facility] Urea Nitrogen (BUN) 32(H) 9 - 16 mg/dL [facility] Creatinine, Serum 1.17 0.5 - 1.4 mg/dL [facility] Estimated Glomerular Filt Rate >60 [facility] Comment:Chronic Kidney Disea se: Estimated GFR < 60 mL/min/1.28x4Vmqkvm Kidney Disease: Estimated GFR < 15 mL/min/1.73m2 Glucose 142(H) 60 - 115 mg/dL [facility] Calcium 9.2 8.4 - 10.2 mg/dL [facility] Blood Venous blood specimen / Unknown 10/15/2024 3:25 PM EST 10/15/2024 3:25 PM EST Enedina Nicky LAB BLOOD ORDERABLES Final R esult Performing Organization Address City/[facility]/ZIP Co de Phone Number [facility] [address] [place] [address] [phone] * (ABNORMAL) Albumin, Random Urine W/Creatinine (10/15/2024 2:18 PM EST) Creatinine, Urine 78.99 mg/dL [facility] Microalbumin Urine 1,868.0 mg/L [facility] Microalbum Creatinine Ratio Ur 2,364.8(H ) <30 ug/mg cr [facility] Comment:Albumin/Creatinine R atio Reference Ranges: Normal: < 30 ug/mg creatinine Microalbuminuria: 30 - 300 ug/mg creatinineClinical Albuminuria: > 300 ug/mg creatinine Urine (Urine, Random) 10/15/2024 2:18 PM EST 10/15/2024 4:06 PM EST Enedina Nicky LAB URINE ORDERABLES Final R esult Performing Organization Address City/[facility]/ZIP Co de Phone Number [facility] [address] [place] [phone] * Chlamydia/N. Gonorrhoeae RNA, TMA, Urogenitial (10/15/2024 2:18 PM EST) CT PCR NOT DETECTED Not Detect. [facility] Comment:A not detected test result does [...] psychologicalconsequences. NG PCR NOT DETECTED Not Detect. [facility] Comment:A not detected test result does [...] PM EST 10/15/2024 4:06 PM EST Laly [facility] - 10/15/2024 6:15 PM EST Urine us Enedina Saunders DO LAB MICROBIOLOGY - GENERAL O RDERABLES Final Result [facility] [address] [place] [phone] * (ABNORMAL) POCT JOHNNY-14 Urine Drug Screen (10/15/2024 1:50 PM EST) Oxycodone Screen, Urine Negative Urine Urine specimen obtained by clean catch procedure / Unknown 10/15/2024 1:50 PM EST Jenny Omalley RN - 10/15/2024 1:50 PM EST UTOX cup Lot#[id number] Exp. 06/27/26 Internal Pass Control Enedina Saunders DO POINT OF CARE TEST ENTER/RUSTAM T ORDERABLES Final Result * Oxycodone Screen, Urine (10/15/2024 1:30 PM EST) Oxycodone Urine Screen Not Detected Not Detect ng/mL [facility] Comment:Oxycodone cut-off is 100 ng/mL.Positive results are unconfirmed and should not be used fornon-medical purposes. Urine 10/15/2024 1:30 PM EST 10/15/2024 4:13 PM EST Enedina Saunders DO LAB URINE ORDERABLES Final R esult [facility] [address] [place] [phone] * (ABNORMAL) POCT HGB A1C (10/10/2024 11:14 AM EST) Pathologist [facility] Hemoglobin A1C 7.0(A) 4.0 - 6.0 % [employer] Lot # [id number] Lot# Expiration Date Blood 10/10/2024 11:1 4 AM EST Enedina Saunders DO POINT OF CARE TEST ENTER/RUSTAM T ORDERABLES Final Result * POCT Glucose (10/10/2024 11:13 AM EST) Pathologist [facility] Glucose Blood, POC 130 60 - 200 mg/dL [employer] Lot # [id number] Lot# Expiration Date 172,025 Blood Capillary blood specimen / Unknown 10/10/2024 11:13 AM EST Enedina Saunders DO POINT OF CARE TEST ENTER/RUSTAM T ORDERABLES Final Result * (ABNORMAL) Protein Creatinine Ratio, Urine (10/09/2024 3:45 PM EST) Pathologist [facility] Creatinine, Urine 55.19 mg/dL [facility] Protein, Total, Random Urine 329(H) <12 mg/dL [facility] Protein/Creati nine Ratio, Ur 5.96(H) <0.2 [facility] Comment:The spot urine prote in:creatinine ratio may increase to 0.3during normal . 10/09/2024 3:45 PM EST 10/09/2024 6:05 PM EST Generic External Data Provider LAB URINE ORDERAB LES Final Result Performing Organization Address [facility] Co de Phone Number [facility] [address] [place] [phone] * Immunofixation (RANDALL), Urine (10/09/2024 3:45 PM EST) Pathologist [facility] RANDALL Interpretation SEE NOTE H [facility] Comment:No monoclonal protei ns detected.The supplier of the testing reagents for this assayhas changed. Detection of small monoclonal proteins mayvary by test system.THIS TEST WAS PERFORMED AT:[employer] [address] [phone] WEBB MD 10/09/2024 3:45 PM EST 10/09/2024 6:05 PM EST Generic External Data Provider LAB URINE ORDERAB LES Final Result Performing Organization Address [facility] Co de Phone Number [facility] [address] [place] [phone] * Creatinine, Serum (10/09/2024 2:42 PM EST) Pathologist [facility] Creatinine, Serum 1.04 0.5 - 1.4 mg/dL [facility] Estimated Glomerular Filt Rate >60 [facility] Comment:Chronic Kidney Disea se: Estimated GFR < 60 mL/min/1.60m7Ysuuqh Kidney Disease: Estimated GFR < 15 mL/min/1.73m2 10/09/2024 2:42 PM EST 10/09/2024 5:55 PM EST Generic External Data Provider LAB BLOOD ORDERAB LES Final Result Performing Organization Address [facility] de Phone Number [facility] [address] [place] [phone] * (ABNORMAL) Immunofixation, Serum (10/09/2024 2:42 PM EST) IMMUNOGLOBULIN G 1135 600 - 1640 mg/dL [facility] IMMUNOGLOBULIN A 663(A) 47 - 310 mg/dL [facility] Immunoglobulin M 76 50 - 300 mg/dL [facility] Comment:THIS TEST WAS PERFOR MED AT:[facility] [place] [phone] WEBB MD Immunofixation Result SEE NOTE [facility] Comment:No monoclonal protei ns detected. 10/09/2024 2:42 PM EST 10/09/2024 5:41 PM EST Generic External Data Provider LAB BLOOD ORDERAB LES Final Result Performing Organization Address [facility] de Phone Number [facility] [address] [place] [phone] * (ABNORMAL) Electrolyte Panel (10/09/2024 2:42 PM EST) Sodium 139 135 - 145 mmol/L [facility] Potassium 4.2 3.3 - 5.1 mmol/L [facility] Chloride 103 96 - 108 mmol/L [facility] Carbon Dioxide 29 22 - 29 mmol/L [facility] Anion Gap 11(L) 12 - 20 [facility] 10/09/2024 2:42 PM EST 10/09/2024 5:55 PM EST Generic External Data Provider LAB BLOOD ORDERAB LES Final Result Performing Organization Address [facility] Co de Phone Number [facility] [address] [place] [address] [phone] * Fecal Globin by Immunochemistry (12/29/2022 12:00 AM EDT) Fecal Globin By Immunochemistry SEE NOTE [facility] Comment: ??FECAL GLOBIN BY IMMUNOCHEMISTRY ?Micro Number: ?[id number] ??Test Status: ? Final ??Specimen Source: ?? Insure (tm) fobt test card ??Specimen Quality: ??Adequate ??Fecal Globin: ?Not Detected ??Comment: ? Test results may be invalid as no date of ? collection was provided. Specimens are stable ? for 14 days. Stool Rectal contents / Unknown 12/29/2022 01/04/2023 9:16 AM EDT Enedina Saunders DO LAB BODY FLUIDS AND STOOLS O RDERABLES Final Result Performing Organization Address [facility] Co de Phone Number [facility] [address], [place] [address] [facility] [place] [facility] [address] [place] [address] from Last 3 Months or Most Recently Relevant to Health Maintenance Insurance [facility] * Guarantor: Joo Dawson Account Type Relation to Patient Date of Phone Billing Address Personal/Family Self [place] [id number] [place] [address] Care Teams Technical Recruiter Relationship Specialty Start Date End Date Enedina Saunders DO [address] [place] [address] PCP - General Family Medicine 11/18/15
--- OUTSIDE RECORDS SUMMARY | 2024-12-13 15:01 | XMS_ITS | Encounter Summary ---
Author Organization [employer] Address [address] [facility] 7t [place] [address] Care Team Providers Care Costume Mistress Name Role Phone Enedina Saunders DO Primary Care Provider + [phone] Reason for Visit * Reason Onset Date Comments Telephone Call 12/13/2024 Encounter Details Date Type Department Care Team ([facility] st Contact Info) Description 12/13/2024 Telephone [facility] MEDICINE [address] [place] [address] Enedina Saunders DO [address] [place] [address] Telephone Call Social History Tobacco Use Types Packs/Day Years [...] encounter Miscellaneous Notes * Telephone Encounter - Maribel Maharaj - 12/13/2024 8:41 AM EDT Pts Daughter answered I informed her apt with RN Jenny for 2pm has been cancelled due to her feeling ill. Informed pt RN will call in order to reschedule apt. Pts daughter understood. documented in this encounter Plan of Treatment Upcoming Encounters Date Type Department Care Team (Late st Contact Info) Description 04/18/2025 3:00 PM EDT Office Visit [facility] OPTOM[facility] [address] [place] [address] Graham, Enriqueta, OD [address] [place] [address] documented as of this encounter Visit Diagnoses Not on filedocumented in this encounter Additional Health Concerns Assessment Noted Time PHQ-9 Depression Total Score: 4 02/08/20 24 3:47 PM EDT documented as of this encounter Care Teams Costume Mistress Relationship Specialty Start Date End Date Enedina Saunders DO [address] [place] [address] PCP - General Family Medicine 11/18/15 documented as of this encounter
--- OUTSIDE RECORDS SUMMARY | 2024-12-13 15:01 | XMS_ITS | Encounter Summary ---
Author Organization [employer] Address [address] [facility] [address] 7t [place] [address] Care Team Providers Care Student Dean Name Role Phone Eendina Saunders DO Primary Care Provider + [phone] Encounter Details Date Type Department Care Team [...] Description 04/18/2025 3:00 PM EDT Office Visit [facility] OPTOMETRY [address] [place] [address] Graham, Erniqueta, OD [address] [place], [place] [phone] documented as of this encounter Visit Diagnoses Not on filedocumented in this encounter Additional Health Concerns Assessment Noted Time PHQ-9 Depression Total Score: 4 02/08/20 24 3:47 PM EDT documented as of this encounter Care Teams Student Dean Relationship Specialty Start Date End Date Enedina Saunders DO [address] [place], [place] [phone] PCP - General Family Medicine 11/18/15 documented as of this encounter
--- OUTSIDE RECORDS SUMMARY | 2024-12-13 15:01 | XMS_ITS | Encounter Summary ---
Author Organization [employer] Address [address] [facility] 7t [place] [address] Care Team Providers Care Cloud Developer Name Role Phone Enedina Saunders Primary Care Provider + [phone] Reason for Visit * Reason Comments Med Refill Encounter Details Date Type Department Care Team (Late st Contact Info) Description 09/29/2023 Refill [facility] MED[facility]INE [address] [place], [place] [phone] Viridiana Urbina MD [address] [place], [place] [phone] Type 2 diabetes mellitus with other diabetic [...] Description 04/18/2025 3:00 PM EDT Office Visit [facility] OPTOMETRY [address] [place], [place] [phone] Graham, Enriqueta, OD [address] [place], [place] [phone] documented as of this encounter Visit Diagnoses Diagnosis Type 2 diabetes mellitus with other diabetic kidney complication (CMS/HCC) documented in this encounter Additional Health Concerns Assessment Noted Time PHQ-9 Depression Total Score: 0 12/21/19 23 10:36 AM EDT documented as of this encounter Care Teams Cloud Developer Relationship Specialty Start Date End Date Enedina Saunders DO [address] [place], [place] [phone] PCP - General Family Medicine 11/18/15 documented as of this encounter
--- OUTSIDE RECORDS SUMMARY | 2024-12-13 15:01 | XMS_ITS | Encounter Summary ---
Author Organization [employer] Address [address] [facility] 7t [place] [address] Care Team Providers Care Machining Technician Name Role Phone Enedina Saunders DO Primary Care Provider + [phone] Encounter Details Date Type Department Care Team (Late Contact Info) Description 11/10/2022 Orders Only [facility] [address] [place], [place] [phone] Enedina Hudson LPN Social History Tobacco Use [...] Description 04/18/2025 3:00 PM EDT Office Visit [facility] OPTOMETRY [address] [place] [address] Graham, Enriqueta, OD [address] [place] [address] documented as of this encounter Visit Diagnoses Not on filedocumented in this encounter Care Teams Machining Technician Relationship Specialty Start Date End Date Enedina Saunders DO [address] [place] [address] PCP - General Family Medicine 11/18/15 documented as of this encounter
--- OUTSIDE RECORDS SUMMARY | 2024-12-13 15:01 | XMS_ITS | Encounter Summary ---
Author Organization [employer] Address [address] [facility] 7t [place] [address] Care Team Providers Care Ecommerce Manager Name Role Phone Enedina Saunders DO Primary Care Provider + [phone] Reason for Visit * Reason Onset Date Comments Nurse Triage 09/18/2024 Encounter Details Date Type Department Care Team ([facility] st Contact Info) Description 09/18/2024 Telephone [facility] MEDICINE [address] [place] [address] Enedina Saunders DO [address] [place] [address] Nurse Triage Social History Tobacco Use Types [...] 09/18/2024 11:47 AM EST Triage call with [facility] [place] [id number] [place]. Pt is reporting high blood pressure. Last nightBP was 198/? and this morning it was 168/95. Pt reports some dizziness and unbalance. Pt is taking hydrochlorothiazide 25mg as prescribed. No available apts in office over next 3 days. Pt is advised to come to [facility] for provider to check BP and evaluate [...] Description 04/18/2025 3:00 PM EDT Office Visit [facility] OPTOMETRY [address] [place], [place] [phone] Enriqueta Stevenson, IRAM 230 [place] [address] documented as of this encounter Visit Diagnoses Not on filedocumented in this encounter Additional Health Concerns Assessment Noted Time PHQ-9 Depression Total Score: 4 02/08/20 24 3:47 PM EDT documented as of this encounter Care Teams Ecommerce Manager Relationship Specialty Start Date End Date Enedina Saunders DO [address] [place] [address] PCP - General Family Medicine 11/18/15 documented as of this encounter
--- OUTSIDE RECORDS SUMMARY | 2024-12-13 15:02 | XMS_ITS | Encounter Summary ---
Author Organization [employer] Address [address] [facility] [address] 7[address] [place] [address] Care Team Providers Care Account Associate Name Role Phone Enedina Saunders DO Primary Care Provider + [phone] Reason for Visit * Reason Comments Med Refill Encounter Details Date Type Department Care Team (Late st Contact Info) Description 11/18/2024 Refill [facility] MED [facility] PEDS [address] [place], [place] [phone] Enedina Saundesr DO [address] [place] [address] Essential hypertension; Muscle spasm; Chronic GERD Social [...] Description 04/18/2025 3:00 PM EDT Office Visit [facility] OPTOMETRY [address] [place] [address] Graham, Enriqueta, OD [address] [place] [address] documented as of this encounter Visit Diagnoses Diagnosis Essential hypertension Unspecified essential hypertension Muscle spasm Spasm of muscle Chronic GERD documented in this encounter Additional Health Concerns Assessment Noted Time PHQ-9 Depression Total Score: 4 02/08/20 24 3:47 PM EDT documented as of this encounter Care Teams Account Associate Relationship Specialty Start Date End Date Enedina Saunders DO [address] [place] [address] PCP - General Family Medicine 11/18/15 documented as of this encounter
--- OUTSIDE RECORDS SUMMARY | 2024-12-13 15:02 | XMS_ITS | Encounter Summary ---
Author Organization [employer] Address [address] [facility] [address] [place] [address] Care Team Providers Care Teacher Selection Specialist Name Role Phone Enedina Saunders DO Primary Care Provider + [phone] Reason for Visit * Reason Comments Med Refill Encounter Details Date Type Department Care Team (Late st Contact Info) Description 11/19/2024 Refill [facility] MED [facility] PEDS [address] [place], [place] [phone] Enedina Saunders DO [address] [place] [address] Chronic GERD Social History Tobacco Use Types [...] PM EDT Office Visit [facility] OPTOMETRY [address] [place], [place] [phone] Graham, Enriqueta, OD [address] [place] [address] documented as of this encounter Visit Diagnoses Diagnosis Chronic GERD documented in this encounter Additional Health Concerns Assessment Noted Time PHQ-9 Depression Total Score: 4 02/08/20 24 3:47 PM EDT documented as of this encounter Care Teams Teacher Selection Specialist Relationship Specialty Start Date End Date Enedina Saunders DO [address] [place] [address] PCP - General Family Medicine 11/18/15 documented as of this encounter
--- OUTSIDE RECORDS SUMMARY | 2024-12-13 15:02 | XMS_ITS | Encounter Summary ---
Author Organization [employer] Address [address] [place] [address] [address] [place] [address] Care Team Providers Care Negative Cleaner Name Role Phone NickyEnedina Primary Care Provider + [phone] Reason for Referral * Consultation (Routine) - Closed Specialty Diagnoses / Procedures Referred By Contfilemon t Referred To Contact Ophthalmology Diagnoses Ocular hypertension of right eye Enriqueta Stevenson, OD [address] [place] [address] Phone: tel: fax: Ella España MD [address] [place] [address] Phone: tel: Referral ID Status Reason Start Date Expiration Date V isits Requested Visits Authorized [id number] Closed Specialty Services Required 12/04/2024 12/04/2025 1 1 Reason for Visit * Reason Comments IOP Check Encounter Details Date Type Department Care Team (Late st Contact Info) Description 12/04/2024 1:00 PM EST Office Visit [facility] OPT[facility] [address] [place] [address] Enriqueta Stevenson, OD [address] [place] [address] Increased pressure in the eye, right (Primary Dx); Type 2 diabetes mellitus with other ophthalmic complication, unspecified whether senior living insulin use ([facility]) Social History Tobacco Use Types Packs/Day Years [...] since he started seeing Dr. Sullivan at [facility]. Last injection was in the [...] trace PSC Refraction Wearing Rx Sphere Cylinder [place] Add Right +0.75 -1.50 090 +2.50 Left +0.75 -1.25 090 +2.50 Manifest Refraction Sphere Cylinder [place] Dist [place] Right +0.75 -1.75 105 20/60 [...] mellitus with other ophthalmic complication, unspecified whether senior living insulin use ([facility]) Diagnosed here with non-proliferative diabetic retinopathy (NPDR) [...] sure he keeps all appointmentswith the retinal specialist/smart energy specialist for further treatment. He will return here in 04/2025 for monitoring. Enriqueta Stevenson, OD 12/04/2024, 1:49 PM Yolk Spray Drier Source: ___ None ___ Bilingual Staff ___ Qualified Staff Synthetic Resin Operator ___ Telephone Yolk Spray Drier; ID# _x__ Yolk Spray Drier brought by patient (spouse) ___ In person steel rule inspector ___ Ipad Yolk Spray Drier; ID#: Language Spoken During Exam: __Spanish documented in this encounter Plan of Treatment Upcoming Encounters Date Type Department Care Team ([facility] st Contact Info) Description 04/18/2025 3:00 PM EDT Office Visit [facility] OPTOMETRY [address] [place] [address] Enriqueta Stevenson, OD [address] [place] [address] Scheduled Referrals Name Type Priority Associated Diagnoses Order Schedule Referral to Ophthalmology Outpatient Referral Routine Increased pressure in the eye, right Expected: 12/04/2024 (Approximate), Expires: 12/04/2025 documented as of this encounter Visit Diagnoses Diagnosis Increased pressure in the eye, right- Primary Type 2 diabetes mellitus with other ophthalmic complication, unspecified whether senior living insulin use ([facility]) documented in this encounter Additional Health Concerns Assessment Noted Time PHQ-9 Depression Total Score: 4 02/08/20 24 3:47 PM EDT documented as of this encounter Care Teams Negative Cleaner Relationship Specialty Start Date End Date Enedina Saunders DO [address] [place] [address] PCP - General Family Medicine 11/18/15 documented as of this encounter
--- OUTSIDE RECORDS SUMMARY | 2024-12-13 15:02 | XMS_ITS | Data Portability ---
Author Organization [place] - [facility], Allergy Address [address] [place] [address] Care Team Providers Care Polishing Wheel Setter Name Role Phone FRANCY PACE Primary Care Provider [phone] Encounter Date Assessment Date Assessment LastModified by Organization Details LastModified Time 08/21/2024 08/21/2024 Patient with imbalance while ambulatory which is likely to be of multifactorial etiology. Physical exam of the ears is normal, and audiometric testing shows a very mild high-frequency conductive hearing loss which is unlikely to have any relevance with regards to his balance. Overall none of his symptoms are consistent with a peripheral vestibular etiology. I suspect that his imbalance is a combination of medication side effects, diabetic peripheral neuropathy, and possibly some residual lower extremity coordination issues related to his spine surgery. I have recommended he speak with his primary care physician about reassessing his medication profile to reduce the number of medications that have a side effect of dizziness. With regards to lower extremity coordination, I think he would benefit significantly from a course of vestibular rehabilitation therapy I have given them a referral to [facility] for this. I have recommended he use his cane as to give him additional proprioceptive feedback from the ground that he is missing due to his peripheral neuropathy. I recommend strongly against the use of vestibular suppressants such as meclizine or benzodiazepines, as this will certainly make his symptoms worse. No additional otolaryngologic workup recommended. [email or web address] Not available 08/21/2024 14:50:10 Plan of Treatment Reminders Order Date Submit Date Provider Last Modified By Organization Details Last Modified Time Details Appointments None record ed. Lab None record ed. Referral None record ed. Procedures None record ed. Surgeries None record ed. Imaging None record ed. Medication Orders None record ed. Patient TargetsNo targets recorded. Patient InstructionsNo instructions recorded. Reason for Referral None Reported. Results Created Date Observation Date Name Description Value Unit Range Abnormal Flag Note LastModifiedBy Organization Detail LastModifiedTime 08/21/2012/18/2021 MRI, brain , w/o contr ast No observ ation record ed. [email or web address] Not Available 08/03 14:53:27 08/22/20 audio gram No observ ation record ed. [email or web address] Not Available 08/04 09:29:58 Result Notes None recorded. Problems Name Problem SNOMED Code Status Onset Date Resolution Date Notes Provider Name and Address Organization Details Recorded Time Gastroeso phageal reflux disease without esophagit is 370928996 Active 2019 Gastro-es ophageal reflux disease without esophagit is; Note: Date Diagnosed : 05/24/2016 1:43 PM (K21.9) Not Available On license of [facility] 4 03:32:00 Allergic rhinitis 02475295 Active 2020 Allergic rhinitis: Due to other allergen; Note: Date Diagnosed : 05/04/2021 3:44 PM (477.8) Allergi c rhinitis: Cause unspecifi ed; Note: Date Diagnosed : 01/18/2020 9:10 AM (477.9) ; Start Date : 0 Allergi c rhinitis, unspecifi ed; Note: Date Diagnosed : 01/18/2020 9:11 AM (J30.9) ; Start Date : 0 Not Available On license of [facility] 4 03:32:00 Conductiv e hearing loss 31882797 Active 2023 Nikki naranjo [place] - [facility] 4 13:27:23 Conductiv e hearing loss 05466498 Active 2023 ROSHNI BERGER MD [address] [place] [address],[place] [address], [place], [address] , [place] - [facility] 4 14:27:08 Tinnitus of left ear [id number] 06 Active 2023 ROSHNI BERGER MD [address] [place] [address],[place] [address], [place], [address] , [place] - [facility] 4 14:27:44 Unsteady when walking 03325000 Active 2023 ROSHNI BERGER MD [address] [facility],[place] [address], [place], [address] , [place] - [facility] 4 14:30:08 Diabetic periphera l neuropath y 907701529 Active 2023 ROSHNI BERGER MD [address] [facility],[place] [address], [place], [address] , [place] - [facility] 4 14:48:05 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 Procedures Surgical History Date Name Laterality Status Provider Name and Address Organization Details Recorded Time 08/21/20 24 Tympanometry (44644) completed Nikki Vieira [place] [facility] 08/21/2024 13:26:48 08/21/20 24 [employer] (85270) completed Nikki Vieira [place] [facility] 08/21/2024 13:26:45 Imaging Results Imaging Date Name Status LastModified by Organiz ation Details LastModified Time 12/18/2021 MRI, brain, w/o contrast completed [email or web address] Information not available 08/21/2024 14:53:27 08/22/2024 audiogram completed Information n ot available 08/22/2024 09:29:58 Procedure Notes None recorded. Medical Equipment None Reported. Allergies Allergen ID Allergen Name Allergen Category Reaction Reaction Severity Criticality Documentation Date Start Date Code Code System Note Provider Name and Address Organization Details Recorded Time 817785 insulin aspart, human medicatio n Not available Not available Not available 08/21/2024 05024 RxNorm Viridiana naranjo MA [facility] 13:36:10 205811 shellfish derived food,medi cation Not available Not available Not available 08/21/2024 37434 UNK Viridiana naranjo [place] - [facility] 13:36:16 Medications Name Sig Start Date Stop Date Status Note LastModified by Organization Details LastModified Time atorvasta tin 40 mg tablet 08/21 completed Medicati on ID: [id number] B rand Name: atorvast atmagui Sen d Method: E-Prescr ibed Sub s Allowed: subs OK Medic ationGen ericName : atorvast atin Not Available Not Available Not Available metformin 500 mg tablet 08/21 completed Medicati on ID: [id number] B rand Name: metformi n Send Method: E-Prescr ibed Sub s Allowed: subs OK Medic ationGen ericName : metformi n Not Available Not Available Not Available atorvasta tin 80 mg tablet TAKE 1 TABLET BY MOUTH EVERY MORNING active Not Available Not Available No t Available cetirizin e 10 mg tablet TAKE 1 TABLET BY MOUTH EVERY DAY active Not Available Not Available No t Available tizanidin e 4 mg tablet TAKE 1 TABLET BY MOUTH EVERY 8 HOURS 08/21 completed Not Available Not Available Not Available polyvinyl alcohol 1.4 % eye drops PLACE 1 DROP INTO THE AFFECTED EYE(S) FOUR TIMES DAILY NEEDED FOR DRY EYES active Not Available Not Available No t Available gabapenti n 400 mg capsule TAKE 2 CAPSULES BY MOUTH THREE TIMES DAILY active Not Available Not Available No t Available permethri n 5 % topical cream 08/21 completed Medicati on ID: [id number] B rand Name: permethr in Send Method: E-Prescr ibed Sub s Allowed: subs OK Medic ationGen ericName : permethr in Not Available Not Available Not Available diltiazem ER 240 mg capsule,2 4 hr,extend ed release TAKE 1 CAPSULE BY MOUTH EVERY DAY active Not Available Not Available No t Available omeprazol e 40 mg capsule,d elayed release TAKE 1 CAPSULE BY MOUTH EVERY DAY BEFORE BREAKFAS T active Not Available Not Available No t Available aspirin 81 mg tablet,de layed release TAKE 1 TABLET BY MOUTH EVERY DAY active Not Available Not Available No t Available tramadol 50 mg tablet TAKE 1 TABLET BY MOUTH EVERY 8 HOURS NEEDED FOR SEVERE PAIN 08/21 completed Not Available Not Available Not Available acetamino phen ER 650 mg tablet,ex tended release TAKE 1 TABLET BY MOUTH EVERY 6 TO 8 HOURS NEEDED 08/21 completed Not Available Not Available Not Available baclofen 20 mg tablet TAKE 1 TABLET BY MOUTH THREE TIMES DAILY NEEDED FOR PAIN OR FOR MUSCLE SPASMS active Not Available Not Available No t Available amitripty line 25 mg tablet TAKE 1 TABLET BY MOUTH AT BEDTIME active Not Available Not Available No t Available amitripty line 10 mg tablet TAKE 1 TABLET BY MOUTH AT BEDTIME 08/21 completed Not Available Not Available Not Available meclizine 25 mg tablet TAKE 1 TABLET BY MOUTH THREE TIMES DAILY IN THE MORNING, AT NOON, AND AT BEDTIME NEEDED FOR DIZZINES S 08/21 completed Not Available Not Available Not Available amlodipin e 10 mg tablet TAKE 1 TABLET BY MOUTH EVERY DAY 08/21 completed Not Available Not Available Not Available benzonata te 100 mg capsule TAKE 1 CAPSULE BY MOUTH THREE TIMES DAILY NEEDED FOR COUGH DO NOT BREAK, CRUSH, DISSOLVE OR CHEW 08/21 completed Not Available Not Available Not Available metformin 1,000 mg tablet TAKE 1 TABLET BY MOUTH TWICE A DAY active Not Available Not Available No t Available glucose 4 gram chewable tablet 2019 active Medicati on ID: [id number] B rand Name: glucose Send Method: E-Prescr ibed Sub s Allowed: subs OK Medic ationGen ericName : glucose Not Available Not Available Not Available gabapenti n 300 mg capsule 08/21 completed Medicati on ID: [id number] B rand Name: gabapent in Send Method: E-Prescr ibed Sub s Allowed: subs OK Medic ationGen ericName : gabapent in Not Available Not Available Not Available omeprazol e 20 mg capsule,d elayed release 1 capsule by mouth 08/21 completed Medicati on ID: [id number] D uration Value: 30 Prescri bed By Name: Terrance guevara MD Brand Name: omeprazo le Send Method: E-Prescr ibed Sub s Allowed: subs OK Medic ationGen ericName : omeprazo le Not Available Not Available Not Available hydrochlo rothiazid e 25 mg tablet TAKE 1 TABLET BY MOUTH EVERY DAY active Not Available Not Available No t Available metoprolo l succinate ER 25 mg tablet,ex tended release 24 hr 03/29 /2021 completed Medicati on ID: [id number] B rand Name: metoprol ol succinat e Send Method: E-Prescr ibed Sub s Allowed: subs OK Medic ationGen ericName : metoprol ol succinat e Not Available Not Available Not Available ergocalci ferol (vitamin D2) 1,250 mcg (50,000 unit) capsule 08/21 completed Medicati on ID: [id number] B rand Name: ergocalc iferol (vitamin D2) Send Method: E-Prescr ibed Sub s Allowed: subs OK Medic ationGen ericName : ergocalc iferol (vitamin D2) Not Available Not Available Not Available epinephri ne 0.3 mg/0.3 mL injection , auto-inje ctor 1 pen injector 2020 active Medicati on ID: [id number] D uration Value: 1 Prescri bed By Name: Terrance guevara MD Brand Name: epinephr ine Send Method: E-Prescr ibed Sub s Allowed: subs OK Medic ationGen ericName : epinephr ine Not Available Not Available Not Available methylpre dnisolone 4 mg tablets in a dose pack TAKE DIRECTED ON PACKAGE 08/21 completed Not Available Not Available Not Available albuterol sulfate HFA 90 mcg/actua tion aerosol inhaler 2019 active Medicati on ID: [id number] B rand Name: albutero l sulfate Send Method: E-Prescr ibed Sub s Allowed: subs OK Medic ationGen ericName : albutero l sulfate Not Available Not Available Not Available losartan 100 mg tablet TAKE 1 TABLET BY MOUTH EVERY DAY active Not Available Not Available No t Available fluoxetin e 20 mg capsule TAKE 2 CAPSULES BY MOUTH EVERY MORNING active Not Available Not Available No t Available fluticaso ne propionat e 50 mcg/actua tion nasal spray,patricia pension 08/18 completed Medicati on ID: [id number] B rand Name: fluticas one propiona te Send Method: E-Prescr ibed Sub s Allowed: subs OK Medic ationGen ericName : fluticas one propiona te Not Available Not Available Not Available oxycodone 5 mg tablet TAKE 1 TABLET BY MOUTH EVERY 6 HOURS NEEDED FOR SEVERE PAIN active Not Available Not Available No t Available Novolog FlexPen U-100 Insulin aspart 100 unit/mL (3 mL) subcutane ous INJECT 4 TO 6 UNITS BEFORE MEALS PER SLIDING SCALE active Not Available Not Available No t Available Alcohol Prep Pads USE THREE TIMES DAILY DIRECTED 08/21 completed Not Available Not Available Not Available FreeStyle Lite Strips TEST BLOOD SUGAR THREE TIMES DAILY active Not Available Not Available No t Available diclofena c 1 % topical gel APPLY 2 GRAMS TOPICALL Y TO AFFECTED AREA(S) TWICE DAILY NEEDED FOR PAIN active Not Available Not Available No t Available Vitamin D3 50 mcg (2,000 unit) capsule TAKE 1 CAPSULE BY MOUTH EVERY DAY IN THE MORNING active Not Available Not Available No t Available TRUEplus Lancets 33 gauge TEST BLOOD SUGAR THREE TIMES DAILY active Not Available Not Available No t Available Farxiga 5 mg tablet TAKE 1 TABLET BY MOUTH EVERY DAY active Not Available Not Available No t Available Levemir FlexTouch U-100 Insulin 100 unit/mL (3 mL) subcutane ous pen 08/21 completed Medicati on ID: [id number] B rand Name: Levemir FlexTouc h U-100 Insuln S end Method: E-Prescr ibed Sub s Allowed: subs OK Medic ationGen ericName : Levemir FlexTouc h U-100 Insuln Not Available Not Available Not Available Trulicity 1.5 mg/0.5 mL subcutane ous pen injector INJECT ONE PEN (=1.5MG) SUBCUTAN EOUSLY ONCE A WEEK DIRECTED active Not Available Not Available No t Available Arnuity Ellipta 100 mcg/actua tion powder for inhalatio n INHALE 1 PUFF BY MOUTH EVERY DAY AT THE SAME TIME RINSE MOUTH AFTER USING. active Not Available Not Available No t Available Pentips Pen Needle 32 gauge x 32 USE WITH INSULIN DIRECTED active Not Available Not Available No t Available Tresiba FlexTouch U-200 insulin 200 unit/mL (3 mL) subcutane ous pen INJECT 38 UNITS SUBCUTAN EOUSLY EVERY DAY active Not Available Not Available No t Available naloxone 4 mg/actuat ion nasal spray FOR SUSPECTE D OPIOID OVERDOSE . SPRAY 0.1mL IN ONE NOSTRIL. REPEAT IN ALTERNAT E NOSTRIL 2-3 MINUTES IF NEEDED. SEEK MEDICAL ATTENTIO N IMMEDIAT TATE EVEN IF PATIENT RESPONDS . active Not Available Not Available No t Available Tiadylt ER 120 mg capsule,e xtended release TAKE 1 CAPSULE ORALLY DAILY 08/21 completed Not Available Not Available Not Available Gvoke HypoPen 2-Pack 0.5 mg/0.1 mL subcutane ous auto-inje ctor INJECT 0.1 ML SUBCUTAN EOUSLY MAY REPEAT ONCE IN 15 MINUTES WITH HYPOGLYC EMIC EMERGENC Y 08/21 completed Not Available Not Available Not Available FreeStyle Roni 2 Sensor kit CHANGE EVERY 14 DAYS. USE TO CHECK BLOOD GLUCOSE 4 TIMES PER DAY E11.9 active Not Available Not Available No t Available Trulicity 3 mg/0.5 mL subcutane ous pen injector INJECT ONE PEN (= 3MG) SUBCUTAN EOUSLY ONCE A WEEK DIRECTED 08/21 completed Not Available Not Available Not Available Trulicity 4.5 mg/0.5 mL subcutane ous pen injector INJECT 0.5 ML SUBCUTAN EOUS INJECTIO N EVERY WEEK, ROTATE INJECTIO N SITES active Not Available Not Available No t Available Vitals None Recorded Social History None recorded. Functional Status None recorded. Mental Status None recorded. Family History Nothing Reported. Medical History Condition Response Diabetes Y Anemia Y Arthritis Y Anxiety Y Migraines Y Stroke Y Hypertension Y Depression Y Asthma Y Past Encounters Encounter ID Performer Location Encounter Start Date Encounter Closed Date Diagnosis/Indication Diagnosis SNOMED-CT Code Diagnosis ICD10 Code Diagnosis Note [id number] ROSHNI BERGER MD [facility] [address] [address] 08/21/2024 12:45:13 08/21/2024 14:51:23 Conductive hearing loss [id number] H90.0 Audiologic al evaluation results: Right ear: {{Normal N ormal through 2 kHz Mild M oderate Mo derately-s evere Leslie re Profoun d Normal through 3 kHz#}} {{hearing hearing. s loping to a mild* slop ing to a moderate s loping to moderately severe slo ping to severe slo ping to profound f lat high frequency low frequency mid frequency cookie bite rodney curve}} {{with sen sorineural hearing loss with condu ctive hearing loss with* mixe d hearing loss with}} {{excellen t good antonio r poor no measurable *}} word recognitio n. Left ear: {{Normal N ormal through 2 kHz Mild M oderate Mo derately-s evere Leslie re Profoun d Normal through 4 kHz#}} {{hearing hearing. s loping to a mild* slop ing to a moderate s loping to moderately severe slo ping to severe slo ping to profound f lat high frequency low frequency mid frequency cookie bite rodney curve}} {{with sen sorineural hearing loss with condu ctive hearing loss with* mixe d hearing loss with}} {{excellen t good antonio r poor no measurable *}} word recognitio n.SRT and WRS could not be measured due to language barriers. Tympanomet ry: Right Ear:{{Type A* Type As Type Ad Type C Type C, shallow & rounded Ty pe B Type B with large volume Cou ld not maintain a hermetic seal}} Left Ear:{{Type A* Type As Type Ad Type C Type C, shallow & rounded Ty pe B Type B with large volume Cou ld not maintain a hermetic seal}} Tinnitus of left ear 396 [id number] 106 H93.12 Today we discussed the pathophysi ology of tinnitus and the absence of consistent ly successful pharmacolo gic treatments for tinnitus. We discussed masking strategies to decrease awareness of the tinnitus, including using a white noise machine, music, or television . We discussed how exposure to loud noise can worsen tinnitus so I recommende d hearing protection . We also discussed other ways to potentiall y help reduce awareness of tinnitus including avoidance of caffeine, salty meals and NSAIDs. Unsteady when walking 22 715702 R26.89 Complicati on due to diabetes mellitus 80993440 E13.69 Diabetic p eripheral neuropathy 375086213 E11.40 History of operative procedure on lumbar spinal structure 050248040 Z98.890 Health Concerns Section Related Observation LastModified by Organization Detai ls LastModified Time None Recorded Concern Status LastModified by Organization Details LastModified Time None Recorded Advance Directives Directive None Recorded Payers Encounter Date Sequence Insurance Name Policy Number Policy Meza Covered Member ID Meza Member ID Guarantor Name 08/21/2024 1 [facility] - DOS ON OR AFTER 2023 - ONE CARE (MEDICARE REPLACEMENT/ADV ANTAGE - HMO) Joo Dawson [id number] Joo Dawson Notes Date Note Type Note Provider Name and Address Organization Details Recorded Time 08/21/2024 text/html 59-year-old male with history of diabetes, cardiac disease, and CVA who comes in today for evaluation of hearing and balance. Patient reports that for the past 3 years he has had left-sided hissing tinnitus which comes and goes, more noticeable at night when it is quiet. Patient also notices intermittent sensation of feeling off balance where he will feel unsteady on his feet particular while ambulatory. When he sits down symptoms will significantly reduce but not always go away. He reports having had a stroke about 2-3/4 years ago. He thinks that his symptoms of dizziness predated the stroke. Patient does have numbness and tingling in his feet. Patient has had 2 lumbar spines procedures. Prior to his surgeries, he could not walk. Patient does have a cane at home but does not use it a lot. ROSHNI BERGER MD [address] [place] [address], [phone], [place] - [facility] 08/21/2024 14:51:38
--- OUTSIDE RECORDS SUMMARY | 2024-12-13 15:02 | XMS_ITS | Encounter Summary ---
Author Organization [employer] Address [address] [place] [address] Care Team Providers Care It Business Analyst Name Role Phone Enedina Saunders DO Primary Care Provider + [phone] Reason for Visit * Reason Onset Date Comments Med Refill 11/26/2024 Encounter Details Date Type Department Care Team (Late st Contact Info) Description 11/26/2024 Refill [facility] [address] [place], [place] [phone] Enedina Saunders DO [address] [place] [address] Chronic bilateral low back pain with bilateral [...] Description 04/18/2025 3:00 PM EDT Office Visit [facility] [address] [place] [address] GrahamEnriqueta wilson, OD [address] [place] [address] documented as of this encounter Visit Diagnoses Diagnosis Chronic bilateral low back pain with bilateral sciatica documented in this encounter Additional Health Concerns Assessment Noted Time PHQ-9 Depression Total Score: 4 02/08/20 3:47 PM EDT documented as of this encounter Care Teams It Business Analyst Relationship Specialty Start Date End Date Enedina Saunders DO [address] [place] [address] PCP - General Family Medicine 11/18/15 documented as of this encounter
== END 2024-12-13 11:53 | disposition home or self-care (01) ==
LOC: HO.HKAS 11:35
PROVIDERS: PCP Family Medicine; Visit Provider Internal Medicine Nephrology
DX: R80.8 Other proteinuria (principal); N20.0 Calculus of kidney; I10 Essential (primary) hypertension; E11.21 Type 2 diabetes mellitus with diabetic nephropathy
CPT/HCPCS: 99214

== ENCOUNTER → 2024-12-13 11:35 | Outpatient (BNVA) | payer OTHER, SELFPAY | PROVIDERS: PCP Family Medicine; Visit Provider Internal Medicine Nephrology | DX: R80.8 Other proteinuria (principal); E11.9 Type 2 diabetes mellitus without complications; I10 Essential (primary) hypertension; N20.0 Calculus of kidney; E11.21 Type 2 diabetes mellitus with diabetic nephropathy | CPT/HCPCS: 99212 ==

== ENCOUNTER 2025-01-30 14:04 | Outpatient (REF) | payer OTHER, SELFPAY ==
--- OUTSIDE RECORDS SUMMARY | 2025-01-30 15:19 | XMS_ITS | Encounter Summary ---
Author Organization [employer] Address [address] [facility] [address] [place] [address] Care Team Providers Care Banker Mason Name Role Phone Enedina Saunders DO Primary Care Provider + [phone] Reason for Visit * Reason Comments Med Refill Encounter Details Date Type Department Care Team (Late st Contact Info) Description 03/01/2024 Refill [facility] [address] [place], [place] [phone] Enedina Saunders DO [address] [place] [address] Essential hypertension Social History Tobacco Use Types [...] Description 04/18/2025 3:00 PM EDT Office Visit [facility] [address] [place] [address] Graham, Enriqueta, OD [address] [place] [address] documented as of this encounter Visit Diagnoses Diagnosis Essential hypertension Unspecified essential hypertension documented in this encounter Additional Health Concerns Assessment Noted Time PHQ-9 Depression Total Score: 4 02/08/20 24 3:47 PM EDT documented as of this encounter Care Teams Banker Mason Relationship Specialty Start Date End Date Enedina Saunders DO [address] [place] [address] PCP - General Family Medicine 11/18/15 documented as of this encounter
--- OUTSIDE RECORDS SUMMARY | 2025-01-30 15:19 | XMS_ITS | Encounter Summary ---
Author Organization [employer] Address [address] [place] [address] Care Team Providers Care Clinical Support Associate Name Role Phone Enedina Saunders DO Primary Care Provider + [phone] Reason for Visit * Reason Onset Date Comments Nurse Triage 09/18/2024 Encounter Details Date Type Department Care Team ([facility] st Contact Info) Description 09/18/2024 Telephone [facility] [address] [place] [address] Enedina Saunders DO [address] [place] [address] Nurse Triage Social History Tobacco Use Types [...] 09/18/2024 11:47 AM EST Triage call with [facility] [place] [id number] Fouzia. Pt is reporting high blood pressure. Last nightBP was 198/? and this morning it was 168/95. Pt reports some dizziness and unbalance. Pt is taking hydrochlorothiazide 25mg as prescribed. No available apts in office over next 3 days. Pt is advised to come to [facility] for provider to check BP and evaluate [...] [facility] [address] [place], [place] [phone] Enriqueta Stevenson, IRAM [address] [place] [address] documented as of this encounter Visit Diagnoses Not on filedocumented in this encounter Additional Health Concerns Assessment Noted Time PHQ-9 Depression Total Score: 4 02/08/20 24 3:47 PM EDT documented as of this encounter Care Teams Clinical Support Associate Relationship Specialty Start Date End Date Enedina Saunders DO [address] [place] [address] PCP - General Family Medicine 11/18/15 documented as of this encounter
--- OUTSIDE RECORDS SUMMARY | 2025-01-30 15:19 | XMS_ITS | Encounter Summary ---
Author Organization [employer] [facility] Address [address] [place] [address] 7t [place] [address] Care Team Providers Care Heat Treat Technician Name Role Phone Enedina Saunders DO Primary Care Provider [phone] Encounter Details Date Type Department Care Team (Late Contact Info) Description 10/29/2022 Telephone [facility] [address] [place] [address] Enedina Saunders DO [address] [place] [address] Social History Tobacco Use Types Packs/Day Years [...] Description 04/18/2025 3:00 PM EDT Office Visit [facility] [address] [place] [address] Graham, Enriqueta, OD [address] [place] [address] documented as of this encounter Visit Diagnoses Not on filedocumented in this encounter Care Teams Heat Treat Technician Relationship Specialty Start Date End Date Enedina Saunders DO [address] [place] [address] PCP - General Family Medicine 11/18/15 documented as of this encounter
--- OUTSIDE RECORDS SUMMARY | 2025-01-30 15:19 | XMS_ITS | Encounter Summary ---
Author Organization [employer] Address [address] [facility] 7t [place] [address] Care Team Providers Care Beater And Pulper Feeder Name Role Phone Enedina Saunders DO Primary Care Provider + [phone] Reason for Visit * Reason Onset Date Comments Med Refill 03/01/2024 Encounter Details Date Type Department Care Team ([facility] st Contact Info) Description 03/01/2024 Telephone [facility] [address] [place], [place] [phone] Enedina Saunders DO [address] [place] [address] Med Refill Social History Tobacco Use Types [...] MG/0.5ML solution pen-injector To be sent to: [facility] - [place], [place] - [address] [facility] documented in this encounter Plan of Treatment Upcoming Encounters Date Type Department Care Team (Late st Contact Info) Description 04/18/2025 3:00 PM EDT Office Visit [facility] [address] [place] [address] Enriqueta Stevenson, OD [address] [place] [address] documented as of this encounter Visit Diagnoses Not on filedocumented in this encounter Additional Health Concerns Assessment Noted Time PHQ-9 Depression Total Score: 4 02/08/20 24 3:47 PM EDT documented as of this encounter Care Teams Beater And Pulper Feeder Relationship Specialty Start Date End Date Enedina Saunders DO [address] [place] [address] PCP - General Family Medicine 11/18/15 documented as of this encounter
--- OUTSIDE RECORDS SUMMARY | 2025-01-30 15:19 | XMS_ITS | Encounter Summary ---
Author Organization [employer] [facility] Address [address] [place] [address] 7t [place] [address] Care Team Providers Care Copyright Manager Name Role Phone Enedina Saunders DO Primary Care Provider [phone] Encounter Details Date Type Department Care Team (Late st Contact Info) Description 09/24/2022 Orders Only [facility] [address] [place] [address] Maritza Encinas LPN Social History Tobacco Use [...] 04/18/2025 3:00 PM EDT Office Visit [facility] [address] [place] [address] Graham, Enriqueta, OD [address] [place] [address] documented as of this encounter Visit Diagnoses Not on filedocumented in this encounter Care Teams Copyright Manager Relationship Specialty Start Date End Date Enedina Saunders DO [address] [place] [address] PCP - General Family Medicine 11/18/15 documented as of this encounter
--- OUTSIDE RECORDS SUMMARY | 2025-01-30 15:19 | XMS_ITS | Clinical Summary ---
Author Organization [email or web address] Address [address] [place] [address] 7t [place] [address] Care Team Providers Care Detail Supervisor Name Role Phone Enedina Saunders Primary Care Provider [phone] Allergies Active Allergy Reactions Criticality Noted Date [...] diabetes mellitus with other diabetic kidney complication ([facility]/HCC) INJECT 10 UNITS SUBCUTANEOUSLY TWICE DAILY BEFORE [...] IN THE MORNING 90 capsule 1 Active Alcohol Swabs (Alcohol Prep) 70 % pads USE THREE TIMES DAILY DIRECTED 100 each 11 Active FREESTYLE LITE test strip TEST BLOOD SUGAR 3 TIMES A DAY 100 strip Active TRUEplus Lancets 33G misc TEST BLOOD SUGAR 3 TIMES A DAY 100 each 11 Active UltiGuard SafePack Pen Needle 32G X 4 MM misc USE WITH INSULIN DIRECTED 100 each Active naloxone (Narcan) 4 mg/0.1 mL nasal sprayIndication s:Chronic bilateral low back pain with left-sided sciatica Administer 1 spray (4 mg) into affected nostril(s) if needed for opioid reversal. May repeat every 2-3 minutes if needed, alternating nostrils, until medical assistance becomes available. 2 each 3 024 2024 Active Farxiga 5 MG Take 1 tablet (5 mg) by mouth Once daily. 30 tablet 024 2024 Active insulin degludec (Tresiba FlexTouch) [...] mellitus with other diabetic kidney complication (CMS/HCC) INSTILL 1 DROP IN DRY EYES FOUR TIMES DAILY NEEDED 30 mL 3 Active metFORMIN (Glucophage) 1000 MG tabletIndicatio ns:Type 2 diabetes mellitus with other specified complication, unspecified whether long winder tender insulin use ([facility]) TAKE 1 Tablet BY MOUTH TWICE DAILY WITH MEALS 180 tablet 1 Active FLUoxetine (PROzac) 20 MG capsuleIndicati ons:Depression, unspecified depression type TAKE 2 CAPSULES BY MOUTH EVERY MORNING 180 capsule 1 Active amitriptyline (Elavil) 25 MG tablet Take 1 tablet (25 mg) by mouth at bedtime. 30 tablet 5 024 2024 Active Trulicity 4.5 MG/0.5ML solution auto-injector Active dilTIAZem ER (Tiadylt ER) 360 MG 24 hr capsule Take 1 capsule (360 mg) by mouth Once per day. 30 capsule 11 025 2025 Active cetirizine (ZyrTEC) 10 MG tablet TAKE 1 TABLET BY MOUTH EVERY DAY 30 tablet 11 Active gabapentin (Neurontin) 400 MG capsuleIndicati ons:Chronic bilateral low back pain with left-sided sciatica TAKE 2 CAPSULES BY MOUTH THREE TIMES DAILY 180 capsule 3 Active Diclofenac Sodium 1 % gelIndications: Back pain, unspecified back location, unspecified back pain laterality, unspecified chronicity APPLY 2 GRAMS TOPICALLY TO AFFECTED AREA(S) TWICE DAILY NEEDED FOR PAIN 100 g 3 025 Active polyvinyl alcohol (Liquifilm Tears) 1.4 % ophthalmic solution PLACE 1 DROP INTO THE AFFECTED EYE(S) FOUR TIMES DAILY NEEDED FOR DRY EYES Active Jardiance 10 MG Take 1 tablet by mouth Once per day. Active omeprazole (PriLOSEC) [address] capsuleIndicati ons:Chronic GERD TAKE 1 CAPSULE BY MOUTH EVERY DAY BEFORE BREAKFAST 90 capsule 025 Active dorzolamide-karl olol (Cosopt) 2-0.5 % ophthalmic solution Administer 1 drop into the right eye 2 times daily. 10 mL 11 025 2025 Active brimonidine (AlphaGAN) 0.2 % ophthalmic solution Administer 1 drop into the right eye 3 times daily. 10 mL 025 2025 Active Aspirin Low Dose 81 MG EC tabletIndicatio ns:Type 2 diabetes mellitus with other specified complication, unspecified whether penitentiary insulin use ([facility]) TAKE 1 TABLET BY MOUTH EVERY DAY 90 tablet Active atorvastatin (Lipitor) 80 MG tablet TAKE 1 TABLET BY MOUTH EVERY MORNING 90 tablet Active fluticasone furoate (Arnuity Ellipta) 100 MCG/ACT inhaler INHALE 1 PUFF BY MOUTH EVERY DAY AT THE SAME TIME RINSE MOUTH AFTER USING 1 each Active baclofen (Lioresal) 20 MG tabletIndicatio ns:Muscle spasm TAKE 1 TABLET BY MOUTH THREE TIMES DAILY NEEDED FOR MUSCLE SPASMS OR PAIN 90 tablet Active hydroCHLOROthia zide (HYDRODiuril) 25 MG tabletIndicatio ns:Essential hypertension TAKE 1 TABLET BY MOUTH EVERY DAY 30 tablet Active losartan (Cozaar) 100 MG tabletIndicatio ns:Essential hypertension TAKE 1 TABLET BY MOUTH EVERY DAY 30 tablet Active oxyCODONE (Roxicodone) 5 MG immediate release tabletIndicatio ns:Chronic bilateral low back pain with bilateral sciatica Take 1 tablet (5 mg) by mouth every 6 (six) hours if needed for severe pain for up to 28 days. 112 tablet 025 2024 Active losartan (Cozaar) 100 MG tabletIndicatio ns:Essential hypertension TAKE 1 TABLET BY MOUTH EVERY DAY 30 tablet 024 2024 Discontinued hydroCHLOROthia zide (HYDRODiuril) 25 MG tabletIndicatio ns:Essential hypertension TAKE 1 TABLET BY MOUTH EVERY DAY 30 tablet 1 025 2024 Discontinued baclofen (Lioresal) 20 MG tabletIndicatio ns:Muscle spasm TAKE 1 TABLET BY MOUTH THREE TIMES DAILY NEEDED FOR PAIN OR FOR MUSCLE SPASMS 90 tablet 1 025 2024 Discontinued Arnuity Ellipta 100 MCG/ACT inhaler INHALE 1 PUFF BY MOUTH EVERY DAY AT THE SAME TIME RINSE MOUTH AFTER USING 30 each 1 025 2024 Discontinued oxyCODONE (Roxicodone) 5 MG immediate release tabletIndicatio ns:Chronic bilateral low back pain with bilateral sciatica Take 1 tablet (5 mg) by mouth every 6 (six) hours if needed for severe pain for up to 28 days. 112 tablet 025 2024 Discontinued(R eorder (will not trigger notification to Pharmacy)) Active Problems Problem Noted Date Diagnosed Date local company intermodal truck driver (current) use of opiate analgesic 12/01 Acute [...] refuses f/u with pain mgmt -advised contact [facility] if sx change or worsen Essential hypertension 11/18/2015 Assessment & Plan (02/08/2024 3:48 PM EDT): BP elevated with elevated home BP readings -cont losartan and HCTZ daily -increase diltiazem to 240 mg daily -BP check with me in 2 weeks -Cr/GFR nml with significant urine microalbumin OCT 2023 -there is EKG in [employer] -optho as above -f/u with renal as scheduled [...] with severe diabetic retinopathy JAN 2023 at [facility], encouraged schedule f/u -strongly encouraged schedule f/u [...] Encounters Date Type Department Care Team Description 01/22/2025 Refill [facility] [address] [place] [address] Enedina Saunders DO Chronic bilateral low back pain with bilateral sciatica 01/18/2025 Refill [facility] MEDIC[facility] [address] [place] [address] Enedina Saunders DO Essential hypertension 01/18/2025 Refill [facility] [address] [place] [address] Viridiana Urbina MD Muscle spasm; Essential hypertension 01/03/2025 Telephone [facility] MEDICINE [address] [place] [address] Enedina Saunders DO Appointment Request 01/03/2025 Telephone [facility] MEDICINE [address] [place] [phone] Enedina Saunders DO Appointment Request 12/21/2024 Refill [facility] [address] [place] [address] Enedina Saunders DO Chronic bilateral low back pain with bilateral sciatica 12/16/2024 Refill [facility] MEDICINE [address] [place] [address] Enedina Saunders DO Type 2 diabetes mellitus with other specified complication, unspecified whether penitentiary insulin use ([facility]) 12/14/2024 Telephone [facility] MEDICINE [address] [place] [phone] Enedina Saunders DO Appointment Request; May recall 12/14/2024 Refill [facility] WALK[facility] C[facility] [address] [place] [address] Viridiana Urbina MD 12/13/2024 Telephone [facility] MEDICINE [address] [place] [phone] Enedina Saunders DO Telephone Call 12/06/2024 Orders Only [facility] OPTOM[facility] [address] [place] [address] Enriqueta Stevenson, IRAM 12/04/2024 1:00 PM EST Office Visit [facility] OPT[facility] [address] [place] [address] Enriqueta Stevenson, OD Increased pressure in the eye, right (Primary Dx); Type 2 diabetes mellitus with other ophthalmic complication, unspecified whether long winder tender insulin use ([facility]) 12/04/2024 Travel 11/26/2024 Refill [facility] [address] [place], [place] [phone] Enedina Saunders DO Chronic bilateral low back pain with bilateral sciatica 11/19/2024 Refill [facility] [address], [place] [phone] Enedina Saunders DO Chronic GERD 11/18/2024 Refill [facility] [address] [place], [place] [phone] Enedina Saunders DO Essential hypertension; Muscle spasm; Chronic GERD 11/12/2024 1:00 PM EST Office Visit [facility] WALK[facility]IN CENTER [address] [place] [address] Viridiana Urbina MD Acute right eye pain (Primary Dx) 11/12/2024 Telephone [facility] MEDICINE [address] [place], [place] [phone] Enedina Saunders DO Nurse Triage 11/06/2024 Telephone [facility] OPTOMETRY [address] [place], [place] [phone] Leilani Duran, OD from Last 3 Months Immunizations Name Administration [...] [facility] OPTOM[facility] [address] [place] [address] Graham, Enriqueta, OD [address] [place] [address] Health Maintenance Due Date Last Done Comments [...] Procedure Name Priority Date/Time Associated Diagnosis Comments HEPATITIS C AB W/REFL TO HCV RNA, QN, PCR Routine 10/15/2024 3:25 PM EST Healthcare maintenance HIV 1/2 ANTIGEN/ANTIBODY, FOURTH GENERATION W/RFL Routine 10/15/2024 3:25 PM EST Healthcare maintenance HEMOGLOBIN A1C Routine 10/15/2024 3:25 PM EST Type 2 diabetes mellitus with other diabetic kidney complication (CMS/HCC) Essential hypertension LIPID PANEL, STANDARD Routine 10/15/2024 3:25 PM EST Type 2 diabetes mellitus with other diabetic kidney complication (CMS/HCC) Essential hypertension FECAL GLOBIN BY IMMUNOCHEMISTRY Routine 12/29/2022 12:00 AM EDT Special screening for malignant neoplasms, colon from Last 3 Months or Most Recently Relevant to Health Maintenance Results * Hepatitis C Antibody with Reflex to HCV, RNA, Quantitative, Real-Time PCR (10/15/2024 3:25 PM EST) Hepatitis C Antibody Nonreactive Nonreactive [facility] Comment:Antibodies to HCV no t detected; does not exclude early acuteHCV infection. Blood Venous blood specimen / Unknown 10/15/2024 3:25 PM EST 10/15/2024 3:25 PM EST us Enedina Saunders DO LAB BLOOD ORDERABLES Final R esult [facility] [address] [place] [phone] * HIV-1/2 Antigen and Antibodies, Fourth Generation, with Reflexes (10/15/2024 3:25 PM EST) HIV AB/AG Nonreactive Nonreactive [facility] Comment:HIV-1 p24 Ag and/or HIV-1/HIV-2 Ab not detected.A test result that is nonreactive does not exclude thepossibility of exposure to or infection with HIV-1 and/orHIV-2. Nonreactive results in this assay for individualswith prior exposure to HIV-1 and/or HIV-2 may be due toantigen and antibody levels that are below the limit ofdetection of this assay.The [email or web address]) HIV Ag/Ab Combo assay result andsupplemental assay results should be interpreted inconjunction with the patient's clinical presentation,history and other laboratory results. If the results areinconsistent with clinical evidence, additional testing issuggested to confirm the result. Blood Venous blood specimen / Unknown 10/15/2024 3:25 PM EST 10/15/2024 3:25 PM EST Enedina Saunders LAB BLOOD ORDERABLES Final R esult Performing Organization Address City[facility] Co de Phone Number [facility] [address] [place] [phone] * (ABNORMAL) Hemoglobin A1c (10/15/2024 3:25 PM EST) Hemoglobin A1c 7.1(H) <6.0 % [facility] Comment:Hemoglobin A1C Refer ence Range Adults: 4.8 - 6.0 % Non diabetic: < 6.0 % Goal: < 7.0 %Additional Action Suggested: > 8.0 %Note: Hemoglobin A1c results are invalid for patients with abnormal amounts of HbF. Blood transfusions may impact the HbA1c concentration in the patient sample. Estimated Average Glucose 157 mg/dL [facility] Comment:eAG = Estimated ave rage glucose which is %A1C expressed asaverage glucose, using the formula of the Z1V-JzcspkmYbjhfqu Glucose study (ADAG), Diabetes Care, Vol.31,#8,May. 2007 Blood Venous blood specimen / Unknown 10/15/2024 3:25 PM EST 10/15/2024 3:25 PM EST Enedina Saunders DO LAB BLOOD ORDERABLES Final R esult Performing Organization Address [facility] Co de Phone Number [facility] [address] [place] [phone] * (ABNORMAL) Lipid Panel, Standard (10/15/2024 3:25 PM EST) Triglycerides 108 <150 mg/dL [facility] Comment:Desirable Triglyceri de: less than 150 mg/dLBorderline High Triglyceride 150-199 mg/dLHigh Triglyceride: 200-499 mg/dLVery High Triglyceride: greater than or equal to 5OO mg/dL Cholesterol 190 <200 mg/dL [facility] Comment:Desirable Cholestero l: less than 200 mg/dLBorderline High Cholesterol: 200-239 mg/dLHigh Cholesterol: greater than 239 mg/dL LDL Cholesterol Calculated 130(H) <100 mg/dL [facility] Comment:Desirable LDL: less than 100 mg/dLNear Optimal/Above Optimal LDL: 110- 129 mg/dLBorderline High LDL: 130-159 mg/dLHigh LDL: 160-189 mg/dLVery High LDL: greater than or equal to 190 mg/dL HDL Cholesterol 39(L) >40 mg/dL [facility] Comment:Desirable HDL: great er than 40 mg/dL Note: This HDL assay may give artificially low results in patients with liver disease. Blood Venous blood specimen / Unknown 10/15/2024 3:25 PM EST 10/15/2024 3:25 PM EST us Enedina Saunders DO LAB BLOOD ORDERABLES Final R esult [facility] [address] [place] [phone] * Fecal Globin by Immunochemistry (12/29/2022 12:00 AM EDT) Fecal Globin By Immunochemistry SEE NOTE [facility] Comment: ??FECAL GLOBIN BY IMMUNOCHEMISTRY ?Micro Number: ?[id number] ??Test Status: ? Final ??Specimen Source: ?? [...] STOOLS O RDERABLES Final Result [facility] [address], [place] [address] [facility] [address] [place] [phone] from Last 3 Months or Most Recently Relevant to Health Maintenance Insurance [facility] ONE CARE < 65 Care Teams Detail Supervisor Relationship Specialty Start Date End Date Enedina Saunders DO [address] [place] [phone] PCP - General Family Medicine 11/18/15
--- OUTSIDE RECORDS SUMMARY | 2025-01-30 15:19 | XMS_ITS | Encounter Summary ---
Author Organization [employer] Address [address] [facility] [address]t [place] [address] Care Team Providers Care Elevator Operator Service Name Role Phone Enedina Saunders DO Primary Care Provider + [phone] Reason for Visit * Reason Comments Med Refill Encounter Details Date Type Department Care Team (Late st Contact Info) Description 10/21/2023 Refill [facility] MEDICINE [address] [place], [place] [phone] Enedina Saunders DO [address] [place] [address] Type 2 diabetes mellitus with other diabetic kidney complication ([facility]/HCC) Social History Tobacco Use Types [...] 04/18/2025 3:00 PM EDT Office Visit [facility] OPTOMETRY [address] [place], [place] [phone] Graham, Enriqueta, OD [address] [place], [place] [phone] documented as of this encounter Visit Diagnoses Diagnosis Type 2 diabetes mellitus with other diabetic kidney complication (CMS/HCC) documented in this encounter Additional Health Concerns Assessment Noted Time PHQ-9 Depression Total Score: 0 12/21/19 23 10:36 AM EDT documented as of this encounter Care Teams Elevator Operator Service Relationship Specialty Start Date End Date Enedina Saunders DO [address] [place], [place] [phone] PCP - General Family Medicine 11/18/15 documented as of this encounter
--- OUTSIDE RECORDS SUMMARY | 2025-01-30 15:19 | XMS_ITS | Data Portability ---
Author Organization [facility] [place] [facility] Address [address] [place] [phone] Care Team Providers Care Nursery School Teacher Name Role Phone HIM CCA OTHER Assessment Encounter Date Assessment Date Assessment LastModified by Organization Details LastModified Time 02/23/2024 02/23/2024 I provided real -time medical direction via phone for this encounter, and was available for additional phone based assistance as needed. I have reviewed and agree with the Assessment and Plan as documented by the Bread Wrapper Operator. We discussed the diagnostic uncertainty of home [...] to call 911- verbalized understanding of instruction [email or web address] Not available 02/23/2024 12:03:53 Plan of Treatment Reminders Order Date Submit Date Provider Last Modified By Organization Details Last Modified Time Details Appointments None recorded. Lab BMP, serum or plasma 2023 024 [email or web address] 0 [facility], [address] [place] [address], [phone] 14:01:33 Referral None recorded. Procedures None recorded. Surgeries None recorded. Imaging None recorded. Medication Orders ketorolac 30 mg/mL (1 mL) injection solution 2023 024 [email or web address] 0 Not available 12:02:49 Arthritis Pain Relief (acetamino phen) ER 650 mg tablet,ext end release 2023 024 [facility], [address] [place] [address], [id number], 4 15:43:53 Patient TargetsNo targets recorded. Patient [...] Available UltiCare Pen Needle 32 gauge x 5/32 USE WITH INSULIN DIRECTED active Not Available [...] % 97 % 99 /min 185.42 cm 237479. 016 g 97.2 [degF] 166 mm[Hg] 90 mm[Hg] Not Available [facility] - production 4 11:12:32 Social History None recorded. Functional Status None recorded. Mental Status None recorded. Family History Nothing Reported. Medical History No medical history recorded. Past Encounters Encounter ID Performer Location Encounter Start Date Encounter Closed Date Diagnosis/Indication Diagnosis SNOMED-CT Code Diagnosis ICD10 Code Diagnosis Note [id number] Alessandra Madrigal MD Main - [facility] [address] [place] [phone] 02/23/2024 11:12:29 02/24/2024 10:36:31 Chronic low back pain 428997265 M54.50 acute on chronic-ad vised we will prescribe Tylenol again to take along with his gabapentin and tramadol. Needs to follow-up with his PCP, pain management and life insurance specialist PHILLIP as we cannot prescribe further [...] doses due to risks Note sent to managed care coordinator via [facility]: pat on 2nd floor- difficult ambulating due to pain/spina l stenosis - needs f/u with pcp/pain management /life insurance specialist - will need assistance in scheduling appointmen ts and will need help setting up ambulance transport to appointmen ts- can managed care coordinator pls assist with this. Health Concerns Section Related Observation LastModified by Organization Detai ls LastModified Time None Recorded Concern Status LastModified by Organization Details LastModified Time None Recorded Advance Directives Directive None Recorded Payers Encounter Date Sequence Insurance Name Policy Number Policy Meza Covered Member ID Meza Member ID Guarantor Name 02/23/2024 1 [facility] - DOS ON OR AFTER 2023 - DUAL ELIGIBLE - LONG-TERM OPTIONS AND ONE CARE (MEDICARE REPLACEMENT/ADV ANTAGE - HMO) Joo Dawson [id number] Joo Dawson Notes Date Note Type Note Provider Name and Address Organization Details Recorded Time 02/23/2024 text/html [facility] Nurse Triage Notes (John Hoffmann): Chief Complaints: Pain Allergies: Unknown Comments: Application Development Team Lead verified the member's name//address and phone number. [...] s/s and seek emergency treatment if needed -Josesito Hoffmann, RN Bread Wrapper Operator POC Test Results from Zechariah Torres - RANJITH iSTAT Chem8+ (1) [13:02] Na: 139 mEq/L K: 3.9 mEq/L Cl: 102 mEq/L iCa: 1.24 mmol/L TCO2: 24 mmol/L Glu: 270 mg/dL BUN: 32 mg/dL Crea: 1.1 mg/dL Hct: 32 % Hb: 10.9 g/dL A ................... ................... ................... ................... ................... ................... ................... ........ Bread Wrapper Operator Note From Zechariah Torres: [facility] visit for male patient with back pain. Pt presents lying supine in bed with daughter present. Pt [place] speaking and daughter translated for pt. Pt [...] motion with assistance in legs. Consulted with [facility] Dr. Madrigal who ordered BMP prior to toradol administration. Blood drawn and BMP results uploaded. [facility] ordered 15 mg IM toradol. Pt encouraged [...] of this service Alessandra Madrigal MD [address] [facility],[address], [place], [phone], MADELYN - ROSALBA SAAB 02/23/2024 14:02:20
--- OUTSIDE RECORDS SUMMARY | 2025-01-30 15:19 | XMS_ITS | Encounter Summary ---
Author Organization [employer] Address [address] [facility] 7t [place] [address] Care Team Providers Care Plant Sciences Professor Name Role Phone Enedina Saunders DO Primary Care Provider + [phone] Reason for Visit * Reason Comments Med Refill Encounter Details Date Type Department Care Team (Late st Contact Info) Description 02/10/2024 Refill [facility] [address] [place], [place] [phone] Enedina Saunders DO 230 [place] [address] Back pain, unspecified back location, unspecified back [...] Description 04/18/2025 3:00 PM EDT Office Visit [facility] [address] [place] [address] Enriqueta Stevenson, OD 230 [place] [address] documented as of this encounter Visit Diagnoses Diagnosis Back pain, unspecified back location, unspecified back pain laterality, unspecified chronicity documented in this encounter Additional Health Concerns Assessment Noted Time PHQ-9 Depression Total Score: 4 02/08/20 24 3:47 PM EDT documented as of this encounter Care Teams Plant Sciences Professor Relationship Specialty Start Date End Date Enedina Saunders DO [address] [place] [address] PCP - General Family Medicine 11/18/15 documented as of this encounter
--- OUTSIDE RECORDS SUMMARY | 2025-01-30 15:19 | XMS_ITS | Encounter Summary ---
Author Organization [employer] Address [address] [facility] 7t [place] [address] Care Team Providers Care Folding Machine Tender Name Role Phone Enedina Saunders DO Primary Care Provider + [phone] Reason for Visit * Reason Onset Date Comments Call Back Request 04/06/2024 Encounter Details Date Type Department Care Team ([facility] st Contact Info) Description 04/06/2024 Telephone [facility] [address] [place], [place] [phone] Enedina Saunders DO [address] [place] [address] Call Back Request Social History Tobacco Use [...] to NS placed 03/05/24. MRI done at [facility] ([place]) 02/22/24 ( in chart). TC returned to daughter and daughter reports she called [facility] to inquire on status of NS [...] 04/18/2025 3:00 PM EDT Office Visit [facility] [address] [place], [place] [phone] Graham, Enriqueta, OD [address] [place], [place] [phone] documented as of this encounter Visit Diagnoses Not on filedocumented in this encounter Additional Health Concerns Assessment Noted Time PHQ-9 Depression Total Score: 4 02/08/20 24 3:47 PM EDT documented as of this encounter Care Teams Folding Machine Tender Relationship Specialty Start Date End Date Enedina Saunders DO [address] [place] [address] PCP - General Family Medicine 11/18/15 documented as of this encounter
--- OUTSIDE RECORDS SUMMARY | 2025-01-30 15:19 | XMS_ITS | Encounter Summary ---
Author Organization [employer] Address [address] [place] [address] 7t [place] [address] Care Team Providers Care Front Elevator Operator Name Role Phone Enedina Saunders DO Primary Care Provider Encounter Details Date Type Department Care Team (Late st Contact Info) Description 10/21/2022 Orders Only [facility] [address] [place] [address] Maritza Encinas LPN Social History Tobacco Use [...] Office Visit [facility] [address] [place] [address] Enriqueta Stevenson, OD [address] [place] [address] documented as of this encounter Visit Diagnoses Not on filedocumented in this encounter Care Teams Front Elevator Operator Relationship Specialty Start Date End Date Enedina Saunders DO [address] [place] [address] PCP - General Family Medicine 11/18/15 documented as of this encounter
--- OUTSIDE RECORDS SUMMARY | 2025-01-30 15:19 | XMS_ITS | Encounter Summary ---
Author Organization [employer] Address [address] [facility] 7t [place] [address] Care Team Providers Care Agriculture Science Teacher Name Role Phone Enedina Saunders Primary Care Provider + [phone] Reason for Visit * Reason Comments Med Refill Encounter Details Date Type Department Care Team (Late st Contact Info) Description 09/29/2023 Refill [facility] [address] [place], [place] [phone] Viridiana Urbina MD 230 [place] [address] Type 2 diabetes mellitus with other diabetic [...] Description 04/18/2025 3:00 PM EDT Office Visit [facility] [address] [place], [place] [phone] Graham, Enriqueta, OD 230 [place], [place] [phone] documented as of this encounter Visit Diagnoses Diagnosis Type 2 diabetes mellitus with other diabetic kidney complication (CMS/HCC) documented in this encounter Additional Health Concerns Assessment Noted Time PHQ-9 Depression Total Score: 0 12/21/19 23 10:36 AM EDT documented as of this encounter Care Teams Agriculture Science Teacher Relationship Specialty Start Date End Date Enedina Saunders DO [address] [place], [place] [phone] PCP - General Family Medicine 11/18/15 documented as of this encounter
--- OUTSIDE RECORDS SUMMARY | 2025-01-30 15:19 | XMS_ITS | Encounter Summary ---
Author Organization [employer] Address [address] [facility] [address] 7t [place] [address] Care Team Providers Care Doctor Podiatric Medicine Name Role Phone Enedina Saunders DO Primary Care Provider + [phone] Encounter Details Date Type Department Care Team (Late Contact Info) Description 11/10/2022 Orders Only [facility] [address] [place], [place] [phone] Enedina Hudson LPN Social History Tobacco Use [...] Description 04/18/2025 3:00 PM EDT Office Visit [facility] [address] [place] [address] Graham, Enriqueta, OD [address] [place] [address] documented as of this encounter Visit Diagnoses Not on filedocumented in this encounter Care Teams Doctor Podiatric Medicine Relationship Specialty Start Date End Date Enedina Saunders DO [address] [place] [address] PCP - General Family Medicine 11/18/15 documented as of this encounter
--- OUTSIDE RECORDS SUMMARY | 2025-01-30 15:19 | XMS_ITS | Encounter Summary ---
Author Organization [employer] Address [address] [facility] 7t [place] [address] Care Team Providers Care Sales Negotiator Name Role Phone Enedina Saunders DO Primary Care Provider + [phone] Reason for Visit * Reason Onset Date Comments OV notes 10/04/2023 Encounter Details Date Type Department Care Team ([facility] st Contact Info) Description 10/04/2023 Telephone [facility] [address] [place], [place] [phone] Enedina Saunders DO 230 [place] [address] OV notes Social History Tobacco Use Types [...] Description 04/18/2025 3:00 PM EDT Office Visit [facility] [address] [place] [address] Graham, Enriqueta, OD 230 [place] [address] documented as of this encounter Visit Diagnoses Not on filedocumented in this encounter Additional Health Concerns Assessment Noted Time PHQ-9 Depression Total Score: 0 12/21/19 23 10:36 AM EDT documented as of this encounter Care Teams Sales Negotiator Relationship Specialty Start Date End Date Enedina Saunders DO [address] [place] [address] PCP - General Family Medicine 11/18/15 documented as of this encounter
--- OUTSIDE RECORDS SUMMARY | 2025-01-30 15:20 | XMS_ITS | Encounter Summary ---
Author Organization [employer] Address [address] [facility] [address] [place] [address] Care Team Providers Care Crystal Report Developer Name Role Phone GianEnedina owens Primary Care Provider + [phone] Reason for Visit * Reason Comments Med Refill Encounter Details Date Type Department Care Team (Late st Contact Info) Description 12/14/2024 Refill [facility] 230 [place], [place] [phone] Viridiana Urbina MD [address] [place] [address] Social History Tobacco Use Types Packs/Day Years [...] Description 04/18/2025 3:00 PM EDT Office Visit [facility] [address] [place] [address] Graham, Enriqueta, OD 230 [place] [address] documented as of this encounter Visit Diagnoses Not on filedocumented in this encounter Additional Health Concerns Assessment Noted Time PHQ-9 Depression Total Score: 4 02/08/20 24 3:47 PM EDT documented as of this encounter Care Teams Crystal Report Developer Relationship Specialty Start Date End Date Enedina Saunders DO [address] [place] [address] PCP - General Family Medicine 11/18/15 documented as of this encounter
--- OUTSIDE RECORDS SUMMARY | 2025-01-30 15:20 | XMS_ITS | Data Portability ---
Author Organization [place] - [facility], [facility] Address [address] [place] [phone] Care Team Providers Care Land Manager Name Role Phone FRANCY PACE Primary Care Provider [phone] Assessment Encounter Date Assessment Date Assessment LastModified [...] I have given them a referral to [facility] for this. I have recommended he use his cane as to give him additional proprioceptive feedback from the ground that he is missing due to his peripheral neuropathy. I recommend strongly against the use of vestibular suppressants such as meclizine or benzodiazepines, as this will certainly make his symptoms worse. No additional otolaryngologic workup recommended. Not available 08/21/2024 14:50:10 Plan of Treatment [...] audio gram No observ ation record ed. [email or web address] Not Available 08/04 09:29:58 Result Notes None recorded. Problems Name Problem SNOMED Code Status Onset Date Resolution Date Notes Provider Name and Address Organization Details Recorded Time Gastroeso phageal reflux disease without esophagit is 730219019 Active 2019 Gastro-es ophageal reflux disease without esophagit is; Note: Date Diagnosed : 05/24/2016 1:43 PM (K21.9) Not Available [facility] 4 03:32:00 Allergic rhinitis 11055129 Active 2020 Allergic rhinitis: Due to other allergen; Note: Date Diagnosed : 05/04/2021 3:44 PM (477.8) Allergi c rhinitis: Cause unspecifi ed; Note: Date Diagnosed : 01/18/2020 9:10 AM (477.9) ; Start Date : 0 Allergi c rhinitis, unspecifi ed; Note: Date Diagnosed : 01/18/2020 9:11 AM (J30.9) ; Start Date : 0 Not Available [facility] 4 03:32:00 Conductiv e hearing loss 11131594 Active 2023 Nikki naranjo [place] - [facility] 4 13:27:23 Conductiv e hearing loss 67389071 Active 2023 ROSHNI BERGER MD [address] [place] [address],[place] [address], [place], [address] , [place] - [facility] 4 14:27:08 Tinnitus of left ear 40466123468 06 Active 2023 ROSHNI BERGER MD [address] [place] [address],[place] [address], [place], [address] , [place] - [facility] 4 14:27:44 Unsteady when walking 33406380 Active 2023 ROSHNI BERGER MD [address] [facility],[place] [address], [place], [address] , [place] - [facility] 4 14:30:08 Diabetic periphera l neuropath y 680639447 Active 2023 ROSHNI BERGER MD [address] [facility],[place] [address], [place], [address] , [place] - [facility] 4 14:48:05 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 Procedures Surgical History Date Name Laterality Status Provider Name and Address Organization Details Recorded Time 08/21/20 24 Tympanometry (00273) completed Nikki Vieira [place] [facility] 08/21/2024 13:26:48 08/21/20 24 [employer] (32292) completed Nikki Vieira [place] [facility] 08/21/2024 13:26:45 Imaging Results Imaging Date Name Status LastModified by Organiz ation Details LastModified Time 12/18/2021 MRI, brain, w/o contrast completed [email or web address] Information not available 08/21/2024 14:53:27 08/22/2024 audiogram completed [email or web address] Information n ot available 08/22/2024 09:29:58 Procedure Notes None recorded. Medical Equipment None Reported. Allergies Allergen ID Allergen Name Allergen Category Reaction Reaction Severity Criticality Documentation Date Start Date Code Code System Note Provider Name and Address Organization Details Recorded Time 786623 insulin aspart, human medicatio n Not available Not available Not available 08/21/2024 66808 RxNorm Viridiana naranjo [place] [facility] 13:36:10 805997 shellfish derived food,medi cation Not available Not available Not available 08/21/2024 01208 UNK Viridiana naranjo [place] - [facility] 13:36:16 Medications Name Sig Start Date Stop Date Status Note LastModified by Organization Details LastModified Time atorvasta tin 40 mg tablet 08/21 completed Medicati on ID: [id number] B rand Name: atorvast atmagui Sen d Method: E-Prescr ibed Sub s Allowed: subs OK Medic ationGen ericName : atorvast atin Not Available Not Available Not Available metformin 500 mg tablet 08/21 completed Medicati on ID: [id number] B rand Name: metformi n Send Method: [...] topical cream 08/21 completed Medicati on ID: [id number] B rand Name: permethr in Send Method: [...] chewable tablet 2019 active Medicati on ID: 279627 B rand Name: glucose Send Method: E-Prescr ibed Sub s Allowed: subs OK Medic ationGen ericName : glucose Not Available Not Available Not Available gabapenti n 300 mg capsule 08/21 completed Medicati on ID: [id number] B rand Name: gabapent in Send Method: E-Prescr ibed Sub s Allowed: subs OK Medic ationGen ericName : gabapent in Not Available Not Available Not Available omeprazol e 20 mg capsule,d elayed release 1 capsule by mouth 08/21 completed Medicati on ID: [id number] D uration Value: 30 Prescri bed By [...] hr 03/29 /2021 completed Medicati on ID: [id number] B rand Name: metoprol ol succinat e Send Method: E-Prescr ibed Sub s Allowed: subs OK Medic ationGen ericName : metoprol ol succinat e Not Available Not Available Not Available ergocalci ferol (vitamin D2) 1,250 mcg (50,000 unit) capsule 08/21 completed Medicati on ID: [id number] B rand Name: ergocalc iferol (vitamin D2) Send Method: E-Prescr ibed Sub s Allowed: subs OK Medic ationGen ericName : ergocalc iferol (vitamin D2) Not Available Not Available Not Available epinephri ne 0.3 mg/0.3 mL injection , auto-inje ctor 1 pen injector 2020 active Medicati on ID: [id number] D uration Value: 1 Prescri bed By [...] aerosol inhaler 2019 active Medicati on ID: [id number] B rand Name: albutero l sulfate Send [...] spray,patricia pension 08/18 completed Medicati on ID: [id number] B rand Name: fluticas one propiona te [...] ous pen 08/21 completed Medicati on ID: [id number] B rand Name: Levemir FlexTouc h U-100 [...] SNOMED-CT Code Diagnosis ICD10 Code Diagnosis Note [id number] RSOHNI BERGER MD [facility] [address] [address] 08/21/2024 12:45:13 08/21/2024 14:51:23 Conductive hearing loss 46589227 H90.0 Audiologic al evaluation results: Right ear: [...] a hermetic seal}} Tinnitus of left ear 316 9084925 106 H93.12 Today we discussed the pathophysi [...] meals and NSAIDs. Unsteady when walking 22 961498 R26.89 Complicati on due to diabetes mellitus 37951291 E13.69 Diabetic p eripheral neuropathy 144622279 E11.40 History of operative procedure on lumbar spinal structure 770123228 Z98.890 Health Concerns Section Related Observation LastModified by Organization Detai ls LastModified Time None Recorded Concern Status LastModified by Organization Details LastModified Time None Recorded Advance Directives Directive None Recorded Payers Encounter Date Sequence Insurance Name Policy Number Policy Meza Covered Member ID Meza Member ID Guarantor Name 08/21/[address] [facility] - DOS ON OR AFTER 2023 - ONE CARE (MEDICARE REPLACEMENT/ADV ANTAGE - HMO) Joo Dawson [id number] Joo Dawson Notes Date Note Type Note [...] use it a lot. ROSHNI BERGER MD [address] [place] [address], [phone], [place] - [facility] 08/21/2024 14:51:38
[2025-01-30 18:32] LABS: Anion Gap 13 (12-20); Blood Urea Nitrogen 41 mg/dL (9-16); Calcium 9.6 mg/dL (8.4-10.2); Carbon Dioxide 26 mmol/L (22-29); Chloride 104 mmol/L (96-108); Estimated Glomerular Filt Rate 56; Glucose Random 119 mg/dL (60-115); Potassium 3.8 mmol/L (3.3-5.1); Sodium 139 mmol/L (135-145)
== END 2025-01-30 14:05 | disposition home or self-care (01) ==
LOC: HO.HKASLDS 14:04
PROVIDERS: Visit Provider Ophthalmology
DX: H40.1130 Primary open-angle glaucoma, bilateral, stage unspecified (principal)
CPT/HCPCS: 36415; 80048

== ENCOUNTER 2025-03-28 12:48 | Outpatient (AMB) | payer OTHER, SELFPAY ==
[2025-03-28 13:51] VITALS: BP 117/61; PULSE 60; O2SAT 98; BMI 29.0
--- NOTE | 2025-03-28 13:51 | HO.NEPHOV_ITS ---
Vital Signs 03/28/25 13:51 Height 6 ft 1 in Weight 219 lb 8 oz BMI 29.0 BP 117/61 Blood Pressure Location Lt brachial Position Sitting Pulse 60 Pulse Source Pulse Oximeter Pulse Oximetry (%) 98 Oxygen Delivery Method Room Air Intake Visit Reasons: 4mon follow-up w/labs Commercial Carpet Installer Required: No Accompanied by: Spouse Allergies ibuprofen Allergy (Unknown, Verified 03/28/25 13:53) stomach upset Seafood Allergy (Intermediate, Uncoded 04/26/24 21:01) RASH shell fish Allergy (Unknown, Uncoded 04/26/24 21:01) Unknown Do you need a note to return to daycare/school/sports/work: No HPI Comments Details: Mr. Dawson was seen in follow up for proteinuria. He is 59 years of age and has longstanding history of diabetes mellitus. He has no history of drug use. He denies history of retinopathy, neuropathy or LVH but has proteinuria .He does not have any nausea, vomiting, diarrhea, shortness of breath, proximal nocturnal dyspnea, orthopnea, pedal edema, hematuria, renal stones, coronary artery disease, congestive heart failure, carotid stenosis, peripheral arterial disease, renal artery stenosis, new bone or back pain. He never had any history of high serum calcium. He denies any history of hepatitis or HIV. He does not get any recurrent sore throat, epistaxis, hemoptysis, photosensitivity, skin rashes. He has no sensorineural hearing deficits. His renal functions are at baseline [facility] Medical History Osteomyelitis Diabetic ulcer of toe Asthma HLD (hyperlipidemia) HTN (hypertension) Diabetes Surgical History H/O exploratory laparotomy Social History Household Members: Family Alcohol intake: never Patient Tobacco Use Status: Never used Tobacco service: No Current occupational status: disabled Review of Systems Const All systems reviewed & are unremarkable except as noted in HPI and below Physical Exam Vital Signs: Last Vital Signs Pulse 60 03/28/25 13:51 BP 117/61 03/28/25 13:51 Pulse Ox 98 03/28/25 13:51 Oxygen Delivery Method Room Air 03/28/25 13:51 BMI result Body Mass Index 29.0 Const General: comfortable and no acute distress Orientation/consciousness: patient oriented x3 HEENT Head: Yes normocephalic Mouth: Normal oral and palatal mucosa present Eyes EOM: EOMs intact bilaterally Neck Neck: Yes supple Resp Auscultation: clear to auscultation bilaterally Cardio Jugular venous distension: no JVD Rate: regular rate GI Palpation (GI): Soft to palpation Auscultation: normal bowel sounds General: Yes no CVA tenderness Back/Spine/Pelvis Back: no CVA tenderness Skin General skin exam: no rashes or lesions noted Neuro General: patient oriented x3 and moves all extremities Extrem General: Yes no pedal edema Results Reviewed Nephrology Results: Hgb, (14.0-18.0) 12.1 g/dl L 10/15/24 WBC, (4.8-10.8) 9.3 X10*3/uL 10/15/24 Plt Count, (160-400) 392 X10*3/uL 10/15/24 Sodium, (135-145) 139 mmol/L 01/30/25 Potassium, (3.3-5.1) 3.8 mmol/L 01/30/25 Chloride, (96-108) 104 mmol/L 01/30/25 Carbon Dioxide, (22-29) 26 mmol/L 01/30/25 BUN, (9-16) 41 mg/dL H 01/30/25 Creatinine, (0.5-1.4) 1.30 mg/dL 01/30/25 Calcium, (8.4-10.2) 9.6 mg/dL 01/30/25 Urine Protein, (Neg-Trace) 300 (3+) mg/dL H 12/11/24 Urine Creatinine 106.52 mg/dL 12/11/24 Protein/Creatinin Ratio, (<0.2) 2.53 H 12/11/24 Assessment & Plan Assessment & Plan (1) HTN (hypertension): Code(s): I10 - Essential (primary) hypertension Category: Medical Qualifiers: Hypertension type: primary hypertension Qualified Code(s): I10 - Essential (primary) hypertension (2) Diabetic nephropathy: Code(s): E11.21 - Type 2 diabetes mellitus with diabetic nephropathy Category: Medical Qualifiers: Diabetes mellitus type: type 2 Qualified Code(s): E11.21 - Type 2 diabetes mellitus with diabetic nephropathy (3) Nephrolithiasis: Code(s): N20.0 - Calculus of kidney Category: Medical (4) Proteinuria: Code(s): R80.9 - Proteinuria, unspecified Category: Medical Qualifiers: Proteinuria type: other Qualified Code(s): R80.8 - Other proteinuria Plan Mr. Dawson has longstanding diabetes with proteinuria. He has been on ARB. He used to take nonsteroidal anti-inflammatories intermittently. His urine output is good and there is no reason to suspect any obstructive uropathy. He has diabetic nephropathy. I increased his Jardiance to 25 mg daily. I shall consider cutting back on metformin with time after increasing Jardiance. He may need a renal biopsy. He is avoiding nonsteroidal anti-inflammatories which I encouraged. He needs to maintain hydration. Blood work today and before next visit. I did not make any other medication changes today. All the possibilities have been discussed in detail and I answered all his questions. Further management is pending evolving data. Orders: Orders Electrolytes 2 Months I10 - Essential (primary) hypertension, E11.21 - Type 2 diabetes mellitus with diabetic nephropathy, N20.0 - Calculus of kidney, R80.8 - Other proteinuria Hemoglobin A1c 2 Months I10 - Essential (primary) hypertension, E11.21 - Type 2 diabetes mellitus with diabetic nephropathy, N20.0 - Calculus of kidney, R80.8 - Other proteinuria Protein Creatinine Ratio, Ur 2 Months I10 - Essential (primary) hypertension, E11.21 - Type 2 diabetes mellitus with diabetic nephropathy, N20.0 - Calculus of kidney, R80.8 - Other proteinuria Blood Urea Nitrogen 2 Months I10 - Essential (primary) hypertension, E11.21 - Type 2 diabetes mellitus with diabetic nephropathy, N20.0 - Calculus of kidney, R80.8 - Other proteinuria Creatinine 2 Months I10 - Essential (primary) hypertension, E11.21 - Type 2 diabetes mellitus with diabetic nephropathy, N20.0 - Calculus of kidney, R80.8 - Other proteinuria Calcium 2 Months I10 - Essential (primary) hypertension, E11.21 - Type 2 diabetes mellitus with diabetic nephropathy, N20.0 - Calculus of kidney, R80.8 - Other proteinuria Medications: Changed From empagliflozin 10 mg PO DAILY 30 tabs 4RF To empagliflozin 25 mg PO DAILY 30 tabs 11RF 30 days Refilled empagliflozin 25 mg PO DAILY 30 tabs 11RF 30 days Coding Level of Care Code Est Pt Level 4 (59104) Diagnoses Primary hypertension I10 Hypertension type: primary hypertension Diabetic nephropathy associated with type 2 diabetes mellitus E11.21 Diabetes mellitus type: type 2 Nephrolithiasis N20.0 Other proteinuria R80.8 Proteinuria type: other
--- OUTSIDE RECORDS SUMMARY | 2025-03-28 15:13 | XMS_ITS | Data Portability ---
Author Organization [facility], [facility] Address [address] [place] [phone] Care Team Providers Care Regulatory Submissions Specialist Name Role Phone HIM CCA OTHER Assessment Encounter Date Assessment Date Assessment LastModified by Organization Details LastModified Time 02/23/2024 02/23/2024 I provided real -time medical direction via phone for this encounter, and was available for additional phone based assistance as needed. I have reviewed and agree with the Assessment and Plan as documented by the Mdm Developer. We discussed the diagnostic uncertainty of home [...] to call 911- verbalized understanding of instruction [email or web address] Not available 02/23/2024 12:03:53 Plan of Treatment Reminders Order Date Submit Date Provider Last Modified By Organization Details Last Modified Time Details Appointments None recorded. Lab BMP, serum or plasma 2023 [email or web address] 0 [facility], [address] [place] [address], [phone] 14:01:33 Referral None recorded. Procedures None recorded. Surgeries None recorded. Imaging None recorded. Medication Orders ketorolac 30 mg/mL (1 mL) injection solution 2023 024 [email or web address] 0 Not available 12:02:49 Arthritis Pain Relief (acetamino phen) ER 650 mg tablet,ext end release 2023 [facility], [address] [place] [address], [id number], 4 15:43:53 Patient TargetsNo targets recorded. Patient [...] % 97 % 99 /min 185.42 cm 208885. 016 g 97.2 [degF] 166 mm[Hg] 90 mm[Hg] Not Available [facility] - production 4 11:12:32 Social History None recorded. Functional Status None recorded. Mental Status None recorded. Family History Nothing Reported. Medical History No medical history recorded. Past Encounters Encounter ID Performer Location Encounter Start Date Encounter Closed Date Diagnosis/Indication Diagnosis SNOMED-CT Code Diagnosis ICD10 Code Diagnosis Note [id number] Alessandra Madrigal MD Main - [facility] [address] [place] [address] 02/23/2024 11:12:29 02/24/2024 10:36:31 Chronic low back pain [id number] M54.50 acute on chronic-ad vised we will prescribe Tylenol again to take along with his gabapentin and tramadol. Needs to follow-up with his PCP, pain management and cryptologic support specialist PHILLIP as we cannot prescribe [...] doses due to risks Note sent to acute care assistant via CRC: pat on 2nd floor- difficult ambulating due to pain/spina l stenosis - needs f/u with pcp/pain management /cryptologic support specialist - will need assistance in scheduling appointmen ts and will need help setting up ambulance transport to appointmen ts- can acute care assistant pls assist with this. Health Concerns Section Related Observation LastModified by Organization Detai ls LastModified Time None Recorded Concern Status LastModified by Organization Details LastModified Time None Recorded Advance Directives Directive None Recorded Payers Insurance Date Sequence Insurance Name Policy Number Policy Meza Covered Member ID Meza Member ID Guarantor Name 03/16/2024 1 [facility] - DOS ON OR AFTER 2023 - DUAL ELIGIBLE - RESIDENTIAL OPTIONS AND ONE CARE (MEDICARE REPLACEMENT/ADV ANTAGE - HMO) Joo Dawson [id number] Joo Dawson Notes Date Note Type Note Provider Name and Address Organization Details Recorded Time 02/23/2024 text/html CRC Nurse Triage Notes (John Hoffmann): Chief Complaints: Pain Allergies: Unknown Comments: Casing Man verified the member's name//address and phone number. [...] emergency treatment if needed -HMelanie Hoffmann, RN Mdm Developer POC Test Results from Zechariah Torres - RANJITH iSTAT Chem8+ (1) [13:02] Na: 139 mEq/L K: 3.9 mEq/L Cl: 102 mEq/L iCa: 1.24 mmol/L TCO2: 24 mmol/L Glu: 270 mg/dL BUN: 32 mg/dL Crea: 1.1 mg/dL Hct: 32 % Hb: 10.9 g/dL A ................... ................... ................... ................... ................... ................... ................... ........ Mdm Developer Note From Zechariah Torres: Smartcare visit for male patient with back pain. Pt presents lying supine in bed with daughter present. Pt Georgian speaking and daughter translated for pt. Pt [...] motion with assistance in legs. [place]ed [place] [facility] [place] Madrigal who ordered BMP prior to toradol administration. Blood drawn and BMP results uploaded. [facility] [place] 15 mg IM toradol. Pt encouraged [...] of this service Alessandra Madrigal MD [address] [facility],[address], [place], [address], MADELYN - ROSALBA SAAB 02/23/2024 14:02:20
== END 2025-03-28 14:27 | disposition home or self-care (01) ==
LOC: HO.HKAS 12:48
PROVIDERS: PCP Family Medicine; Visit Provider Internal Medicine Nephrology
DX: I10 Essential (primary) hypertension (principal); E11.21 Type 2 diabetes mellitus with diabetic nephropathy; N20.0 Calculus of kidney; R80.8 Other proteinuria
CPT/HCPCS: 99214

== ENCOUNTER → 2025-03-28 12:48 | Outpatient (BNVA) | payer OTHER, SELFPAY | PROVIDERS: PCP Family Medicine; Visit Provider Internal Medicine Nephrology | DX: I10 Essential (primary) hypertension (principal); E11.21 Type 2 diabetes mellitus with diabetic nephropathy; N20.0 Calculus of kidney; R80.8 Other proteinuria | CPT/HCPCS: 99212 ==

== ENCOUNTER 2025-04-12 14:33 | Outpatient (REF) | payer OTHER, SELFPAY ==
--- OUTSIDE RECORDS SUMMARY | 2025-04-12 14:37 | XMS_ITS | Encounter Summary ---
Author Organization [employer] Address [address] [facility] 7t [place] [address] Care Team Providers Care Pile Trimmer Name Role Phone NickyEnedina Primary Care Provider + [phone] Encounter Details Date Type Department Care Team ([facility] Contact Info) Description 11/10/2022 Orders Only [facility] PED[facility] [address] [place], [place] [phone] Enedina Hudson LPN Social History Tobacco Use [...] Description 04/18/2025 3:00 PM EDT Office Visit [facility] OPTOMETRY [address] [place], [place] [phone] Enriqueta [place], OD [address] [place] [address] 04/29/2025 10:00 AM EDT Clinical Support [facility] MEDICINE [address] [place], [place] [phone] Jenny Escobar RN documented as of this encounter Visit Diagnoses Not on filedocumented in this encounter Care Teams Pile Trimmer Relationship Specialty Start Date End Date Enedina Saunders DO [address] [place] [address] PCP - General Family Medicine 11/18/15 documented as of this encounter
--- OUTSIDE RECORDS SUMMARY | 2025-04-12 14:37 | XMS_ITS | Data Portability ---
Author Organization [facility], [facility] Address [address] [place] [phone] Care Team Providers Care Rate Quoting Operator Name Role Phone HIM CCA OTHER Assessment Encounter Date Assessment Date Assessment LastModified by Organization Details LastModified Time 02/23/2024 02/23/2024 I provided real -time medical direction via phone for this encounter, and was available for additional phone based assistance as needed. I have reviewed and agree with the Assessment and Plan as documented by the Emergency Services Director. We discussed the diagnostic uncertainty of home [...] to call 911- verbalized understanding of instruction [email or web address] Not available 02/23/2024 12:03:53 Plan of Treatment Reminders Order Date Submit Date Provider Last Modified By Organization Details Last Modified Time Details Appointments None recorded. Lab BMP, serum or plasma 2023 [email or web address] 0 [facility], [address] [place] [address], [id number] 14:01:33 Referral None recorded. Procedures None recorded. Surgeries None recorded. Imaging None recorded. Medication Orders ketorolac 30 mg/mL (1 mL) injection solution 2023 024 [email or web address] 0 Not available 12:02:49 Arthritis Pain Relief (acetamino phen) ER 650 mg tablet,ext end release 2023 [facility], [address] [place] [address], [id number], 4 15:43:53 Patient TargetsNo targets recorded. Patient [...] Body height Body weight Body temperature Systolic And Diastolic Provider Name and Address Organization Details Last Updated DateTime 4 16 /min 97 % 97 % 99 /min 185.42 cm 193591. 016 g 97.2 [degF] 166/90 mm[Hg] Not Available [facility] - production 4 11:12:32 Social History None recorded. Functional Status None recorded. Mental Status None recorded. Family History Nothing Reported. Medical History No medical history recorded. Past Encounters Encounter ID Performer Location Encounter Start Date Encounter Closed Date Diagnosis/Indication Diagnosis SNOMED-CT Code Diagnosis ICD10 Code Diagnosis Note [id number] Alessandra Madrigal MD Main - [facility] [address] [place] [address] 02/23/2024 11:12:29 02/24/2024 10:36:31 Chronic low back pain [id number] M54.50 acute on chronic-ad vised we will prescribe Tylenol again to take along with his gabapentin and tramadol. Needs to follow-up with his PCP, pain management and benefits specialist recruiter PHILLIP as we cannot prescribe further controlled [...] doses due to risks Note sent to care provider via CRC: pat on 2nd floor- difficult ambulating due to pain/spina l stenosis - needs f/u with pcp/pain management /benefits specialist recruiter - will need assistance in scheduling appointmen ts and will need help setting up ambulance transport to appointmen ts- can care provider pls assist with this. Health Concerns Section Related Observation LastModified by Organization Detai ls LastModified Time None Recorded Concern Status LastModified by Organization Details LastModified Time None Recorded Advance Directives Directive None Recorded Payers Insurance Date Sequence Insurance Name Policy Number Policy Meza Covered Member ID Meza Member ID Guarantor Name 03/16/2024 1 [facility] - DOS ON OR AFTER 2023 - DUAL ELIGIBLE - FDC OPTIONS AND ONE CARE (MEDICARE REPLACEMENT/ADV ANTAGE - HMO) Joo Dawson [id number] Joo Dawson Notes Date Note Type Note Provider Name and Address Organization Details Recorded Time 02/23/2024 text/html CRC Nurse Triage Notes (John Hoffmann): Chief Complaints: Pain Allergies: Unknown Comments: Sql Bi Developer verified the member's name//address and phone number. [...] emergency treatment if needed -Josesito Hoffmann, RN Emergency Services Director POC Test Results from Zechariah Torres - RANJITH iSTAT Chem8+ (1) [13:02] Na: 139 mEq/L K: 3.9 mEq/L Cl: 102 mEq/L iCa: 1.24 mmol/L TCO2: 24 mmol/L Glu: 270 mg/dL BUN: 32 mg/dL Crea: 1.1 mg/dL Hct: 32 % Hb: 10.9 g/dL A ................... ................... ................... ................... ................... ................... ................... ........ Emergency Services Director Note From Zechariah Torres: Smartcare visit for male patient with back pain. Pt presents lying supine in bed with daughter present. Pt Djiboutian speaking and daughter translated for pt. Pt [...] motion with assistance in legs. [place] [facility] [place] Mad[place] who ordered BMP prior to toradol administration. Blood drawn and BMP results uploaded. [facility] [place] 15 mg IM toradol. Pt encouraged [...] of this service Alessandra Madrigal MD [address] [facility],[address], [place], [address], MADELYN - ROSALBA SAAB 02/23/2024 14:02:20
[2025-04-12 14:51] LABS: MANUAL DIFF FLAG NO
[2025-04-12 14:59] LABS: Hematocrit 33.3 % (42.0-52.0); Hemoglobin 11.4 g/dl (14.0-18.0); Imm Gran Abs Auto 0.05 X10*3/uL (0.00-0.03); Imm Gran Pct Auto 0.5 % (0.0-0.4); Lymphocytes Absolute Auto 2.8 X10*3/uL (1.2-4.9); Mean Corpuscular HGB Conc 34.2 g/dl (31.0-36.0); Mean Corpuscular Hemoglobin 29.9 pg (27.0-33.0); Mean Corpuscular Volume 87.4 fL (80.0-98.0); NRBC Abs Auto 0.000 X10*3/uL (0.0-0.012); NRBC Pct Auto 0.0 /100WBC (0.0-0.2); Platelet Count 342 X10*3/uL (160-400); Red Blood Count 3.81 X10*6/uL (4.60-5.80); White Blood Count 11.0 X10*3/uL (4.8-10.8)
[2025-04-12 16:01] LABS: Hemoglobin A1C 165.9377 umol/L; Total Hemoglobin (HGBA1C) 3051.3685 umol/L
[2025-04-12 16:35] LABS: Alanine Aminotransferase 33 U/L (0-40); Albumin Level 4.1 g/dL (3.5-5.0); Alkaline Phosphatase 149 U/L (39-117); Anion Gap 11 (12-20); Aspartate Amino Transferase 19 U/L (5-37); Blood Urea Nitrogen 30 mg/dL (9-16); Calcium 9.2 mg/dL (8.4-10.2); Carbon Dioxide 21 mmol/L (22-29); Chloride 112 mmol/L (96-108); Cholesterol 99 mg/dL (<200); Estimated Glomerular Filt Rate 48; HDL Cholesterol 32 mg/dL (>40); Iron 49 mcg/dL (45-160); Percent Iron Saturation 20 % (15-50); Potassium 4.0 mmol/L (3.3-5.1); Sodium 140 mmol/L (135-145); Total Iron Binding Capacity 248 mcg/dL (228-428); Total Protein 7.3 g/dL (6.5-8.0); Triglycerides 84 mg/dL (<150); Unsaturated Iron Binding 199 ug/dL
[2025-04-12 16:47] LABS: Protein/Creatinine Ratio, Ur 0.82 (<0.2); Total Protein Urine Random 109 mg/dL (<12)
[2025-04-12 16:54] LABS: Thyroid Stimulating Hormone 1.86 uIU/mL (0.32-4.0)
[2025-04-12 16:56] LABS: Ferritin 147 ng/mL (20-250); Free T4 (Free Thyroxine) 1.01 ng/dL (0.71-1.85)
[2025-04-12 17:17] LABS: Folate 14.6 ng/mL (> or = 4.0); Vitamin B12 442 pg/mL (200-900)
== END 2025-04-12 14:34 | disposition home or self-care (01) ==
LOC: HO.LAB 14:33
PROVIDERS: Internal Medicine Nephrology; PCP Family Medicine; Visit Provider Family Medicine
DX: Z00.00 Encounter for general adult medical examination without abnormal findings (principal); R80.8 Other proteinuria; N20.0 Calculus of kidney; I10 Essential (primary) hypertension; E11.29 Type 2 diabetes mellitus with other diabetic kidney complication; E78.49 Other hyperlipidemia; F33.9 Major depressive disorder, recurrent, unspecified; J45.30 Mild persistent asthma, uncomplicated; K21.9 Gastro-esophageal reflux disease without esophagitis; M54.42 Lumbago with sciatica, left side; M54.41 Lumbago with sciatica, right side; G89.29 Other chronic pain; R79.89 Other specified abnormal findings of blood chemistry; D47.2 Monoclonal gammopathy; G47.30 Sleep apnea, unspecified; R42 Dizziness and giddiness; E11.21 Type 2 diabetes mellitus with diabetic nephropathy
CPT/HCPCS: 36415; 80048; 80061; 80076; 81001; 82306; 82570; 82607; 82728; 82746; 83036; 83540; 84156; 84439; 84443; 85025

== ENCOUNTER 2025-04-26 14:47 | Outpatient (REF) | payer OTHER, SELFPAY ==
--- NOTE | ~2025-04-26 | XR_ITS ---
EXAMINATION: XR FOOT 3 OR MORE VIEWS LEFT HISTORY: r/o osteomyelitis COMPARISON: There are no prior studies available for comparison. FINDINGS: Four views of the left foot are submitted. Osseous mineralization is normal. There is no fracture or dislocation. The joint spaces are preserved. There are vascular calcifications. There is a small ulceration of the plantar aspect of the foot at the level of the metatarsal heads. XR/XR foot LT min 3V IMPRESSION: Small soft tissue ulceration at the plantar aspect of the foot. No plain film evidence of osteomyelitis. If this remains a clinical concern, three-phase bone scan or MRI could be performed. Electronically signed by: Terrance [place] MD 04/26/2025 03:48 PM EDT
--- OUTSIDE RECORDS SUMMARY | 2025-04-26 14:49 | XMS_ITS | Encounter Summary ---
Author Organization [employer] Address [address] [facility] 7t [place] [address] Care Team Providers Care Production Control Specialist Name Role Phone Nicky Enedina Primary Care Provider + [phone] Encounter Details Date Type Department Care Team ([facility] Contact Info) Description 11/10/2022 Orders Only [facility] MED & PEDS [address] [place], [place] [phone] Enedina Hudson LPN Social History Tobacco Use [...] Department Care Team (Late Contact Info) Description 04/29/2025 10:00 AM EDT Clinical Support [facility] MEDICINE [address] [place] [address] Jenny Escobar RN 10/21/2025 1:00 PM EST Office Visit [facility] OPTOMETRY [address] [place] [address] Enriqueta Stevenson, OD [address] [place] [address] documented as of this encounter Visit Diagnoses Not on filedocumented in this encounter Care Teams Production Control Specialist Relationship Specialty Start Date End Date Enedina Saunders DO [address] [place] [address] PCP - General Family Medicine 11/18/15 documented as of this encounter
--- OUTSIDE RECORDS SUMMARY | 2025-04-26 14:49 | XMS_ITS | Data Portability ---
Author Organization [employer] [facility], [facility] Address [address] [place] [phone] Care Team Providers Care Marketing Programs Specialist Name Role Phone HIM CCA OTHER Assessment Encounter Date Assessment Date Assessment LastModified by Organization Details LastModified Time 02/23/2024 02/23/2024 I provided real -time medical direction via phone for this encounter, and was available for additional phone based assistance as needed. I have reviewed and agree with the Assessment and Plan as documented by the Human Resources Recruiter. We discussed the diagnostic uncertainty of home [...] to call 911- verbalized understanding of instruction [email or web address] Not available 02/23/2024 12:03:53 Plan of Treatment Reminders Order Date Submit Date Provider Last Modified By Organization Details Last Modified Time Details Appointments None recorded. Lab BMP, serum or plasma 2023 [email or web address] 0 [facility], [address] [place] [address], [id number] 14:01:33 Referral None recorded. Procedures None recorded. Surgeries None recorded. Imaging None recorded. Medication Orders ketorolac 30 mg/mL (1 mL) injection solution 2023 024 [email or web address] 0 Not available 12:02:49 Arthritis Pain Relief (acetamino phen) ER 650 mg tablet,ext end release 2023 [facility], [address] [place] [address], [id number], 4 15:43:53 Patient TargetsNo targets recorded. Patient [...] % 97 % 99 /min 185.42 cm 703951. 016 g 97.2 [degF] 166/90 mm[Hg] Not Available [facility] - production 4 11:12:32 Social History None recorded. Functional Status None recorded. Mental Status None recorded. Family History Nothing Reported. Medical History No medical history recorded. Past Encounters Encounter ID Performer Location Encounter Start Date Encounter Closed Date Diagnosis/Indication Diagnosis SNOMED-CT Code Diagnosis ICD10 Code Diagnosis Note [id number] Alessandra Madrigal MD Main - [facility] [address] [place] [address] 02/23/2024 11:12:29 02/24/2024 10:36:31 Chronic low back pain [id number] M54.50 acute on chronic-ad vised we will prescribe Tylenol again to take along with his gabapentin and tramadol. Needs to follow-up with his PCP, pain management and legal specialist PHILLIP as we cannot prescribe further [...] doses due to risks Note sent to transitional care nurse via CRC: pat on 2nd floor- difficult ambulating due to pain/spina l stenosis - needs f/u with pcp/pain management /legal specialist - will need assistance in scheduling appointmen ts and will need help setting up ambulance transport to appointmen ts- can transitional care nurse pls assist with this. Health Concerns Section Related Observation LastModified by Organization Detai ls LastModified Time None Recorded Concern Status LastModified by Organization Details LastModified Time None Recorded Advance Directives Directive None Recorded Payers Insurance Date Sequence Insurance Name Policy Number Policy Meza Covered Member ID Meza Member ID Guarantor Name 03/16/2024 1 [facility] - DOS ON OR AFTER 2023 - DUAL ELIGIBLE - FPC OPTIONS AND ONE CARE (MEDICARE REPLACEMENT/ADV ANTAGE - HMO) Joo Dawson [id number] Joo Dawson Notes Date Note Type Note Provider Name and Address Organization Details Recorded Time 02/23/2024 text/html ROS as noted in the [facility] CRC Nurse Triage Notes (John Hoffmann): Chief Complaints: Pain Allergies: Unknown Comments: Transmitter Engineer In Charge verified the member's name//address and phone number. [...] emergency treatment if needed -HMelanie Hoffmann, RN Human Resources Recruiter POC Test Results from Zechariah Torres - RANJITH iSTAT Chem8+ (1) [13:02] Na: 139 mEq/L K: 3.9 mEq/L Cl: 102 mEq/L iCa: 1.24 mmol/L TCO2: 24 mmol/L Glu: 270 mg/dL BUN: 32 mg/dL Crea: 1.1 mg/dL Hct: 32 % Hb: 10.9 g/dL A ................... ................... ................... ................... ................... ................... ................... ........ Human Resources Recruiter Note From Zechariah Torres: Smartcare visit for male patient with back pain. Pt presents lying supine in bed with daughter present. Pt Algerian speaking and daughter translated for pt. Pt [...] motion with assistance in legs. Consulted with [facility] [place] Madrigal who ordered BMP prior to toradol administration. Blood drawn and BMP results uploaded. [facility] ordered 15 mg IM toradol. Pt [...] of this service Alessandra Madrigal MD [address] [facility],[address], [place], [address], MADELYN - ROSALBA SAAB 02/23/2024 14:02:20
== END 2025-04-26 14:48 | disposition home or self-care (01) ==
LOC: HO.HHCX 14:47
PROVIDERS: Visit Provider Internal Medicine
DX: L97.529 Non-pressure chronic ulcer of other part of left foot with unspecified severity (principal); Z03.89 Encounter for observation for other suspected diseases and conditions ruled out
CPT/HCPCS: 73630

== ENCOUNTER → 2025-04-26 14:47 | Outpatient (BNV) | payer OTHER, SELFPAY | PROVIDERS: Visit Provider Radiology Diagnostic Radiology | DX: L97.529 Non-pressure chronic ulcer of other part of left foot with unspecified severity (principal) | CPT/HCPCS: 73630 ==

== ENCOUNTER 2025-04-29 13:39 | Outpatient (REF) | payer OTHER, SELFPAY ==
--- OUTSIDE RECORDS SUMMARY | 2025-04-29 14:20 | XMS_ITS | Encounter Summary ---
Author Organization [employer] Address [address] [facility] 7t [place] [address] Care Team Providers Care Plasterer Stucco Name Role Phone Nicky Enedina Primary Care Provider + [phone] Encounter Details Date Type Department Care Team ([facility] Contact Info) Description 11/10/2022 Orders Only [facility] MED & PEDS [address] [place], [place] [phone] Enedina Hudson LPN Social History Tobacco Use [...] Department Care Team (Late Contact Info) Description 08/01/2025 10:00 AM EDT Clinical Support [facility] MEDICINE [address] [place] [address] Jenny Escobar RN 10/21/2025 1:00 PM EST Office Visit [facility] OPTOMETRY [address] [place] [address] Enriqueta [place], OD [address] [place] [address] documented as of this encounter Visit Diagnoses Not on filedocumented in this encounter Care Teams Plasterer Stucco Relationship Specialty Start Date End Date Enedina Saunders DO [address] [place] [address] PCP - General Family Medicine 11/18/15 documented as of this encounter
--- OUTSIDE RECORDS SUMMARY | 2025-04-29 14:20 | XMS_ITS | Data Portability ---
Author Organization [employer] [facility], [facility] Address [address] [place] [phone] Care Team Providers Care Data Warehouse Developer Name Role Phone HIM CCA OTHER Assessment Encounter Date Assessment Date Assessment LastModified by Organization Details LastModified Time 02/23/2024 02/23/2024 I provided real -time medical direction via phone for this encounter, and was available for additional phone based assistance as needed. I have reviewed and agree with the Assessment and Plan as documented by the Receiving Inspector. We discussed the diagnostic uncertainty of [...] to call 911- verbalized understanding of instruction [email or web address] Not available 02/23/2024 12:03:53 Plan of Treatment Reminders Order Date Submit Date Provider Last Modified By Organization Details Last Modified Time Details Appointments None recorded. Lab BMP, serum or plasma [email or web address] [facility], [address] [place] [address], [id number] 14:01:33 Referral None recorded. Procedures None recorded. Surgeries None recorded. Imaging None recorded. Medication Orders ketorolac 30 mg/mL (1 mL) injection solution 2023 024 [email or web address] 0 Not available 12:02:49 Arthritis Pain Relief (acetamino phen) ER 650 mg tablet,ext end release 2023 [facility], [address] [place] [address], [id number], 4 15:43:53 Patient TargetsNo targets recorded. Patient [...] % 97 % 99 /min 185.42 cm 012250. 016 g 97.2 [degF] 166/90 mm[Hg] Not Available [facility] - production 4 11:12:32 Social History None recorded. Functional Status None recorded. Mental Status None recorded. Family History Nothing Reported. Medical History No medical history recorded. Past Encounters Encounter ID Performer Location Encounter Start Date Encounter Closed Date Diagnosis/Indication Diagnosis SNOMED-CT Code Diagnosis ICD10 Code Diagnosis Note [id number] Alessandra Madrigal MD Main - [facility] [address] [place] [address] 02/23/2024 11:12:29 02/24/2024 10:36:31 Chronic low back pain [id number] M54.50 acute on chronic-ad vised we will prescribe Tylenol again to take along with his gabapentin and tramadol. Needs to follow-up with his PCP, pain management and predictive maintenance specialist PHILLIP as we cannot prescribe further [...] doses due to risks Note sent to career services assistant via CRC: pat on 2nd floor- difficult ambulating due to pain/spina l stenosis - needs f/u with pcp/pain management /predictive maintenance specialist - will need assistance in scheduling appointmen ts and will need help setting up ambulance transport to appointmen ts- can career services assistant pls assist with this. Health Concerns Section Related Observation LastModified by Organization Detai ls LastModified Time None Recorded Concern Status LastModified by Organization Details LastModified Time None Recorded Advance Directives Directive None Recorded Payers Insurance Date Sequence Insurance Name Policy Number Policy Meza Covered Member ID Meza Member ID Guarantor Name 03/16/2024 1 [facility] - DOS ON OR AFTER 2023 - DUAL ELIGIBLE - INTERMEDIATE OPTIONS AND ONE CARE (MEDICARE REPLACEMENT/ADV ANTAGE - HMO) Joo Dawson [id number] Joo Dawson
[2025-05-03 09:51] LABS: Alphahydroxytriazolam, GCMS Ur NEGATIVE; Lorazepam GCMS Urine NEGATIVE; Nordiazepam, GCMS Urine NEGATIVE; Oxazepam, GCMS Urine NEGATIVE; Temazepam, GCMS Urine NEGATIVE
[2025-05-03 09:52] LABS: Alphahydroxymidazolam,GCMS Ur NEGATIVE; Alprazolam, GCMS Urine NEGATIVE; Aminoclonazepam, GCMS Urine NEGATIVE; Flurazepam Metabolite,GCMS Ur NEGATIVE
== END 2025-04-29 13:40 | disposition home or self-care (01) ==
LOC: HO.HHCLNP 13:39
PROVIDERS: Visit Provider Family Medicine
DX: Z51.81 Encounter for therapeutic drug level monitoring (principal); Z79.891 Long term (current) use of opiate analgesic
CPT/HCPCS: 80307; 80346

== ENCOUNTER 2025-05-16 09:54 | Outpatient (REF) | payer OTHER, SELFPAY ==
--- NOTE | ~2025-05-16 | XR_ITS ---
EXAMINATION: XR WRIST 3 OR MORE VIEWS LEFT, XR HAND 3 OR MORE VIEWS LEFT HISTORY: worsening L wrist and hand pain s/p trauma COMPARISON: There are no prior studies available for comparison. FINDINGS: Seven views of the left hand and wrist including a scaphoid view are submitted. Osseous mineralization is normal. There is no fracture or dislocation. The joint spaces are preserved. 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 There are vascular calcifications. XR/XR hand LT min 3V IMPRESSION: No evidence of fracture of the left hand or wrist. Electronically signed by: Terrance Sanders MD 05/16/2025 12:10 PM EDT
--- NOTE | ~2025-05-16 | XR_ITS ---
EXAMINATION: XR WRIST 3 OR MORE VIEWS LEFT, XR HAND 3 OR MORE VIEWS LEFT HISTORY: worsening L wrist and hand pain s/p trauma COMPARISON: There are no prior studies available for comparison. FINDINGS: Seven views of the left hand and wrist including a scaphoid view are submitted. Osseous mineralization is normal. There is no fracture or dislocation. The joint spaces are preserved. 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 There are vascular calcifications. XR/XR wrist LT min 3V IMPRESSION: No evidence of fracture of the left hand or wrist. Electronically signed by: Terrance Sanders MD 05/16/2025 12:10 PM EDT
--- OUTSIDE RECORDS SUMMARY | 2025-05-16 10:35 | XMS_ITS | Clinical Summary ---
Author Organization [facility] Address 175 [place] [address] Phone Care Team Providers Care Appliance Service Supervisor Name Role Phone Cindy Mohan MD Primary Care Provide r Encounters Date Type Department Care Team Description 05/10/2025 Telephone Orthopedic Surgery [facility] 250 175 [facility] 250 [place] [address] Andrea Brown DPM from Last 3 Months Social History Tobacco Use Types Packs/Day Years Used Date Smoking Tobacco: Never Assessed Sex and Gender Information Value Date Recorded Sex Assigned at Not on file Legal Sex Male 4:34 AM EST Gender Identity Not on file Sexual Orientation Not on file Last Filed Vital Signs Vital Sign Reading Time Taken Comments Blood Pressure - - Pulse - - Temperature - - Respiratory Rate - - Oxygen Saturation - - Inhaled Oxygen Concentration - - Weight 101 kg (223 lb) 11/28/2023 1:26 PM EST Height 185.4 cm (6' 1 ) 11/28/2023 1:26 PM EST Body Mass Index 29.42 11/28/2023 1:26 PM EST Plan of Treatment Health Maintenance Due Date Last Done Comments Diabetes: Annual GFR (Glomer ular Filtration Rate) 1964 Diabetes: Annual Foot Exam 1974 Diabetes: Annual Retina Eye Exam 1974 DTaP,Tdap,and Td Vaccines (1 - Tdap) 1983 Pneumococcal Vaccine: 50+ Ye ars (1 of 2 - PCV) 1983 Zoster Vaccines (1 of 2) 2014 Cholesterol Screening (Lipid Panel) 09/05/2022 Colorectal Cancer Screening: Colonoscopy 09/05/2022 HIV Screening 09/05/2022 Hepatitis C Screening 09/05/2022 Medicare Annual Wellness Visit 09/05/2022 Social Influencers of Health Screening 09/05/2022 RSV Immunization Adult Patie nts (1 - Risk 60-74 years 1-dose series) 2024 COVID-19 Vaccine (1 - 2023-2 5 season) 2024 Depression Screening 10/03/2024 Diabetes: Annual Urine Albumin-Creatinine Ratio (uACR) 04/30/2025 Diabetes: Blood Sugar Contro l Test (HGBA1C) 04/30/2025 Influenza Vaccine (#1) 2025 HIB Vaccines Aged Out No longer eligi ble based on patient's age to complete this topic HPV Vaccines Aged Out No longer eligi ble based on patient's age to complete this topic Hepatitis A Vaccines Aged Out No long er eligible based on patient's age to complete this topic Hepatitis B Vaccines Aged Out No long er eligible based on patient's age to complete this topic IPV Vaccines Aged Out No longer eligi ble based on patient's age to complete this topic MMR Vaccines Aged Out No longer eligi ble based on patient's age to complete this topic Meningococcal ACWY Vaccine Aged Out N o longer eligible based on patient's age to complete this topic Meningococcal B Vaccine Aged Out No l onger eligible based on patient's age to complete this topic RSV Immunization Patients Un fortino 20 months Aged Out No longer eligible b ased on patient's age to complete this topic Varicella Vaccines Aged Out No longer eligible based on patient's age to complete this topic Insurance [facility] MEDICARE Member Subscriber Plan / Payer (Ef fective 2016-Present) Name:JOO DAWSON Relation to Subscriber:Self Name:Joo Dawson Payer ID:[id number] Group ID:[id number] Type:Not on file Address: [address] [place] [address] Care Teams Appliance Service Supervisor Relationship Specialty Start Date End Date Cindy Mohan MD [address] [address] PCP - General 08/05/23
--- OUTSIDE RECORDS SUMMARY | 2025-05-16 10:35 | XMS_ITS | Encounter Summary ---
Author Organization [employer] Address 75 [facility] 7t [place] [address] Care Team Providers Care Ultrasound Tech Name Role Phone NickyEnedina Primary Care Provider + [phone] Encounter Details Date Type Department Care Team ([facility] Contact Info) Description 11/10/2022 Orders Only [facility] [address] [place], [place] [phone] Enedina Hudson LPN Social History Tobacco Use [...] Description 08/01/2025 10:00 AM EDT Clinical Support [facility] 230 [place] [address] Jenny Escobar RN 10/21/2025 1:00 PM EST Office Visit [facility] [address] [place] [address] Enriqueta Stevenson, OD 230 [place] [address] documented as of this encounter Visit Diagnoses Not on filedocumented in this encounter Care Teams Ultrasound Tech Relationship Specialty Start Date End Date Enedina Saunders DO [address] [place] [address] PCP - General Family Medicine 11/18/15 documented as of this encounter
== END 2025-05-16 09:55 | disposition home or self-care (01) ==
LOC: HO.HHCX 09:54
PROVIDERS: PCP Family Medicine; Visit Provider Family Medicine
DX: M25.532 Pain in left wrist (principal); Z79.891 Long term (current) use of opiate analgesic
CPT/HCPCS: 36415; 73110; 73130; 80307

== ENCOUNTER → 2025-05-16 10:12 | Outpatient (BNV) | payer OTHER, SELFPAY | PROVIDERS: PCP Family Medicine; Visit Provider Radiology Diagnostic Radiology | DX: M11.232 Other chondrocalcinosis, left wrist (principal) | CPT/HCPCS: 73110; 73130 ==

== ENCOUNTER 2025-05-27 13:40 | Outpatient (REF) | payer OTHER, SELFPAY ==
--- OUTSIDE RECORDS SUMMARY | 2025-05-27 15:00 | XMS_ITS | Encounter Summary ---
Author Organization [employer] Address 75 [facility] 7t [place] [address] Care Team Providers Care Real Estate Processor Name Role Phone NickyEnedina Primary Care Provider + [phone] Encounter Details Date Type Department Care Team ([facility] Contact Info) Description 11/10/2022 Orders Only [facility] [address] [place], [place] [phone] Enedina Hudson LPN Social History Tobacco Use [...] Description 08/01/2025 10:00 AM EDT Clinical Support [facility] 230 [place] [address] Jenny Escobar RN 10/21/2025 1:00 PM EST Office Visit [facility] [address] [place] [address] Enriqueta Stevenson, OD 230 [place] [address] documented as of this encounter Visit Diagnoses Not on filedocumented in this encounter Care Teams Real Estate Processor Relationship Specialty Start Date End Date Enedina Saunders DO [address] [place] [address] PCP - General Family Medicine 11/18/15 documented as of this encounter
--- OUTSIDE RECORDS SUMMARY | 2025-05-27 15:00 | XMS_ITS | Encounter Summary ---
Author Organization [employer] Address [address] [place] [address] 7t h Floor [place] [id number] Care Team Providers Care Parasitologist Name Role Phone Enedina Saunders DO Primary Care Provider + [phone] Encounter Details Date Type Department Care Team (Late Contact Info) Description 10/29/2022 Telephone [facility] [address] [place] [address] Enedina Saunders DO 230 [place] [address] Social History Tobacco Use Types Packs/Day Years [...] 10:00 AM EDT Clinical Support [facility] 230 [place] [address] Jenny Escobar RN 10/21/2025 1:00 PM EST Office Visit [facility] [address] [place] [address] Enriqueta Stevenson, OD 230 [place] [address] documented as of this encounter Visit Diagnoses Not on filedocumented in this encounter Care Teams Parasitologist Relationship Specialty Start Date End Date Enedina Saunders DO 230 [place] [address] PCP - General Family Medicine 11/18/15 documented as of this encounter
--- OUTSIDE RECORDS SUMMARY | 2025-05-27 15:00 | XMS_ITS | Encounter Summary ---
Author Organization [employer] Address [address] [place] [address] 7t [place] [address] Care Team Providers Care Form Builder Name Role Phone Enedina Saunders DO Primary Care Provider + [phone] Encounter Details Date Type Department Care Team (Late st Contact Info) Description 09/24/2022 Orders Only [facility] 230 [place] [address] Maritza Encinas LPN Social History Tobacco Use [...] Care Team (Late st Contact Info) Description 08/01/2025 10:00 AM EDT Clinical Support [facility] [address] [place] [address] Jenny Escobar, WALTER 10/21/2025 1:00 PM EST Office Visit [facility] [address] [place] [address] Enriqueta Stevenson, OD 230 [place] [address] documented as of this encounter Visit Diagnoses Not on filedocumented in this encounter Care Teams Form Builder Relationship Specialty Start Date End Date Enedina Saunders DO 230 [place] [address] PCP - General Family Medicine 11/18/15 documented as of this encounter
--- OUTSIDE RECORDS SUMMARY | 2025-05-27 15:00 | XMS_ITS | Encounter Summary ---
Author Organization [employer] Address [address] [place] [address] 7t [place] [address] Care Team Providers Care Watershed Tender Name Role Phone Enedina Saunders DO Primary Care Provider + [phone] Encounter Details Date Type Department Care Team (Late st Contact Info) Description 10/21/2022 Orders Only [facility] 230 [place] [address] Maritza Encinas LPN Social History Tobacco Use [...] Description 08/01/2025 10:00 AM EDT Clinical Support [facility] 230 [place] [address] Jenny Escobar, WALTER 10/21/2025 1:00 PM EST Office Visit [facility] [address] [place] [address] Graham, Enriqueta, OD 230 [place] [address] documented as of this encounter Visit Diagnoses Not on filedocumented in this encounter Care Teams Watershed Tender Relationship Specialty Start Date End Date Enedina Saunders DO 230 [place] [address] PCP - General Family Medicine 11/18/15 documented as of this encounter
--- OUTSIDE RECORDS SUMMARY | 2025-05-27 15:00 | XMS_ITS | Encounter Summary ---
Author Organization [employer] Address 75 [facility] 7t h Floor [place] [id number] Care Team Providers Care Gravity Prospecting Operator Helper Name Role Phone Enedina Saunders DO Primary Care Provider + [phone] Reason for Visit * Reason Onset Date Comments Nurse Triage 09/18/2024 Encounter Details Date Type Department Care Team ([facility] st Contact Info) Description 09/18/2024 Telephone [facility] 230 [place], [place] [phone] Enedina Saunders DO 230 [place] [address] Nurse Triage Social History Tobacco Use Types [...] call with [facility] [place] [id number], [place]. Pt is reporting high blood pressure. Last nightBP was 198/? and this morning it was 168/95. Pt reports some dizziness and unbalance. Pt is taking hydrochlorothiazide 25mg as prescribed. No available apts in office over next 3 days. Pt is advised to come to [facility] for provider to check BP and [...] Description 08/01/2025 10:00 AM EDT Clinical Support [facility] 230 [place] [address] Jenny Escobar RN 10/21/2025 1:00 PM EST Office Visit [facility] [address] [place] [address] Enriqueta Stevenson, OD 230 [place] [address] documented as of this encounter Visit Diagnoses Not on filedocumented in this encounter Additional Health Concerns Assessment Noted Time PHQ-9 Depression Total Score: 4 02/08/20 24 3:47 PM EDT documented as of this encounter Care Teams Gravity Prospecting Operator Helper Relationship Specialty Start Date End Date Enedina Saunders DO 230 [place] [address] PCP - General Family Medicine 11/18/15 documented as of this encounter
--- OUTSIDE RECORDS SUMMARY | 2025-05-27 15:01 | XMS_ITS | Encounter Summary ---
Author Organization [employer] Address 75 [facility] 7t h Floor [place] [id number] Care Team Providers Care Die Drawing Checker Name Role Phone Enedina Saunders DO Primary Care Provider + [phone] Reason for Visit * Reason Onset Date Comments FYI 05/16/2025 Encounter Details Date Type Department Care Team ([facility] st Contact Info) Description 05/16/2025 Telephone [facility] 230 [place], [place] [phone] Enedina Saunders DO 230 [place] [address] FYI Social History Tobacco Use Types Packs/Day Years Used Date Smoking Tobacco: Former Cigarettes Passive Smoke Exposure: Past Smokeless Tobacco: Never Alcohol Use Standard Drinks/Week Comments Never 0 (1 standard drink = 0.6 oz pur e alcohol) Depression Answer Date Recorded Patient Health Questionnaire-9 Score 0 04/12/2025 Patient Health Questionnaire-9 Score 0 04/12/2025 Last PHQ-9: Questionnaire Data Not on file 0 04/12/2025 Housing Stability Answer Date Recorded What is your housing situation today? I have [place] 04/12/[address] you li ve. Do you have problems with any of the following? None of the above 04/12/2025 Food Insecurity Answer Date Recorded Within the past 12 months, y ou worried that your food would run out before you got money to buy more: Never True 04/12/2025 Within the past 12 months,th e food you bought just didn't last and you didn't have enough money to get more: Never True 08/2025 Transportation Answer Date Recorded In the past 12 months, has l ack of transportation kept you from medical appts, meetings, work or from getting things needed for daily living? No 04/12/2025 Utilities Answer Date Recorded In the past 12 months, has t he electric, gas, oil or water company threatened to shut off services in your home? No 04/12/2025 Depression Answer Date Recorded Patient Health Questionnaire-2 Score 0 04/12/2025 Internet Access Answer Date Recorded Internet Access Q1 Yes 04/12/2025 Internet Access Q2 Not on file 04/12/2025 Sex and Gender Information Value Date Recorded Sex Assigned at Male 08/02/2022 10:16 AM EDT Legal Sex Male 10:16 AM EDT Gender Identity Male 08/02/2022 10:16 AM EDT Sexual Orientation Straight 08/02/2022 10 :16 AM EDT documented as of this encounter Miscellaneous Notes * Telephone Encounter - Alfred Tineo - 05/16/2025 11:10 AM EDT TC from pt's daughter . Reports has 83 pills left . Filled 05/07/25 was picked up 05/09/25 [place] a day documented in this encounter Plan of Treatment Upcoming Encounters Date Type Department Care Team (Late st Contact Info) Description 08/01/2025 10:00 AM EDT Clinical Support [facility] 230 [place] [address] Jenny Escobar RN 10/21/2025 1:00 PM EST Office Visit [facility] OPT[facility] [address] [place] [address] Graham, Enriqueta, OD 230 [place] [address] documented as of this encounter Visit Diagnoses Not on filedocumented in this encounter Additional Health Concerns Assessment Noted Time PHQ-9 Depression Total Score: 0 04/12/20 25 11:31 AM EDT documented as of this encounter Care Teams Die Drawing Checker Relationship Specialty Start Date End Date Enedina Saunders DO 230 [place] [address] PCP - General Family Medicine 11/18/15 documented as of this encounter
--- OUTSIDE RECORDS SUMMARY | 2025-05-27 15:01 | XMS_ITS | Encounter Summary ---
Author Organization [employer] Address [address] [place] [address] 7t [place] [address] Care Team Providers Care Special Loan Officer Name Role Phone Enedina Saunders DO Primary Care Provider + [phone] Reason for Visit * Reason Comments Med Refill Encounter Details Date Type Department Care Team (Late st Contact Info) Description 02/10/[address] [facility] MED[facility]INE 230 [place], [place] [phone] Enedina Saunders DO 230 [place] [address] Back pain, unspecified back location, unspecified back [...] Description 08/01/2025 10:00 AM EDT Clinical Support [facility] MED[facility]INE 230 [place] [address] Jenny Escobar RN 10/21/2025 1:00 PM EST Office Visit [facility] OPTOMETRY [address] [place] [address] Graham, Enriqueta, OD 230 [place] [address] documented as of this encounter Visit Diagnoses Diagnosis Back pain, unspecified back location, unspecified back pain laterality, unspecified chronicity documented in this encounter Additional Health Concerns Assessment Noted Time PHQ-9 Depression Total Score: 4 02/08/20 24 3:47 PM EDT documented as of this encounter Care Teams Special Loan Officer Relationship Specialty Start Date End Date Enedina Saunders DO 230 [place] [address] PCP - General Family Medicine 11/18/15 documented as of this encounter
--- OUTSIDE RECORDS SUMMARY | 2025-05-27 15:01 | XMS_ITS | Clinical Summary ---
Author Organization [employer] Address [address] [place] [address] [address] [place] [address] Care Team Providers Care Therapy Teacher Name Role Phone Enedina Saunders Primary Care Provider + [phone] Allergies Active Allergy Reactions Criticality Noted Date Comments Insulin Aspart Cough 09/15/2017 Other Reaction(s): Unknown Outside Source Comment: Other reaction(s): Itching Insulin Aspart (Human Analog) (Yeast) Cough 09/15/2017 Other reaction(s): Itching Other reaction(s): Unknown Outside Source Comment: Other reaction(s): Itching Other Reaction(s): Unknown Other Reaction(s): Not available Shellfish Allergy 07/10/2024 Other Reaction(s): hives, swelling Shellfish-Derived Products Other Reaction(s): Not available Medications triamcinolone (Kenalog) 0.1 % creamIndication s:Pityriasis [...] to the affected area(s) x 2 weeks Active Jennifer-Dryl 25 MG tablet TAKE 1 TABLET BY MOUTH EVERY 6 HOURS NEEDED FOR (for itching) 30 tablet 023 Active D3 Super Strength 50 MCG (1999 [...] USE WITH INSULIN DIRECTED 100 each Active insulin degludec (Tresiba FlexTouch) 200 UNIT/ML injectionIndica tions:Type 2 diabetes mellitus with other diabetic kidney complication ([facility]) INJECT 38 UNITS SUBCUTANEOUSLY EVERY DAY 9 mL 024 Active Continuous Glucose Sensor (FreeStyle Roni 2 Sensor) misc Apply 1 each topically 3 times daily. 2 each Active Artificial Tear Solution (GenTeal Tears) 0.1-0.2-0.3 % solutionIndicat ions:Type 2 diabetes mellitus with other diabetic kidney complication ([facility]) INSTILL 1 DROP IN DRY EYES FOUR TIMES DAILY NEEDED 30 mL 3 024 Active metFORMIN (Glucophage) 1000 MG tabletIndicatio ns:Type 2 diabetes mellitus with other specified complication, unspecified whether intermodal customer service insulin use ([facility]) TAKE 1 Tablet BY MOUTH TWICE DAILY WITH MEALS 180 tablet 1 Active Trulicity 4.5 MG/0.5ML solution auto-injector Active cetirizine (ZyrTEC) 10 MG tablet TAKE 1 TABLET BY MOUTH EVERY DAY 30 tablet 025 Active polyvinyl alcohol (Liquifilm Tears) 1.4 % ophthalmic solution PLACE 1 DROP INTO THE AFFECTED EYE(S) FOUR TIMES DAILY NEEDED FOR DRY EYES Active dorzolamide-karl olol (Cosopt) 2-0.5 % ophthalmic solution Administer 1 drop into the right eye 2 times daily. 10 mL 11 025 2025 Active brimonidine (AlphaGAN) 0.2 % ophthalmic solution Administer 1 drop into the right eye 3 times daily. 10 mL 11 025 2025 Active Aspirin Low Dose 81 MG EC tabletIndicatio ns:Type 2 diabetes mellitus with other specified complication, unspecified whether intermodal customer service insulin use ([facility]) TAKE 1 TABLET BY MOUTH EVERY DAY 90 tablet 1 025 Active atorvastatin (Lipitor) 80 MG tablet TAKE 1 TABLET BY MOUTH EVERY MORNING 90 tablet 1 025 Active losartan (Cozaar) 100 MG tabletIndicatio ns:Essential hypertension TAKE 1 TABLET BY MOUTH EVERY DAY 30 tablet 11 025 Active omeprazole (PriLOSEC) [address] capsuleIndicati ons:Chronic GERD TAKE 1 CAPSULE BY MOUTH EVERY DAY BEFORE BREAKFAST 90 capsule 025 Active FLUoxetine (PROzac) 20 MG capsuleIndicati ons:Depression, unspecified depression type TAKE 2 CAPSULES BY MOUTH ONCE DAILY IN THE MORNING 180 capsule 1 025 Active Jardiance 25 MG Take 1 tablet by mouth Once per day. 025 Active Tiadylt ER 120 MG 24 hr capsule Take 1 capsule by mouth Once per day. 025 Active insulin aspart (NovoLOG FLEXPEN) 100 UNIT/ML penIndications: Type 2 diabetes mellitus with other diabetic kidney complication ([facility]) INJECT 10 UNITS SUBCUTANEOUSLY TWICE DAILY BEFORE BREAKFAST AND BEFORE SUPPER 15 mL 3 025 Active gabapentin (Neurontin) 400 MG capsuleIndicati ons:Chronic bilateral low back pain with left-sided sciatica TAKE 2 CAPSULES BY MOUTH THREE TIMES DAILY 180 capsule 025 Active bacitracin 500 UNIT/GM ointmentIndicat ions:Ulcer of foot, chronic, left, with unspecified severity ([facility]) Apply topically 2 times daily. 28 g 025 Active naloxone (Narcan) 4 mg/0.1 mL nasal sprayIndication s:Chronic low back pain, unspecified back pain laterality, unspecified whether sciatica present Administer 1 spray (4 mg) into affected nostril(s) if needed for opioid reversal. May repeat every 2-3 minutes if needed, alternating nostrils, until medical assistance becomes available. 2 each 3 025 2025 Active amitriptyline (Elavil) 25 MG tablet TAKE 1 TABLET BY MOUTH EVERY DAY AT BEDTIME 30 tablet 5 Active oxyCODONE (Roxicodone) 5 MG immediate release tabletIndicatio ns:Chronic low back pain, unspecified back pain laterality, unspecified whether sciatica present Take 1 tablet (5 mg) by mouth every 6 (six) hours if needed for severe pain for up to 28 days. 112 tablet 025 2024 Active Diclofenac Sodium 1 % gelIndications: Back pain, unspecified back location, unspecified back pain laterality, unspecified chronicity Apply 2 g topically if needed in the morning, at noon, in the evening, and at bedtime (pain). 150 g 3 025 Active acetaminophen (Tylenol 8 Hour) 650 MG ER tablet Take 1 tablet (650 mg) by mouth every 8 (eight) hours if needed for mild pain. Do not crush, chew, or split. 60 tablet 3 025 Active hydroCHLOROthia zide (HYDRODiuril) 25 MG tabletIndicatio ns:Essential hypertension TAKE 1 TABLET BY MOUTH DAILY 30 tablet 1 025 Active fluticasone furoate (Arnuity Ellipta) 100 MCG/ACT inhaler INHALE 1 PUFF BY MOUTH DAILY. RINSE MOUTH AFTER USING. 30 each 1 025 Active baclofen (Lioresal) 20 MG tabletIndicatio ns:Muscle spasm TAKE 1 TABLET BY MOUTH THREE TIMES DAILY NEEDED FOR MUSCLE SPASMS OR FOR PAIN 90 tablet 1 025 Active acetaminophen (Tylenol 8 Hour) 650 MG ER tablet TAKE 1 TABLET BY MOUTH EVERY 8 HOURS NEEDED MILD PAIN 60 tablet 3 023 2024 Discontinued(R eorder (will not trigger notification to Pharmacy)) amitriptyline (Elavil) 25 MG tablet Take 1 tablet (25 mg) by mouth at bedtime. 30 tablet 5 024 2024 Discontinued Diclofenac Sodium 1 % gelIndications: Back pain, unspecified back location, unspecified back pain laterality, unspecified chronicity APPLY 2 GRAMS TOPICALLY TO AFFECTED AREA(S) TWICE DAILY NEEDED FOR PAIN 100 g 3 025 2024 Discontinued(R eorder (will not trigger notification to Pharmacy)) hydroCHLOROthia zide (HYDRODiuril) 25 MG tabletIndicatio ns:Essential hypertension TAKE 1 TABLET BY MOUTH EVERY DAY 30 tablet 1 2024 Discontinued baclofen (Lioresal) 20 MG tabletIndicatio ns:Muscle spasm TAKE 1 TABLET BY MOUTH THREE TIMES DAILY NEEDED FOR MUSCLE SPASMS OR PAIN 90 tablet 1 2024 Discontinued Arnuity Ellipta 100 MCG/ACT inhaler INHALE 1 PUFF BY MOUTH EVERY DAY AT THE SAME TIME RINSE MOUTH AFTER USING 30 each 2024 Discontinued oxyCODONE (Roxicodone) 5 MG immediate release tabletIndicatio ns:Chronic low back pain, unspecified back pain laterality, unspecified whether sciatica present Take 1 tablet (5 mg) by mouth every 6 (six) hours if needed for severe pain for up to 7 days. 28 tablet 025 2024 Discontinued(R eorder (will not trigger notification to Pharmacy)) sulfamethoxazol e-trimethoprim (Bactrim DS) 800-160 MG tabletIndicatio ns:Ulcer of foot, chronic, left, with unspecified severity (CMS/HCC) Take 1 tablet by mouth 2 times daily for 7 days. 14 tablet 025 2024 oxyCODONE (Roxicodone) 5 MG immediate release tabletIndicatio ns:Chronic low back pain, unspecified back pain laterality, unspecified whether sciatica present Take 1 tablet (5 mg) by mouth every 6 (six) hours if needed for severe pain for up to 7 days. 28 tablet 025 2024 Discontinued(R eorder (will not trigger notification to Pharmacy)) predniSONE (Deltasone) 20 MG tablet Take 1 tablet (20 mg) by mouth 2 times daily for 5 days. 10 tablet 025 2024 Active Problems Problem Noted Date Diagnosed Date Chronic ulcer of left foot 04/26/2025 Callus of foot 04/26/2025 Type 2 diabetes mellitus wit h hyperglycemia, with long-term current use of insulin 04/26/2025 jail (current) use of opiate analgesic 12/01 Healthcare maintenance 02/08/2024 Assessment & Plan (02/08/2024 [...] refuses f/u with pain mgmt -advised contact [facility] if sx change or worsen Essential hypertension 11/18/2015 Assessment & Plan (04/26/2025 2:42 PM EDT): I advise low Na diet I advise to take his blood pressure medication every day without missing any dose F/u with PCP Assessment & Plan (02/08/2024 3:48 PM EDT): BP elevated with elevated home BP readings -cont losartan and HCTZ daily -increase diltiazem to 240 mg daily -BP check with me in 2 weeks -Cr/GFR nml with significant urine microalbumin OCT 2023 -there is EKG in [facility] -optho as above -f/u with renal as [...] with severe diabetic retinopathy JAN 2023 at [facility], encouraged schedule f/u -strongly encouraged schedule f/u with retinal specialist -foot exam next visit* -review podiatry next visit* Resolved Problems Problem Noted Date Diagnosed Date Resolved Date Acute right eye pain 11/12/2024 0814/2 025 Assessment & Plan (11/12/2024 1:14 PM EST): It could be related to corneal lesion, needs additional workup Advised to use natural tears as needed dry eye, use erythromycin eye ointment on affected eye and keep it covered Will call eye clinic to schedule further evaluation this week especially in view of significantly decreased visual acuity after last eye evaluation on October 19. Abnormal TSH 02/17/2024 03/05/2024 Assessment & Plan [...] Encounters Date Type Department Care Team Description 05/18/2025 Refill [facility] [address] [place] [address] Enedina Saunders DO Essential hypertension; Muscle spasm 05/16/2025 9:20 AM EDT Office Visit [facility] [address] Enedina Saunders DO Left wrist pain (Primary Dx); Back pain, unspecified back location, unspecified back pain laterality, unspecified chronicity 05/16/2025 9:00 AM EDT Clinical Support [address] [place] [address] Jenny Escobar, RN [employer] (current) use of opiate analgesic (Primary Dx) 05/16/2025 [address] [place] [address] Enedina Saunders DO FYI 05/16/[address] [address] Jenny Escobar, WALTER Forgot Oxycodone, UTOX Pos MTD 05/16/2025 Travel 05/15/[address] [address] Enedina Saunders DO Appointment Request 05/14/[address] [address] Jenny Escobar, RN Schedule SYSTEM DESIGNER Random visit 05/13/[address] [address] Enedina Saunders DO pre op notes 05/09/2025 10:00 AM EDT Office Visit [address] [address] Bib Palomo MD Preoperative examination (Primary Dx) 05/09/2025 Travel 05/07/[address] [address] Enedina Saunders DO pre op 05/07/[address] [address] Enedina Saunders DO Chronic low back pain, unspecified back pain laterality, unspecified whether sciatica present 05/07/[address] [place] [address] Enedina Saunders DO Chronic low back pain, unspecified back pain laterality, unspecified whether sciatica present 05/05/2025 Refill [facility] [address] [place] [address] Enedina Saunders DO 05/02/[address] [address] Jenny Escobar RN Error (VOID this visit) 04/30/[address] [address] Jenny Escobar RN Error (VOID this visit) 04/29/2025 10:00 AM EDT Clinical Support [address] [address] Jenny Escobar RN [employer] (current) use of opiate analgesic (Primary Dx) 04/29/[address] [address] Jenny Escobar RN Chronic low back pain, unspecified back pain laterality, unspecified whether sciatica present 04/29/2025 Travel 04/29/[address] [address] Enedina Saunders DO Results 04/26/2025 2:20 PM EDT Office Visit [facility] [address] [place] [phone] Cindy Mohan MD Essential hypertension (Primary Dx); Ulcer of foot, chronic, left, with unspecified severity (CMS/HCC); Callus of foot; Type 2 diabetes mellitus with hyperglycemia, with long-term current use of insulin (CMS/HCC) 04/26/2025 Results Follow-Up [address] [address] Cindy Mohan MD XR Foot 3+ Views Left 04/26/2025 Travel 04/25/[address] [address] Enedina Saunders DO requesting call back 04/25/2025 Refill [facility] [address] [place] [address] Enedina Saunders DO Chronic low back pain, unspecified back pain laterality, unspecified whether sciatica present 04/24/2025 Telephone [facility] [address] [place] [phone] Enedina Saunders DO Results 04/20/2025 Refill [facility] [address] [place] [address] Enedina Saunders DO Chronic bilateral low back pain with left-sided sciatica 04/12/2025 11:15 AM EDT Office Visit [facility] [address] [place] [address] Enedina Saunders DO Type 2 diabetes mellitus with other diabetic kidney complication (CMS/HCC) (Primary Dx); Essential hypertension; Other hyperlipidemia; Major depression, recurrent, chronic (CMS/HCC); Mild persistent asthma without complication; Chronic gastroesophageal reflux disease; Nephrolithiasis; Chronic bilateral low back pain with bilateral sciatica; Bilateral lower extremity pain; Low TSH level; IgA monoclonal gammopathy; Sleep-disordered breathing; Fatigue, unspecified type; Dizziness; Glaucoma of right eye, unspecified glaucoma type; Healthcare maintenance 04/12/2025 Orders Only GENERIC EXTERNAL DATA DEPARTMENT Provider, Generic External Data 04/12/2025 Travel 04/08/2025 Telephone [facility] [address] [place] [phone] Enedina Saunders DO Chart Prep 03/28/2025 Refill [facility] [address] [place] [address] Enedina Saunders DO Chronic low back pain, unspecified back pain laterality, unspecified whether sciatica present (Primary Dx) 03/28/2025 Travel 03/19/2025 Refill [facility] [address] [place] [address] Enedina Saunders DO Depression, unspecified depression type 03/14/2025 Refill [facility] [address] [place] [address] Enedina Saunders DO Essential hypertension; Muscle spasm 02/28/2025 Telephone [facility] [address] [place] [phone] Enedina Saunders DO Medication Question from Last 3 Months Immunizations Immunization Administration Dates Next Due Hep B, adult [...] Sign Reading Time Taken Comments Blood Pressure 125/74 05/16/2025 9:25 AM EDT Pulse 80 05/16/2025 9:25 AM EDT Temperature 36.4 C (97.6 F) 05/16/2025 9:25 AM EDT Respiratory Rate 20 05/16/2025 9:25 AM EDT Oxygen Saturation 99% 05/16/2025 9:25 AM EDT Inhaled Oxygen Concentration - - Weight 95.5 kg (210 lb 8 oz) 05/16/2025 9:25 AM EDT Height 185.4 cm (6' 1 ) 05/16/2025 9:25 AM EDT Body Mass Index 27.77 05/16/2025 9:25 AM EDT Plan of Treatment Upcoming Encounters Date Type Department Care Team (Late st Contact Info) Description 08/01/2025 10:00 AM EDT Clinical Support [facility] [address] [place] [address] Jenny Escobar, WALTER 10/21/2025 1:00 PM EST Office Visit [facility] [address] [place] [address] Enriqueta Stevenson, OD [address] [place] [address] Health Maintenance Due Date Last Done Comments CT Colonography 1964 Colonoscopy 1964 FIT DNA/Cologuard 1965 Sigmoidoscopy 1965 Colorectal Cancer Screening 12/30/2023 FIT 12/30/2023 12/29/2022 FOBT 12/30/2023 12/29/2022 RSV Patients and Patients Aged 60 years or older (1 - Risk 60-74 years 1-dose series) 2024 COVID-19 Vaccine ( season) 2024 12/09/2022, 07/29/2021, 12/17/2020 Diabetes: Foot Exam 08/04/2024 08/04/2023, 08/04/2023, 08/04/2023 Influenza Vaccine (#1) 2025 , 10/12/2023, 06/25/2022, Additional history exists Diabetes: Hemoglobin A1C 07/13/2025 025, 04/12/2025, 10/15/2024, Additional history exists Eye Exam 10/19/2025 10/19/2024, 10/03, 10/19/2024, Additional history exists Depression Screening 04/12/2026 04/12/2025, 04/12/20 25 Disability Screening 04/12/2026 04/12/2025 Lipid Panel 04/12/2026 04/12/2025, 10/03, 10/12/2023, Additional history exists SDOH Screening 04/12/2026 04/12/2025 Alcohol/Substance Use Screening 05/09/2026 05/09/2025 Tobacco Screening 05/16/2026 05/16/2025 DTaP/Tdap/Td Vaccines (3 - Td or Tdap) 08/02/2029 08/02/2019, 11/18/2015 Hepatitis B Vaccines Completed 01/08/2019, 09/15/2018, 04/19/2018 Zoster Vaccines Completed 06/30/2021, 06/17/2020 Pneumococcal Vaccine: 50+ Years Completed 06/09/2023, 06/17/2020, 11/18/2015 HIV Screening Completed 10/15/2024, 10/03, 12/20/2022, Additional [...] Procedure Name Priority Date/Time Associated Diagnosis Comments XR HAND 3+ VIEWS LEFT Routine 05/16/2025 9:40 AM EDT Left wrist pain XR WRIST 3+ VIEWS LEFT Routine 9:37 AM EDT Left wrist pain POCT JOHNNY-14 URINE DRUG SCREEN Routine 05/16/2025 8:54 AM EDT [employer] (current) use of opiate analgesic METHADONE SCREEN, URINE Routine 05/16/2025 8:30 AM EDT jail (current) use of opiate analgesic ECG 12-LEAD Routine 05/09/2025 12:32 PM EDT Preoperative examination POCT JOHNNY-14 URINE DRUG SCREEN Routine 04/29/2025 10:34 AM EDT jail (current) use of opiate analgesic OXYCODONE SCREEN, URINE Routine 04/29/2025 10:08 AM EDT [employer] (current) use of opiate analgesic METHADONE SCREEN, URINE Routine 04/29/2025 10:08 AM EDT jail (current) use of opiate analgesic DRUG MONITORING, BENZODIAZEPINES, QUANTITATIVE, URINE Routine 04/29/2025 10:08 AM EDT [employer] (current) use of opiate analgesic XR FOOT 3+ VIEWS LEFT Routine 04/26/2025 2:12 PM EDT Ulcer of foot, chronic, left, with unspecified severity (CMS/HCC) IRON AND TOTAL IRON BINDING CAPACITY Routine 04/12/2025 2:50 PM EDT Type 2 diabetes mellitus with other diabetic kidney complication (CMS/HCC) Essential hypertension Other hyperlipidemia Major depression, recurrent, chronic (CMS/HCC) Mild persistent asthma without complication Chronic gastroesophageal reflux disease Nephrolithiasis Chronic bilateral low back pain with bilateral sciatica Bilateral lower extremity pain Low TSH level IgA monoclonal gammopathy Sleep-disordered breathing Dizziness Fatigue, unspecified type Healthcare maintenance FERRITIN Routine 04/12/2025 2:50 PM EDT Type 2 diabetes mellitus with other diabetic kidney complication (CMS/HCC) Essential hypertension Other hyperlipidemia Major depression, recurrent, chronic (CMS/HCC) Mild persistent asthma without complication Chronic gastroesophageal reflux disease Nephrolithiasis Chronic bilateral low back pain with bilateral sciatica Bilateral lower extremity pain Low TSH level IgA monoclonal gammopathy Sleep-disordered breathing Dizziness Fatigue, unspecified type Healthcare maintenance VITAMIN B12/FOLATE, SERUM PANEL Routine 04/12/2025 2:50 PM EDT Type 2 diabetes mellitus with other diabetic kidney complication (CMS/HCC) Essential hypertension Other hyperlipidemia Major depression, recurrent, chronic (CMS/HCC) Mild persistent asthma without complication Chronic gastroesophageal reflux disease Nephrolithiasis Chronic bilateral low back pain with bilateral sciatica Bilateral lower extremity pain Low TSH level IgA monoclonal gammopathy Sleep-disordered breathing Dizziness Fatigue, unspecified type Healthcare maintenance CBC WITH AUTO DIFFERENTIAL Routine 04/12/2025 2:50 PM EDT Type 2 diabetes mellitus with other diabetic kidney complication (CMS/HCC) Essential hypertension Other hyperlipidemia Major depression, recurrent, chronic (CMS/HCC) Mild persistent asthma without complication Chronic gastroesophageal reflux disease Nephrolithiasis Chronic bilateral low back pain with bilateral sciatica Bilateral lower extremity pain Low TSH level IgA monoclonal gammopathy Sleep-disordered breathing Dizziness Fatigue, unspecified type Healthcare maintenance BASIC METABOLIC PANEL Routine 04/12/2025 2:50 PM EDT Type 2 diabetes mellitus with other diabetic kidney complication (CMS/HCC) Essential hypertension Other hyperlipidemia Major depression, recurrent, chronic (CMS/HCC) Mild persistent asthma without complication Chronic gastroesophageal reflux disease Nephrolithiasis Chronic bilateral low back pain with bilateral sciatica Bilateral lower extremity pain Low TSH level IgA monoclonal gammopathy Sleep-disordered breathing Dizziness Fatigue, unspecified type Healthcare maintenance HEMOGLOBIN A1C Routine 04/12/2025 2:50 PM EDT Type 2 diabetes mellitus with other diabetic kidney complication (CMS/HCC) Essential hypertension Other hyperlipidemia Major depression, recurrent, chronic (CMS/HCC) Mild persistent asthma without complication Chronic gastroesophageal reflux disease Nephrolithiasis Chronic bilateral low back pain with bilateral sciatica Bilateral lower extremity pain Low TSH level IgA monoclonal gammopathy Sleep-disordered breathing Dizziness Fatigue, unspecified type Healthcare maintenance HEPATIC FUNCTION PANEL Routine 2:50 PM EDT Type 2 diabetes mellitus with other diabetic kidney complication (CMS/HCC) Essential hypertension Other hyperlipidemia Major depression, recurrent, chronic (CMS/HCC) Mild persistent asthma without complication Chronic gastroesophageal reflux disease Nephrolithiasis Chronic bilateral low back pain with bilateral sciatica Bilateral lower extremity pain Low TSH level IgA monoclonal gammopathy Sleep-disordered breathing Dizziness Fatigue, unspecified type Healthcare maintenance VITAMIN D,25-OH,TOTAL,IA Routine 04/12/2025 2:50 PM EDT Type 2 diabetes mellitus with other diabetic kidney complication (CMS/HCC) Essential hypertension Other hyperlipidemia Major depression, recurrent, chronic (CMS/HCC) Mild persistent asthma without complication Chronic gastroesophageal reflux disease Nephrolithiasis Chronic bilateral low back pain with bilateral sciatica Bilateral lower extremity pain Low TSH level IgA monoclonal gammopathy Sleep-disordered breathing Dizziness Fatigue, unspecified type Healthcare maintenance TSH Routine 04/12/2025 2:50 PM EDT Type 2 diabetes mellitus with other diabetic kidney complication (CMS/HCC) Essential hypertension Other hyperlipidemia Major depression, recurrent, chronic (CMS/HCC) Mild persistent asthma without complication Chronic gastroesophageal reflux disease Nephrolithiasis Chronic bilateral low back pain with bilateral sciatica Bilateral lower extremity pain Low TSH level IgA monoclonal gammopathy Sleep-disordered breathing Dizziness Fatigue, unspecified type Healthcare maintenance LIPID PANEL, STANDARD Routine 04/12/2025 2:50 PM EDT Type 2 diabetes mellitus with other diabetic kidney complication (CMS/HCC) Essential hypertension Other hyperlipidemia Major depression, recurrent, chronic (CMS/HCC) Mild persistent asthma without complication Chronic gastroesophageal reflux disease Nephrolithiasis Chronic bilateral low back pain with bilateral sciatica Bilateral lower extremity pain Low TSH level IgA monoclonal gammopathy Sleep-disordered breathing Dizziness Fatigue, unspecified type Healthcare maintenance T4, FREE Routine 04/12/2025 2:50 PM EDT Type 2 diabetes mellitus with other diabetic kidney complication (CMS/HCC) Essential hypertension Other hyperlipidemia Major depression, recurrent, chronic (CMS/HCC) Mild persistent asthma without complication Chronic gastroesophageal reflux disease Nephrolithiasis Chronic bilateral low back pain with bilateral sciatica Bilateral lower extremity pain Low TSH level IgA monoclonal gammopathy Sleep-disordered breathing Dizziness Fatigue, unspecified type Healthcare maintenance PROTEIN CREATININE RATIO, URINE Routine 04/12/2025 2:44 PM EDT URINALYSIS, COMPLETE Routine 04/12/2025 2:44 PM EDT POCT GLYCATED HEMOGLOBIN, TOTAL Routine 04/12/2025 11:34 AM EDT Type 2 diabetes mellitus with other diabetic kidney complication (CMS/HCC) POCT GLUCOSE Routine 04/12/2025 11:34 AM EDT Type 2 diabetes mellitus with other diabetic kidney complication (CMS/HCC) HEPATITIS C AB W/REFL TO HCV RNA, QN, PCR Routine 10/15/2024 3:25 PM EST Healthcare maintenance HIV 1/2 ANTIGEN/ANTIBODY, FOURTH GENERATION W/RFL Routine 10/15/2024 3:25 PM EST Healthcare maintenance FECAL GLOBIN BY IMMUNOCHEMISTRY Routine 12/29/2022 12:00 AM EDT Special screening for malignant neoplasms, colon from Last 3 Months or Most Recently Relevant to Health Maintenance Results * XR Hand 3+ Views Left (05/16/2025 9:40 AM EDT) Anatomical Region Laterality Modality Upper Extremities, Hand Left Radiogra phic Imaging 05/16/2025 9:40 AM EDT Narrative 05/16/2025 12:13 PM EDT [facility] [address] [place] [address] XRay Report Signed Patient: Joo Dawson MR#: [id number] 0922 : 1965 Acct:[id number] Age/Sex: 60 / M ADM Date: 05/16/25 [facility] Dr: Enedina Saunders DO Ordering Physician: Enedina Saunders DO Date of Service: 05/16/25 Procedure(s): XR hand LT min 3V Accession Number(s): [id number] cc: Enedina Saunders DO EXAMINATION: XR WRIST 3 OR MORE VIEWS LEFT, XR HAND 3 OR MORE VIEWS LEFT HISTORY: worsening L wrist and hand pain s/p trauma COMPARISON: There are no prior studies available for comparison. FINDINGS: Seven views of the left hand and wrist including a scaphoid view are submitted. Osseous mineralization is normal. There is no fracture or dislocation. The joint spaces are preserved. 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 There are vascular calcifications. XR/XR hand LT min 3V IMPRESSION: No evidence of fracture of the left hand or wrist. Electronically signed by: Terrance Sanders MD 05/16/2025 12:10 PM EDT Dictated By: Terrance Sanders MD Signed By: <Electronically signed by Terrance Sanders MD in OV> 05/16/25 1210 DD/ 0940 TD/TT: 05/16/25 0945 Master Police Detective: Procedure Note Donotuseinterpreter, Image - 05/16/[address] [address] XRay Report Signed Patient: Joo Dawson LMR#: [id number] 0922 : 1965Acct:[id number] Age/Sex: 60 / MADM Date: 05/16/25 Loc: HO.[facility]X Attending Dr: Enedina Saunders DO Ordering Physician: Enedina Saunders DO Date of Service: 05/16/25 Procedure(s): XR hand LT min 3V Accession Number(s): [id number] cc: Enedina Saunders DO EXAMINATION: XR WRIST 3 OR MORE VIEWS LEFT, XR HAND 3 OR MORE VIEWS LEFT HISTORY: worsening L wrist and hand pain s/p trauma COMPARISON: There are no prior studies available for comparison. FINDINGS: Seven views of the left hand and wrist including a scaphoid view are submitted. Osseous mineralization is normal. There is no fracture or dislocation. The joint spaces are preserved. 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 There are vascular calcifications. XR/XR hand LT min 3V IMPRESSION: No evidence of fracture of the left hand or wrist. Electronically signed by: Terrance Sanders MD 05/16/2025 12:10 PM EDT Dictated By: Terrance Sanders MD Signed By: <Electronically signed by Terrance Sanders MD in OV> 05/16/25 1210 DD/ 0940 TD/TT: 05/16/25 0945 Master Police Detective: Enedina Saunders DO IMG XR PROCEDURES Final Resu lt * XR Wrist 3+ Views Left (05/16/2025 9:37 AM EDT) Anatomical Region Laterality Modality Upper Extremities, Wrist Left Radiogr aphic Imaging 05/16/2025 9:37 AM EDT Narrative 05/16/2025 12:13 PM EDT [address] [address] XRay Report Signed Patient: Joo Dawson MR#: [id number] 0922 : 1965 Acct:[id number] Age/Sex: 60 / M ADM Date: 05/16/25 Loc: ERICX Attending Dr: Enedina Saunders DO Ordering Physician: Enedina Saunders DO Date of Service: 05/16/25 Procedure(s): XR wrist LT min 3V Accession Number(s): [id number] cc: Enedina Saunders DO EXAMINATION: XR WRIST 3 OR MORE VIEWS LEFT, XR HAND 3 OR MORE VIEWS LEFT HISTORY: worsening L wrist and hand pain s/p trauma COMPARISON: There are no prior studies available for comparison. FINDINGS: Seven views of the left hand and wrist including a scaphoid view are submitted. Osseous mineralization is normal. There is no fracture or dislocation. The joint spaces are preserved. 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 There are vascular calcifications. XR/XR wrist LT min 3V IMPRESSION: No evidence of fracture of the left hand or wrist. Electronically signed by: Terrance Sanders MD 05/16/2025 12:10 PM EDT Dictated By: Terrance Sanders MD Signed By: <Electronically signed by Terrance Sanders MD in OV> 05/16/25 1210 DD/ 0937 TD/TT: 05/16/25 0945 Master Police Detective: Procedure Note Donotuseinterpreter, Image - 05/16/2025 [place] [address] XRay Report Signed Patient: Joo Dawson LMR#: [id number] 0922 : 1965Acct:[id number] Age/Sex: 60 / MADM Date: 05/16/25 Loc: [facility] Attending Dr: Enedina Saunders DO Ordering Physician: Enedina Saunders DO Date of Service: 05/16/25 Procedure(s): XR wrist LT min 3V Accession Number(s): [id number] cc: Enedina Saunders DO EXAMINATION: XR WRIST 3 OR MORE VIEWS LEFT, XR HAND 3 OR MORE VIEWS LEFT HISTORY: worsening L wrist and hand pain s/p trauma COMPARISON: There are no prior studies available for comparison. FINDINGS: Seven views of the left hand and wrist including a scaphoid view are submitted. Osseous mineralization is normal. There is no fracture or dislocation. The joint spaces are preserved. 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 There are vascular calcifications. XR/XR wrist LT min 3V IMPRESSION: No evidence of fracture of the left hand or wrist. Electronically signed by: Terrance Sanders MD 05/16/2025 12:10 PM EDT Dictated By: Terrance Sanders MD Signed By: <Electronically signed by Terrance Sanders MD in OV> 05/16/25 1210 DD/ TD/TT: 05/16/25 0945 Master Police Detective: Enedina Saunders DO IMG XR PROCEDURES Final Resu lt * (ABNORMAL) POCT JOHNNY-14 Urine Drug Screen (05/16/2025 8:54 AM EDT) Only the most recent of2 resultswithin the time period is included. THC Negative Negative Cocaine Screen, Urine Negative Negative Opiate Screen, Urine Negative Negative Methamphetamine Screen Urine Negative Negative Amphetamine Screen, Urine Negative Negative Benzodiazepines Screen, Urine Negative Negative Barbiturate Screen, Urine Negative Negative Methadone Screen, Urine Positive(A) Negative Buprenophine Screen, Urine Negative Negative TCA, Urine Negative Negative MDMA Urine Negative Negative ng/mL Oxycodone Screen, Urine Positive Negative Phencyclidine (PCP), Urine Negative Negative Propoxyphene, Urine Negative Negative Fentanyl, Urine Negative Negative Urine Urine specimen obtained by clean catch procedure / Unknown 05/16/2025 8:54 AM EDT Jenny Omalley RN - 05/16/2025 8:54 AM EDT UTOX cup Lot#[id number] Exp. 07/09/26 Internal Pass Control Enedina Saunders DO POINT OF CARE TEST ENTER/RUSTAM T ORDERABLES Final Result * Drug Monitoring, Methadone Metabolite, Screen, Urine (05/16/2025 8:30 AM EDT) Only the most recent of2 resultswithin the time period is included. Methadone Screen, Urine Not Detected Not Detect ng/mL [facility] Comment:Methadone cut-off is 300 ng/mL.Positive results are unconfirmed and should not be used fornon-medical purposes. Urine (Urine, Random) 05/16/2025 8:30 AM EDT 05/16/2025 4:42 PM EDT us Enedina Saunders DO LAB URINE ORDERABLES Final R esult [facility] [address] [place] [phone] * ECG 12 lead (05/09/2025 12:32 PM EDT) Narrative Name, MD Bib - 05/09/2025 12:32 PM EDT Normal sinus rhythm, first-degree AV block, heart rate of 77, no ST segment elevation or depression, slight intraventricular conduction delay. us Bib Palomo MD ECG ORDERABLES Final Result * Drug Monitoring, Benzodiazepines, Quantitative, Urine (04/29/2025 10:08 AM EDT) Nordiazepam, GCMS Urine NEGATIVE [facility] Comment:[id number] ng/mL Oxazepam, GCMS Urine NEGATIVE [facility] Comment:ORGXOT23 ng/mL Lorazepam GCMS Urine NEGATIVE [facility] Comment:KMHHOV66 ng/mL Alprazolam, GCMS Urine NEGATIVE [facility] Comment:HQGCLW79 ng/mL Alphahydroxytriazolam, GCMS Ur NEGATIVE [facility] Comment:HEAPCC04 ng/mL Temazepam, GCMS Urine NEGATIVE [facility] Comment:WIWADV05 ng/mL Alphahydroxymidazolam,GC MS Ur NEGATIVE [facility] Comment:RGGHJP14 ng/mL Aminoclonazepam, GCMS Urine NEGATIVE [facility] Comment:WUYEHZ84 ng/mL Flurazepam Metabolite,GCMS Ur NEGATIVE [facility] Comment:YIEUTR89 ng/mL Benzodiazepines Comments SEE NOTE [facility] Comment:NOTES AND COMMENTSTh is drug testing is for medical treatment only. Analysiswas performed as non-forensic testing and these resultsshould be used only by healthcare providers torender diagnosis or treatment, or to monitor progress ofmedical conditions.LDT Notes:Confirmation tests were developed and their analyticalperformance characteristics have been determined by [employer]. It has not been cleared orapproved by the FDA. This assay has been validated pursuantto the CLIA regulations and is used for clinical purposes.Healthcare Providers needing Interpretation assistance,please contact us at [phone] ( ) M-F,8am to 10pm ESTPERFORMING SITE:[facility], [address] [place] [phone] Bulk Intake Worker: RICH WEBB MD, CLIA:[id number] Urine 04/29/2025 10:0 8 AM EDT 04/29/2025 1:40 PM EDT Enedina Saunders LAB URINE ORDERABLES Final R esult Performing Organization Address [facility] [[email or web address]] Co de Phone Number [facility] [address] [place] [phone] * Oxycodone Screen, Urine (04/29/2025 10:08 AM EDT) Oxycodone Urine Screen Not Detected Not Detect ng/mL [facility] Comment:Oxycodone cut-off is 100 ng/mL.Positive results are unconfirmed and should not be used fornon-medical purposes. Urine 04/29/2025 10:0 8 AM EDT 04/29/2025 2:39 PM EDT Enedina Saunders DO LAB URINE ORDERABLES Final R esult Performing Organization Address [facility] [[email or web address]] Co de Phone Number [facility] [address] [place] [phone] * XR Foot 3+ Views Left (04/26/2025 2:12 PM EDT) Anatomical Region Laterality Modality Lower Extremities, Foot Left Radiogra phic Imaging 04/26/2025 2:12 PM EDT Narrative 04/26/2025 3:50 PM EDT [address] [address] XRay Report Signed Patient: Joo Dawson MR#: [id number] 0922 : 1965 Acct:[id number] Age/Sex: 60 / M ADM Date: 04/26/25 Loc: .HHCX Attending Dr: Cindy Nair MD Ordering Physician: Cindy Mohan MD Date of Service: 04/26/25 Procedure(s): XR foot LT min 3V Accession Number(s): [id number] cc: Cindy Mohan MD EXAMINATION: XR FOOT 3 OR MORE VIEWS LEFT HISTORY: r/o osteomyelitis COMPARISON: There are no prior studies available for comparison. FINDINGS: Four views of the left foot are submitted. Osseous mineralization is normal. There is no fracture or dislocation. The joint spaces are preserved. There are vascular calcifications. There is a small ulceration of the plantar aspect of the foot at the level of the metatarsal heads. XR/XR foot LT min 3V IMPRESSION: Small soft tissue ulceration at the plantar aspect of the foot. No plain film evidence of osteomyelitis. If this remains a clinical concern, three-phase bone scan or MRI could be performed. Electronically signed by: Terrance [place] MD 04/26/2025 03:48 PM EDT Dictated By: Terrance Sanders MD Signed By: <Electronically signed by Terrance Sanders MD in OV> 04/26/25 1548 DD/ 1412 TD/TT: 04/26/25 1420 Master Police Detective: Procedure Note Donotuseinterpreter, Image - 04/26/[address] [address] XRay Report Signed Patient: Joo Dawson LMR#: [id number] 0922 : 1965Acct:[id number] Age/Sex: 60 / MADM Date: 04/26/25 Loc: HO.HHCX Attending Dr: Cindy Nair MD Ordering Physician: Cindy Mohan MD Date of Service: 04/26/25 Procedure(s): XR foot LT min 3V Accession Number(s): [id number] cc: Cindy Mohan MD EXAMINATION: XR FOOT 3 OR MORE VIEWS LEFT HISTORY: r/o osteomyelitis COMPARISON: There are no prior studies available for comparison. FINDINGS: Four views of the left foot are submitted. Osseous mineralization is normal. There is no fracture or dislocation. The joint spaces are preserved. There are vascular calcifications. There is a small ulceration of the plantar aspect of the foot at the level of the metatarsal heads. XR/XR foot LT min 3V IMPRESSION: Small soft tissue ulceration at the plantar aspect of the foot. No plain film evidence of osteomyelitis. If this remains a clinical concern, three-phase bone scan or MRI could be performed. Electronically signed by: Terrance [place] MD 04/26/2025 03:48 PM EDT Dictated By: Terrance Sanders MD Signed By: <Electronically signed by Terrance Sanders MD in OV> 04/26/25 1548 DD/ 1412 TD/TT: 04/26/25 1420 Master Police Detective: Cindy Nair MD IMG XR PROCEDURES Rustam arlene Result - Final * Vitamin D, 25-Hydroxy, Total, Immunoassay (04/12/2025 2:50 PM EDT) Vitamin D 25-OH Total 30.9 >30 ng/mL [facility] Comment: Health Based Reference Values*< 20 ng/mL Ktonxmikh13-63 ng/mL Insufficient> 30 ng/mL Sufficient*Dariusz CARR. N Engl J Med. 2007;357:266-280There is no well-established upper level of normal vitamin Dlevels. Some laboratories use 50 ng/mL as an upper limit ofnormal. However, toxicity is patient-dependent and may occurat any level. Careful correlation with the patient'spresentation is necessary and, if there is concern forvitamin D toxicity, treatment should be consideredirrespective of the serum level.Care must be taken in interpreting Vitamin D [...] LC-MS/MS. Blood Venous blood specimen / Unknown 04/12/2025 2:50 PM EDT 04/12/2025 2:50 PM EDT Enedina Saunders DO LAB BLOOD ORDERABLES Final R esult [facility] [address] [place] [phone] * Vitamin B12 (Cobalamin) and Folate Panel, Serum (04/12/2025 2:50 PM EDT) Vitamin B12 442 200 - 900 pg/mL [facility] Comment:NORMAL 200-900 PG/ML INDETERMINATE 160-199 PG/ML DEFICIENT < 160 PG/ML Folate 14.6 > or = 4.0 ng/mL [facility] Comment:Reference Values:> o r = 4.0 ng/mL< 4.0 ng/mL suggests folate deficiency Methotrexate, aminopterin and folinic acid(leucovorin) are chemotherapeutic agents whose molecularstructures are similar to folate; therefore, the Architectfolate assay cannot be used for patients using these drugs. Blood 04/12/2025 2:50 PM EDT 04/12/2025 2:50 PM EDT Enedina Saunders DO LAB BLOOD ORDERABLES Final R esult [facility] [address], [place] [phone] * (ABNORMAL) CBC auto differential (04/12/2025 2:50 PM EDT) White Blood Count 11.0(H) 4.8 - 10.8 X10*3/uL [facility] Red Blood Count 3.81(L) 4.60 - 5.80 X10*6/uL [facility] Hemoglobin 11.4(L) 14.0 - 18.0 g/dl [facility] Hematocrit 33.3(L) 42.0 - 52.0 % [facility] Mean Corpuscular Volume 87.4 80.0 - 98.0 fL [facility] Mean Corpuscular Hemoglobin 29.9 27.0 - 33.0 pg [facility] Mean Corpuscular HGB Conc 34.2 31.0 - 36.0 g/dl [facility] Red Cell Distribution Width 14.6 11.0 - 16.0 % [facility] Platelet Count 342 160 - 400 X10*3/uL [facility] Mean Platelet Volume 9.7 9.4 - 12.4 fL [facility] Neutrophils Percent Auto 65.3 45 - 73 % [facility] Imm Gran Pct Auto 0.5(H) 0.0 - 0.4 % [facility] Lymphocytes Percent Auto 25.2 20 - 40 % [facility] Monocytes Percent Auto 6.8 2 - 11 % [facility] Eosinophils Percent Auto 1.3 0 - 4 % [facility] Basophils Percent Auto 0.9 0 - 2 % [facility] NRBC Pct Auto 0.0 0.0 - 0.2 /100WBC [facility] Neutrophils Absolute Auto 7.2 2.0 - 8.3 x10*3/uL [facility] Imm Gran Abs Auto 0.05(H) 0.00 - 0.03 X10*3/uL [facility] Lymphocytes Absolute Auto 2.8 1.2 - 4.9 X10*3/uL [facility] Monocytes Absolute Auto 0.8 0.1 - 1.2 X10*3/uL [facility] Eosinophils Absolute Auto 0.1 0.0 - 0.4 X10*3/uL [facility] Basophils Absolute Auto 0.1 0.0 - 0.2 X10*3/uL [facility] NRBC Abs Auto 0.000 0.0 - 0.012 X10*3/uL [facility] Blood Venous blood specimen / Unknown 04/12/2025 2:50 PM EDT 04/12/2025 2:50 PM EDT Enedina Saunders LAB BLOOD ORDERABLES Final R esult Performing Organization Address City/[facility]/ZIP Co de Phone Number [facility] [address] [place] [phone] * Iron And Total Iron Binding Capacity (04/12/2025 2:50 PM EDT) Iron 49 45 - 160 mcg/dL [facility] Total Iron Binding Capacity 248 228 - 428 mcg/dL [facility] Percent Iron Saturation 20 15 - 50 % [facility] Unsaturated Iron Binding 199 ug/dL [facility] Blood Venous blood specimen / Unknown 04/12/2025 2:50 PM EDT 04/12/2025 2:50 PM EDT Enedina Saunders DO LAB BLOOD ORDERABLES Final R esult Performing Organization Address City/[facility]/ZIP Co de Phone Number [facility] [address] [place] [phone] * TSH (04/12/2025 2:50 PM EDT) Thyroid Stimulating Hormone 1.86 0.32 - 4.0 uIU/mL [facility] Comment:TSH 3rd Generation ( [facility]) Blood Venous blood specimen / Unknown 04/12/2025 2:50 PM EDT 04/12/2025 2:50 PM EDT Enedina Saunders DO LAB BLOOD ORDERABLES Final R esult Performing Organization Address City/[facility]/ZIP Co de Phone Number [facility] [address] [place] [phone] * T4, Free (04/12/2025 2:50 PM EDT) Free T4 (Free Thyroxine) 1.01 0.71 - 1.85 ng/dL [facility] Blood Venous blood specimen / Unknown 04/12/2025 2:50 PM EDT 04/12/2025 2:50 PM EDT Enedina Saunders LAB BLOOD ORDERABLES Final R esult Performing Organization Address City/[facility]/ZIP Co de Phone Number [facility] [address] [place] [phone] * (ABNORMAL) Hemoglobin A1c (04/12/2025 2:50 PM EDT) Pathologist [facility] Hemoglobin A1c 7.1(H) <6.0 % [facility] Comment:Hemoglobin A1C Refer ence Range Adults: 4.8 - 6.0 % Non diabetic: < 6.0 % Goal: < 7.0 %Additional Action Suggested: > 8.0 %Note: Hemoglobin A1c results are invalid for patients with abnormal amounts of HbF. Blood transfusions may impact the HbA1c concentration in the patient sample. Estimated Average Glucose 157 mg/dL [facility] Comment:eAG = Estimated ave rage glucose which is %A1C expressed asaverage glucose, using the formula of the A8O-XocavzmUoiaqsv Glucose study (ADAG), Diabetes Care, Vol.31,#8,May. 2007 Blood Venous blood specimen / Unknown 04/12/2025 2:50 PM EDT 04/12/2025 2:50 PM EDT Enedina Saunders [employer] LAB BLOOD ORDERABLES Final R esult Performing Organization Address City/[facility]/ZIP Co de Phone Number [facility] [address] [place] [phone] * Ferritin (04/12/2025 2:50 PM EDT) Pathologist [facility] Ferritin 147 20 - 250 ng/mL [facility] Blood Venous blood specimen / Unknown 04/12/2025 2:50 PM EDT 04/12/2025 2:50 PM EDT Enedina Saunders [employer] LAB BLOOD ORDERABLES Final R esult Performing Organization Address [facility] [[email or web address]] Co de Phone Number [facility] [address] [place] [phone] * (ABNORMAL) Hepatic Function Panel (04/12/2025 2:50 PM EDT) [facility] Bilirubin, Total 0.2 0.0 - 1.0 mg/dL [facility] Bilirubin, Direct <0.2 0.0 - 0.5 mg/dL [facility] Aspartate Amino Transferase 19 5 - 37 U/L [facility] Alanine Aminotransferase 33 0 - 40 U/L [facility] Total Protein 7.3 6.5 - 8.0 g/dL [facility] Albumin Level 4.1 3.5 - 5.0 g/dL [facility] Alkaline Phosphatase 149(H) 39 - 117 U/L [facility] Blood Venous blood specimen / Unknown 04/12/2025 2:50 PM EDT 04/12/2025 2:50 PM EDT Enedina Saunders [employer] LAB BLOOD ORDERABLES Final R esult Performing Organization Address [facility] [[email or web address]] Co de Phone Number [facility] [address] [place] [phone] * (ABNORMAL) Lipid Panel, Standard (04/12/2025 2:50 PM EDT) Triglycerides 84 <150 mg/dL [facility] Comment:Desirable Triglyceri de: less than 150 mg/dLBorderline High Triglyceride 150-199 mg/dLHigh Triglyceride: 200-499 mg/dLVery High Triglyceride: greater than or equal to 5OO mg/dL Cholesterol 99 <200 mg/dL [facility] Comment:Desirable Cholestero l: less than 200 mg/dLBorderline High Cholesterol: 200-239 mg/dLHigh Cholesterol: greater than 239 mg/dL LDL Cholesterol Calculated 51 <100 mg/dL [facility] Comment:Desirable LDL: less than 100 mg/dLNear Optimal/Above Optimal LDL: 110- 129 mg/dLBorderline High LDL: 130-159 mg/dLHigh LDL: 160-189 mg/dLVery High LDL: greater than or equal to 190 mg/dL HDL Cholesterol 32(L) >40 mg/dL [facility] Comment:Desirable HDL: great er than 40 mg/dL Note: This HDL assay may give artificially low results in patients with liver disease. Blood Venous blood specimen / Unknown 04/12/2025 2:50 PM EDT 04/12/2025 2:50 PM EDT us Enedina Saunders DO LAB BLOOD ORDERABLES Final R esult [facility] [address], [place] [phone] * (ABNORMAL) Basic Metabolic Panel (04/12/2025 2:50 PM EDT) Sodium 140 135 - 145 mmol/L [facility] Potassium 4.0 3.3 - 5.1 mmol/L [facility] Chloride 112(H) 96 - 108 mmol/L [facility] Carbon Dioxide 21(L) 22 - 29 mmol/L [facility] Anion Gap 11(L) 12 - 20 [facility] Urea Nitrogen (BUN) 30(H) 9 - 16 mg/dL [facility] Creatinine, Serum 1.48(H) 0.5 - 1.4 mg/dL [facility] Estimated Glomerular Filt Rate 48 [facility] Comment:Chronic Kidney Disea se: Estimated GFR < 60 mL/min/1.96w6Klhtkj Kidney Disease: Estimated GFR < 15 mL/min/1.73m2 Glucose 167(H) 60 - 115 mg/dL [facility] Calcium 9.2 8.4 - 10.2 mg/dL [facility] Blood Venous blood specimen / Unknown 04/12/2025 2:50 PM EDT 04/12/2025 2:50 PM EDT us Enedina Saunders DO LAB BLOOD ORDERABLES Final R esult Performing Organization Address [facility]/ZIP Co de Phone Number [facility] [address], [place] [phone] * (ABNORMAL) Protein Creatinine Ratio, Urine (04/12/2025 2:44 PM EDT) Creatinine, Urine 132.98 mg/dL [facility] Protein, Total, Random Urine 109(H) <12 mg/dL [facility] Protein/Creati nine Ratio, Ur 0.82(H) <0.2 [facility] Comment:The spot urine prote in:creatinine ratio may increase to 0.3during normal . 04/12/2025 2:44 PM EDT 04/12/2025 3:11 PM EDT us Generic External Data Provider LAB URINE ORDERAB LES Final Result Performing Organization Address [facility]/ZIP Co de Phone Number [facility] [address], [place] [phone] * (ABNORMAL) Urinalysis Complete (04/12/2025 2:44 PM EDT) Color Urine Yellow [facility] Appearance Urine Clear [facility] PH 6.0 5.0 - 9.0 [facility] Glucose Urine UA >=1000(A) Negative mg/dL [facility] Urine Blood Negative Negative [facility] Specific Ponder - Urine 1.025 1.005 - 1.025 [facility] Urine Protein 100 (2+)(A) Neg-Trace mg/dL [facility] Urine Ketones Trace Negative mg/dL [facility] Nitrite Urine Negative Negative [facility] Leukocyte Esterase Urine Negative Negative [facility] RBC Urine 0-2 0 - 2 /HPF [facility] Urine WBC 0-5 0 - 5 /HPF [facility] Urine Squamous Epithelial Cell 0-2 0 - 2 /HPF [facility] Urine Bacteria None Seen None Seen [facility] Hyaline Casts, Urine 3-5 0 - 2 /LPF [facility] 04/12/2025 2:44 PM EDT 04/12/2025 3:11 PM EDT us Generic External Data Provider LAB URINE ORDERAB LES Final Result [facility] [address] [place] [phone] * (ABNORMAL) POCT HGB A1C (04/12/2025 11:34 AM EDT) Hemoglobin A1C 6.9(A) 4.0 - 5.7 % QC Media Lot # [id number] Lot# Expiration Date Blood 04/12/2025 11:3 4 AM EDT Enedina Saunders DO POINT OF CARE TEST ENTER/RUSTAM T ORDERABLES Final Result * POCT Glucose (04/12/2025 11:34 AM EDT) Glucose Blood, POC 168 60 - 200 mg/dL QC Media Lot # [id number] Lot# Expiration Date Blood Capillary blood specimen / Unknown 04/12/2025 11:34 AM EDT Enedina Nicky DO POINT OF CARE TEST ENTER/RUSTAM T ORDERABLES Final Result * Hepatitis C Antibody with Reflex to HCV, RNA, Quantitative, Real-Time PCR (10/15/2024 3:25 PM EST) Hepatitis C Antibody Nonreactive Nonreactive [facility] Comment:Antibodies to HCV no t detected; does not exclude early acuteHCV infection. Blood Venous blood specimen / Unknown 10/15/2024 3:25 PM EST 10/15/2024 3:25 PM EST Enedina Nicky [facility] BLOOD ORDERABLES Final R esult Performing Organization Address [facility] [[email or web address]] Co de Phone Number [facility] [address] [place] [phone] * HIV-1/2 Antigen and Antibodies, Fourth Generation, with Reflexes (10/15/2024 3:25 PM EST) Pathologist [facility] HIV AB/AG Nonreactive Nonreactive [facility] Comment:HIV-1 p24 Ag and/or HIV-1/HIV-2 Ab not detected.A test result that is nonreactive does not exclude thepossibility of exposure to or infection with HIV-1 and/orHIV-2. Nonreactive results in this assay for individualswith prior exposure to HIV-1 and/or HIV-2 may be due toantigen and antibody levels that are below the limit ofdetection of this assay.The [employer] HIV Ag/Ab Combo assay result andsupplemental assay results should be interpreted inconjunction with the patient's clinical presentation,history and other laboratory results. If the results areinconsistent with clinical evidence, additional testing issuggested to confirm the result. Blood Venous blood specimen / Unknown 10/15/2024 3:25 PM EST 10/15/2024 3:25 PM EST Enedina Nicky [facility] BLOOD ORDERABLES Final R esult [facility] [address] [place] [address] [phone] * Fecal Globin by Immunochemistry (12/29/2022 12:00 AM EDT) Fecal Globin By Immunochemistry SEE NOTE [employer] Comment: FECAL GLOBIN BY IMMUNOCHEMISTRY Micro Number: [id number] Test Status: Final Specimen Source: Insure (tm) fobt test card Specimen Quality: Adequate Fecal Globin: Not Detected Comment: Test results may be invalid as no date of collection was provided. Specimens are stable for 14 days. Stool Rectal contents / Unknown 12/29/2022 01/04/2023 9:16 AM EDT Enedina Saunders DO LAB BODY FLUIDS AND STOOLS O RDERABLES Final Result [facility] [address], [place] [address] [employer] [address] [place] [address] from Last 3 Months or Most Recently Relevant to Health Maintenance Insurance [facility] ONE CARE < 65 Care Teams Therapy Teacher Relationship Specialty Start Date End Date Enedina Saunders DO [address] [place] [address] MADELYN Robledo [address] PCP - General Family Medicine 11/18/15
--- OUTSIDE RECORDS SUMMARY | 2025-05-27 15:01 | XMS_ITS | Clinical Summary ---
Author Organization [address] [facility] Address [address] [place] [address] Phone Care Team Providers Care Social Media Project Manager Name Role Phone Cindy Mohan MD Primary Care Provide r Encounters Date Type Department Care Team Description 05/10/2025 Telephone Orthopedic Surgery [facility] 250 [address] [facility] 250 [place] [address] Andrea Brown DPM from Last [...] patient's age to complete this topic Insurance [facility] MEDICARE Member Subscriber Plan / Payer (Ef fective 2016-Present) Name:JOO DAWSON Relation to Subscriber:Self Name:Joo Dawson Payer ID:[id number] Group ID:[id number] Type:Not on file Address: [address] [place] [address] Care Teams Social Media Project Manager Relationship Specialty Start Date End Date Cindy Mohan MD [address] [phone] PCP - General 08/05/23
--- OUTSIDE RECORDS SUMMARY | 2025-05-27 15:01 | XMS_ITS | Encounter Summary ---
Author Organization [employer] Address [address] [place] [address] 7t h Floor [place] [phone] Care Team Providers Care Bass Fisher Name Role Phone Enedina Saunders DO Primary Care Provider + [phone] Reason for Visit * Reason Onset Date Comments pre op 05/07/2025 Encounter Details Date Type Department Care Team ([facility] st Contact Info) Description 05/07/2025 Telephone [facility] 230 [place], [place] [phone] Enedina Saunders DO 230 [place] [address] pre op Social History Tobacco Use Types Packs/Day Years [...] is your housing situation today? I have grhaam davis 04/12/[address] you [...] encounter Miscellaneous Notes * Telephone Encounter - Sherri Lopez - 05/08/2025 10:29 AM EDT Facility agreed to pre op appointment on 05/09/25 With . * Telephone Encounter - Cornelia Bates - 05/07/2025 3:31 PM EDT Date of Surgery: 05/21 Surgical procedure being done: Tube Shunt Type of anesthesia: Block Lab needed: No EKG: Yes Surgeon's name: Dr Latoya España Facility name: [facility] Surgeon's office number: [phone] Surgeon's office fax number: [phone] Contact name (person you spoke with): Leyla Last office note from surgeon requested: Yes Send Message to Sherri Lopez and Alfred Tineo documented in this encounter Plan of Treatment Upcoming Encounters Date Type Department Care Team ([facility] st Contact Info) Description 08/01/2025 10:00 AM EDT Clinical Support [address] [address] Jenny Escobar RN 10/21/2025 1:00 PM EST Office Visit [facility] [address] [place] [address] Enriqueta Stevenson, IRAM 230 [place] [address] documented as of this encounter Visit Diagnoses Not on filedocumented in this encounter Additional Health Concerns Assessment Noted Time PHQ-9 Depression Total Score: 0 04/12/20 25 11:31 AM EDT documented as of this encounter Care Teams Bass Fisher Relationship Specialty Start Date End Date Enedina Saunders DO [address] [place] [address] PCP - General Family Medicine 11/18/15 documented as of this encounter
--- OUTSIDE RECORDS SUMMARY | 2025-05-27 15:01 | XMS_ITS | Encounter Summary ---
Author Organization [employer] Address 75 [facility] 7t [place] [address] Care Team Providers Care Soldering Inspector Name Role Phone GianEnedina owens Primary Care Provider + [phone] Reason for Visit * Reason Comments Med Refill Encounter Details Date Type Department Care Team (Late st Contact Info) Description 09/29/2023 Refill [facility] [address] [place], [place] [phone] Viridiana Urbina MD 230 [place], [place] [phone] Type 2 diabetes mellitus with other diabetic kidney complication ([facility]/HCC) Social History Tobacco Use Types Packs/Day [...] Description 08/01/2025 10:00 AM EDT Clinical Support [facility] [address] [place] [address] Jenny Escobar, RN 10/21/2025 1:00 PM EST Office Visit [facility] [address] [place], [place] [phone] Graham, Enriqueta, OD 230 [place] [address] documented as of this encounter Visit Diagnoses Diagnosis Type 2 diabetes mellitus with other diabetic kidney complication (CMS/HCC) documented in this encounter Additional Health Concerns Assessment Noted Time PHQ-9 Depression Total Score: 0 12/21/19 23 10:36 AM EDT documented as of this encounter Care Teams Soldering Inspector Relationship Specialty Start Date End Date Enedina Saunders DO 230 [place] [address] PCP - General Family Medicine 11/18/15 documented as of this encounter
--- OUTSIDE RECORDS SUMMARY | 2025-05-27 15:01 | XMS_ITS | Encounter Summary ---
Author Organization [employer] Address [address] [place] [address] 7t [place] [address] Care Team Providers Care Diagnostic Tech Name Role Phone Enedina Saunders DO Primary Care Provider + [phone] Reason for Visit * Reason Onset Date Comments OV notes 10/04/2023 Encounter Details Date Type Department Care Team ([facility] st Contact Info) Description 10/04/2023 Telephone [facility] 230 [place], [place] [phone] Enedina Saunders DO 230 [place] [address] OV notes Social History Tobacco Use Types [...] - 10/04/2023 3:11 PM EST Tc from [facility] 08/04 OV notes will need to be faxed to [employer] for diabetic shoes. documented in this encounter Plan of Treatment Upcoming Encounters Date Type Department Care Team (Late st Contact Info) Description 08/01/2025 10:00 AM EDT Clinical Support [facility] 230 [place] [address] Jenny Escobar RN 10/21/2025 1:00 PM EST Office Visit [facility] [address] [place] [address] Enriqueta Stevenson, OD 230 [place] [address] documented as of this encounter Visit Diagnoses Not on filedocumented in this encounter Additional Health Concerns Assessment Noted Time PHQ-9 Depression Total Score: 0 12/21/19 23 10:36 AM EDT documented as of this encounter Care Teams Diagnostic Tech Relationship Specialty Start Date End Date Enedina Saunders DO 230 [place] [address] PCP - General Family Medicine 11/18/15 documented as of this encounter
--- OUTSIDE RECORDS SUMMARY | 2025-05-27 15:01 | XMS_ITS | Encounter Summary ---
Author Organization [employer] Address 75 [facility] 7t [place] [address] Care Team Providers Care Computer Information Science Professor Name Role Phone Enedina Saunders DO Primary Care Provider + [phone] Reason for Visit * Reason Comments Med Refill Encounter Details Date Type Department Care Team (Late st Contact Info) Description 10/21/2023 Refill [facility] 230 [place], [place] [phone] Enedina Saunders DO 230 [place], [place] [phone] Type 2 diabetes mellitus with other diabetic kidney complication ([facility]/HCC) Social History Tobacco Use Types Packs/Day Years [...] Description 08/01/2025 10:00 AM EDT Clinical Support [facility] 230 [place] [address] Jenny Escobar, RN 10/21/2025 1:00 PM EST Office Visit [facility] [address] [place], [place] [phone] Graham, Enriqueta, OD 230 [place] [address] documented as of this encounter Visit Diagnoses Diagnosis Type 2 diabetes mellitus with other diabetic kidney complication (CMS/HCC) documented in this encounter Additional Health Concerns Assessment Noted Time PHQ-9 Depression Total Score: 0 12/21/19 23 10:36 AM EDT documented as of this encounter Care Teams Computer Information Science Professor Relationship Specialty Start Date End Date Enedina Saunders DO 230 [place] [address] PCP - General Family Medicine 11/18/15 documented as of this encounter
--- OUTSIDE RECORDS SUMMARY | 2025-05-27 15:01 | XMS_ITS | Encounter Summary ---
Author Organization [employer] Address [address] [facility] [address] 7t h Floor [place] [phone] Care Team Providers Care Communications Technologist Name Role Phone GianEnedina owens Primary Care Provider + [phone] Reason for Visit * Reason Comments Med Refill Encounter Details Date Type Department Care Team (Late st Contact Info) Description 12/14/2024 Refill [facility] [address] [place], [place] [phone] Viridiana Urbina MD 230 [place] [address] Social History Tobacco Use Types Packs/Day Years [...] Description 08/01/2025 10:00 AM EDT Clinical Support [facility] [address] [place] [address] Jenny Escobar, RN 10/21/2025 1:00 PM EST Office Visit [facility] [address] [place] [address] Graham, Enriqueta, OD 230 [place] [address] documented as of this encounter Visit Diagnoses Not on filedocumented in this encounter Additional Health Concerns Assessment Noted Time PHQ-9 Depression Total Score: 4 02/08/20 24 3:47 PM EDT documented as of this encounter Care Teams Communications Technologist Relationship Specialty Start Date End Date Enedina Saunders DO 230 [place] [address] PCP - General Family Medicine 11/18/15 documented as of this encounter
--- OUTSIDE RECORDS SUMMARY | 2025-05-27 15:01 | XMS_ITS | Encounter Summary ---
Author Organization [employer] Address 75 [facility] 7t [place] [address] Care Team Providers Care Composition Worker Name Role Phone Enedina Saunders DO Primary Care Provider + [phone] Reason for Visit * Reason Onset Date Comments Med Refill 03/01/2024 Encounter Details Date Type Department Care Team ([facility] st Contact Info) Description 03/01/2024 Telephone [facility] 230 [place], [place] [phone] Enedina Saunders DO 230 [place], [place] [phone] Med Refill Social History Tobacco Use Types [...] MG/0.5ML solution pen-injector To be sent to: [facility] - [place], [place] - [address] [place] [address] documented in this encounter Plan of Treatment Upcoming Encounters Date Type Department Care Team (Late st Contact Info) Description 08/01/2025 10:00 AM EDT Clinical Support [facility] [address] [place] [address] Jenny Escobar, RN 10/21/2025 1:00 PM EST Office Visit [facility] [address] [place], [place] [phone] Enriqueta Stevenson, IRAM 230 [place] [address] documented as of this encounter Visit Diagnoses Not on filedocumented in this encounter Additional Health Concerns Assessment Noted Time PHQ-9 Depression Total Score: 4 05/08/20 24 3:47 PM EDT documented as of this encounter Care Teams Composition Worker Relationship Specialty Start Date End Date Enedina Saunders DO 230 [place] [address] PCP - General Family Medicine 11/18/15 documented as of this encounter
--- OUTSIDE RECORDS SUMMARY | 2025-05-27 15:01 | XMS_ITS | Encounter Summary ---
Author Organization [employer] Address 75 [facility] 7t h Floor [place] [phone] Care Team Providers Care Manager Legal Name Role Phone Enedina Saunders DO Primary Care Provider + [phone] Reason for Visit * Reason Onset Date Comments Results 04/29/2025 Encounter Details Date Type Department Care Team ([facility] st Contact Info) Description 04/29/2025 Telephone [facility] 230 [place], [place] [phone] Enedina Saunders DO 230 [place], [place] [phone] Results Social History Tobacco Use Types Packs/Day Years [...] encounter Miscellaneous Notes * Telephone Encounter - Jenny Escobar RN - 04/30/2025 9:47 AM EDT TC to daughter Sumi, reviewed with daughter pts urine results were negative for methadone and foroxycodone, still awaiting BZO results. Dtr states she is sure he takes his oxycodone. Dtr to call back in a week for BZO results. * Telephone Encounter - Suha Romano RN - 04/29/2025 1:55 PM EDT TC returned to daughter, daughter inquiring on results of bloodwork from 04/12/25 that showed elevated creatinine compared to last tested 6 months ago, and PCP would like pt. To repeat bloodwork in 1 month when very well hydrated, avoiding NSAIDs this month, keeping strict control of BP and BS. Daughter verbalizes understanding and agrees to plan. Otherwise daughter inquiring on how pt.'s urine could have tested + for methadone today at [facility] appt, as she provides all of pt.'s meds to him and pt. Lives with her, and she feels like she would know if pt. Was taking an illicit substance he was not supposed to be. However sister reports she has a brother that is on methadone and comes to the home often. Advised daughter we would wait for the results of the confirmatory and she would appreciate acall when they're back. Daughter is on HIPAA. Thanks!! * Telephone Encounter - Bib Star - 04/29/2025 9:40 AM EDT Tc fro pt daughter requesting a call back with results of her father due to her father not understanding the results. Contact daughter at [phone] documented in this encounter Plan of Treatment Upcoming Encounters Date Type Department Care Team (Late st Contact Info) Description 08/01/2025 10:00 AM EDT Clinical Support [facility] 230 [place] [address] Jenny Escobar RN 10/21/2025 1:00 PM EST Office Visit [facility] [address] [place], [place] [phone] Graham, Enriqueta, OD 230 [place] [address] documented as of this encounter Visit Diagnoses Not on filedocumented in this encounter Additional Health Concerns Assessment Noted Time PHQ-9 Depression Total Score: 0 04/12/20 25 11:31 AM EDT documented as of this encounter Care Teams Manager Legal Relationship Specialty Start Date End Date Enedina Saunders DO 230 [place] [address] PCP - General Family Medicine 11/18/15 documented as of this encounter
--- OUTSIDE RECORDS SUMMARY | 2025-05-27 15:01 | XMS_ITS | Encounter Summary ---
Author Organization [employer] Address 75 [facility] 7t h Floor [place] [phone] Care Team Providers Care Training Professional Name Role Phone Enedina Saunders DO Primary Care Provider + [phone] Reason for Visit * Reason Comments Med Refill Encounter Details Date Type Department Care Team (Late st Contact Info) Description 03/01/2024 Refill [facility] 230 [place], [place] [phone] Enedina Saunders DO 230 [place], [place] [phone] Essential hypertension Social History Tobacco Use Types [...] Description 08/01/2025 10:00 AM EDT Clinical Support [facility] 230 [place] [address] Jenny Escobar RN 10/21/2025 1:00 PM EST Office Visit [facility] [address] [place], [place] [phone] Graham, Enriqueta, OD 230 [place] [address] documented as of this encounter Visit Diagnoses Diagnosis Essential hypertension Unspecified essential hypertension documented in this encounter Additional Health Concerns Assessment Noted Time PHQ-9 Depression Total Score: 4 02/08/20 24 3:47 PM EDT documented as of this encounter Care Teams Training Professional Relationship Specialty Start Date End Date Enedina Saunders DO 230 [place] [address] PCP - General Family Medicine 11/18/15 documented as of this encounter
--- OUTSIDE RECORDS SUMMARY | 2025-05-27 15:01 | XMS_ITS | Encounter Summary ---
Author Organization [employer] Address 75 [facility] 7t h Floor [place] [phone] Care Team Providers Care Registration Representative Name Role Phone Enedina Saunders DO Primary Care Provider + [phone] Reason for Visit * Reason Onset Date Comments Call Back Request 04/06/2024 Encounter Details Date Type Department Care Team ([facility] st Contact Info) Description 04/06/2024 Telephone [facility] 230 [place], [place] [phone] Enedina Saunders DO 230 [place], [place] [phone] Call Back Request Social History Tobacco Use [...] to NS placed 03/05/24. MRI done at [facility] 02/22/24 ( in chart). TC returned to daughter and daughter reports she called [facility] to inquire on status of NS referral [...] 10:00 AM EDT Clinical Support [facility] MED[facility]INE [address] [place] [address] Jenny Escobar, RN 10/21/2025 1:00 PM EST Office Visit [facility] OPTOMET[facility] [address] [place] [address] Enriqueta Stevenson, IRAM 230 [place] [address] documented as of this encounter Visit Diagnoses Not on filedocumented in this encounter Additional Health Concerns Assessment Noted Time PHQ-9 Depression Total Score: 4 02/08/20 24 3:47 PM EDT documented as of this encounter Care Teams Registration Representative Relationship Specialty Start Date End Date Enedina Saunders DO [address] [place] [address] PCP - General Family Medicine 11/18/15 documented as of this encounter
[2025-05-27 17:45] LABS: Hemoglobin A1C 168.2649 umol/L; Total Hemoglobin (HGBA1C) 2979.4646 umol/L
[2025-05-27 17:55] LABS: Anion Gap 12 (12-20); Blood Urea Nitrogen 37 mg/dL (9-16); Calcium 9.3 mg/dL (8.4-10.2); Carbon Dioxide 18 mmol/L (22-29); Chloride 113 mmol/L (96-108); Estimated Glomerular Filt Rate 59; Potassium 4.1 mmol/L (3.3-5.1); Sodium 139 mmol/L (135-145)
[2025-05-27 18:28] LABS: Protein/Creatinine Ratio, Ur 0.99 (<0.2); Total Protein Urine Random 95 mg/dL (<12)
== END 2025-05-27 13:41 | disposition home or self-care (01) ==
LOC: HO.HKASLDS 13:40
PROVIDERS: Visit Provider Internal Medicine Nephrology
DX: E11.21 Type 2 diabetes mellitus with diabetic nephropathy (principal); I10 Essential (primary) hypertension; N20.0 Calculus of kidney; R80.8 Other proteinuria
CPT/HCPCS: 36415; 80051; 82310; 82565; 82570; 83036; 84156; 84520

== ENCOUNTER 2025-05-28 15:45 | Emergency (ER) | payer OTHER, SELFPAY ==
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
--- NOTE | ~2025-05-28 | XR_ITS ---
EXAMINATION: XR FOOT, LEFT CLINICAL INFORMATION: left heel ulcer. osteo? COMPARISON: April 26, 2025 TECHNIQUE: AP, lateral, and oblique views of the left foot. FINDINGS: No osteolysis. No acute cortical disruption or malalignment. No subcutaneous emphysema. 2 mm well-corticated calcification in the soft tissues adjacent to the cuboid. Vascular calcifications. Small exostosis at the Achilles tendon insertion. No lytic or blastic lesions. XR/XR foot LT min 3V IMPRESSION: No osteomyelitis based upon on x-ray. Atherosclerosis disease, peripheral. Electronically signed by: Noel Martini MD 05/29/2025 08:00 AM EDT
[2025-05-28 16:27] VITALS: BP 187/91; PULSE 87; RESP 18; TEMP 36.8; O2SAT 99; BMI 27.7
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
--- OUTSIDE RECORDS SUMMARY | 2025-05-28 17:09 | XMS_ITS | Encounter Summary ---
Author Organization [employer] Address [address] [facility] [address] [place] [address] Care Team Providers Care Client Reporting Associate Name Role Phone Nicky Enedina Primary Care Provider + [phone] Encounter Details Date Type Department Care Team ([facility] Contact Info) Description 11/10/2022 Orders Only [facility] [address] [place], [place] [phone] Enedina Hudson LPN Social History Tobacco Use [...] Description 08/01/2025 10:00 AM EDT Clinical Support [facility] MEDICINE [address] [place] [address] Jenny Escobar RN 10/21/2025 1:00 PM EST Office Visit [facility] OPTOMETRY [address] [place] [address] Enriqueta Stevenson, OD [address] [place] [address] documented as of this encounter Visit Diagnoses Not on filedocumented in this encounter Care Teams Client Reporting Associate Relationship Specialty Start Date End Date Enedina Saunders DO [address] [place] [id number] PCP - General Family Medicine 11/18/15 documented as of this encounter
--- OUTSIDE RECORDS SUMMARY | 2025-05-28 17:09 | XMS_ITS | Encounter Summary ---
Author Organization [employer] Address [address] [place] [address] [address] [place] [address] Care Team Providers Care Esthetician/Spa Coordinator Name Role Phone Enedina Saunders DO Primary Care Provider + [phone] Encounter Details Date Type Department Care Team (Late st Contact Info) Description 10/21/2022 Orders Only [facility] MEDICINE [address] [place] [address] Maritza Encinas LPN Social History Tobacco Use [...] 10:00 AM EDT Clinical Support [facility] MED[facility]INE [address] [place] [address] Jenny Escobar, WALTER 10/21/2025 1:00 PM EST Office Visit [facility] OPTOM[facility]RY [address] [place] [address] Graham, Enriqueta, OD [address] [place] [address] documented as of this encounter Visit Diagnoses Not on filedocumented in this encounter Care Teams Esthetician/Spa Coordinator Relationship Specialty Start Date End Date Enedina Saunders DO [address] [place] [address] PCP - General Family Medicine 11/18/15 documented as of this encounter
--- OUTSIDE RECORDS SUMMARY | 2025-05-28 17:09 | XMS_ITS | Encounter Summary ---
Author Organization [employer] Address [address] [facility] [address] [place] [id number] Care Team Providers Care Sales Center Manager Name Role Phone Enedina Saunders DO Primary Care Provider + [phone] Reason for Visit * Reason Onset Date Comments Nurse Triage 09/18/2024 Encounter Details Date Type Department Care Team ([facility] st Contact Info) Description 09/18/2024 Telephone [facility] [address] [place], [place] [phone] Enedina Saunders DO [address] [place] [address] Nurse Triage Social History Tobacco Use Types [...] AM EST Triage call with [facility] [place] [id number], [place]. Pt is reporting high blood pressure. Last nightBP was 198/? and this morning it was 168/95. Pt reports some dizziness and unbalance. Pt is taking hydrochlorothiazide 25mg as prescribed. No available apts in office over next 3 days. Pt is advised to come to [facility] for provider to check BP and evaluate [...] Description 08/01/2025 10:00 AM EDT Clinical Support [facility] [address] [place] [address] Jenny Escobar RN 10/21/2025 1:00 PM EST Office Visit [facility] [address] [place] [address] Enriqueta Stevenson, OD [address] [place] [address] documented as of this encounter Visit Diagnoses Not on filedocumented in this encounter Additional Health Concerns Assessment Noted Time PHQ-9 Depression Total Score: 4 02/08/20 24 3:47 PM EDT documented as of this encounter Care Teams Sales Center Manager Relationship Specialty Start Date End Date Enedina Saunders DO [address] [place] [address] PCP - General Family Medicine 11/18/15 documented as of this encounter
--- OUTSIDE RECORDS SUMMARY | 2025-05-28 17:09 | XMS_ITS | Encounter Summary ---
Author Organization [employer] Address [address] [place] [address] [address] [place] [address] Care Team Providers Care Chuck Wagon Driver Name Role Phone Enedina Saunders DO Primary Care Provider + [phone] Encounter Details Date Type Department Care Team (Late Contact Info) Description 10/29/2022 Telephone [facility] MEDICINE [address] [place] [phone] Enedina Saunders DO [address] [place] [address] Social History Tobacco Use Types Packs/Day Years [...] Description 08/01/2025 10:00 AM EDT Clinical Support [facility] MEDIC[facility] [address] [place] [address] Jenny Escoabr RN 10/21/2025 1:00 PM EST Office Visit [facility] OPTOMETRY [address] [place] [phone] Enriqueta Stevenson, OD [address] [place] [address] documented as of this encounter Visit Diagnoses Not on filedocumented in this encounter Care Teams Chuck Wagon Driver Relationship Specialty Start Date End Date Enedina Saunders DO [address] [place] [address] PCP - General Family Medicine 11/18/15 documented as of this encounter
--- OUTSIDE RECORDS SUMMARY | 2025-05-28 17:09 | XMS_ITS | Clinical Summary ---
Author Organization [address] [facility] Address [address] [place] [address] Phone Care Team Providers Care Lactation Specialist Name Role Phone Cindy Mohan MD Primary Care Provide r Encounters Date Type Department Care Team Description 05/10/[address] [facility] [address] [facility] [address] [place] [address] Andrea Brown DPM from Last [...] patient's age to complete this topic Insurance [facility] MEDICARE Member Subscriber Plan / Payer (Ef fective 2016-Present) Name:JOO DAWSON Relation to Subscriber:Self Name:Joo Dawson Payer ID:[id number] Group ID:[id number] Type:Not on file Address: [address] [place] [address] Care Teams Lactation Specialist Relationship Specialty Start Date End Date Cindy Mohan MD [address] [phone] PCP - General 08/05/23
--- OUTSIDE RECORDS SUMMARY | 2025-05-28 17:09 | XMS_ITS | Clinical Summary ---
Author Organization [employer] Address [address] [place] [address] 7[address] [place] [address] Care Team Providers Care Superintendent [employer] Name Role Phone Enedina Saunders Primary Care Provider + [phone] Allergies Active Allergy Reactions Criticality Noted Date [...] diabetes mellitus with other diabetic kidney complication ([facility]) INJECT 38 UNITS SUBCUTANEOUSLY EVERY DAY 9 mL 024 Active Continuous Glucose Sensor (FreeStyle Roni 2 Sensor) misc Apply 1 each topically 3 times daily. 2 each Active Artificial Tear Solution (GenTeal Tears) 0.1-0.2-0.3 % solutionIndicat ions:Type 2 diabetes mellitus with other diabetic kidney complication ([facility]) INSTILL 1 DROP IN DRY EYES FOUR TIMES DAILY NEEDED 30 mL 3 024 Active metFORMIN (Glucophage) 1000 MG tabletIndicatio ns:Type 2 diabetes mellitus with other specified complication, unspecified whether extermination supervisor insulin use ([facility]) TAKE 1 Tablet BY MOUTH TWICE DAILY [...] mellitus with other specified complication, unspecified whether extermination supervisor insulin use ([facility]) TAKE 1 TABLET BY MOUTH EVERY DAY [...] diabetes mellitus with other diabetic kidney complication ([facility]) INJECT 10 UNITS SUBCUTANEOUSLY TWICE DAILY BEFORE BREAKFAST AND BEFORE SUPPER 15 mL 3 025 Active gabapentin (Neurontin) 400 MG capsuleIndicati ons:Chronic bilateral low back pain with left-sided sciatica TAKE 2 CAPSULES BY MOUTH THREE TIMES DAILY 180 capsule 025 Active bacitracin 500 UNIT/GM ointmentIndicat ions:Ulcer of foot, chronic, left, with unspecified severity ([facility]) Apply topically 2 times daily. 28 g [...] with long-term current use of insulin 04/26/2025 shelter (current) use of opiate analgesic 12/01 Healthcare [...] refuses f/u with pain mgmt -advised contact [facility] if sx change or worsen Essential [...] microalbumin OCT 2023 -there is EKG in [employer] -optho as above -f/u with renal as [...] with severe diabetic retinopathy JAN 2023 at [facility], encouraged schedule f/u -strongly encouraged schedule [...] Type Department Care Team Description 05/18/2025 Refill [facility] [address] [place] [address] Enedina Saunders DO Essential hypertension; Muscle spasm 05/16/2025 9:20 AM EDT Office Visit [facility] [address] Enedina Saunders DO Left wrist pain (Primary Dx); Back pain, unspecified back location, unspecified back pain laterality, unspecified chronicity 05/16/2025 9:00 AM EDT Clinical Support [address] [place] [address] Jenny Escobar, RN lobsterman (current) use of opiate analgesic (Primary Dx) 05/16/2025 [address] [place] [address] Enedina Saunders DO FYI 05/16/[address] [address] Jenny Escobar, WALTER Forgot Oxycodone, UTOX Pos MTD 05/16/2025 Travel 05/15/[address] [address] Enedina Saunders DO Appointment Request 05/14/[address] [address] Jenny Escobar, RN Schedule [employer] Random visit 05/13/[address] [address] Enedina Saunders DO pre op notes 05/09/2025 10:00 AM EDT Office Visit [address] [address] Bib Palomo MD Preoperative examination (Primary Dx) 05/09/2025 Travel 05/07/[address] [address] Enedina Saunders DO pre op 05/07/[address] [address] Enedina Saunders DO Chronic low back pain, unspecified back pain laterality, unspecified whether sciatica present 05/07/[address] [place] [address] Enedina Saunders DO Chronic low back pain, unspecified back pain laterality, unspecified whether sciatica present 05/05/2025 Refill [facility] [address] [place] [address] Enedina Saunders DO 05/02/[address] [address] Jenny Escobar RN Error (VOID this visit) 04/30/[address] [address] Jenny Escobar RN Error (VOID this visit) 04/29/2025 10:00 AM EDT Clinical Support [address] [address] Jenny Escobar RN lobsterman (current) use of opiate analgesic (Primary Dx) 04/29/[address] [address] Jenny Escobar RN Chronic low back pain, unspecified back pain laterality, unspecified whether sciatica present 04/29/2025 Travel 04/29/[address] [address] Enedina Saunders DO Results 04/26/2025 2:20 PM EDT Office Visit [facility] [address] [place] [phone] Cindy Mohan MD Essential hypertension (Primary Dx); Ulcer of foot, chronic, left, with unspecified severity (CMS/HCC); Callus of foot; Type 2 diabetes mellitus with hyperglycemia, with long-term current use of insulin (CMS/HCC) 04/26/2025 Results Follow-Up [address] [address] Cindy Mohan MD XR Foot 3+ Views Left 04/26/2025 Travel 04/25/[address] [address] Enedina Saunders DO requesting call back 04/25/2025 Refill [facility] [address] [place] [address] Enedina Saunders DO Chronic low back pain, unspecified back pain laterality, unspecified whether sciatica present 04/24/2025 Telephone [facility] [address] [place] [address] Enedina Saunders DO Results 04/20/2025 Refill [facility] [address] [place] [address] Enedina Saunders DO Chronic bilateral low back pain with left-sided sciatica 04/12/2025 11:15 AM EDT Office Visit [facility] [address] [place] [address] Enedina Saunders DO Type 2 diabetes mellitus [...] Generic External Data 04/12/2025 Travel 04/08/2025 Telephone [facility] [address] [place] [address] Enedina Saunders DO Chart Prep 03/28/2025 Refill [facility] [address] [place] [address] Enedina Saunders DO Chronic low back pain, unspecified back pain laterality, unspecified whether sciatica present (Primary Dx) 03/28/2025 Travel 03/19/2025 Refill [facility] [address] [place] [address] Enedina Saunders DO Depression, unspecified depression type 03/14/2025 Refill [facility] [address] [place] [address] Enedina Saunders DO Essential hypertension; Muscle spasm 02/28/2025 Telephone [facility] [address] [place] [address] Enedina Saunders DO Medication Question from Last [...] Description 08/01/2025 10:00 AM EDT Clinical Support [facility] [address] [place] [address] Jenny Escobar, WALTER 10/21/2025 1:00 PM EST Office Visit [facility] [address] [place] [address] Enriqueta Stevenson, OD [address] [place] [address] Health Maintenance Due Date Last Done Comments [...] DRUG SCREEN Routine 05/16/2025 8:54 AM EDT lobsterman (current) use of opiate analgesic METHADONE SCREEN, URINE Routine 05/16/2025 8:30 AM EDT shelter (current) use of opiate analgesic ECG 12-LEAD Routine 05/09/2025 12:32 PM EDT Preoperative examination POCT JOHNNY-14 URINE DRUG SCREEN Routine 04/29/2025 10:34 AM EDT shelter (current) use of opiate analgesic OXYCODONE SCREEN, URINE Routine 04/29/2025 10:08 AM EDT lobsterman (current) use of opiate analgesic METHADONE SCREEN, URINE Routine 04/29/2025 10:08 AM EDT shelter (current) use of opiate analgesic DRUG MONITORING, BENZODIAZEPINES, QUANTITATIVE, URINE Routine 04/29/2025 10:08 AM EDT lobsterman (current) use of opiate analgesic XR FOOT [...] AM EDT Narrative 05/16/2025 12:13 PM EDT [facility] [address] [place] [address] XRay Report Signed Patient: Joo Dawson MR#: [id number] 0922 : 1965 Acct:[id number] Age/Sex: 60 / M ADM Date: 05/16/25 [facility]: Enedina Saunders DO Ordering Physician: Enedina Saunders DO Date of Service: 05/16/25 Procedure(s): XR hand LT min 3V Accession Number(s): [id number] cc: Enedina Saunders DO EXAMINATION: XR WRIST [...] 05/16/25 1210 DD/ 0940 TD/TT: 05/16/25 0945 Shop Tech: Procedure Note Donotuseinterpreter, Image - 05/16/[address] [address] XRay Report Signed Patient: Joo Dawson LMR#: [id number] 0922 : 1965Acct:[id number] Age/Sex: 60 / MADM Date: 05/16/25 Loc: HO.[facility]X Attending Dr: Enedina Saunders DO Ordering Physician: Enedina Saunders DO Date of Service: 05/16/25 Procedure(s): XR hand LT min 3V Accession Number(s): [id number] cc: Enedina Saunders DO EXAMINATION: XR WRIST [...] 05/16/25 1210 DD/ 0940 TD/TT: 05/16/25 0945 Shop Tech: Enedina Saunders DO IMG XR PROCEDURES Final Resu lt * XR Wrist 3+ Views Left (05/16/2025 9:37 AM EDT) Anatomical Region Laterality Modality Upper Extremities, Wrist Left Radiogr aphic Imaging 05/16/2025 9:37 AM EDT Narrative 05/16/2025 12:13 PM EDT [address] [address] XRay Report Signed Patient: Joo Dawson MR#: [id number] 0922 : 1965 Acct:[id number] Age/Sex: 60 / M ADM Date: 05/16/25 Loc: ERICX Attending Dr: Enedina Saunders DO Ordering Physician: Enedina Saunders DO Date of Service: 05/16/25 Procedure(s): XR wrist LT min 3V Accession Number(s): [id number] cc: Enedina Saunders DO EXAMINATION: XR WRIST [...] 05/16/25 1210 DD/ 0937 TD/TT: 05/16/25 0945 Shop Tech: Procedure Note Donotuseinterpreter, Image - 05/16/2025 [place] [address] XRay Report Signed Patient: Joo Dawson LMR#: [id number] 0922 : 1965Acct:[id number] Age/Sex: 60 / MADM Date: 05/16/25 Loc: [facility] Attending Dr: Enedina Saunders DO Ordering Physician: Enedina Saunders DO Date of Service: 05/16/25 Procedure(s): XR wrist LT min 3V Accession Number(s): [id number] cc: Enedina Saunders DO EXAMINATION: XR WRIST [...] OV> 05/16/25 1210 DD/ TD/TT: 05/16/25 0945 Shop Tech: Enedina Saunders DO IMG XR PROCEDURES Final [...] - 05/16/2025 8:54 AM EDT UTOX cup Lot#[id number] Exp. 07/09/26 Internal Pass Control Enedina Saunders DO POINT OF CARE TEST ENTER/RUSTAM T ORDERABLES Final Result * Drug Monitoring, Methadone Metabolite, Screen, Urine (05/16/2025 8:30 AM EDT) Only the most recent of2 resultswithin the time period is included. Methadone Screen, Urine Not Detected Not Detect ng/mL [facility] Comment:Methadone cut-off is 300 ng/mL.Positive results are unconfirmed and should not be used fornon-medical purposes. Urine (Urine, Random) 05/16/2025 8:30 AM EDT 05/16/2025 4:42 PM EDT us Enedina Saunders DO LAB URINE ORDERABLES Final R esult [facility] [address] [place] [phone] * ECG 12 lead (05/09/2025 12:32 PM EDT) Narrative Name, MD Bib - 05/09/2025 12:32 PM EDT Normal sinus rhythm, first-degree AV block, heart rate of 77, no ST segment elevation or depression, slight intraventricular conduction delay. us Bib Palomo MD ECG ORDERABLES Final Result * Drug Monitoring, Benzodiazepines, Quantitative, Urine (04/29/2025 10:08 AM EDT) Nordiazepam, GCMS Urine NEGATIVE [facility] Comment:RYONMF40 ng/mL Oxazepam, GCMS Urine NEGATIVE [facility] Comment:QFXDTZ59 ng/mL Lorazepam GCMS Urine NEGATIVE [facility] Comment:RZRVLX34 ng/mL Alprazolam, GCMS Urine NEGATIVE [facility] Comment:QZWHWA70 ng/mL Alphahydroxytriazolam, GCMS Ur NEGATIVE [facility] Comment:TMOTZV39 ng/mL Temazepam, GCMS Urine NEGATIVE [facility] Comment:WXIPXP40 ng/mL Alphahydroxymidazolam,GC MS Ur NEGATIVE [facility] Comment:PQLRUU39 ng/mL Aminoclonazepam, GCMS Urine NEGATIVE [facility] Comment:BMKECM92 ng/mL Flurazepam Metabolite,GCMS Ur NEGATIVE [facility] Comment:AUHPOS91 ng/mL Benzodiazepines Comments SEE NOTE [facility] Comment:NOTES AND COMMENTSTh is drug testing is for medical treatment only. Analysiswas performed as non-forensic testing and these resultsshould be used only by healthcare providers torender diagnosis or treatment, or to monitor progress ofmedical conditions.LDT Notes:Confirmation tests were developed and their analyticalperformance characteristics have been determined by [employer]. It has not been cleared orapproved by the FDA. This assay has been validated pursuantto the CLIA regulations and is used for clinical purposes.Healthcare Providers needing Interpretation assistance,please contact us at [phone] ( ) M-F,8am to 10pm ESTPERFORMING SITE:[facility] [employer] [facility], [address] [place] [phone] Telegraph Printer Mechanic: RICH WEBB MD, CLIA:[id number] Urine 04/29/2025 10:0 8 AM EDT 04/29/2025 1:40 PM EDT Enedina Saunders LAB URINE ORDERABLES Final R esult Performing Organization Address [facility] Co de Phone Number [facility] [address] [place] [phone] * Oxycodone Screen, Urine (04/29/2025 10:08 AM EDT) Oxycodone Urine Screen Not Detected Not Detect ng/mL [facility] Comment:Oxycodone cut-off is 100 ng/mL.Positive results are unconfirmed and should not be used fornon-medical purposes. Urine 04/29/2025 10:0 8 AM EDT 04/29/2025 2:39 PM EDT Enedina Saunders DO LAB URINE ORDERABLES Final R esult Performing Organization Address [facility] Co de Phone Number [facility] [address] [place] [phone] * XR Foot 3+ Views Left (04/26/2025 2:12 PM EDT) Anatomical Region Laterality Modality Lower Extremities, Foot Left Radiogra phic Imaging 04/26/2025 2:12 PM EDT Narrative 04/26/2025 3:50 PM EDT [address] [address] XRay Report Signed Patient: Joo Dawson MR#: [id number] 0922 : 1965 Acct:[id number] Age/Sex: 60 / M ADM Date: 04/26/25 Loc: .HHCX Attending Dr: Cindy Nair MD Ordering Physician: Cindy Mohan MD Date of Service: 04/26/25 Procedure(s): XR foot LT min 3V Accession Number(s): [id number] cc: Cindy Mohan MD EXAMINATION: XR FOOT [...] 04/26/25 1548 DD/ 1412 TD/TT: 04/26/25 1420 Shop Tech: Procedure Note Donotuseinterpreter, Image - 04/26/[address] [address] XRay Report Signed Patient: Joo Dawson LMR#: [id number] 0922 : 1965Acct:[id number] Age/Sex: 60 / MADM Date: 04/26/25 Loc: HO.HHCX Attending Dr: Cindy Nair MD Ordering Physician: Cindy Mohan MD Date of Service: 04/26/25 Procedure(s): XR foot LT min 3V Accession Number(s): [id number] cc: Cindy Mohan MD EXAMINATION: XR FOOT [...] 04/26/25 1548 DD/ 1412 TD/TT: 04/26/25 1420 Shop Tech: Cindy Nair MD IMG XR PROCEDURES Rustam arlene Result - Final * Vitamin D, 25-Hydroxy, Total, Immunoassay (04/12/2025 2:50 PM EDT) Vitamin D 25-OH Total 30.9 >30 ng/mL [facility] Comment: Health Based Reference Values*< 20 ng/mL Wkfwomibv32-07 ng/mL Insufficient> 30 ng/mL Sufficient*Dariusz CARR. N [...] DO LAB BLOOD ORDERABLES Final R esult [facility] [address] [place] [phone] * Vitamin B12 (Cobalamin) and Folate Panel, Serum (04/12/2025 2:50 PM EDT) Vitamin B12 442 200 - 900 pg/mL [facility] Comment:NORMAL 200-900 PG/ML INDETERMINATE 160-199 PG/ML DEFICIENT < 160 PG/ML Folate 14.6 > or = 4.0 ng/mL [facility] Comment:Reference Values:> o r = 4.0 ng/mL< 4.0 ng/mL suggests folate deficiency Methotrexate, aminopterin and folinic acid(leucovorin) are chemotherapeutic agents whose molecularstructures are similar to folate; therefore, the Architectfolate assay cannot be used for patients using these drugs. Blood 04/12/2025 2:50 PM EDT 04/12/2025 2:50 PM EDT Enedina Saunders DO LAB BLOOD ORDERABLES Final R esult [facility] [address] [place], [place] [phone] * (ABNORMAL) CBC auto differential (04/12/2025 2:50 PM EDT) White Blood Count 11.0(H) 4.8 - 10.8 X10*3/uL [facility] Red Blood Count 3.81(L) 4.60 - 5.80 X10*6/uL [facility] Hemoglobin 11.4(L) 14.0 - 18.0 g/dl [facility] Hematocrit 33.3(L) 42.0 - 52.0 % [facility] Mean Corpuscular Volume 87.4 80.0 - 98.0 fL [facility] Mean Corpuscular Hemoglobin 29.9 27.0 - 33.0 pg [facility] Mean Corpuscular HGB Conc 34.2 31.0 - 36.0 g/dl [facility] Red Cell Distribution Width 14.6 11.0 - 16.0 % [facility] Platelet Count 342 160 - 400 X10*3/uL [facility] Mean Platelet Volume 9.7 9.4 - 12.4 fL [facility] Neutrophils Percent Auto 65.3 45 - 73 % [facility] Imm Gran Pct Auto 0.5(H) 0.0 - 0.4 % [facility] Lymphocytes Percent Auto 25.2 20 - 40 % [facility] Monocytes Percent Auto 6.8 2 - 11 % [facility] Eosinophils Percent Auto 1.3 0 - 4 % [facility] Basophils Percent Auto 0.9 0 - 2 % [facility] NRBC Pct Auto 0.0 0.0 - 0.2 /100WBC [facility] Neutrophils Absolute Auto 7.2 2.0 - 8.3 x10*3/uL [facility] Imm Gran Abs Auto 0.05(H) 0.00 - 0.03 X10*3/uL [facility] Lymphocytes Absolute Auto 2.8 1.2 - 4.9 X10*3/uL [facility] Monocytes Absolute Auto 0.8 0.1 - 1.2 X10*3/uL [facility] Eosinophils Absolute Auto 0.1 0.0 - 0.4 X10*3/uL [facility] Basophils Absolute Auto 0.1 0.0 - 0.2 X10*3/uL [facility] NRBC Abs Auto 0.000 0.0 - 0.012 X10*3/uL [facility] Blood Venous blood specimen / Unknown 04/12/2025 2:50 PM EDT 04/12/2025 2:50 PM EDT Enedina Saunders LAB BLOOD ORDERABLES Final R esult Performing Organization Address City/[facility]/ZIP Co de Phone Number [facility] [address] [place] [phone] * Iron And Total Iron Binding Capacity (04/12/2025 2:50 PM EDT) Iron 49 45 - 160 mcg/dL [facility] Total Iron Binding Capacity 248 228 - 428 mcg/dL [facility] Percent Iron Saturation 20 15 - 50 % [facility] Unsaturated Iron Binding 199 ug/dL [facility] Blood Venous blood specimen / Unknown 04/12/2025 2:50 PM EDT 04/12/2025 2:50 PM EDT Enedina Saunders DO LAB BLOOD ORDERABLES Final R esult Performing Organization Address City/[facility]/ZIP Co de Phone Number [facility] [address] [place] [phone] * TSH (04/12/2025 2:50 PM EDT) Thyroid Stimulating Hormone 1.86 0.32 - 4.0 uIU/mL [facility] Comment:TSH 3rd Generation ( [facility]) Blood Venous blood specimen / Unknown 04/12/2025 2:50 PM EDT 04/12/2025 2:50 PM EDT Enedina Saunders DO LAB BLOOD ORDERABLES Final R esult Performing Organization Address City/[facility]/ZIP Co de Phone Number [facility] [address] [place] [phone] * T4, Free (04/12/2025 2:50 PM EDT) Free T4 (Free Thyroxine) 1.01 0.71 - 1.85 ng/dL [facility] Blood Venous blood specimen / Unknown 04/12/2025 2:50 PM EDT 04/12/2025 2:50 PM EDT Enedina Saunders LAB BLOOD ORDERABLES Final R esult Performing Organization Address City/[facility]/ZIP Co de Phone Number [facility] [address] [place] [phone] * (ABNORMAL) Hemoglobin A1c (04/12/2025 2:50 PM EDT) Pathologist [facility] Hemoglobin A1c 7.1(H) <6.0 % [facility] Comment:Hemoglobin A1C Refer ence Range Adults: 4.8 - 6.0 % Non diabetic: < 6.0 % Goal: < 7.0 %Additional Action Suggested: > 8.0 %Note: Hemoglobin A1c results are invalid for patients with abnormal amounts of HbF. Blood transfusions may impact the HbA1c concentration in the patient sample. Estimated Average Glucose 157 mg/dL [facility] Comment:eAG = Estimated ave rage glucose which is %A1C expressed asaverage glucose, using the formula of the Z0Y-YuwqfijMeqrufm Glucose study (ADAG), Diabetes Care, Vol.31,#8,May. 2007 Blood Venous blood specimen / Unknown 04/12/2025 2:50 PM EDT 04/12/2025 2:50 PM EDT Enedina Saunders [place] LAB BLOOD ORDERABLES Final R esult Performing Organization Address City/[facility]/ZIP Co de Phone Number [facility] [address] [place] [phone] * Ferritin (04/12/2025 2:50 PM EDT) Pathologist [facility] Ferritin 147 20 - 250 ng/mL [facility] Blood Venous blood specimen / Unknown 04/12/2025 2:50 PM EDT 04/12/2025 2:50 PM EDT Enedina Saunders [place] LAB BLOOD ORDERABLES Final R esult Performing Organization Address [facility] Co de Phone Number [facility] [address] [place] [phone] * (ABNORMAL) Hepatic Function Panel (04/12/2025 2:50 PM EDT) [facility] Bilirubin, Total 0.2 0.0 - 1.0 mg/dL [facility] Bilirubin, Direct <0.2 0.0 - 0.5 mg/dL [facility] Aspartate Amino Transferase 19 5 - 37 U/L [facility] Alanine Aminotransferase 33 0 - 40 U/L [facility] Total Protein 7.3 6.5 - 8.0 g/dL [facility] Albumin Level 4.1 3.5 - 5.0 g/dL [facility] Alkaline Phosphatase 149(H) 39 - 117 U/L [facility] Blood Venous blood specimen / Unknown 04/12/2025 2:50 PM EDT 04/12/2025 2:50 PM EDT Enedina Saunders [place] LAB BLOOD ORDERABLES Final R esult Performing Organization Address [facility] Co de Phone Number [facility] [address] [place] [phone] * (ABNORMAL) Lipid Panel, Standard (04/12/2025 2:50 PM EDT) Triglycerides 84 <150 mg/dL [facility] Comment:Desirable Triglyceri de: less than 150 mg/dLBorderline High Triglyceride 150-199 mg/dLHigh Triglyceride: 200-499 mg/dLVery High Triglyceride: greater than or equal to 5OO mg/dL Cholesterol 99 <200 mg/dL [facility] Comment:Desirable Cholestero l: less than 200 mg/dLBorderline High Cholesterol: 200-239 mg/dLHigh Cholesterol: greater than 239 mg/dL LDL Cholesterol Calculated 51 <100 mg/dL [facility] Comment:Desirable LDL: less than 100 mg/dLNear Optimal/Above Optimal LDL: 110- 129 mg/dLBorderline High LDL: 130-159 mg/dLHigh LDL: 160-189 mg/dLVery High LDL: greater than or equal to 190 mg/dL HDL Cholesterol 32(L) >40 mg/dL [facility] Comment:Desirable HDL: great er than 40 mg/dL Note: This HDL assay may give artificially low results in patients with liver disease. Blood Venous blood specimen / Unknown 04/12/2025 2:50 PM EDT 04/12/2025 2:50 PM EDT us Enedina Saunders DO LAB BLOOD ORDERABLES Final R esult [facility] [address], [place] [phone] * (ABNORMAL) Basic Metabolic Panel (04/12/2025 2:50 PM EDT) Sodium 140 135 - 145 mmol/L [facility] Potassium 4.0 3.3 - 5.1 mmol/L [facility] Chloride 112(H) 96 - 108 mmol/L [facility] Carbon Dioxide 21(L) 22 - 29 mmol/L [facility] Anion Gap 11(L) 12 - 20 [facility] Urea Nitrogen (BUN) 30(H) 9 - 16 mg/dL [facility] Creatinine, Serum 1.48(H) 0.5 - 1.4 mg/dL [facility] Estimated Glomerular Filt Rate 48 [facility] Comment:Chronic Kidney Disea se: Estimated GFR < 60 mL/min/1.64m3Nyekuz Kidney Disease: Estimated GFR < 15 mL/min/1.73m2 Glucose 167(H) 60 - 115 mg/dL [facility] Calcium 9.2 8.4 - 10.2 mg/dL [facility] Blood Venous blood specimen / Unknown 04/12/2025 2:50 PM EDT 04/12/2025 2:50 PM EDT us Enedina Saunders DO LAB BLOOD ORDERABLES Final R esult Performing Organization Address [facility]/ZIP Co de Phone Number [facility] [address], [place] [phone] * (ABNORMAL) Protein Creatinine Ratio, Urine (04/12/2025 2:44 PM EDT) Creatinine, Urine 132.98 mg/dL [facility] Protein, Total, Random Urine 109(H) <12 mg/dL [facility] Protein/Creati nine Ratio, Ur 0.82(H) <0.2 [facility] Comment:The spot urine prote in:creatinine ratio may increase to 0.3during normal . 04/12/2025 2:44 PM EDT 04/12/2025 3:11 PM EDT us Generic External Data Provider LAB URINE ORDERAB LES Final Result Performing Organization Address [facility]/ZIP Co de Phone Number [facility] [address] [place], [place] [phone] * (ABNORMAL) Urinalysis Complete (04/12/2025 2:44 PM EDT) Color Urine Yellow [facility] Appearance Urine Clear [facility] PH 6.0 5.0 - 9.0 [facility] Glucose Urine UA >=1000(A) Negative mg/dL [facility] Urine Blood Negative Negative [facility] Specific [place] - Urine 1.025 1.005 - 1.025 [facility] Urine Protein 100 (2+)(A) Neg-Trace mg/dL [facility] Urine Ketones Trace Negative mg/dL [facility] Nitrite Urine Negative Negative [facility] Leukocyte Esterase Urine Negative Negative [facility] RBC Urine 0-2 0 - 2 /HPF [facility] Urine WBC 0-5 0 - 5 /HPF [facility] Urine Squamous Epithelial Cell 0-2 0 - 2 /HPF [facility] Urine Bacteria None Seen None Seen [facility] Hyaline Casts, Urine 3-5 0 - 2 /LPF [facility] 04/12/2025 2:44 PM EDT 04/12/2025 3:11 PM EDT us Generic External Data Provider LAB URINE ORDERAB LES Final Result [facility] [address] [place] [phone] * (ABNORMAL) POCT HGB A1C (04/12/2025 [...] PM EST) Hepatitis C Antibody Nonreactive Nonreactive [facility] Comment:Antibodies to HCV no t detected; does not exclude early acuteHCV infection. Blood Venous blood specimen / Unknown 10/15/2024 3:25 PM EST 10/15/2024 3:25 PM EST Enedina Nicky [facility] LAB BLOOD ORDERABLES Final R esult Performing Organization Address [facility] Co de Phone Number [facility] [address] [place] [phone] * HIV-1/2 Antigen and Antibodies, Fourth Generation, with Reflexes (10/15/2024 3:25 PM EST) Pathologist [facility] HIV AB/AG Nonreactive Nonreactive [facility] Comment:HIV-1 p24 Ag and/or HIV-1/HIV-2 Ab not detected.A test result that is nonreactive does not exclude thepossibility of exposure to or infection with HIV-1 and/orHIV-2. Nonreactive results in this assay for individualswith prior exposure to HIV-1 and/or HIV-2 may be due toantigen and antibody levels that are below the limit ofdetection of this assay.The [employer] HIV Ag/Ab Combo assay result andsupplemental assay results should be interpreted inconjunction with the patient's clinical presentation,history and other laboratory results. If the results areinconsistent with clinical evidence, additional testing issuggested to confirm the result. Blood Venous blood specimen / Unknown 10/15/2024 3:25 PM EST 10/15/2024 3:25 PM EST Enedina Nicky [facility] LAB BLOOD ORDERABLES Final R esult [facility] [address] [place] [phone] * Fecal Globin by Immunochemistry (12/29/2022 12:00 AM EDT) Fecal Globin By Immunochemistry SEE NOTE [facility] [place] [facility] Comment: FECAL GLOBIN BY IMMUNOCHEMISTRY Micro Number: [id number] Test Status: Final Specimen Source: Insure (tm) fobt test card Specimen Quality: Adequate Fecal Globin: Not Detected Comment: Test results may be invalid as no date of collection was provided. Specimens are stable for 14 days. Stool Rectal contents / Unknown 12/29/2022 01/04/2023 9:16 AM EDT Enedina Saunders DO LAB BODY FLUIDS AND STOOLS O RDERABLES Final Result [facility] [address], [place] [address] [facility] [place] [facility] [address] [place] [address] from Last 3 Months or Most Recently Relevant to Health Maintenance Insurance [facility] < 65 Care Teams Superintendent Ammunition Storage Relationship Specialty Start Date End Date Enedina Saunders DO [address] [place] [address] MADELYN Robledo [address] PCP - General Family Medicine 11/18/15
--- OUTSIDE RECORDS SUMMARY | 2025-05-28 17:09 | XMS_ITS | Encounter Summary ---
Author Organization [employer] Address [address] [place] [address] 7t [place] [address] Care Team Providers Care Web Solutions Architect Name Role Phone Enedina Saunders DO Primary Care Provider + [phone] Encounter Details Date Type Department Care Team (Late st Contact Info) Description 09/24/2022 Orders Only [facility] [address] [place] [address] Maritza Encinas LPN Social History Tobacco Use [...] Description 08/01/2025 10:00 AM EDT Clinical Support [facility] [address] [place] [address] Jenny Escobar, WALTER 10/21/2025 1:00 PM EST Office Visit [facility] [address] [place] [address] Enriqueta Stevenson, OD [address] [place] [address] documented as of this encounter Visit Diagnoses Not on filedocumented in this encounter Care Teams Web Solutions Architect Relationship Specialty Start Date End Date Enedina Saunders DO [address] [place] [address] PCP - General Family Medicine 11/18/15 documented as of this encounter
--- OUTSIDE RECORDS SUMMARY | 2025-05-28 17:10 | XMS_ITS | Encounter Summary ---
Author Organization [employer] Address [address] [facility] 7t [place] [address] Care Team Providers Care Log Rider Name Role Phone Enedina Saunders DO Primary Care Provider + [phone] Reason for Visit * Reason Onset Date Comments Med Refill 03/01/2024 Encounter Details Date Type Department Care Team ([facility] st Contact Info) Description 03/01/2024 Telephone [facility] [address] [place], [place] [phone] Enedina Saunders DO [address] [place], [place] [phone] Med Refill Social History Tobacco Use Types [...] MG/0.5ML solution pen-injector To be sent to: [facility] - [place], [place] - [address] [place] [address] documented in this encounter Plan of Treatment Upcoming Encounters Date Type Department Care Team (Late st Contact Info) Description 08/01/2025 10:00 AM EDT Clinical Support [facility] [address] [place] [address] Jenny Escobar, RN 10/21/2025 1:00 PM EST Office Visit [facility] [address] [place], [place] [phone] Enriqueta Stevenson, IRAM [address] [place] [address] documented as of this encounter Visit Diagnoses Not on filedocumented in this encounter Additional Health Concerns Assessment Noted Time PHQ-9 Depression Total Score: 4 05/08/20 24 3:47 PM EDT documented as of this encounter Care Teams Log Rider Relationship Specialty Start Date End Date Enedina Saunders DO [address] [place] [address] PCP - General Family Medicine 11/18/15 documented as of this encounter
--- OUTSIDE RECORDS SUMMARY | 2025-05-28 17:10 | XMS_ITS | Encounter Summary ---
Author Organization [employer] Address [address] [place] [address] 7[address] [place] [address] Care Team Providers Care Streaming Media Specialist Name Role Phone Enedina Saunders DO Primary Care Provider + [phone] Reason for Visit * Reason Onset Date Comments OV notes 10/04/2023 Encounter Details Date Type Department Care Team ([facility] st Contact Info) Description 10/04/2023 Telephone [facility] [address] [place], [place] [phone] Enedina Saunders DO [address] [place] [address] OV notes Social History Tobacco Use Types [...] - 10/04/2023 3:11 PM EST Tc from [facility] 08/04 OV notes will need to be faxed to [employer] for diabetic shoes. documented in this encounter Plan of Treatment Upcoming Encounters Date Type Department Care Team (Late st Contact Info) Description 08/01/2025 10:00 AM EDT Clinical Support [facility] [address] [place] [address] Jenny Escobar RN 10/21/2025 1:00 PM EST Office Visit [facility] [address] [place] [address] Enriqueta Stevenson, OD [address] [place] [address] documented as of this encounter Visit Diagnoses Not on filedocumented in this encounter Additional Health Concerns Assessment Noted Time PHQ-9 Depression Total Score: 0 12/21/19 23 10:36 AM EDT documented as of this encounter Care Teams Streaming Media Specialist Relationship Specialty Start Date End Date Enedina Saunders DO [address] [place] [address] PCP - General Family Medicine 11/18/15 documented as of this encounter
--- OUTSIDE RECORDS SUMMARY | 2025-05-28 17:10 | XMS_ITS | Encounter Summary ---
Author Organization [employer] Address [address] [facility] 7t [place] [address] Care Team Providers Care Senior Network Administrator Name Role Phone GianEnedina owens Primary Care Provider + [phone] Reason for Visit * Reason Comments Med Refill Encounter Details Date Type Department Care Team (Late st Contact Info) Description 09/29/2023 Refill [facility] [address] [place], [place] [phone] Viridiana Urbina MD [address] [place], [place] [phone] Type 2 diabetes mellitus with other diabetic kidney complication ([facility]/HCC) Social History Tobacco Use Types Packs/Day [...] Description 08/01/2025 10:00 AM EDT Clinical Support [facility] [address] [place] [address] Jenny Escobar, RN 10/21/2025 1:00 PM EST Office Visit [facility] [address] [place], [place] [phone] Graham, Enriqueta, OD [address] [place] [address] documented as of this encounter Visit Diagnoses Diagnosis Type 2 diabetes mellitus with other diabetic kidney complication (CMS/HCC) documented in this encounter Additional Health Concerns Assessment Noted Time PHQ-9 Depression Total Score: 0 12/21/19 23 10:36 AM EDT documented as of this encounter Care Teams Senior Network Administrator Relationship Specialty Start Date End Date Enedina Saunders DO [address] [place] [address] PCP - General Family Medicine 11/18/15 documented as of this encounter
--- OUTSIDE RECORDS SUMMARY | 2025-05-28 17:10 | XMS_ITS | Encounter Summary ---
Author Organization [employer] Address [address] [facility] 7t [place] [address] Care Team Providers Care Ultrasound Manager Name Role Phone Enedina Saunders DO Primary Care Provider + [phone] Reason for Visit * Reason Comments Med Refill Encounter Details Date Type Department Care Team (Late st Contact Info) Description 10/21/2023 Refill [facility] [address] [place], [place] [phone] Enedina Saunders DO [address] [place], [place] [phone] Type 2 diabetes mellitus with other diabetic kidney complication ([facility]/HCC) Social History Tobacco Use Types Packs/Day Years [...] Description 08/01/2025 10:00 AM EDT Clinical Support [facility] [address] [place] [address] Jenny Escobar, RN 10/21/2025 1:00 PM EST Office Visit [facility] [address] [place], [place] [phone] Graham, Enriqueta, OD [address] [place] [address] documented as of this encounter Visit Diagnoses Diagnosis Type 2 diabetes mellitus with other diabetic kidney complication (CMS/HCC) documented in this encounter Additional Health Concerns Assessment Noted Time PHQ-9 Depression Total Score: 0 12/21/19 23 10:36 AM EDT documented as of this encounter Care Teams Ultrasound Manager Relationship Specialty Start Date End Date Enedina Saunders DO [address] [place] [address] PCP - General Family Medicine 11/18/15 documented as of this encounter
--- OUTSIDE RECORDS SUMMARY | 2025-05-28 17:10 | XMS_ITS | Encounter Summary ---
Author Organization [employer] Address [address] [facility] 7t h Floor [place] [phone] Care Team Providers Care Property Manager Name Role Phone Enedina Saunders DO Primary Care Provider + [phone] Reason for Visit * Reason Onset Date Comments Call Back Request 04/06/2024 Encounter Details Date Type Department Care Team ([facility] st Contact Info) Description 04/06/2024 Telephone [facility] [address] [place], [place] [phone] Enedina Saunders DO [address] [place], [place] [phone] Call Back Request Social History Tobacco Use [...] to NS placed 03/05/24. MRI done at [facility] ([facility]) 02/22/24 ( in chart). TC returned to daughter and daughter reports she called [facility] to inquire on status of [...] Description 08/01/2025 10:00 AM EDT Clinical Support [facility] [address] [place] [address] Jenny Escobar, RN 10/21/2025 1:00 PM EST Office Visit [facility] [address] [place] [address] Enriqueta Stevenson, IRAM [address] [place] [address] documented as of this encounter Visit Diagnoses Not on filedocumented in this encounter Additional Health Concerns Assessment Noted Time PHQ-9 Depression Total Score: 4 02/08/20 24 3:47 PM EDT documented as of this encounter Care Teams Property Manager Relationship Specialty Start Date End Date Enedina Saunders DO [address] [place] [address] PCP - General Family Medicine 11/18/15 documented as of this encounter
--- OUTSIDE RECORDS SUMMARY | 2025-05-28 17:10 | XMS_ITS | Encounter Summary ---
Author Organization [employer] Address [address] [facility] 7t h Floor [place] [phone] Care Team Providers Care Drop Man Name Role Phone Enedina Saunders DO Primary Care Provider + [phone] Reason for Visit * Reason Onset Date Comments pre op 05/07/2025 Encounter Details Date Type Department Care Team ([facility] st Contact Info) Description 05/07/2025 Telephone [facility] [address] [place], [place] [phone] Enedina Saunders DO [address] [place] [address] pre op Social History Tobacco Use Types [...] [facility] Surgeon's office number: [phone] Surgeon's office fax number: [phone] Contact name (person you spoke with): Leyla Last office note from surgeon requested: Yes Send Message to Sherri Lopez and Alfred Tineo documented in this encounter Plan of Treatment Upcoming Encounters Date Type Department Care Team ([facility] st Contact Info) Description 08/01/2025 10:00 AM EDT Clinical Support [address] [address] Jenny Escobar RN 10/21/2025 1:00 PM EST Office Visit [facility] [address] [place] [address] Enriqueta Stevenson, IRAM [address] [place] [address] documented as of this encounter Visit Diagnoses Not on filedocumented in this encounter Additional Health Concerns Assessment Noted Time PHQ-9 Depression Total Score: 0 04/12/20 25 11:31 AM EDT documented as of this encounter Care Teams Drop Man Relationship Specialty Start Date End Date Enedina Saunders DO [address] [place] [address] PCP - General Family Medicine 11/18/15 documented as of this encounter
--- OUTSIDE RECORDS SUMMARY | 2025-05-28 17:10 | XMS_ITS | Encounter Summary ---
Author Organization [employer] Address 75 [facility] 7t h Floor [place] [phone] Care Team Providers Care Production Packager Name Role Phone Enedina Saunders DO Primary Care Provider + [phone] Reason for Visit * Reason Onset Date Comments FYI 05/16/2025 Encounter Details Date Type Department Care Team ([facility] st Contact Info) Description 05/16/2025 Telephone [facility] [address] [place], [place] [phone] Enedina Saunders DO [address] [place] [address] FYI Social History Tobacco Use Types Packs/Day [...] Description 08/01/2025 10:00 AM EDT Clinical Support [facility] [address] [place] [address] Jenny Escobar RN 10/21/2025 1:00 PM EST Office Visit [facility] [address] [place] [address] Graham, Enriqueta, OD [address] [place] [address] documented as of this encounter Visit Diagnoses Not on filedocumented in this encounter Additional Health Concerns Assessment Noted Time PHQ-9 Depression Total Score: 0 04/12/20 25 11:31 AM EDT documented as of this encounter Care Teams Production Packager Relationship Specialty Start Date End Date Enedina Saunders DO [address] [place] [address] PCP - General Family Medicine 11/18/15 documented as of this encounter
--- OUTSIDE RECORDS SUMMARY | 2025-05-28 17:10 | XMS_ITS | Encounter Summary ---
Author Organization [employer] Address [address] [place] [address] 7t [place] [address] Care Team Providers Care Assistant Surveyor Name Role Phone Enedina Saunders DO Primary Care Provider + [phone] Reason for Visit * Reason Comments Med Refill Encounter Details Date Type Department Care Team (Late st Contact Info) Description 02/10/2024 Refill [facility] [address] [place], [place] [phone] Enedina Saunders DO 230 [place] [address] Back pain, unspecified back location, unspecified back [...] Description 08/01/2025 10:00 AM EDT Clinical Support [facility] [address] [place] [address] Jenny Escobar RN 10/21/2025 1:00 PM EST Office Visit [facility] [address] [place] [address] Graham, Enriqueta, OD [address] [place] [address] documented as of this encounter Visit Diagnoses Diagnosis Back pain, unspecified back location, unspecified back pain laterality, unspecified chronicity documented in this encounter Additional Health Concerns Assessment Noted Time PHQ-9 Depression Total Score: 4 02/08/20 24 3:47 PM EDT documented as of this encounter Care Teams Assistant Surveyor Relationship Specialty Start Date End Date Enedina Saunders DO [address] [place] [address] PCP - General Family Medicine 11/18/15 documented as of this encounter
--- OUTSIDE RECORDS SUMMARY | 2025-05-28 17:10 | XMS_ITS | Encounter Summary ---
Author Organization [employer] Address 75 [facility] 7t h Floor [place] [phone] Care Team Providers Care Dowel Setting Machine Operator Name Role Phone Enedina Saunders DO Primary Care Provider + [phone] Reason for Visit * Reason Comments Med Refill Encounter Details Date Type Department Care Team (Late st Contact Info) Description 03/01/2024 Refill [facility] 230 [place], [place] [phone] Enedina Saunders DO [address] [place], [place] [phone] Essential hypertension Social History Tobacco Use Types [...] Description 08/01/2025 10:00 AM EDT Clinical Support [facility] [address] [place] [address] Jenny Escobar RN 10/21/2025 1:00 PM EST Office Visit [facility] [address] [place], [place] [phone] Graham, Enriqueta, OD [address] [place] [address] documented as of this encounter Visit Diagnoses Diagnosis Essential hypertension Unspecified essential hypertension documented in this encounter Additional Health Concerns Assessment Noted Time PHQ-9 Depression Total Score: 4 02/08/20 24 3:47 PM EDT documented as of this encounter Care Teams Dowel Setting Machine Operator Relationship Specialty Start Date End Date Enedina Saunders DO [address] [place] [address] PCP - General Family Medicine 11/18/15 documented as of this encounter
--- OUTSIDE RECORDS SUMMARY | 2025-05-28 17:10 | XMS_ITS | Encounter Summary ---
Author Organization [employer] Address [address] [facility] [address] 7t [place] [address] Care Team Providers Care Senior Manufacturing Engineer Name Role Phone MarcelloEnedina luciano Primary Care Provider + [phone] Reason for Visit * Reason Comments Med Refill Encounter Details Date Type Department Care Team (Late st Contact Info) Description 12/14/2024 Refill [facility] 230 [place], [place] [phone] Viridiana Urbina MD [address] [place] [address] Social History Tobacco Use Types Packs/Day Years [...] Description 08/01/2025 10:00 AM EDT Clinical Support [facility] [address] [place] [address] Jenny Escobar, RN 10/21/2025 1:00 PM EST Office Visit [facility] [address] [place] [address] Graham, Enriqueta, OD [address] [place] [address] documented as of this encounter Visit Diagnoses Not on filedocumented in this encounter Additional Health Concerns Assessment Noted Time PHQ-9 Depression Total Score: 4 02/08/20 24 3:47 PM EDT documented as of this encounter Care Teams Senior Manufacturing Engineer Relationship Specialty Start Date End Date Enedina Saunders DO [address] [place] [address] PCP - General Family Medicine 11/18/15 documented as of this encounter
--- OUTSIDE RECORDS SUMMARY | 2025-05-28 17:10 | XMS_ITS | Encounter Summary ---
Author Organization [employer] Address [address] [facility] 7t h Floor [place] [phone] Care Team Providers Care Bicycle Mechanic Name Role Phone Enedina Saunders DO Primary Care Provider + [phone] Reason for Visit * Reason Onset Date Comments Results 04/29/2025 Encounter Details Date Type Department Care Team ([facility] st Contact Info) Description 04/29/2025 Telephone [facility] 230 [place], [place] [phone] Enedina Saunders DO 230 [place], [place] [phone] Results Social History Tobacco Use Types Packs/Day [...] have tested + for methadone today at [facility] appt, as she provides all of pt.'s [...] not understanding the results. Contact daughter at [phone] documented in this encounter Plan of Treatment Upcoming Encounters Date Type Department Care Team (Late st Contact Info) Description 08/01/2025 10:00 AM EDT Clinical Support [facility] [address] [place] [address] Jenny Escobar RN 10/21/2025 1:00 PM EST Office Visit [facility] [address] [place], [place] [phone] Graham, Enriqueta, OD [address] [place] [address] documented as of this encounter Visit Diagnoses Not on filedocumented in this encounter Additional Health Concerns Assessment Noted Time PHQ-9 Depression Total Score: 0 04/12/20 25 11:31 AM EDT documented as of this encounter Care Teams Bicycle Mechanic Relationship Specialty Start Date End Date Enedina Saunders DO [address] [place] [address] PCP - General Family Medicine 11/18/15 documented as of this encounter
[2025-05-28 17:31] LABS: INTERNATIONAL NORM RATIO 0.9 (0.9-1.1); Prothrombin Time 10.8 SEC (10.9-12.4)
[2025-05-28 17:34] LABS: Partial Thromboplastin Time 32.9 SEC (26.7-34.1)
[2025-05-28 17:45] LABS: Troponin-I High Sensitivity 3.9 ng/L (<3.5-35.0)
[2025-05-28 18:17] LABS: MANUAL DIFF FLAG NO
[2025-05-28 18:20] LABS: Hematocrit 34.5 % (42.0-52.0); Hemoglobin 11.8 g/dl (14.0-18.0); Imm Gran Abs Auto 0.04 X10*3/uL (0.00-0.03); Imm Gran Pct Auto 0.4 % (0.0-0.4); Lymphocytes Absolute Auto 2.3 X10*3/uL (1.2-4.9); Mean Corpuscular HGB Conc 34.2 g/dl (31.0-36.0); Mean Corpuscular Hemoglobin 30.4 pg (27.0-33.0); Mean Corpuscular Volume 88.9 fL (80.0-98.0); NRBC Abs Auto 0.000 X10*3/uL (0.0-0.012); NRBC Pct Auto 0.0 /100WBC (0.0-0.2); Platelet Count 321 X10*3/uL (160-400); Red Blood Count 3.88 X10*6/uL (4.60-5.80); White Blood Count 10.4 X10*3/uL (4.8-10.8)
[2025-05-28 18:24] VITALS: BP 187/91; PULSE 87; RESP 18; TEMP 36.8; O2SAT 99
[2025-05-28 18:37] LABS: Alanine Aminotransferase 20 U/L (0-40); Albumin Level 4.1 g/dL (3.5-5.0); Alkaline Phosphatase 132 U/L (39-117); Anion Gap 12 (12-20); Aspartate Amino Transferase 26 U/L (5-37); Blood Urea Nitrogen 41 mg/dL (9-16); Calcium 9.8 mg/dL (8.4-10.2); Carbon Dioxide 17 mmol/L (22-29); Chloride 116 mmol/L (96-108); Creatinine Clr Calc Pharmacy 78.9; Estimated Glomerular Filt Rate > 60; Potassium 3.7 mmol/L (3.3-5.1); Sodium 141 mmol/L (135-145); Total Protein 7.6 g/dL (6.5-8.0)
[2025-05-28 20:13] VITALS: BP 161/91; PULSE 92; RESP 19; TEMP 36.7; O2SAT 98
--- NOTE | 2025-05-28 21:05 | PC.NURSE ---
Pt's bedside visitor approached charge desk/computer to inquire as to when the pt will be seen/assessed because he's been here all day and how they wanted all his results sent to his PCP. This RN attempted to explain that a timeframe could not be provided as to when a provider would see them and apologized for the inconvenience and that the results wont be sent but the pcp office could be called and look up his information and potentially provide results or there were alternatives such as the patient portal and/or medical records. The pt's visitor requested discharge papers so they could leave and when they were made aware there were no dc papers to prepare she stated this is why i don't fucking come to [place] and she and the patient proceeeded to make there way to the ER WR. Pt was well appearing and without distress, conversing freely and ambulating independently.
== END 2025-05-28 21:12 | disposition left against medical advice (07) ==
PROVIDERS: Physician Assistant; Emergency Provider Emergency Medicine; PCP Family Medicine
DX: S29.9XXA Unspecified injury of thorax, initial encounter (principal); S99.922A Unspecified injury of left foot, initial encounter; R07.89 Other chest pain; M79.672 Pain in left foot; V43.52XA Car driver injured in collision with other type car in traffic accident, initial encounter; Y93.9 Activity, unspecified; Y92.410 Unspecified street and highway as the place of occurrence of the external cause; Y99.8 Other external cause status
CPT/HCPCS: 36415; 71046; 73630; 80053; 84484; 85025; 85610; 85652; 85730; 86140; 93005; 99283; 99284

== ENCOUNTER → 2025-05-28 16:04 | Outpatient (BNV) | payer OTHER, SELFPAY | PROVIDERS: PCP Family Medicine; Visit Provider Radiology Diagnostic Radiology | DX: L89.629 Pressure ulcer of left heel, unspecified stage (principal); I73.9 Peripheral vascular disease, unspecified | CPT/HCPCS: 71046; 73630 ==

== ENCOUNTER → 2025-05-28 16:17 | Outpatient (BNV) | payer OTHER, SELFPAY | PROVIDERS: Emergency Provider Emergency Medicine; PCP Family Medicine; Visit Provider Internal Medicine | DX: I49.3 Ventricular premature depolarization (principal) | CPT/HCPCS: 93010 ==

== ENCOUNTER 2025-07-17 12:45 | Outpatient (RCR) | payer OTHER, SELFPAY | END 2025-07-17 16:49 | disposition home or self-care (01) | LOC: HO.WCC 12:45 | PROVIDERS: PCP Family Medicine; Visit Provider Surgery Surgical Oncology | DX: E11.621 Type 2 diabetes mellitus with foot ulcer (principal); L97.822 Non-pressure chronic ulcer of other part of left lower leg with fat layer exposed; E11.40 Type 2 diabetes mellitus with diabetic neuropathy, unspecified; L84 Corns and callosities; I10 Essential (primary) hypertension; Z79.4 Long term (current) use of insulin; Z79.84 Long term (current) use of oral hypoglycemic drugs; Z86.73 Personal history of transient ischemic attack (TIA), and cerebral infarction without residual deficits | CPT/HCPCS: 11042; 11055; 97597; 99213 ==

== ENCOUNTER 2025-09-16 14:42 | Outpatient (REF) | payer OTHER, SELFPAY ==
[2025-09-16 18:27] LABS: Blood Urea Nitrogen 40 mg/dL (9-16)
[2025-09-16 18:27] LABS: Anion Gap 12 (12-20); Blood Urea Nitrogen 39 mg/dL (9-16); Calcium 9.9 mg/dL (8.4-10.2); Carbon Dioxide 27 mmol/L (22-29); Chloride 105 mmol/L (96-108); Estimated Glomerular Filt Rate > 60; Potassium 4.4 mmol/L (3.3-5.1); Sodium 140 mmol/L (135-145)
[2025-09-16 19:12] LABS: Protein/Creatinine Ratio, Ur 1.62 (<0.2); Total Protein Urine Random 126 mg/dL (<12)
--- OUTSIDE RECORDS SUMMARY | 2025-09-16 21:13 | XMS_ITS | Encounter Summary ---
Author Organization [employer] Address [address] [place] [address] 7t [place] [address] Care Team Providers Care Switching Operator Name Role Phone Enedina Saunders DO Primary Care Provider + [phone] Reason for Visit * Reason Comments Med Refill Encounter Details Date Type Department Care Team (Late st Contact Info) Description 02/10/2024 Refill [facility] [address] [place], [place] [phone] Enedina Saunders DO [address] [place], [place] [phone] Back pain, unspecified back location, unspecified back [...] Care Team (Late st Contact Info) Description 10/02/2025 10:15 AM EST Office Visit [facility] [address] [place] [address] Enedina Saunders DO [address] [place] [address] 10/31/2025 1:00 PM EST Clinical Support [facility] [address] [place] [address] Jenny Escobar, WALTER 11/05/2025 3:30 PM EST Office Visit [facility] OPT[facility] [address] [place] [address] Graham, Enriqueta, OD [address] [place] [address] documented as of this encounter Visit Diagnoses Diagnosis Back pain, unspecified back location, unspecified back pain laterality, unspecified chronicity documented in this encounter Additional Health Concerns Assessment Noted Time PHQ-9 Depression Total Score: 4 02/08/20 24 3:47 PM EDT documented as of this encounter Care Teams Switching Operator Relationship Specialty Start Date End Date Enedina Saunders DO [address] [place] [address] PCP - General Family Medicine 11/18/15 documented as of this encounter
--- OUTSIDE RECORDS SUMMARY | 2025-09-16 21:13 | XMS_ITS | Encounter Summary ---
Author Organization [employer] Address [address] [facility] 7t h Floor [place] [id number] Care Team Providers Care Technical Sales Representative Name Role Phone Enedina Saunders DO Primary Care Provider + [phone] Reason for Visit * Reason Onset Date Comments FYI 05/16/2025 Encounter Details Date Type Department Care Team ([facility] st Contact Info) Description 05/16/2025 Telephone [facility] [address] [place], [place] [phone] Enedina Saunders DO [address] [place] [address] FYI Social History Tobacco Use Types Packs/Day [...] Description 10/02/2025 10:15 AM EST Office Visit [facility] [address] [place] [address] Enedina Saunders DO [address] [place] [address] 10/31/2025 1:00 PM EST Clinical Support [facility] [address] [place] [address] Jenny Escobar RN 11/05/2025 3:30 PM EST Office Visit [facility] OPTOMETRY [address] [place] [address] Enriqueta Stevenson, OD [address] [place] [address] documented as of this encounter Visit Diagnoses Not on filedocumented in this encounter Additional Health Concerns Assessment Noted Time PHQ-9 Depression Total Score: 0 04/12/20 25 11:31 AM EDT documented as of this encounter Care Teams Technical Sales Representative Relationship Specialty Start Date End Date Enedina Saunders DO [address] [place] [address] PCP - General Family Medicine 11/18/15 documented as of this encounter
--- OUTSIDE RECORDS SUMMARY | 2025-09-16 21:13 | XMS_ITS | Encounter Summary ---
Author Organization [employer] Address [address] [place] [address] 7t h Floor [place] [phone] Care Team Providers Care Cat Scan Technologist Name Role Phone Enedina Saunders DO Primary Care Provider + [phone] Encounter Details Date Type Department Care Team (Late st Contact Info) Description 10/21/2022 Orders Only [facility] [address] [place] [phone] Maritza Encinas LPN Social History Tobacco Use [...] Description 10/02/2025 10:15 AM EST Office Visit [facility] [address] [place] [address] Enedina Saunders DO [address] [place] [address] 10/31/2025 1:00 PM EST Clinical Support [facility] [address] [place] [address] Jenny Escobar, WALTER 11/05/2025 3:30 PM EST Office Visit [facility] OPTOMETRY [address] [place] [address] Enriqueta Stevenson, OD [address] [place] [address] documented as of this encounter Visit Diagnoses Not on filedocumented in this encounter Care Teams Cat Scan Technologist Relationship Specialty Start Date End Date Enedina Saunders DO [address] [place] [address] PCP - General Family Medicine 11/18/15 documented as of this encounter
--- OUTSIDE RECORDS SUMMARY | 2025-09-16 21:13 | XMS_ITS | Encounter Summary ---
Author Organization [employer] Address [address] [facility] 7t [place] [address] Care Team Providers Care Engagement Engineer Name Role Phone Enedina Saunders DO Primary Care Provider + [phone] Encounter Details Date Type Department Care Team ([facility] Contact Info) Description 11/10/2022 Orders Only [facility] [address] [place] [address] Enedina Hudson LPN Social History Tobacco Use [...] Department Care Team (Late Contact Info) Description 10/02/2025 10:15 AM EST Office Visit [address] [address] Enedina Saunders DO [address] [place] [address] 10/31/2025 1:00 PM EST Clinical Support [address] [address] Jenny Escobar RN 11/05/2025 3:30 PM EST Office Visit [facility] OPTOMETRY [address] [place] [address] Enriqueta Stevenson, IRAM [address] [place], [place] [phone] documented as of this encounter Visit Diagnoses Not on filedocumented in this encounter Care Teams Engagement Engineer Relationship Specialty Start Date End Date Enedina Saunders DO [address] [place] [address] PCP - General Family Medicine 11/18/15 documented as of this encounter
--- OUTSIDE RECORDS SUMMARY | 2025-09-16 21:13 | XMS_ITS | Encounter Summary ---
Author Organization [employer] Address [address] [facility] 7t h Floor [place] [phone] Care Team Providers Care Social Work Associate Name Role Phone Enedina Saunders DO Primary Care Provider + [phone] Reason for Visit * Reason Comments Med Refill Encounter Details Date Type Department Care Team (Late st Contact Info) Description 03/01/2024 Refill [facility] [address] [place], [place] [phone] Enedina Saunders DO 230 [place], [place] [phone] Essential hypertension Social History Tobacco Use Types [...] Description 10/02/2025 10:15 AM EST Office Visit [facility] [address] [place] [address] Enedina Saunders DO [address] [place] [address] 10/31/2025 1:00 PM EST Clinical Support [facility] [address] [place] [address] Jenny Escobar, WALTER 11/05/2025 3:30 PM EST Office Visit [facility] OPTOMETRY [address] [place] [address] Graham, Enriqueta, OD [address] [place] [address] documented as of this encounter Visit Diagnoses Diagnosis Essential hypertension Unspecified essential hypertension documented in this encounter Additional Health Concerns Assessment Noted Time PHQ-9 Depression Total Score: 4 02/08/20 24 3:47 PM EDT documented as of this encounter Care Teams Social Work Associate Relationship Specialty Start Date End Date Enedina Saunders DO [address] [place] [phone] PCP - General Family Medicine 11/18/15 documented as of this encounter
--- OUTSIDE RECORDS SUMMARY | 2025-09-16 21:13 | XMS_ITS | Encounter Summary ---
Author Organization [employer] Address [address] [place] [address] 7t h Floor [place] [phone] Care Team Providers Care Welder/Fitter Name Role Phone Enedina Saunders DO Primary Care Provider + [phone] Encounter Details Date Type Department Care Team (Late Contact Info) Description 10/29/[address] [address] Enedina Saunders DO [address] [place] [address] Social History Tobacco Use Types Packs/Day Years [...] Description 10/02/2025 10:15 AM EST Office Visit [address] [address] Enedina Saunders DO [address] [place] [address] 10/31/2025 1:00 PM EST Clinical Support [address] [address] Jenny Escobar RN 11/05/2025 3:30 PM EST Office Visit [facility] OPTOMETRY [address] [place] [address] Enriqueta Stevenson, IRAM [address] [place] [address] documented as of this encounter Visit Diagnoses Not on filedocumented in this encounter Care Teams Welder/Fitter Relationship Specialty Start Date End Date Enedina Saunders DO [address] [place] [address] PCP - General Family Medicine 11/18/15 documented as of this encounter
--- OUTSIDE RECORDS SUMMARY | 2025-09-16 21:13 | XMS_ITS | Encounter Summary ---
Author Organization [employer] Address [address] [place] [address] 7t h Floor [place] [phone] Care Team Providers Care Client Application Support Engineer Name Role Phone Enedina Saunders DO Primary Care Provider + [phone] Encounter Details Date Type Department Care Team (Late st Contact Info) Description 09/24/2022 Orders Only [facility] [address] [place] [address] Maritza Encinas LPN Social History Tobacco Use [...] Description 10/02/2025 10:15 AM EST Office Visit [facility] [address] [place] [address] Enedina Saunders DO [address] [place] [address] 10/31/2025 1:00 PM EST Clinical Support [facility] [address] [place] [address] Jenny Escobar RN 11/05/2025 3:30 PM EST Office Visit [facility] OPTOMETRY [address] [place] [address] Enriqueta Stevenson OD [address] [place] [address] documented as of this encounter Visit Diagnoses Not on filedocumented in this encounter Care Teams Client Application Support Engineer Relationship Specialty Start Date End Date Enedina Saunders DO [address] [place] [address] PCP - General Family Medicine 11/18/15 documented as of this encounter
--- OUTSIDE RECORDS SUMMARY | 2025-09-16 21:13 | XMS_ITS | Encounter Summary ---
Author Organization [employer] Address [address] [facility] 7t h Floor [place] [phone] Care Team Providers Care Expert Witness Name Role Phone Enedina Saunders DO Primary Care Provider + [phone] Reason for Visit * Reason Onset Date Comments Nurse Triage 09/18/2024 Encounter Details Date Type Department Care Team ([facility] st Contact Info) Description 09/18/2024 Telephone [facility] [address] [place], [place] [phone] Enedina Saunders DO [address] [place] [address] Nurse Triage Social History Tobacco Use Types [...] 09/18/2024 11:47 AM EST Triage call with [facility] [place] [id number], [place]. Pt is reporting high blood pressure. Last nightBP was 198/? and this morning it was 168/95. Pt reports some dizziness and unbalance. Pt is taking hydrochlorothiazide 25mg as prescribed. No available apts in office over next 3 days. Pt is advised to come to [facility] for provider to check BP and [...] Description 10/02/2025 10:15 AM EST Office Visit [facility] [address] [place] [address] Enedina Saunders DO [address] [place] [address] 10/31/2025 1:00 PM EST Clinical Support [facility] [address] [place] [address] Jenny Escobar, WALTER 11/05/2025 3:30 PM EST Office Visit [facility] OPTOMETRY [address] [place], [place] [phone] Enriqueta Stevenson, OD [address] [place] [address] documented as of this encounter Visit Diagnoses Not on filedocumented in this encounter Additional Health Concerns Assessment Noted Time PHQ-9 Depression Total Score: 4 02/08/20 24 3:47 PM EDT documented as of this encounter Care Teams Expert Witness Relationship Specialty Start Date End Date Enedina Saunders DO [address] [place], [place] [phone] PCP - General Family Medicine 11/18/15 documented as of this encounter
--- OUTSIDE RECORDS SUMMARY | 2025-09-16 21:13 | XMS_ITS | Clinical Summary ---
Author Organization [employer] Address [address] [place] [address] [address] [place] [address] Care Team Providers Care Food Expeditor Name Role Phone Enedina Saunders Primary Care Provider + [phone] Allergies Active Allergy Reactions Criticality Noted Date Comments Insulin Aspart Cough 09/15/2017 Other Reaction(s): Unknown Outside Source Comment: Other reaction(s): Itching Insulin Aspart (Human Analog) (Yeast) Cough 09/15/2017 Other reaction(s): Itching Other reaction(s): Unknown Outside Source Comment: Other reaction(s): Itching Other Reaction(s): Unknown Other Reaction(s): Not available Shellfish Allergy 07/10/2024 Other Reaction(s): hives, swelling Shellfish Protein-Containing Drug Products 01/31/2023 Other Reaction(s): Not available Medications triamcinolone (Kenalog) [...] NEEDED FOR (for itching) 30 tablet Active Alcohol Swabs (Alcohol Prep) 70 % pads USE THREE TIMES DAILY DIRECTED 100 each Active FREESTYLE LITE test strip TEST BLOOD SUGAR 3 TIMES A DAY 100 strip 11 Active TRUEplus Lancets 33G misc TEST BLOOD SUGAR 3 TIMES A DAY 100 each Active UltiGuard SafePack Pen Needle 32G X 4 MM misc USE WITH INSULIN DIRECTED 100 each Active insulin degludec (Tresiba FlexTouch) 200 UNIT/ML injectionIndica tions:Type 2 diabetes mellitus with other diabetic kidney complication (HCC) INJECT 38 UNITS SUBCUTANEOUSLY EVERY DAY 9 mL Active Continuous Glucose Sensor (FreeStyle Roni 2 Sensor) misc Apply 1 each topically 3 times daily. 2 each Active Artificial Tear Solution (GenTeal Tears) 0.1-0.2-0.3 % solutionIndicat ions:Type 2 diabetes mellitus with other diabetic kidney complication (HCC) INSTILL 1 DROP IN DRY EYES FOUR TIMES DAILY NEEDED 30 mL 3 Active metFORMIN (Glucophage) 1000 MG tabletIndicatio ns:Type 2 diabetes mellitus with other specified complication, unspecified whether fdc insulin use (HCC) TAKE 1 Tablet BY MOUTH TWICE DAILY WITH MEALS 180 tablet 1 Active Trulicity 4.5 MG/0.5ML solution auto-injector Active cetirizine (ZyrTEC) 10 MG tablet TAKE 1 TABLET BY MOUTH EVERY DAY 30 tablet Active polyvinyl alcohol (Liquifilm Tears) 1.4 % [...] daily. 10 mL 11 025 2025 Active losartan (Cozaar) 100 MG tabletIndicatio ns:Essential hypertension TAKE 1 TABLET BY MOUTH EVERY DAY 30 tablet 11 09/03/20 25 2:25 PM EST 025 Active FLUoxetine (PROzac) 20 MG capsuleIndicati ons:Depression, unspecified depression type TAKE 2 CAPSULES BY MOUTH ONCE DAILY IN THE MORNING 180 capsule 1 025 Active Tiadylt ER 120 MG 24 hr capsule Take 1 capsule by mouth Once per day. 025 Active insulin aspart (NovoLOG FLEXPEN) 100 UNIT/ML penIndications: Type 2 diabetes mellitus with other diabetic kidney complication (HCC) INJECT 10 UNITS SUBCUTANEOUSLY TWICE DAILY BEFORE BREAKFAST AND BEFORE SUPPER 15 mL 3 025 Active gabapentin (Neurontin) 400 MG capsuleIndicati ons:Chronic bilateral low back pain with left-sided sciatica TAKE 2 CAPSULES BY MOUTH THREE TIMES DAILY 180 capsule 025 Active naloxone (Narcan) 4 mg/0.1 mL [...] EVERY DAY AT BEDTIME 30 tablet 5 09/03/20 25 2:25 PM EST 025 Active Diclofenac Sodium 1 % gelIndications: Back pain, unspecified back location, unspecified back pain laterality, unspecified chronicity Apply 2 g topically if needed in the morning, at noon, in the evening, and at bedtime (pain). 150 g 3 025 Active baclofen (Lioresal) 20 MG tabletIndicatio ns:Muscle spasm TAKE 1 TABLET BY MOUTH THREE TIMES DAILY NEEDED FOR MUSCLE SPASMS OR FOR PAIN 90 tablet 1 025 Active bacitracin 500 UNIT/GM ointmentIndicat ions:Ulcer of foot, chronic, left, with unspecified severity Apply topically 2 times daily. 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 30 each 1 025 Active hydroCHLOROthia zide (HYDRODiuril) 25 MG tabletIndicatio ns:Essential hypertension TAKE 1 TABLET BY MOUTH EVERY DAY 30 tablet 1 09/03/20 25 2:25 PM EST 025 Active Jardiance 25 MG Take 1 tablet (25 mg) by mouth Once per day. 30 tablet 5 09/05/20 25 5:16 PM EST 025 Active oxyCODONE (Roxicodone) 5 MG immediate release tabletIndicatio ns:Chronic low back pain, unspecified back pain laterality, unspecified whether sciatica present Take 1 tablet (5 mg) by mouth every 6 (six) hours if needed for severe pain for up to 28 days. 112 tablet 09/03/20 25 2:25 PM EST 025 2024 Active acetaminophen (Tylenol 8 Hour) 650 MG ER tablet TAKE 1 TABLET EVERY 8 HOURS NEEDED FOR PAIN, DO NOT BREAK, CRUSH, DISSOLVE OR CHEW 60 tablet 3 025 Active Jardiance 25 MG Take 1 tablet by mouth Once per day. 025 2024 Discontinued(R eorder (will not trigger notification to Pharmacy)) acetaminophen (Tylenol 8 Hour) 650 MG ER tablet Take 1 tablet (650 mg) by mouth every 8 (eight) hours if needed for mild pain. Do not crush, chew, or split. 60 tablet 3 09/03/20 25 2:25 PM EST 025 2024 Discontinued oxyCODONE (Roxicodone) 5 MG immediate release tabletIndicatio ns:Chronic low back pain, unspecified back pain laterality, unspecified whether sciatica present Take 1 tablet (5 mg) by mouth every 6 (six) hours if needed for severe pain for up to 28 days. Do not start before August 02, 2025. 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) 016 Chronic low back pain 11/18/2015 Assessment & Plan (02/08/2024 3:50 PM EDT): With intermittent flaring -L-spine XR with mild degenerative changes JUL 2017 -cont gabapentin 800mg TID -cont amitriptyline nightly -cont baclofen TID to help with mm spasm -cont tylenol and diclofenac gel prn -cont tramadol for severe pain control -he refuses f/u with pain mgmt -advised contact [facility] if sx change or worsen Essential hypertension [...] microalbumin OCT 2023 [facility] with renal as scheduled [...] with severe diabetic retinopathy JAN 2023 at [facility], encouraged schedule f/u -strongly encouraged schedule f/u with retinal specialist -foot exam next visit* -review podiatry next visit* Resolved Problems Problem Noted Date Diagnosed Date Resolved Date Acute right eye pain 11/12/2024 025 Assessment & Plan (11/12/2024 1:14 PM [...] Encounters Date Type Department Care Team Description 09/16/2025 Orders Only GENERIC EXTERNAL DATA DEPARTMENT Provider, Generic External Data 09/03/2025 Refill [facility] [address] [place] [phone] Enedina Saunders DO 09/02/2025 Refill [facility] [address] [place] [phone] Jenny Escobar RN Chronic low back pain, unspecified back pain laterality, unspecified whether sciatica present 09/02/2025 Refill [facility] [address] [place] [address] Enedina Saunders DO 08/03/2025 Refill [facility] [address] [place] [address] Enedina Saundesr DO Essential hypertension 08/01/2025 10:00 AM EDT Clinical Support [facility] [address] [place] [phone] Jenny Escobar RN senior care (current) use of opiate analgesic (Primary Dx) 08/01/2025 Travel 07/30/2025 Refill [facility] [address] [place] [address] Enedina Saunders DO Chronic low back pain, unspecified back pain laterality, unspecified whether sciatica present 07/29/2025 Refill [facility] [address] [place] [address] Enedina Saunders DO Back pain, unspecified back location, unspecified back pain laterality, unspecified chronicity 07/11/2025 Refill [facility] [address] [place] [address] Enedina Saunders, Chronic GERD 06/28/2025 Refill [facility] [address] [place] [address] Enedina Saunders, Chronic low back pain, unspecified back pain laterality, unspecified whether sciatica present 06/19/2025 Refill [facility] [address] [place], [place] [phone] Enedina Saunders, Type 2 diabetes mellitus with other specified complication, unspecified whether regional intermodal truck driver insulin use ([facility]) from Last 3 Months Immunizations Immunization Administration [...] Sign Reading Time Taken Comments Blood Pressure 128/76 05/29/2025 4:02 PM EDT Pulse 80 05/29/2025 3:15 PM EDT Temperature 36.9 C (98.5 F) 05/29/2025 3:15 PM EDT Respiratory Rate 16 05/29/2025 3:15 PM EDT Oxygen Saturation 99% 05/16/2025 9:25 AM EDT Inhaled Oxygen Concentration - - Weight 96.3 kg (212 lb 6.4 oz) 05/29/2025 3:15 P M EDT Height 185.4 cm (6' 1 ) 05/16/2025 9:25 AM EDT Body Mass Index 28.02 05/16/2025 9:25 AM EDT Plan of Treatment Upcoming Encounters Date Type Department Care Team (Late st Contact Info) Description 10/02/2025 10:15 AM EST Office Visit [facility] [address] [place] [address] Enedina Saunders DO [address] [place] [address] 10/31/2025 1:00 PM EST Clinical Support [facility] [address] [place] [address] Jenny Escobar RN 11/05/2025 3:30 PM EST Office Visit [facility] [address] [place], [place] [phone] Graham, Enriqueta, OD [address] [place] [address] Health Maintenance Due Date Last Done Comments CT Colonography 1964 Colonoscopy 1964 FIT DNA/Cologuard 1964 Sigmoidoscopy 1964 RSV Patients and Patients Aged 60 years or older (1 - Risk 50-74 years 1-dose series) 2014 Colorectal Cancer Screening 12/30/2023 FIT 12/30/2023 12/29/2022 FOBT 12/30/2023 12/29/2022 COVID-19 Vaccine ( season) 2025 12/09/2022, 07/29/2021, 12/17/2020 Influenza Vaccine (#1) 2025 , 10/12/2023, 06/25/2022, Additional history exists Diabetes: Hemoglobin A1C 07/13/2025 025, 04/12/2025, 10/15/2024, Additional history exists Eye Exam 10/19/2025 10/19/2024, 10/03, 10/19/2024, Additional history exists Depression Screening 04/12/2026 04/12/2025, 04/12/20 Disability Screening 04/12/2026 04/12/2025 Lipid Panel 04/12/2026 04/12/2025, 10/03, 10/12/2023, Additional history exists SDOH Screening 04/12/2026 04/12/2025 Alcohol/Substance Use Screening 05/09/2026 05/09/2025 Diabetes: Foot Exam 05/29/2026 05/29/2025, 05/29/2025, 08/04/2023, Additional history exists Tobacco Screening 05/29/2026 05/29/2025 DTaP/Tdap/Td Vaccines (3 - Td or Tdap) [...] on patient's age to complete this topic Goals Goal Patient Goal Type Associated Problems Recent Progress Patient-Stated? Author Help patients manage their type 2 diabetes Care Plan Help patients manage their type 2 diabetes Andrae Bryant Weekly blood pressure task Care Plan Weekly blood pressure task No Andrae Murguia Help patients manage their type 2 diabetes Care Plan Help patients manage their type 2 diabetes Matt Bryantis Patient has diabetic eye disease Care Plan Patient has diabetic eye disease No Andrae Murguia Help patients manage their type 2 diabetes Care Plan Help patients manage their type 2 diabetes No BladeAndrae Patient has chronic kidney disease Care Plan Patient has chronic kidney disease No Andrae Murguia Weekly blood pressure task Care Plan Weekly blood pressure task No Blade Andrae Weekly blood pressure task Care Plan Weekly blood pressure task No Blade Andrae Patient has diabetic eye disease Care Plan Patient has diabetic eye disease No Blade Andrae Patient has diabetic eye disease Care Plan Patient has diabetic eye disease No Blade Andrae Patient has chronic kidney disease Care Plan Patient has chronic kidney disease No Andrae Murguia Patient has chronic kidney disease Care Plan Patient has chronic kidney disease No Andrae Murguia Weekly blood pressure task Care Plan Weekly blood pressure task No Jenny Escobar RN Weekly blood pressure task Care Plan Weekly blood pressure task No Jenny Escobar RN Weekly blood pressure task Care Plan Weekly blood pressure task No Jenny Escobar RN Patient has diabetic eye disease Care Plan Patient has diabetic eye disease No Jenny Escobar RN Patient has diabetic eye disease Care Plan Patient has diabetic eye disease No Jenny Escobar RN Patient has diabetic eye disease Care Plan Patient has diabetic eye disease No Jenny Escobar RN Patient has chronic kidney disease Care Plan Patient has chronic kidney disease No Jenny Escobar RN Patient has chronic kidney disease Care Plan Patient has chronic kidney disease No Jenny Escobar RN Patient has chronic kidney disease Care Plan Patient has chronic kidney disease No Jenny Escobar RN Procedures Procedure Name Priority Date/Time Associated Diagnosis Comments UREA NITROGEN (BUN) Routine 09/16/2025 2 :49 PM EST BASIC METABOLIC PANEL Routine 09/16/2025 2:44 PM EST Elevated serum creatinine PROTEIN CREATININE RATIO, URINE Routine 09/16/2025 2:19 PM EST POCT JOHNNY-14 URINE DRUG SCREEN Routine 08/01/2025 9:39 AM EDT senior care (current) use of opiate analgesic LIPID PANEL, STANDARD Routine 04/12/2025 2:50 PM EDT Type 2 diabetes mellitus with other diabetic kidney complication (CMS/HCC) Essential hypertension Other hyperlipidemia Major depression, recurrent, chronic (CMS/HCC) Mild persistent asthma without complication Chronic gastroesophageal reflux disease Nephrolithiasis Chronic bilateral low back pain with bilateral sciatica Bilateral lower extremity pain Low TSH level IgA monoclonal gammopathy Sleep-disordered breathing Dizziness Fatigue, unspecified type Healthcare maintenance POCT GLYCATED HEMOGLOBIN, TOTAL Routine 04/12/2025 11:34 [...] Recently Relevant to Health Maintenance Results * (ABNORMAL) BUN (Blood Urea Nitrogen) (09/16/2025 2:49 PM EST) Pathologist [facility] Urea Nitrogen (BUN) 40(H) 9 - 16 mg/dL [facility] 09/16/2025 2:49 PM EST 09/16/2025 6:12 PM EST us Generic External Data Provider LAB BLOOD ORDERAB LES Final Result [facility] [address] [place] [phone] * (ABNORMAL) Basic Metabolic Panel (09/16/2025 2:44 PM EST) Sodium 140 135 - 145 mmol/L [facility] Potassium 4.4 3.3 - 5.1 mmol/L [facility] Chloride 105 96 - 108 mmol/L [facility] Carbon Dioxide 27 22 - 29 mmol/L [facility] Anion Gap 12 12 - 20 [facility] Urea Nitrogen (BUN) 39(H) 9 - 16 mg/dL [facility] Creatinine, Serum 1.18 0.5 - 1.4 mg/dL [facility] Estimated Glomerular Filt Rate >60 [facility] Comment:Chronic Kidney Disea se: Estimated GFR < 60 mL/min/[id number] Kidney Disease: Estimated GFR < 15 mL/min/1.73m2 Glucose 139(H) 60 - 115 mg/dL [facility] Calcium 9.9 8.4 - 10.2 mg/dL [facility] Blood Venous blood specimen / Unknown 09/16/2025 2:44 PM EST 09/16/2025 6:12 PM EST us Enedina Saunders DO LAB BLOOD ORDERABLES Final R esult Performing Organization Address City/[facility]/ZIP Co de Phone Number [facility] [address] [place] [phone] * (ABNORMAL) Protein Creatinine Ratio, Urine (09/16/2025 2:19 PM EST) Creatinine, Urine 77.64 mg/dL [facility] Protein, Total, Random Urine 126(H) <12 mg/dL [facility] Protein/Creati nine Ratio, Ur 1.62(H) <0.2 [facility] Comment:The spot urine prote in:creatinine ratio may increase to 0.3during normal . 09/16/2025 2:19 PM EST 09/16/2025 6:10 PM EST us Generic External Data Provider LAB URINE ORDERAB LES Final Result Performing Organization Address [facility] Co de Phone Number [facility] [address] [place] [phone] * (ABNORMAL) POCT JOHNNY-14 Urine Drug Screen (08/01/2025 9:39 AM EDT) THC Negative Negative Cocaine Screen, Urine Negative Negative Opiate Screen, Urine Negative Negative Methamphetamine Screen Urine Negative Negative Amphetamine Screen, Urine Negative Negative Benzodiazepines Screen, Urine Negative Negative Barbiturate Screen, Urine Negative Negative Methadone Screen, Urine Negative Negative Buprenophine Screen, Urine Negative Negative TCA, Urine Negative Negative MDMA Urine Negative Negative ng/mL Oxycodone Screen, Urine Positive(A) Negative Comment:MECHANIST pt on Oxycodone Phencyclidine (PCP), Urine Negative Negative Propoxyphene, Urine Negative Negative Fentanyl, Urine Negative Negative Urine Urine specimen obtained by clean catch procedure / Unknown 08/01/2025 9:39 AM EDT Jenny Omalley RN - 08/01/2025 9:39 AM EDT UTOX cup Lot#[id number] Exp. 07/09/26 Internal Pass Control Enedina Saunders DO POINT OF CARE TEST ENTER/RUSTAM T ORDERABLES Final Result * (ABNORMAL) Lipid Panel, Standard (04/12/2025 2:50 PM EDT) Triglycerides 84 <150 mg/dL [facility] Comment:Desirable Triglyceri de: less than 150 mg/dLBorderline High Triglyceride 150-199 mg/dLHigh Triglyceride: 200-499 mg/dLVery High Triglyceride: greater than or equal to 5OO mg/dL Cholesterol 99 <200 mg/dL [facility] Comment:Desirable Cholestero l: less than 200 mg/dLBorderline High Cholesterol: 200-239 mg/dLHigh Cholesterol: greater than 239 mg/dL LDL Cholesterol Calculated 51 <100 mg/dL [facility] Comment:Desirable LDL: less than 100 mg/dLNear Optimal/Above Optimal LDL: 110- 129 mg/dLBorderline High LDL: 130-159 mg/dLHigh LDL: 160-189 mg/dLVery High LDL: greater than or equal to 190 mg/dL HDL Cholesterol 32(L) >40 mg/dL [facility] Comment:Desirable HDL: great er than 40 mg/dL Note: This HDL assay may give artificially low results in patients with liver disease. Blood Venous blood specimen / Unknown 04/12/2025 2:50 PM EDT 04/12/2025 2:50 PM EDT Enedina Nicky [facility] LAB BLOOD ORDERABLES Final R esult Performing Organization Address City/[facility]/ZIP Co de Phone Number [facility] [address] [place] [phone] * (ABNORMAL) POCT HGB A1C (04/12/2025 11:34 AM EDT) Pathologist [facility] Hemoglobin A1C 6.9(A) 4.0 - 5.7 % QC Media Lot # [id number] Lot# Expiration Date 868 Blood 04/12/2025 11:3 4 AM EDT Enedina Saunders DO POINT OF CARE TEST ENTER/RUSTAM T ORDERABLES Final Result * Hepatitis C Antibody with Reflex to HCV, RNA, Quantitative, Real-Time PCR (10/15/2024 3:25 PM EST) [facility] Hepatitis C Antibody Nonreactive Nonreactive [facility] Comment:Antibodies to HCV no t detected; does not exclude early acuteHCV infection. Blood Venous blood specimen / Unknown 10/15/2024 3:25 PM EST 10/15/2024 3:25 PM EST Enedina Nicky [facility] LAB BLOOD ORDERABLES Final R esult Performing Organization Address City/[facility]/ZIP Co de Phone Number [facility] [address] [place] [phone] [phone] * HIV-1/2 Antigen and Antibodies, Fourth Generation, with Reflexes (10/15/2024 3:25 PM EST) Pathologist [facility] HIV AB/AG Nonreactive Nonreactive [facility] Comment:HIV-1 p24 Ag and/or HIV-1/HIV-2 Ab not detected.A test result that is nonreactive does not exclude thepossibility of exposure to or infection with HIV-1 and/orHIV-2. Nonreactive results in this assay for individualswith prior exposure to HIV-1 and/or HIV-2 may be due toantigen and antibody levels that are below the limit ofdetection of this assay.The [address] HIV Ag/Ab Combo assay result andsupplemental assay results should be interpreted inconjunction with the patient's clinical presentation,history and other laboratory results. If the results areinconsistent with clinical evidence, additional testing issuggested to confirm the result. Blood Venous blood specimen / Unknown 10/15/2024 3:25 PM EST 10/15/2024 3:25 PM EST us Enedina Saunders DO LAB BLOOD ORDERABLES Final R esult [facility] [address] [place] [phone] * Fecal Globin by Immunochemistry (12/29/2022 12:00 AM EDT) Fecal Globin By Immunochemistry SEE NOTE [place] [email or web address] Comment: FECAL GLOBIN BY IMMUNOCHEMISTRY Micro Number: [id number] Test Status: Final Specimen Source: Insure (tm) fobt test card Specimen Quality: Adequate Fecal Globin: Not Detected Comment: Test results may be invalid as no date of collection was provided. Specimens are stable for 14 days. Stool Rectal contents / Unknown 12/29/2022 01/04/2023 9:16 AM EDT us Enedina Saunders DO LAB BODY FLUIDS AND STOOLS O RDERABLES Final Result [employer] [address] [place] [phone] [place] [employer] [address] [place] [phone] from Last 3 Months or Most Recently Relevant to Health Maintenance Additional Health Concerns Active Problems Noted Date Diagnosed Date Help patients manage their type 2 diabetes 09/02 Weekly blood pressure task 09/02/2025 Help patients manage their type 2 diabetes 09/02 Patient has diabetic eye disease 09/02/2025 Help patients manage their type 2 diabetes 09/02 Patient has chronic kidney disease 09/02/2025 Weekly blood pressure task 09/02/2025 Weekly blood pressure task 09/02/2025 Patient has diabetic eye disease 09/02/2025 Patient has diabetic eye disease 09/02/2025 Patient has chronic kidney disease 09/02/2025 Patient has chronic kidney disease 09/02/2025 Weekly blood pressure task 09/02/2025 Weekly blood pressure task 09/02/2025 Weekly blood pressure task 09/02/2025 Patient has diabetic eye disease 09/02/2025 Patient has diabetic eye disease 09/02/2025 Patient has diabetic eye disease 09/02/2025 Patient has chronic kidney disease 09/02/2025 Patient has chronic kidney disease 09/02/2025 Patient has chronic kidney disease 09/02/2025 Insurance [facility] < 65 Care Teams Food Expeditor Relationship Specialty Start Date End Date Enedina Saunders DO [address] [facility] [place] [phone] PCP - General Family Medicine 11/18/15
--- OUTSIDE RECORDS SUMMARY | 2025-09-16 21:13 | XMS_ITS | Encounter Summary ---
Author Organization [employer] Address 75 [facility] 7t h Floor [place] [id number] Care Team Providers Care Machine Setter Sheet Metal Name Role Phone Enedina Saunders DO Primary Care Provider + [phone] Reason for Visit * Reason Onset Date Comments Results 04/29/2025 Encounter Details Date Type Department Care Team ([facility] st Contact Info) Description 04/29/2025 Telephone [facility] MED[facility] [address] [place], [place] [phone] Enedina Saunders DO 230 [place], [place] [phone] Results Social History Tobacco Use Types Packs/Day [...] have tested + for methadone today at [facility] appt, as she provides all of pt.'s [...] HIPAA. Thanks!! * Telephone Encounter - Bib Gatesiz - 04/29/2025 9:40 AM EDT Tc fro pt daughter requesting a call back with results of her father due to her father not understanding the results. Contact daughter at [phone] documented in this encounter Plan of Treatment Upcoming Encounters Date Type Department Care Team (Late st Contact Info) Description 10/02/2025 10:15 AM EST Office Visit [facility] [address] [place] [address] Enedina Saunders DO 230 [place] [address] 10/31/2025 1:00 PM EST Clinical Support [facility] [address] [place] [address] Jenny Escobar, WALTER 11/05/2025 3:30 PM EST Office Visit [facility] OPTOMETRY [address] [place] [address] Enriqueta Stevenson, OD 230 [place] [address] documented as of this encounter Visit Diagnoses Not on filedocumented in this encounter Additional Health Concerns Assessment Noted Time PHQ-9 Depression Total Score: 0 04/12/20 25 11:31 AM EDT documented as of this encounter Care Teams Machine Setter Sheet Metal Relationship Specialty Start Date End Date Enedina Saunders DO 230 [place] [address] PCP - General Family Medicine 11/18/15 documented as of this encounter
--- OUTSIDE RECORDS SUMMARY | 2025-09-16 21:13 | XMS_ITS | Encounter Summary ---
Author Organization [employer] Address 75 [facility] 7t [place] [address] Care Team Providers Care Poultry Hanger Name Role Phone Enedina Saunders DO Primary Care Provider + [phone] Reason for Visit * Reason Onset Date Comments Med Refill 03/01/2024 Encounter Details Date Type Department Care Team ([facility] st Contact Info) Description 03/01/2024 Telephone [facility] MEDICINE 230 [place], [place] [phone] Enedina Saunders DO 230 [place], [place] [phone] Med Refill Social History Tobacco Use Types [...] MG/0.5ML solution pen-injector To be sent to: [facility] - [place], [place] - [address] [place] [address] documented in this encounter Plan of Treatment Upcoming Encounters Date Type Department Care Team (Late st Contact Info) Description 10/02/2025 10:15 AM EST Office Visit [facility] MEDICINE 230 [place] [address] Enedina Saunders DO 230 [place] [address] 10/31/2025 1:00 PM EST Clinical Support [facility] MEDICINE [address] [place] [address] Jenny Escobar RN 11/05/2025 3:30 PM EST Office Visit [facility] OPTOMETRY [address] [place] [phone] Enriqueta Stevenson, OD 230 [place] [address] documented as of this encounter Visit Diagnoses Not on filedocumented in this encounter Additional Health Concerns Assessment Noted Time PHQ-9 Depression Total Score: 4 02/08/20 24 3:47 PM EDT documented as of this encounter Care Teams Poultry Hanger Relationship Specialty Start Date End Date Enedina Saunders DO 230 [place] [address] PCP - General Family Medicine 11/18/15 documented as of this encounter
--- OUTSIDE RECORDS SUMMARY | 2025-09-16 21:13 | XMS_ITS | Encounter Summary ---
Author Organization [employer] Address 75 [facility] 7t h Floor [place] [phone] Care Team Providers Care Heavy Duty Mechanic Farm Equipment Name Role Phone Enedina Saunders DO Primary Care Provider + [phone] Reason for Visit * Reason Onset Date Comments Call Back Request 04/06/2024 Encounter Details Date Type Department Care Team ([facility] st Contact Info) Description 04/06/2024 Telephone [facility] MEDICINE [address] [place], [place] [phone] Enedina Saunders DO 230 [place], [place] [phone] Call Back Request Social History Tobacco Use [...] to NS placed 03/05/24. MRI done at [facility] ([place]) 02/22/24 ( in chart). TC returned to daughter and daughter reports she called [facility] to inquire on status of [...] 10/02/2025 10:15 AM EST Office Visit [facility] MEDICINE [address] [place] [address] Enedina Saunders DO 230 [place] [address] 10/31/2025 1:00 PM EST Clinical Support [facility] MEDICINE [address] [place] [address] Jenny Escobar, RN 11/05/2025 3:30 PM EST Office Visit [facility] OPTOMETRY [address] [place] [address] Enriqueta Stevenson, OD 230 [place] [address] documented as of this encounter Visit Diagnoses Not on filedocumented in this encounter Additional Health Concerns Assessment Noted Time PHQ-9 Depression Total Score: 4 02/08/20 24 3:47 PM EDT documented as of this encounter Care Teams Heavy Duty Mechanic Farm Equipment Relationship Specialty Start Date End Date Enedina Saunders DO 230 [place] [address] PCP - General Family Medicine 11/18/15 documented as of this encounter
--- OUTSIDE RECORDS SUMMARY | 2025-09-16 21:14 | XMS_ITS | Encounter Summary ---
Author Organization [employer] Address 75 [facility] 7t h Floor [place] [phone] Care Team Providers Care Apartment Maintenance Technician Name Role Phone Enedina Saunders DO Primary Care Provider + [phone] Reason for Visit * Reason Comments Med Refill Encounter Details Date Type Department Care Team (Late st Contact Info) Description 07/29/2025 Refill [facility] 230 [place], [place] [phone] Enedina Saunders DO 230 [place] [address] Back pain, unspecified back location, unspecified back [...] Description 10/02/2025 10:15 AM EST Office Visit [facility] [address] [place] [address] Enedina Saunders DO 230 [place] [address] 10/31/2025 1:00 PM EST Clinical Support [facility] [address] [place] [address] Jenny Escobar RN 11/05/2025 3:30 PM EST Office Visit [facility] OPT[facility]ET[facility] [address] [place] [address] Enriqueta Stevenson, OD 230 [place] [address] documented as of this encounter Visit Diagnoses Diagnosis Back pain, unspecified back location, unspecified back pain laterality, unspecified chronicity documented in this encounter Additional Health Concerns Assessment Noted Time PHQ-9 Depression Total Score: 0 04/12/20 25 11:31 AM EDT documented as of this encounter Care Teams Apartment Maintenance Technician Relationship Specialty Start Date End Date Enedina Saunders DO [address] [place] [address] PCP - General Family Medicine 11/18/15 documented as of this encounter
--- OUTSIDE RECORDS SUMMARY | 2025-09-16 21:14 | XMS_ITS | Encounter Summary ---
Author Organization [employer] Address 75 [facility] 7t [place] [address] Care Team Providers Care Rewinder Operator Name Role Phone Enedina Saunders DO Primary Care Provider + [phone] Reason for Visit * Reason Comments Med Refill Encounter Details Date Type Department Care Team (Late st Contact Info) Description 10/21/2023 Refill [facility] MEDICINE 230 [place], [place] [phone] Enedina Saunders DO 230 [place], [place] [phone] Type 2 diabetes mellitus with other diabetic kidney complication ([facility]/HCC) Social History Tobacco Use Types Packs/Day Years [...] 10:15 AM EST Office Visit [facility] MEDICINE [address] [place] [address] Enedina Saunders DO 230 [place] [address] 10/31/2025 1:00 PM EST Clinical Support [facility] [address] [place] [address] Jenny Escobar, WALTER 11/05/2025 3:30 PM EST Office Visit [facility] OPTOMETRY [address] [place] [address] Enriqueta Stevenson, OD 230 [place] [address] documented as of this encounter Visit Diagnoses Diagnosis Type 2 diabetes mellitus with other diabetic kidney complication (HCC) documented in this encounter Additional Health Concerns Assessment Noted Time PHQ-9 Depression Total Score: 0 12/21/19 23 10:36 AM EDT documented as of this encounter Care Teams Rewinder Operator Relationship Specialty Start Date End Date Enedina Saunders DO 230 [place] [address] PCP - General Family Medicine 11/18/15 documented as of this encounter
--- OUTSIDE RECORDS SUMMARY | 2025-09-16 21:14 | XMS_ITS | Encounter Summary ---
Author Organization [employer] Address [address] [place] [address] 7t [place] [address] Care Team Providers Care Side Sawyer Name Role Phone GianEnedina owens Primary Care Provider + [phone] Encounter Details Date Type Department Care Team (Late st Contact Info) Description 09/16/2025 Orders Only GENERIC EXTERNAL DATA DEPARTMENT Provider, Generic External Data Social History Tobacco Use Types Packs/Day Years [...] 10/02/2025 10:15 AM EST Office Visit [facility] MEDICINE [address] [place] [address] Enedina Saunders DO 230 [place] [address] 10/31/2025 1:00 PM EST Clinical Support [facility] MEDICINE [address] [place] [address] Jenny Escobar RN 11/05/2025 3:30 PM EST Office Visit [facility] OPTOMETRY [address] [place] [address] Enriqueta Stevenson, OD 230 [place] [address] documented as of this encounter Goals Goal Patient Goal Type Associated Problems Recent Progress Patient-Stated? Author Help patients manage their type 2 diabetes Care Plan Help patients manage their type 2 diabetes No Andrae Murguia Weekly blood pressure task Care Plan Weekly blood pressure task No Andrae Murguia Help patients manage their type 2 diabetes Care Plan Help patients manage their type 2 diabetes No Andrae Murguia Patient has diabetic eye disease Care Plan Patient has diabetic eye disease No Andrae Murguia Help patients manage their type 2 diabetes Care Plan Help patients manage their type 2 diabetes No Andrae Murguia Patient has chronic kidney disease Care Plan Patient has chronic kidney disease No Andrae Murguia Weekly blood pressure task Care Plan Weekly blood pressure task No Andrae Murguia Weekly blood pressure task Care Plan Weekly blood pressure task No Andrae Murguia Patient has diabetic eye disease Care Plan Patient has diabetic eye disease No Andrae Mugruia Patient has diabetic eye disease Care Plan Patient has diabetic eye disease No Blade Andrae Patient has chronic kidney disease Care Plan Patient has chronic kidney disease No Andrae Murguia Patient has chronic kidney disease Care Plan Patient has chronic kidney disease No Blade Andrae Weekly blood pressure task [...] chronic kidney disease No Jenny Escobar RN documented as of this encounter Procedures Procedure Name Priority Date/Time Associated Diagnosis Comments UREA NITROGEN (BUN) Routine 09/16/2025 2 :49 PM EST PROTEIN CREATININE RATIO, URINE Routine 09/16/2025 2:19 PM EST documented in this encounter Results * (ABNORMAL) BUN (Blood Urea Nitrogen) (09/16/2025 2:49 PM EST) Urea Nitrogen (BUN) 40(H) 9 - 16 mg/dL [facility] 09/16/2025 2:49 PM EST 09/16/2025 6:12 PM EST us Generic External Data Provider LAB BLOOD ORDERAB LES Final Result [facility] [address] [place] [phone] * (ABNORMAL) Protein Creatinine Ratio, Urine (09/16/2025 2:19 PM EST) Creatinine, Urine 77.64 mg/dL [facility] Protein, Total, Random Urine 126(H) <12 mg/dL [facility] Protein/Creati nine Ratio, Ur 1.62(H) <0.2 [facility] Comment:The spot urine prote in:creatinine ratio may increase to 0.3during normal . 09/16/2025 2:19 PM EST 09/16/2025 6:10 PM EST us Generic External Data Provider LAB URINE ORDERAB LES Final Result [facility] [address] [place] [address] [phone] documented in this encounter Visit Diagnoses Not on filedocumented in this encounter Additional Health Concerns Active Problems Noted Date [...] 09/02/2025 Patient has chronic kidney disease 09/02/2025 Assessment Noted Time PHQ-9 Depression Total Score: 0 04/12/20 25 11:31 AM EDT documented as of this encounter Care Teams Side Sawyer Relationship Specialty Start Date End Date Enedina Saunders DO [address] [place] [address] PCP - General Family Medicine 11/18/15 documented as of this encounter
--- OUTSIDE RECORDS SUMMARY | 2025-09-16 21:14 | XMS_ITS | Encounter Summary ---
Author Organization [employer] Address [address] [place] [address] 7t [place] [address] Care Team Providers Care Glass Blowing Instructor Name Role Phone Enedina Saunders DO Primary Care Provider + [phone] Reason for Visit * Reason Onset Date Comments OV notes 10/04/2023 Encounter Details Date Type Department Care Team ([facility] st Contact Info) Description 10/04/[address] [facility] MEDICINE 230 [place], [place] [phone] Enedina Saunders DO 230 [place] [address] OV notes Social History Tobacco Use Types [...] - 10/04/2023 3:11 PM EST Tc from [facility] 08/04 OV notes will need to be faxed to [employer] for diabetic shoes. documented in this encounter Plan of Treatment Upcoming Encounters Date Type Department Care Team (Late st Contact Info) Description 10/02/2025 10:15 AM EST Office Visit [facility] MEDICINE [address] [place] [address] Enedina Saunders DO 230 [place] [address] 10/31/2025 1:00 PM EST Clinical Support [facility] MEDICINE [address] [place] [address] Jenny Escobar RN 11/05/2025 3:30 PM EST Office Visit [facility] OPTOMETRY [address] [place] [address] Enriqueta Stevenson, OD 230 [place] [address] documented as of this encounter Visit Diagnoses Not on filedocumented in this encounter Additional Health Concerns Assessment Noted Time PHQ-9 Depression Total Score: 0 12/21/19 23 10:36 AM EDT documented as of this encounter Care Teams Glass Blowing Instructor Relationship Specialty Start Date End Date Enedina Saunders DO 230 [place] [address] PCP - General Family Medicine 11/18/15 documented as of this encounter
--- OUTSIDE RECORDS SUMMARY | 2025-09-16 21:14 | XMS_ITS | Encounter Summary ---
Author Organization [employer] Address [address] [facility] [address] 7t [place] [address] Care Team Providers Care Director Orange Name Role Phone MacrelloEnedina luciano Primary Care Provider + [phone] Reason for Visit * Reason Comments Med Refill Encounter Details Date Type Department Care Team (Late st Contact Info) Description 12/14/2024 Refill [facility] 230 [place], [place] [phone] Viridiana Urbina MD 230 [place] [address] Social History Tobacco Use Types Packs/Day Years [...] Description 10/02/2025 10:15 AM EST Office Visit [facility] [address] [place] [address] Enedina Saunders DO 230 [place] [address] 10/31/2025 1:00 PM EST Clinical Support [facility] [address] [place] [address] Jenny Escobar, RN 11/05/2025 3:30 PM EST Office Visit [facility] OPTOMETRY [address] [place] [address] Graham, Enriqueta, OD 230 [place] [address] documented as of this encounter Visit Diagnoses Not on filedocumented in this encounter Additional Health Concerns Assessment Noted Time PHQ-9 Depression Total Score: 4 02/08/20 24 3:47 PM EDT documented as of this encounter Care Teams Director Orange Relationship Specialty Start Date End Date Enedina Saunders DO [address] [place] [address] PCP - General Family Medicine 11/18/15 documented as of this encounter
--- OUTSIDE RECORDS SUMMARY | 2025-09-16 21:14 | XMS_ITS | Clinical Summary ---
Author Organization 175 [facility] Address [address] [place] [address] Phone Care Team Providers Care Hydro Generation Supervisor Name Role Phone Cindy Mohan MD Primary Care Provide r Social History Tobacco Use Types Packs/Day Years [...] Health Maintenance Due Date Last Done Comments Colorectal Cancer Screening: Colonoscopy 1964 DTaP,Tdap,and Td Vaccines (1 - Tdap) 1983 Pneumococcal Vaccine: 50+ Ye ars (1 of 2 - PCV) 1983 Zoster Vaccines (1 of 2) 2014 Cholesterol Screening (Lipid Panel) 09/05/2022 HIV Screening 09/05/2022 Hepatitis C Screening 09/05/2022 Medicare Annual Wellness Visit 09/05/2022 Social Influencers of Health Screening 09/05/2022 Depression Screening 10/03/2024 COVID-19 Vaccine (1 - 2024-2 6 season) 2025 Influenza Vaccine (#1) 2025 RSV Immunization Adult Patie nts (1 - 1-dose 75+ series) 2039 HIB Vaccines Aged Out No longer eligi [...] patient's age to complete this topic Insurance [employer] MEDICARE Member Subscriber Plan / Payer (Ef fective 2016-Present) Name:JOO DAWSON Relation to Subscriber:Self Name:Joo Dawson Payer ID:[id number] Group ID:[id number] Type:Not on file Address: [address] [place] [address] Care Teams Hydro Generation Supervisor Relationship Specialty Start Date End Date Cindy Mohan MD [address] [place] [phone] PCP - General 08/05/23
--- OUTSIDE RECORDS SUMMARY | 2025-09-16 21:14 | XMS_ITS | Encounter Summary ---
Author Organization [employer] Address 75 [facility] 7t [place] [address] Care Team Providers Care Liquor Merchant Name Role Phone GianEnedina owens Primary Care Provider + [phone] Reason for Visit * Reason Comments Med Refill Encounter Details Date Type Department Care Team (Late st Contact Info) Description 09/29/2023 Refill [facility] MEDICINE 230 [place], [place] [phone] Viridiana Urbina MD 230 [place], [place] [phone] Type 2 diabetes mellitus with other diabetic kidney complication ([facility]/HCC) Social History Tobacco Use Types Packs/Day [...] Description 10/02/2025 10:15 AM EST Office Visit [facility] MEDICINE [address] [place] [address] Enedina Saunders DO 230 [place] [address] 10/31/2025 1:00 PM EST Clinical Support [facility] MEDICINE [address] [place] [address] Jenny Escobar, WALTER 11/05/2025 3:30 PM EST Office Visit [facility] OPTOMETRY [address] [place] [address] Enriqueta Stevenson, OD 230 [place] [address] documented as of this encounter Visit Diagnoses Diagnosis Type 2 diabetes mellitus with other diabetic kidney complication (HCC) documented in this encounter Additional Health Concerns Assessment Noted Time PHQ-9 Depression Total Score: 0 12/21/19 23 10:36 AM EDT documented as of this encounter Care Teams Liquor Merchant Relationship Specialty Start Date End Date Enedina Saunders DO 230 [place] [address] PCP - General Family Medicine 11/18/15 documented as of this encounter
--- OUTSIDE RECORDS SUMMARY | 2025-09-16 21:14 | XMS_ITS | Data Portability ---
Author Organization [employer] [facility], [facility] Address [address] [place] [address] Care Team Providers Care Associate Faculty Name Role Phone HIM CCA OTHER Assessment Encounter Date Assessment Date Assessment LastModified by Organization Details LastModified Time 02/23/2024 02/23/2024 I provided real -time medical direction via phone for this encounter, and was available for additional phone based assistance as needed. I have reviewed and agree with the Assessment and Plan as documented by the Household Appliance Repairer. We discussed the diagnostic uncertainty of home [...] to call 911- verbalized understanding of instruction [email or web address] Not available 02/23/2024 12:03:53 Plan of Treatment Reminders Order Date Submit Date Provider Last Modified By Organization Details Last Modified Time Details Appointments None recorded. Lab BMP, serum or plasma 2023 [email or web address] 0 [facility], [address] [place] [address], [phone] 14:01:33 Referral None recorded. Procedures None recorded. Surgeries None recorded. Imaging None recorded. Medication Orders ketorolac 30 mg/mL (1 mL) injection solution 2023 024 [email or web address] 0 Not available 12:02:49 Arthritis Pain Relief (acetamino phen) ER 650 mg tablet,ext end release 2023 [facility], [address] [place] [address], [id number], 4 15:43:53 Patient TargetsNo targets recorded. Patient [...] Vitals Date Recorded Respiratory rate Oxygen saturation Heart rate Body height Body weight Body temperature Systolic And Diastolic Provider Name and Address Organization Details Last Updated DateTime 4 16 /min 97 % 99 /min 185.42 cm 837249. 016 g 97.2 [degF] 166/90 mm[Hg] Not Available [facility] - production 4 11:12:32 Social History None recorded. Functional Status None recorded. Mental Status None recorded. Family History Nothing Reported. Medical History No medical history recorded. Past Encounters Encounter ID Performer Location Encounter Start Date Encounter Closed Date Diagnosis/Indication Diagnosis SNOMED-CT Code Diagnosis ICD10 Code Diagnosis IMO Codes Diagnosis Note [id number] Alessandra Madrigal MD Main - [facility] [address] [place] [address] 02/23/2024 11:12:29 02/24/2024 10:36:31 Chronic low back pain 154547298 M54.50 acute on chronic-ad vised we will prescribe Tylenol again to take along with his gabapentin and tramadol. Needs to follow-up with his PCP, pain management and fire prevention specialist PHILLIP as we cannot prescribe further [...] due to risks Note sent to care worker via CRC: pat on 2nd floor- difficult ambulating due to pain/spina l stenosis - needs f/u with pcp/pain management /fire prevention specialist - will need assistance in scheduling appointmen ts and will need help setting up ambulance transport to appointmen ts- can care worker pls assist with this. Health Concerns Section Related Observation LastModified by Organization Detai ls LastModified Time None Recorded Concern Status LastModified by Organization Details LastModified Time None Recorded Advance Directives Directive None Recorded Payers Insurance Date Sequence Insurance Name Policy Number Policy Meza Covered Member ID Meza Member ID Guarantor Name 03/16/2024 1 [facility] - DOS ON OR AFTER 2023 - DUAL ELIGIBLE - [facility] OPTIONS AND ONE CARE (MEDICARE REPLACEMENT/ADV ANTAGE - HMO) Joo Dawson [id number] Joo Dawson Notes Date Note Type Note Provider Name and Address Organization Details Recorded Time 02/23/2024 text/html ROS as noted in the [facility] Nurse Triage Notes (John Hoffmann): Chief Complaints: Pain Allergies: Unknown Comments: Sterile Technician verified the member's name//address and phone number. [...] emergency treatment if needed -Josesito Hoffmann, RN Household Appliance Repairer POC Test Results from Zechariah Torres - RANJITH iSTAT Chem8+ (1) [13:02] Na: 139 mEq/L K: 3.9 mEq/L Cl: 102 mEq/L iCa: 1.24 mmol/L TCO2: 24 mmol/L Glu: 270 mg/dL BUN: 32 mg/dL Crea: 1.1 mg/dL Hct: 32 % Hb: 10.9 g/dL A ................... ................... ................... ................... ................... ................... ................... ........ Household Appliance Repairer Note From Zechariah Torres: Smart[facility] visit for male patient with back pain. Pt presents lying supine in bed with daughter present. Pt [place]orese speaking and daughter translated for pt. Pt [...] motion with assistance in legs. Consulted with [facility] Dr. Madrigal who ordered BMP prior to toradol administration. Blood drawn and BMP results uploaded. [facility] ordered 15 mg IM toradol. Pt encouraged [...] of this service Alessandra Madrigal MD [address] [facility],[address], [place], [address], MADELYN - ROSALBA SAAB 02/23/2024 14:02:20
--- OUTSIDE RECORDS SUMMARY | 2025-09-16 21:14 | XMS_ITS | Data Portability ---
Author Organization [place] [facility], All[facility] Address [address] [place] [address] Care Team Providers Care Montessori Paraprofessional Name Role Phone MYLES PACEFER Primary Care Provider [phone] Assessment Encounter Date Assessment Date Assessment LastModified [...] I have given them a referral to [facility] for this. I have recommended he use his cane as to give him additional proprioceptive feedback from the ground that he is missing due to his peripheral neuropathy. I recommend strongly against the use of vestibular suppressants such as meclizine or benzodiazepines, as this will certainly make his symptoms worse. No additional otolaryngologic workup recommended. [email or web address] Not available 08/21/2024 14:50:10 Plan of Treatment [...] ed. [email or web address] Not Available 08/03 14:53:27 08/22/20 24 audio gram No observ ation record ed. [email or web address] Not Available 08/04 09:29:58 Result Notes None recorded. Problems Name Problem SNOMED Code Status Onset Date Resolution Date Notes Provider Name and Address Organization Details Recorded Time Gastroeso phageal reflux disease without esophagit is 058145843 Active 2019 Gastro-es ophageal reflux disease without esophagit is; Note: Date Diagnosed : 05/24/2016 1:43 PM (K21.9) Not Available [facility] 4 03:32:00 Allergic rhinitis 62822585 Active 2020 Allergic rhinitis: Due to other allergen; Note: Date Diagnosed : 05/04/2021 3:44 PM (477.8) Allergi c rhinitis: Cause unspecifi ed; Note: Date Diagnosed : 01/18/2020 9:10 AM (477.9) ; Start Date : 0 Allergi c rhinitis, unspecifi ed; Note: Date Diagnosed : 01/18/2020 9:11 AM (J30.9) ; Start Date : 0 Not Available [facility] 4 03:32:00 Conductiv e hearing loss 70547275 Active 2023 Nikki naranjo [place] - [facility] 4 13:27:23 Conductiv e hearing loss 84776398 Active 2023 ROSHNI BERGER MD [address] [place] [address],[place] [address], [place], [address] , MADELYN - [facility] 4 14:27:08 Tinnitus of left ear 35739193089 06 Active 2023 ROSHNI BERGER MD [address] [place] [address],[place] [address], [place], [address] , [place] - [facility] 4 14:27:44 Unsteady when walking 84809053 Active 2023 ROSHNI BERGER MD [address] [facility],[place] [address], [place], [address] , [facility] - [facility] 4 14:30:08 Diabetic periphera l neuropath y 891544322 Active 2023 ROSHNI BERGER MD [address] [place] [address],[place] [address], [place], [address] , 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 - [facility] 14:48:18 Problem Notes None recorded. Procedures Surgical History Date Name Laterality Status Provider Name and Address Organization Details Recorded Time 08/21/20 24 Tympanometry - 24743 completed Nikki Vieira [place] - [facility] 08/21/2024 13:26:48 08/21/20 24 Air & Bone Audio - 00352 completed Nikki Vieira MA [facility] 08/21/2024 13:26:45 Imaging Results None recorded. Procedure Notes None recorded. Medical Equipment None Reported. Allergies Allergen ID Allergen Name Allergen Category Reaction Reaction Severity Criticality Documentation Date Start Date Code Code System Note Provider Name and Address Organization Details Recorded Time 461428 insulin aspart, human medicatio n Not available Not available Not available 08/21/2024 17636 RxNorm Viridiana naranjo [place] - [facility] 13:36:10 790726 shellfish derived food,medi cation Not available Not available Not available 08/21/2024 Viridiana naranjo MA [facility] 13:36:16 Medications Name Sig Start Date Stop Date Status Note LastModified by Organization Details LastModified Time atorvasta tin 40 mg tablet 08/21 completed Medicati on ID: [id number] B rand Name: atorvast atmagui [place] Method: E-Prescr ibed Sub s Allowed: subs OK Medic ationGen ericName : atorvast atin Not Available Not Available Not Available metformin 500 mg tablet 08/21 completed Medicati on ID: 324096 B rand Name: metformi n Send Method: [...] topical cream 08/21 completed Medicati on ID: [id number] B rand Name: permethr in Send Method: [...] chewable tablet 2019 active Medicati on ID: [id number] B rand Name: glucose Send Method: E-Prescr ibed Sub s Allowed: subs OK Medic ationGen ericName : glucose Not Available Not Available Not Available gabapenti n 300 mg capsule 08/21 completed Medicati on ID: [id number] B rand Name: gabapent in Send Method: E-Prescr ibed Sub s Allowed: subs OK Medic ationGen ericName : gabapent in Not Available Not Available Not Available omeprazol e 20 mg capsule,d elayed release 1 capsule by mouth 08/21 completed Medicati on ID: [id number] D uration Value: 30 Prescri bed By [...] 25 mg tablet,ex tended release 24 hr 12/29 completed Medicati on ID: [id number] B rand Name: metoprol ol succinat e Send Method: E-Prescr ibed Sub s Allowed: subs OK Medic ationGen ericName : metoprol ol succinat e Not Available Not Available Not Available ergocalci ferol (vitamin D2) 1,250 mcg (50,000 unit) capsule 08/21 completed Medicati on ID: [id number] B rand Name: ergocalc iferol (vitamin D2) Send Method: E-Prescr ibed Sub s Allowed: subs OK Medic ationGen ericName : ergocalc iferol (vitamin D2) Not Available Not Available Not Available epinephri ne 0.3 mg/0.3 mL injection , auto-inje ctor 1 pen injector 2020 active Medicati on ID: [id number] D uration Value: 1 Prescri bed By [...] aerosol inhaler 2019 active Medicati on ID: [id number] B rand Name: albutero l sulfate Send [...] spray,patricia pension 08/18 completed Medicati on ID: [id number] B rand Name: fluticas one propiona te [...] ous pen 08/21 completed Medicati on ID: [id number] B rand Name: Levemir FlexTouc h U-100 [...] Available Pentips Pen Needle 32 gauge x 5/32 USE [...] ICD10 Code Diagnosis IMO Codes Diagnosis Note [id number] ROSHNI BERGER MD [facility] [address] [address] 08/21/2024 12:45:13 08/21/2024 14:51:23 Conductive hearing loss 41883848 H90.0 Audiologic al evaluation results: Right ear: Normal through 3 kHz sloping to a mild conductive hearing loss with no measurable word recognitio n. Left ear: Normal through 4 kHz sloping to a mild conductive hearing loss with no measurable word recognitio n.SRT and WRS could not be measured due to language barriers. Tympanomet ry: Right Ear:Type A Left Ear:Type A Tinnitus of left ear 821 5618792 106 H93.12 Today we discussed the pathophysi [...] meals and NSAIDs. Unsteady when walking 22 076730 R26.89 Complicati on due to diabetes mellitus 70737659 E13.69 Diabetic p eripheral neuropathy 735856269 E11.40 History of operative procedure on lumbar spinal structure 946347293 Z98.890 Health Concerns Section Related Observation LastModified by Organization Detai ls LastModified Time None Recorded Concern Status LastModified by Organization Details LastModified Time None Recorded Advance Directives Directive None Recorded Payers Insurance Date Sequence Insurance Name Policy Number Policy Meza Covered Member ID Meza Member ID Guarantor Name 08/21/2024 1 [facility] (MEDI-MERY HMO) Joo Dawson [id number] Joo Dawson 08/21/2024 1 [facility] - DOS ON OR AFTER 2023 - ONE CARE (MEDICARE REPLACEMENT/ADV ANTAGE - HMO) Joo Dawson [id number] Joo Dawson Notes Date Note Type Note [...] use it a lot. ROSHNI BERGER MD [address] [place] [address], [place], [address], [place] - [facility] 08/21/2024 14:51:38
== END 2025-09-16 14:43 | disposition home or self-care (01) ==
LOC: HO.HKASLDS 14:42
PROVIDERS: PCP Family Medicine; Visit Provider Internal Medicine Nephrology
DX: E11.21 Type 2 diabetes mellitus with diabetic nephropathy (principal); R79.89 Other specified abnormal findings of blood chemistry
CPT/HCPCS: 36415; 80048; 82570; 84156; 84520

== ENCOUNTER 2025-09-17 14:26 | Outpatient (AMB) | payer OTHER, SELFPAY ==
--- NOTE | 2025-09-17 15:03 | HO.NEPHOV ---
Vital Signs 09/17/25 15:05 Height 6 ft Weight 217 lb 4 oz BMI 29.5 BP 140/90 H Blood Pressure Location Lt brachial Position Sitting Pulse 95 Pulse Source Pulse Oximeter Pulse Oximetry (%) 97 Oxygen Delivery Method Room Air Intake Visit Reasons: 2mon follow-up w/labs-LVM Steward/Stewardess Third Class Required: Yes Steward/Stewardess Third Class Language: Management Scientist Services: Steward/Stewardess Third Class Present Steward/Stewardess Third Class Name: Nick [id number] Information Interpreted: clinical only Accompanied by: Self / Same As Patient Allergies ibuprofen Allergy (Unknown, Verified 09/17/25 15:04) stomach upset Seafood Allergy (Intermediate, Uncoded 05/28/25 16:29) RASH shell fish Allergy (Unknown, Uncoded 05/28/25 16:29) Unknown HPI Comments Details: Mr. Dawson was seen in follow up for proteinuria. He is 59 years of age and has longstanding history of diabetes mellitus. He has no history of drug use. He denies history of retinopathy, neuropathy or LVH but has proteinuria .He does not have any nausea, vomiting, diarrhea, shortness of breath, proximal nocturnal dyspnea, orthopnea, pedal edema, hematuria, renal stones, coronary artery disease, congestive heart failure, carotid stenosis, peripheral arterial disease, renal artery stenosis, new bone or back pain. He never had any history of high serum calcium. He denies any history of hepatitis or HIV. He does not get any recurrent sore throat, epistaxis, hemoptysis, photosensitivity, skin rashes. He has no sensorineural hearing deficits. His renal functions are at baseline [facility] Medical History Osteomyelitis Diabetic ulcer of toe Asthma HLD (hyperlipidemia) HTN (hypertension) Diabetes Surgical History H/O exploratory laparotomy Social History Household Members: Family Alcohol intake: never Patient Tobacco Use Status: Never used Tobacco service: No Current occupational status: disabled Review of Systems Const All systems reviewed & are unremarkable except as noted in HPI and below Physical Exam Vital Signs: Last Vital Signs Pulse 95 09/17/25 15:05 BP 140/90 H 09/17/25 15:05 Pulse Ox 97 09/17/25 15:05 Oxygen Delivery Method Room Air 09/17/25 15:05 BMI result Body Mass Index 29.5 Const General: comfortable and no acute distress Orientation/consciousness: patient oriented x3 HEENT Head: Yes normocephalic Mouth: Normal oral and palatal mucosa present Eyes EOM: EOMs intact bilaterally Neck Neck: Yes supple Resp Auscultation: clear to auscultation bilaterally Cardio Jugular venous distension: no JVD Rate: regular rate GI Palpation (GI): Soft to palpation Auscultation: normal bowel sounds General: Yes no CVA tenderness Back/Spine/Pelvis Back: no CVA tenderness Skin General skin exam: no rashes or lesions noted Neuro General: patient oriented x3 and moves all extremities Extrem General: Yes no pedal edema Results Reviewed Nephrology Results: Sodium, (135-145) 140 mmol/L 09/16/25 Potassium, (3.3-5.1) 4.4 mmol/L 09/16/25 Chloride, (96-108) 105 mmol/L 09/16/25 Carbon Dioxide, (22-29) 27 mmol/L 09/16/25 BUN, (9-16) 40 mg/dL H 09/16/25 Creatinine, (0.5-1.4) 1.18 mg/dL 09/16/25 Calcium, (8.4-10.2) 9.9 mg/dL 09/16/25 Urine Creatinine 77.64 mg/dL 09/16/25 Protein/Creatinin Ratio, (<0.2) 1.62 H 09/16/25 Assessment & Plan Assessment & Plan (1) HTN (hypertension): Code(s): I10 - Essential (primary) hypertension Category: Medical Qualifiers: Hypertension type: primary hypertension Qualified Code(s): I10 - Essential (primary) hypertension (2) Diabetic nephropathy: Code(s): E11.21 - Type 2 diabetes mellitus with diabetic nephropathy Category: Medical Qualifiers: Diabetes mellitus type: type 2 Qualified Code(s): E11.21 - Type 2 diabetes mellitus with diabetic nephropathy Plan Mr. Dawson has longstanding diabetes with proteinuria. He has been on ARB. His urine output is good and there is no reason to suspect any obstructive uropathy. He has diabetic nephropathy. C/W Jardiance 25 mg daily. I increased his Diltiazem to 240 mg daily. He may need a renal biopsy. He is avoiding nonsteroidal anti-inflammatories which I encouraged. He needs to maintain hydration. Blood work before next visit. I did not make any other medication changes today and answered all his questions Orders: Orders Protein Creatinine Ratio, Ur 3 Months E11. - Type 2 diabetes mellitus with diabetic nephropathy, I10 - Essential (primary) hypertension Electrolytes 3 Months E11.21 - Type 2 diabetes mellitus with diabetic nephropathy, I10 - Essential (primary) hypertension Blood Urea Nitrogen 3 Months E11. - Type 2 diabetes mellitus with diabetic nephropathy, I10 - Essential (primary) hypertension Creatinine 3 Months E11.21 - Type 2 diabetes mellitus with diabetic nephropathy, I10 - Essential (primary) hypertension Medications: Changed From diltiazem HCl ER (Tiadylt ER) 120 mg PO DAILY 90 caps 3RF To diltiazem HCl ER 120 mg (1/2 x 240 mg) PO DAILY 30 caps 6RF Refilled diltiazem HCl ER 120 mg (1/2 x 240 mg) PO DAILY 30 caps 6RF empagliflozin 25 mg PO DAILY 30 tabs 11RF 30 days Coding Level of Care Code Est Pt Level 4 (86854) Diagnoses Primary hypertension I10 Hypertension type: primary hypertension Diabetic nephropathy associated with type 2 diabetes mellitus E11. Diabetes mellitus type: type 2
[2025-09-17 15:05] VITALS: BP 140/90; PULSE 95; O2SAT 97; BMI 29.5
--- OUTSIDE RECORDS SUMMARY | 2025-09-17 18:43 | XMS_ITS | Encounter Summary ---
Author Organization [employer] Address [address] [place] [address] [address] [place] [phone] Care Team Providers Care Cement Breaker Name Role Phone Enedina Saunders DO Primary Care Provider + [phone] Encounter Details Date Type Department Care Team (Late Contact Info) Description 10/29/[address] [address] Enedina Saunders DO [address] [place] [address] Social History Tobacco Use Types Packs/Day Years [...] Description 10/02/2025 10:15 AM EST Office Visit [address] [address] Enedina Saunders DO [address] [place] [address] 10/31/2025 1:00 PM EST Clinical Support [address] [address] Jenny Escobar RN 11/05/2025 3:30 PM EST Office Visit [facility] [address] [place] [address] Enriqueta Stevenson, IRAM [address] [place] [address] documented as of this encounter Visit Diagnoses Not on filedocumented in this encounter Care Teams Cement Breaker Relationship Specialty Start Date End Date Enedina Saunders DO [address] [place] [address] PCP - General Family Medicine 11/18/15 documented as of this encounter
--- OUTSIDE RECORDS SUMMARY | 2025-09-17 18:43 | XMS_ITS | Encounter Summary ---
Author Organization [employer] Address [address] [facility] [address]t h Floor [place] [id number] Care Team Providers Care Strickler Attendant Name Role Phone Enedina Saunders DO Primary Care Provider + [phone] Reason for Visit * Reason Onset Date Comments Nurse Triage 09/18/2024 Encounter Details Date Type Department Care Team ([facility] st Contact Info) Description 09/18/2024 Telephone [facility] [address] [place], [place] [phone] Enedina Saunders DO [address] [place] [address] Nurse Triage Social History Tobacco Use Types [...] AM EST Triage call with [facility] [place] [id number], [place]. Pt is reporting high blood pressure. Last nightBP was 198/? and this morning it was 168/95. Pt reports some dizziness and unbalance. Pt is taking hydrochlorothiazide 25mg as prescribed. No available apts in office over next 3 days. Pt is advised to come to [facility] for provider to check BP and [...] Description 10/02/2025 10:15 AM EST Office Visit [facility] [address] [place] [address] Enedina Saunders DO [address] [place] [address] 10/31/2025 1:00 PM EST Clinical Support [facility] [address] [place] [address] Jenny Escobar, WALTER 11/05/2025 3:30 PM EST Office Visit [facility] [address] [place], [place] [phone] Enriqueta Stevenson, OD [address] [place] [address] documented as of this encounter Visit Diagnoses Not on filedocumented in this encounter Additional Health Concerns Assessment Noted Time PHQ-9 Depression Total Score: 4 02/08/20 24 3:47 PM EDT documented as of this encounter Care Teams Strickler Attendant Relationship Specialty Start Date End Date Enedina Saunders DO [address] [place], [place] [phone] PCP - General Family Medicine 11/18/15 documented as of this encounter
--- OUTSIDE RECORDS SUMMARY | 2025-09-17 18:43 | XMS_ITS | Encounter Summary ---
Author Organization [employer] Address [address] [place] [address] [address]t h Floor [place] [phone] Care Team Providers Care High School Counselor Name Role Phone Enedina Saunders DO Primary Care Provider + [phone] Encounter Details Date Type Department Care Team (Late st Contact Info) Description 09/24/2022 Orders Only [facility] [address] [place] [address] Maritza Encinas LPN Social History Tobacco Use [...] Description 10/02/2025 10:15 AM EST Office Visit [facility] [address] [place] [address] Enedina Saunders DO [address] [place] [address] 10/31/2025 1:00 PM EST Clinical Support [facility] [address] [place] [address] Jenny Escobar RN 11/05/2025 3:30 PM EST Office Visit [facility] [address] [place] [address] Enriqueta Stevenson OD [address] [place] [address] documented as of this encounter Visit Diagnoses Not on filedocumented in this encounter Care Teams High School Counselor Relationship Specialty Start Date End Date Enedina Saunders DO [address] [place] [address] PCP - General Family Medicine 11/18/15 documented as of this encounter
--- OUTSIDE RECORDS SUMMARY | 2025-09-17 18:43 | XMS_ITS | Encounter Summary ---
Author Organization [employer] Address [address] [place] [address] 7t h Floor [place] [phone] Care Team Providers Care Electrical Timing Device Calibrator Name Role Phone Enedina Saunders DO Primary Care Provider + [phone] Encounter Details Date Type Department Care Team (Late st Contact Info) Description 10/21/2022 Orders Only [facility] [address] [place] [address] Maritza Encinas LPN Social History Tobacco Use [...] 10:15 AM EST Office Visit [facility] [address] [place] [address] Enedina Saunders DO 230 [place] [address] 10/31/2025 1:00 PM EST Clinical Support [facility] [address] [place] [address] Jenny Escobar, WALTER 11/05/2025 3:30 PM EST Office Visit [facility] [address] [place] [address] Enriqueta Stevenson, OD 230 [place] [address] documented as of this encounter Visit Diagnoses Not on filedocumented in this encounter Care Teams Electrical Timing Device Calibrator Relationship Specialty Start Date End Date Enedina Saunders DO 230 [place] [address] PCP - General Family Medicine 11/18/15 documented as of this encounter
--- OUTSIDE RECORDS SUMMARY | 2025-09-17 18:43 | XMS_ITS | Encounter Summary ---
Author Organization [employer] Address [address] [facility] 7t [place] [address] Care Team Providers Care Eap Counselor Name Role Phone Enedina Saunders DO Primary Care Provider + [phone] Encounter Details Date Type Department Care Team ([facility] Contact Info) Description 11/10/2022 Orders Only [facility] [address] [place] [address] Enedina Hudson LPN Social History Tobacco Use [...] Description 10/02/2025 10:15 AM EST Office Visit [address] [address] Enedina Saunders DO [address] [place] [address] 10/31/2025 1:00 PM EST Clinical Support [address] [address] Jenny Escobar RN 11/05/2025 3:30 PM EST Office Visit [facility] [address] [place] [address] Enriqueta Stevenson, IRAM 230 [place], [place] [phone] documented as of this encounter Visit Diagnoses Not on filedocumented in this encounter Care Teams Eap Counselor Relationship Specialty Start Date End Date Enedina Saunders DO 230 [place] [address] PCP - General Family Medicine 11/18/15 documented as of this encounter
--- OUTSIDE RECORDS SUMMARY | 2025-09-17 18:44 | XMS_ITS | Encounter Summary ---
Author Organization [employer] Address [address] [place] [address] 7t [place] [address] Care Team Providers Care Rn Admit Name Role Phone Enedina Saunders DO Primary Care Provider + [phone] Reason for Visit * Reason Onset Date Comments OV notes 10/04/2023 Encounter Details Date Type Department Care Team ([facility] st Contact Info) Description 10/04/2023 Telephone [facility] 230 [place], [place] [phone] Enedina Saunders DO 230 [place] [address] OV notes Social History Tobacco Use Types [...] - 10/04/2023 3:11 PM EST Tc from [facility] 08/04 OV notes will need to be faxed to [employer] for diabetic shoes. documented in this encounter Plan of Treatment Upcoming Encounters Date Type Department Care Team (Late st Contact Info) Description 10/02/2025 10:15 AM EST Office Visit [facility] 230 [place] [address] Enedina Saunders DO 230 [place] [address] 10/31/2025 1:00 PM EST Clinical Support [facility] 230 [place] [address] Jenny Escobar RN 11/05/2025 3:30 PM EST Office Visit [facility] [address] [place] [address] Enriqueta Stevenson, OD 230 [place] [address] documented as of this encounter Visit Diagnoses Not on filedocumented in this encounter Additional Health Concerns Assessment Noted Time PHQ-9 Depression Total Score: 0 12/21/19 23 10:36 AM EDT documented as of this encounter Care Teams Rn Admit Relationship Specialty Start Date End Date Enedina Saunders DO 230 [place] [address] PCP - General Family Medicine 11/18/15 documented as of this encounter
--- OUTSIDE RECORDS SUMMARY | 2025-09-17 18:44 | XMS_ITS | Encounter Summary ---
Author Organization [employer] Address [address] [facility] [address] 7t [place] [address] Care Team Providers Care Director Consumer Affairs Name Role Phone MarcelloEnedina luciano Primary Care Provider + [phone] Reason for Visit * Reason Comments Med Refill Encounter Details Date Type Department Care Team (Late st Contact Info) Description 12/14/2024 Refill [facility] 230 [place], [place] [phone] Viridiana Urbina MD 230 [place] [address] Social History Tobacco Use Types Packs/Day Years [...] Description 10/02/2025 10:15 AM EST Office Visit [facility] [address] [place] [address] Enedina Saunders DO 230 [place] [address] 10/31/2025 1:00 PM EST Clinical Support [facility] [address] [place] [address] Jenny Escobar, RN 11/05/2025 3:30 PM EST Office Visit [facility] 267 [place] [address] Graham, Enriqueta, OD 230 [place] [address] documented as of this encounter Visit Diagnoses Not on filedocumented in this encounter Additional Health Concerns Assessment Noted Time PHQ-9 Depression Total Score: 4 02/08/20 24 3:47 PM EDT documented as of this encounter Care Teams Director Consumer Affairs Relationship Specialty Start Date End Date Enedina Saunders DO [address] [place] [address] PCP - General Family Medicine 11/18/15 documented as of this encounter
--- OUTSIDE RECORDS SUMMARY | 2025-09-17 18:44 | XMS_ITS | Encounter Summary ---
Author Organization [employer] Address 75 [facility] 7t [place] [address] Care Team Providers Care Manager Mission Name Role Phone Enedina Saunders DO Primary Care Provider + [phone] Reason for Visit * Reason Comments Med Refill Encounter Details Date Type Department Care Team (Late st Contact Info) Description 10/21/2023 Refill [facility] 230 [place], [place] [phone] Enedina Saunders DO 230 [place], [place] [phone] Type 2 diabetes mellitus with other diabetic kidney complication ([facility]/HCC) Social History Tobacco Use Types Packs/Day [...] 10/02/2025 10:15 AM EST Office Visit [facility] [address] [place] [address] Enedina Saunders DO 230 [place] [address] 10/31/2025 1:00 PM EST Clinical Support [facility] 230 [place] [address] Jenny Escobar, WALTER 11/05/2025 3:30 PM EST Office Visit [facility] [address] [place] [address] Enriqueta Stevenson, OD 230 [place] [address] documented as of this encounter Visit Diagnoses Diagnosis Type 2 diabetes mellitus with other diabetic kidney complication (HCC) documented in this encounter Additional Health Concerns Assessment Noted Time PHQ-9 Depression Total Score: 0 12/21/19 23 10:36 AM EDT documented as of this encounter Care Teams Manager Mission Relationship Specialty Start Date End Date Enedina Saunders DO 230 [place] [address] PCP - General Family Medicine 11/18/15 documented as of this encounter
--- OUTSIDE RECORDS SUMMARY | 2025-09-17 18:44 | XMS_ITS | Encounter Summary ---
Author Organization [employer] Address [address] [facility] 7t h Floor [place] [id number] Care Team Providers Care Cfa Name Role Phone Enedina Saunders DO Primary Care Provider + [phone] Reason for Visit * Reason Comments Med Refill Encounter Details Date Type Department Care Team (Late st Contact Info) Description 03/01/2024 Refill [facility] 230 [place], [place] [phone] Enedina Saunders DO 230 [place], [place] [phone] Essential hypertension Social History Tobacco Use Types [...] is your housing situation today? I have [facility] 02/08/[address] you [...] Description 10/02/2025 10:15 AM EST Office Visit [facility] 230 [place] [address] Enedina Saunders DO 230 [place] [address] 10/31/2025 1:00 PM EST Clinical Support [facility] 230 [place] [address] Jenny Escobar, WALTER 11/05/2025 3:30 PM EST Office Visit [facility] [address] [place] [address] Graham, Enriqueta, OD 230 [place] [address] documented as of this encounter Visit Diagnoses Diagnosis Essential hypertension Unspecified essential hypertension documented in this encounter Additional Health Concerns Assessment Noted Time PHQ-9 Depression Total Score: 4 02/08/20 24 3:47 PM EDT documented as of this encounter Care Teams Cfa Relationship Specialty Start Date End Date Enedina Saunders DO [address] [place] [address] PCP - General Family Medicine 11/18/15 documented as of this encounter
--- OUTSIDE RECORDS SUMMARY | 2025-09-17 18:44 | XMS_ITS | Encounter Summary ---
Author Organization [employer] Address [address] [place] [address] 7t [place] [address] Care Team Providers Care Water Taxi Operator Name Role Phone GianEnedina owens Primary Care Provider + [phone] Encounter Details Date Type Department Care Team [...] Description 10/02/2025 10:15 AM EST Office Visit [facility] 230 [place] [address] Enedina Saunders DO 230 [place] [address] 10/31/2025 1:00 PM EST Clinical Support [facility] 230 [place] [address] Jenny Escobar RN 11/05/2025 3:30 PM EST Office Visit [facility] OPTOMETRY [address] [place] [address] Enriqueta Stevenson, OD 230 [place] [address] documented as of this encounter Goals Goal [...] has diabetic eye disease No Andrae Murguia Patient has diabetic eye [...] Nitrogen (BUN) 40(H) 9 - 16 mg/dL [facility] 09/16/2025 2:49 PM EST 09/16/2025 6:12 PM EST us Generic External Data Provider LAB BLOOD ORDERAB LES Final Result [facility] [address] [place] [phone] * (ABNORMAL) Protein Creatinine Ratio, Urine (09/16/2025 2:19 PM EST) Creatinine, Urine 77.64 mg/dL [facility] Protein, Total, Random Urine 126(H) <12 mg/dL [facility] Protein/Creati nine Ratio, Ur 1.62(H) <0.2 [facility] Comment:The spot urine prote in:creatinine ratio may increase to 0.3during normal . 09/16/2025 2:19 PM EST 09/16/2025 6:10 PM EST us Generic External Data Provider LAB URINE ORDERAB LES Final Result [facility] [address] [place] [address] [phone] documented in this encounter Visit Diagnoses [...] documented as of this encounter Care Teams Water Taxi Operator Relationship Specialty Start Date End Date Enedina Saunders DO [address] [place] [address] PCP - General Family Medicine 11/18/15 documented as of this encounter
--- OUTSIDE RECORDS SUMMARY | 2025-09-17 18:44 | XMS_ITS | Encounter Summary ---
Author Organization [employer] Address [address] [place] [address] 7t [place] [address] Care Team Providers Care Dispatcher Tow Truck Name Role Phone Enedina Saunders DO Primary Care Provider + [phone] Reason for Visit * Reason Comments Med Refill Encounter Details Date Type Department Care Team (Late st Contact Info) Description 02/10/2024 Refill [facility] 230 [place], [place] [phone] Enedina Saunders DO 230 [place], [place] [phone] Back pain, unspecified back location, unspecified back [...] 10:15 AM EST Office Visit [facility] [address] [place] [address] Enedina Saunders DO 230 [place] [address] 10/31/2025 1:00 PM EST Clinical Support [facility] 230 [place] [address] Jenny Escobar, WALTER 11/05/2025 3:30 PM EST Office Visit [facility] OPTOMETRY [address] [place] [address] Graham, Enriqueta, OD 230 [place] [address] documented as of this encounter Visit Diagnoses Diagnosis Back pain, unspecified back location, unspecified back pain laterality, unspecified chronicity documented in this encounter Additional Health Concerns Assessment Noted Time PHQ-9 Depression Total Score: 4 02/08/20 24 3:47 PM EDT documented as of this encounter Care Teams Dispatcher Tow Truck Relationship Specialty Start Date End Date Enedina Saunders DO [address] [place] [address] PCP - General Family Medicine 11/18/15 documented as of this encounter
--- OUTSIDE RECORDS SUMMARY | 2025-09-17 18:44 | XMS_ITS | Encounter Summary ---
Author Organization [employer] Address [address] [facility] 7t [place] [address] Care Team Providers Care Color Repairer Name Role Phone Enedina Saunders DO Primary Care Provider + [phone] Reason for Visit * Reason Onset Date Comments Med Refill 03/01/2024 Encounter Details Date Type Department Care Team ([facility] st Contact Info) Description 03/01/2024 Telephone [facility] 230 [place], [place] [phone] Enedina Saunders DO 230 [place], [place] [phone] Med Refill Social History Tobacco Use Types [...] MG/0.5ML solution pen-injector To be sent to: [facility] - [place], [place] - [address] [place] [address] documented in this encounter Plan of Treatment Upcoming Encounters Date Type Department Care Team (Late st Contact Info) Description 10/02/2025 10:15 AM EST Office Visit [facility] 230 [place] [address] Enedina Saunders DO [address] [place] [address] 10/31/2025 1:00 PM EST Clinical Support [facility] 230 [place] [address] Jenny Escobar RN 11/05/2025 3:30 PM EST Office Visit [facility] OPT[facility] [address] [place] [address] [phone] Enriqueta Stevenson, OD 230 [place] [address] documented as of this encounter Visit Diagnoses Not on filedocumented in this encounter Additional Health Concerns Assessment Noted Time PHQ-9 Depression Total Score: 4 02/08/20 24 3:47 PM EDT documented as of this encounter Care Teams Color Repairer Relationship Specialty Start Date End Date Enedina Saunders DO [address] [place] [address] PCP - General Family Medicine 11/18/15 documented as of this encounter
--- OUTSIDE RECORDS SUMMARY | 2025-09-17 18:44 | XMS_ITS | Encounter Summary ---
Author Organization [employer] Address 75 [facility] 7t h Floor [place] [phone] Care Team Providers Care Cost Accountant Name Role Phone Enedina Saunders DO Primary Care Provider + [phone] Reason for Visit * Reason Comments Med Refill Encounter Details Date Type Department Care Team (Late st Contact Info) Description 07/29/2025 Refill [facility] 230 [place], [place] [phone] Enedina Saunders DO 230 [place] [address] Back pain, unspecified back location, unspecified back [...] Description 10/02/2025 10:15 AM EST Office Visit [facility] [address] [place] [address] Enedina Saunders DO 230 [place] [address] 10/31/2025 1:00 PM EST Clinical Support [facility] [address] [place] [address] Jenny Escobar RN 11/05/2025 3:30 PM EST Office Visit [facility] [address] [place] [address] Enriqueta Stevenson, OD 230 [place] [address] documented as of this encounter Visit Diagnoses Diagnosis Back pain, unspecified back location, unspecified back pain laterality, unspecified chronicity documented in this encounter Additional Health Concerns Assessment Noted Time PHQ-9 Depression Total Score: 0 04/12/20 25 11:31 AM EDT documented as of this encounter Care Teams Cost Accountant Relationship Specialty Start Date End Date Enedina Saunders DO [address] [place] [address] PCP - General Family Medicine 11/18/15 documented as of this encounter
--- OUTSIDE RECORDS SUMMARY | 2025-09-17 18:44 | XMS_ITS | Encounter Summary ---
Author Organization [employer] Address [address] [facility] 7t h Floor [place] [phone] Care Team Providers Care Sales Account Coordinator Name Role Phone Enedina Saunders DO Primary Care Provider + [phone] Reason for Visit * Reason Onset Date Comments Call Back Request 04/06/2024 Encounter Details Date Type Department Care Team ([facility] st Contact Info) Description 04/06/2024 Telephone [facility] MED[facility] 230 [place], [place] [phone] Enedina Saunders DO 230 [place], [place] [phone] Call Back Request Social History Tobacco Use [...] to NS placed 03/05/24. MRI done at [facility] ([place]) 02/22/24 ( in chart). TC returned to daughter and daughter reports she called [facility] to inquire on status of NS [...] Description 10/02/2025 10:15 AM EST Office Visit [facility] 230 [place] [address] Enedina Saunders DO 230 [place] [address] 10/31/2025 1:00 PM EST Clinical Support [facility] 230 [place] [address] Jenny Escobar, RN 11/05/2025 3:30 PM EST Office Visit [facility] OPTOMETRY [address] [place] [address] Enriqueta Stevenson, OD 230 [place] [address] documented as of this encounter Visit Diagnoses Not on filedocumented in this encounter Additional Health Concerns Assessment Noted Time PHQ-9 Depression Total Score: 4 02/08/20 24 3:47 PM EDT documented as of this encounter Care Teams Sales Account Coordinator Relationship Specialty Start Date End Date Enedina Saunders DO 230 [place] [address] PCP - General Family Medicine 11/18/15 documented as of this encounter
--- OUTSIDE RECORDS SUMMARY | 2025-09-17 18:44 | XMS_ITS | Clinical Summary ---
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 12/01 Healthcare [...] for f/u eval Opioid dependence in remission ([facility]) 016 Chronic low back pain 11/18/2015 Assessment & Plan (02/08/2024 3:50 PM EDT): With intermittent flaring -L-spine XR with mild degenerative changes JUL 2017 -cont gabapentin 800mg TID -cont amitriptyline nightly -cont baclofen TID to help with mm spasm -cont tylenol and diclofenac gel prn -cont tramadol for severe pain control -he refuses f/u with pain mgmt -advised contact [facility] if sx change or worsen [...] microalbumin OCT 2023 -[facility] -f/u with renal as scheduled [...] with severe diabetic retinopathy JAN 2023 at [facility], encouraged schedule f/u -strongly encouraged [...] DEPARTMENT Provider, Generic External Data 09/03/2025 Refill [facility] WALK-IN CENTER [address] [place] [phone] Enedina Saunders DO 09/02/2025 Refill [facility] MEDICINE [address] [place] [phone] Jenny Escobar RN Chronic low back pain, unspecified back pain laterality, unspecified whether sciatica present 09/02/2025 Refill [facility] CHC MED & PEDS [address] [place] [address] Enedina Saunders DO 08/03/2025 Refill [facility] MED & PEDS [address] [place] [address] Enedina Saunders DO Essential hypertension 08/01/2025 10:00 AM EDT Clinical Support [facility] MEDICINE [address] [place] [phone] Jenny Escobar RN [facility] (current) use of opiate analgesic (Primary Dx) 08/01/2025 Travel 07/30/2025 Refill [facility] MEDICINE [address] [place] [address] Enedina Saunders DO Chronic low back pain, unspecified back pain laterality, unspecified whether sciatica present 07/29/2025 Refill [facility] WALK-IN CENTER [address] [place] [address] Enedina Saunders DO Back pain, unspecified back location, unspecified back pain laterality, unspecified chronicity 07/11/2025 Refill [facility] MED & PEDS [address] [place] [address] Enedina Saunders, Chronic GERD 06/28/2025 Refill [facility] MEDICINE [address] [place] [address] Enedina Saunders, Chronic low back pain, unspecified back pain laterality, unspecified whether sciatica present 06/19/2025 Refill [facility] MEDICINE [address] [place], [place] [phone] Enedina Saunders, Type 2 diabetes mellitus with other specified complication, unspecified whether mobile paint specialist insulin use ([facility]) from Last 3 Months Immunizations Immunization Administration [...] 10:15 AM EST Office Visit [facility] MEDICINE [address] [place] [address] Enedina Saunders DO [address] [place] [address] 10/31/2025 1:00 PM EST Clinical Support [facility] MEDICINE [address] [place] [address] Jenny Escobar RN 11/05/2025 3:30 PM EST Office Visit [facility] OPTOMETRY [address] [place], [place] [phone] Graham, Enriqueta, OD [address] [place] [address] Health Maintenance Due Date Last Done Comments [...] DRUG SCREEN Routine 08/01/2025 9:39 AM EDT [facility] (current) use of opiate analgesic LIPID PANEL, [...] Urea Nitrogen) (09/16/2025 2:49 PM EST) Pathologist [facility] Urea Nitrogen (BUN) 40(H) 9 - 16 mg/dL [facility] 09/16/2025 2:49 PM EST 09/16/2025 6:12 PM EST us Generic External Data Provider LAB BLOOD ORDERAB LES Final Result [facility] [address] [place] [phone] * (ABNORMAL) Basic Metabolic Panel (09/16/2025 2:44 PM EST) Sodium 140 135 - 145 mmol/L [facility] Potassium 4.4 3.3 - 5.1 mmol/L [facility] Chloride 105 96 - 108 mmol/L [facility] Carbon Dioxide 27 22 - 29 mmol/L [facility] Anion Gap 12 12 - 20 [facility] Urea Nitrogen (BUN) 39(H) 9 - 16 mg/dL [facility] Creatinine, Serum 1.18 0.5 - 1.4 mg/dL [facility] Estimated Glomerular Filt Rate >60 [facility] Comment:Chronic Kidney Disea se: Estimated GFR < 60 mL/min/[id number] Kidney Disease: Estimated GFR < 15 mL/min/1.73m2 Glucose 139(H) 60 - 115 mg/dL [facility] Calcium 9.9 8.4 - 10.2 mg/dL [facility] Blood Venous blood specimen / Unknown 09/16/2025 2:44 PM EST 09/16/2025 6:12 PM EST us Enedina Saunders DO LAB BLOOD ORDERABLES Final R esult Performing Organization Address City/[facility]/ZIP Co de Phone Number [facility] [address] [place] [phone] * (ABNORMAL) Protein Creatinine Ratio, Urine (09/16/2025 2:19 PM EST) Creatinine, Urine 77.64 mg/dL [facility] Protein, Total, Random Urine 126(H) <12 mg/dL [facility] Protein/Creati nine Ratio, Ur 1.62(H) <0.2 [facility] Comment:The spot urine prote in:creatinine ratio may increase to 0.3during normal . 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 07/09/26 Internal Pass Control Enedina Saunders DO POINT OF CARE TEST ENTER/RUSTAM T ORDERABLES Final Result * (ABNORMAL) Lipid Panel, Standard (04/12/2025 2:50 PM EDT) Triglycerides 84 <150 mg/dL [facility] Comment:Desirable Triglyceri de: less than 150 mg/dLBorderline High Triglyceride 150-199 mg/dLHigh Triglyceride: 200-499 mg/dLVery High Triglyceride: greater than or equal to 5OO mg/dL Cholesterol 99 <200 mg/dL [facility] Comment:Desirable Cholestero l: less than 200 mg/dLBorderline High Cholesterol: 200-239 mg/dLHigh Cholesterol: greater than 239 mg/dL LDL Cholesterol Calculated 51 <100 mg/dL [facility] Comment:Desirable LDL: less than 100 mg/dLNear Optimal/Above Optimal LDL: 110- 129 mg/dLBorderline High LDL: 130-159 mg/dLHigh LDL: 160-189 mg/dLVery High LDL: greater than or equal to 190 mg/dL HDL Cholesterol 32(L) >40 mg/dL [facility] Comment:Desirable HDL: great er than 40 mg/dL Note: This HDL assay may give artificially low results in patients with liver disease. Blood Venous blood specimen / Unknown 04/12/2025 2:50 PM EDT 04/12/2025 2:50 PM EDT Enedina Nicky [facility] LAB BLOOD ORDERABLES Final R esult Performing Organization Address City/[facility]/ZIP Co de Phone Number [facility] [address] [place] [phone] [phone] * (ABNORMAL) POCT HGB A1C (04/12/2025 11:34 AM EDT) Pathologist [facility] Hemoglobin A1C 6.9(A) 4.0 - 5.7 % QC Media Lot # [id number] Lot# Expiration Date 086 Blood 04/12/2025 11:3 4 AM EDT Enedina Saunders DO POINT OF CARE TEST ENTER/RUSTAM T ORDERABLES Final Result * Hepatitis C Antibody with Reflex to HCV, RNA, Quantitative, Real-Time PCR (10/15/2024 3:25 PM EST) [facility] Hepatitis C Antibody Nonreactive Nonreactive [facility] Comment:Antibodies to HCV no t detected; does not exclude early acuteHCV infection. Blood Venous blood specimen / Unknown 10/15/2024 3:25 PM EST 10/15/2024 3:25 PM EST Enedina Nicky [facility] LAB BLOOD ORDERABLES Final R esult Performing Organization Address City/[facility]/ZIP Co de Phone Number [facility] [address] [place] [phone] * HIV-1/2 Antigen and Antibodies, Fourth Generation, with Reflexes (10/15/2024 3:25 PM EST) Pathologist [facility] HIV AB/AG Nonreactive Nonreactive [facility] Comment:HIV-1 p24 Ag and/or HIV-1/HIV-2 Ab not detected.A test result that is nonreactive does not exclude thepossibility of exposure to or infection with HIV-1 and/orHIV-2. Nonreactive results in this assay for individualswith prior exposure to HIV-1 and/or HIV-2 may be due toantigen and antibody levels that are below the limit ofdetection of this assay.The [employer] HIV Ag/Ab Combo assay result andsupplemental assay results should be interpreted inconjunction with the patient's clinical presentation,history and other laboratory results. If the results areinconsistent with clinical evidence, additional testing issuggested to confirm the result. Blood Venous blood specimen / Unknown 10/15/2024 3:25 PM EST 10/15/2024 3:25 PM EST us Enedina Saunders DO LAB BLOOD ORDERABLES Final R esult [facility] [address] [place] [phone] * Fecal Globin by Immunochemistry (12/29/2022 12:00 AM EDT) Fecal Globin By Immunochemistry SEE NOTE [facility] [employer] Comment: FECAL GLOBIN BY IMMUNOCHEMISTRY Micro Number: [id number] Test Status: Final Specimen Source: Insure (tm) fobt test card Specimen Quality: Adequate Fecal Globin: Not Detected Comment: Test results may be invalid as no date of collection was provided. Specimens are stable for 14 days. Stool Rectal contents / Unknown 12/29/2022 01/04/2023 9:16 AM EDT us Enedina Saunders DO LAB BODY FLUIDS AND STOOLS O RDERABLES Final Result [facility] [address], [place] [phone] [facility] [address] [place] [phone] from Last 3 Months or Most Recently [...] Patient has chronic kidney disease 09/02/2025 Insurance [facility] < 65 Care Teams Zoo Caretaker Relationship Specialty Start Date End Date Enedina Saunders DO [address] [facility] [place] [address] PCP - General Family Medicine 11/18/15
--- OUTSIDE RECORDS SUMMARY | 2025-09-17 18:44 | XMS_ITS | Encounter Summary ---
Author Organization [employer] Address [address] [facility] [address]t h Floor [place] [phone] Care Team Providers Care Food Broker Name Role Phone Enedina Saunders DO Primary Care Provider + [phone] Reason for Visit * Reason Onset Date Comments FYI 05/16/2025 Encounter Details Date Type Department Care Team ([facility] st Contact Info) Description 05/16/2025 Telephone [facility] MEDICINE [address] [place], [place] [phone] Enedina Saunders DO [address] [place] [address] FYI Social History Tobacco Use Types Packs/Day [...] Description 10/02/2025 10:15 AM EST Office Visit [facility] MEDICINE [address] [place] [address] Enedina Saunders DO [address] [place] [address] 10/31/2025 1:00 PM EST Clinical Support [facility] MEDICINE [address] [place] [address] Jenny Escobar RN 11/05/2025 3:30 PM EST Office Visit [facility] OPTOMETRY [address] [place] [address] Enriqueta Stevenson, OD [address] [place] [address] documented as of this encounter Visit Diagnoses Not on filedocumented in this encounter Additional Health Concerns Assessment Noted Time PHQ-9 Depression Total Score: 0 04/12/20 25 11:31 AM EDT documented as of this encounter Care Teams Food Broker Relationship Specialty Start Date End Date Enedina Saunders DO [address] [place] [address] PCP - General Family Medicine 11/18/15 documented as of this encounter
--- OUTSIDE RECORDS SUMMARY | 2025-09-17 18:44 | XMS_ITS | Encounter Summary ---
Author Organization [employer] Address [address] [facility] 7t h Floor [place] [phone] Care Team Providers Care Teacher Education Instructor Name Role Phone Enedina Saunders DO Primary Care Provider + [phone] Reason for Visit * Reason Onset Date Comments Results 04/29/2025 Encounter Details Date Type Department Care Team ([facility] st Contact Info) Description 04/29/2025 Telephone [facility] MEDICINE [address] [place], [place] [phone] Enedina Saunders DO [address] [place], [place] [phone] Results Social History Tobacco Use Types Packs/Day [...] have tested + for methadone today at [facility] appt, as she provides all of pt.'s [...] not understanding the results. Contact daughter at [phone] documented in this encounter Plan of Treatment Upcoming Encounters Date Type Department Care Team (Late st Contact Info) Description 10/02/2025 10:15 AM EST Office Visit [facility] MEDICINE [address] [place] [address] Enedina Saunders DO [address] [place] [address] 10/31/2025 1:00 PM EST Clinical Support [facility] MEDICINE [address] [place] [address] Jenny Escobar, WALTER 11/05/2025 3:30 PM EST Office Visit [facility] OPTOMETRY [address] [place] [address] Enriqueta Stevenson, OD [address] [place] [address] documented as of this encounter Visit Diagnoses Not on filedocumented in this encounter Additional Health Concerns Assessment Noted Time PHQ-9 Depression Total Score: 0 04/12/20 25 11:31 AM EDT documented as of this encounter Care Teams Teacher Education Instructor Relationship Specialty Start Date End Date Enedina Saunders DO [address] [place] [address] PCP - General Family Medicine 11/18/15 documented as of this encounter
--- OUTSIDE RECORDS SUMMARY | 2025-09-17 18:44 | XMS_ITS | Encounter Summary ---
Author Organization [employer] Address [address] [facility] 7t [place] [address] Care Team Providers Care Dehydrogenation Supervisor Name Role Phone GianEnedina owens Primary Care Provider + [phone] Reason for Visit * Reason Comments Med Refill Encounter Details Date Type Department Care Team (Late st Contact Info) Description 09/29/2023 Refill [facility] MEDICINE [address] [place], [place] [phone] Viridiana Urbina MD [address] [place], [place] [phone] Type 2 diabetes mellitus with other diabetic [...] Description 10/02/2025 10:15 AM EST Office Visit [facility] MEDICINE [address] [place] [phone] Enedina Saunders DO [address] [place] [address] 10/31/2025 1:00 PM EST Clinical Support [facility] MEDICINE [address] [place] [address] Jenny Escobar, WALTER 11/05/2025 3:30 PM EST Office Visit [facility] OPTOMETRY [address] [place] [address] Enriqueta Stevenson, OD [address] [place] [address] documented as of this encounter Visit Diagnoses Diagnosis Type 2 diabetes mellitus with other diabetic kidney complication (HCC) documented in this encounter Additional Health Concerns Assessment Noted Time PHQ-9 Depression Total Score: 0 12/21/19 23 10:36 AM EDT documented as of this encounter Care Teams Dehydrogenation Supervisor Relationship Specialty Start Date End Date Enedina Saunders DO [address] [place] [address] PCP - General Family Medicine 11/18/15 documented as of this encounter
--- OUTSIDE RECORDS SUMMARY | 2025-09-17 18:44 | XMS_ITS | Clinical Summary ---
Author Organization [address] [facility] Address [address] [place] [address] Phone Care Team Providers Care Blow Mold Machine Operator Name Role Phone Cindy Mohan MD Primary [...] ID:ICO Type:Not on file Address: [address] [place] [phone] Care Teams Blow Mold Machine Operator Relationship Specialty Start Date End Date Cindy Mohan MD [address] [place] [phone] PCP - General 08/05/23
== END 2025-09-17 16:17 | disposition home or self-care (01) ==
LOC: HO.HKAS 14:27
PROVIDERS: PCP Family Medicine; Visit Provider Internal Medicine Nephrology
DX: I10 Essential (primary) hypertension (principal); E11.21 Type 2 diabetes mellitus with diabetic nephropathy
CPT/HCPCS: 99214

== ENCOUNTER → 2025-09-17 14:26 | Outpatient (BNVA) | payer OTHER, SELFPAY | PROVIDERS: PCP Family Medicine; Visit Provider Internal Medicine Nephrology | DX: I10 Essential (primary) hypertension (principal); E11.21 Type 2 diabetes mellitus with diabetic nephropathy; R80.9 Proteinuria, unspecified; Z79.84 Long term (current) use of oral hypoglycemic drugs; Z79.899 Other long term (current) drug therapy | CPT/HCPCS: 99212 ==